=== PATIENT | female | born 1945 | race Caucasian/White ===

== ENCOUNTER 2021-07-01 13:18 | Emergency (ER) | payer MEDICARE, SELFPAY ==
[2021-07-01 13:30] VITALS: BP 139/76; PULSE 103; RESP 16; TEMP 37.7; O2SAT 98
--- NOTE | 2021-07-01 13:31 | ED.SKABFB ---
HPI - Skin/Abscess/Foreign Bdy General Chief complaint: Skin/Abscess/Foreign Body Stated complaint: left hand cut poss infection Time Seen by Provider: 07/01/21 14:08 Source: patient and RN notes reviewed Mode of arrival: ambulatory Limitations: no limitations History of Present Illness HPI narrative: 76-year-old female presents with concern for pain, redness, swelling to her left hand where she had a cut on of last week. Reports she has been using peroxide, warm water, Neosporin without relief. She denies decreased sensation, strength, range of motion. MD complaint: other (wound) Related Data Home Medications Medication Instructions Recorded Confirmed alprazolam 0.5 mg PO BID PRN 07/01/21 07/01/21 duloxetine 30 mg PO BID 07/01/21 07/01/21 escitalopram oxalate 20 mg PO DAILY 07/01/21 07/01/21 levothyroxine [Euthyrox] 150 mcg PO DAILY 07/01/21 07/01/21 meloxicam 15 mg PO DAILY 07/01/21 07/01/21 potassium chloride 30 meq PO DAILY 07/01/21 07/01/21 Allergies Allergy/AdvReac Type Severity Reaction Status Date / Time alendronate sodium Allergy Unknown Unknown Verified 07/01/21 13:41 codeine Allergy Unknown Unknown Verified 07/01/21 13:41 meperidine Allergy Unknown Unknown Verified 07/01/21 13:41 morphine Allergy Unknown Unknown Verified 07/01/21 13:41 Review of Systems Review of Systems: CONSTITUTIONAL: Denies malaise, chills, sweats, or fever. SKIN: Reports redness, swelling, tenderness below the first digit of the right hand MUSCULOSKELETAL: Denies joint pain or myalgia. NEUROLOGIC: Denies headache. All systems reviewed & are unremarkable except as noted in HPI and below PMFSH Family History Family History (Updated 09/20/12 @ 14:36 by DOCTOR UNKNOWN) Other Depression Family history of alcoholism Family history of glaucoma Family history of hearing loss Family history of thyroid disease Social History Social History Smoking status: Never smoker Alcohol intake: current Comments At time of signature, agree with nursing past medical, surgical, social and family history. There is no relevant family history pertinent to the presenting complaint Exam Narrative: GENERAL: Well-appearing, well-nourished, and in no acute distress. HEAD: Normocephalic, atraumatic. EYES: PERRLA, conjunctivae clear ENT: Mucous membranes moist. NECK: Supple. No lymphadenopathy CHEST: Clear to auscultation. No respiratory distress. HEART: Regular rate and rhythm. SKIN: Warm, dry. Induration, erythema, tenderness, warmth noted below the first digit on right hand approximately 4 cm x 2 cm, no open skin NEURO: Alert and oriented x3. PSYCH: Normal mood and affect Course Course Emergency Course: Patient is aware of diagnosis, understands and agrees to treatment plan. Anticipatory guidance given. Patient agrees to follow-up as directed and is aware of reasons to seek care at the emergency department. Portions of this record may have been created with voice recognition software Level of Care: Express Care Visit Vital Signs Vital signs: Reviewed. MDM - Skin/Abscess/Foreign Bdy MDM Narrative Medical decision making narrative: Exam findings show no acute concerns or changes; patient is non-toxic appearing and is in no distress. Patient is appropriate for outpatient treatment and follow-up. Critical Care Time Critical Care Time Critical Care Time: No Discharge Plan Discharge Clinical Impression: Cellulitis Qualifiers: Site of cellulitis: extremity Site of cellulitis of extremity: upper extremity Laterality: right Qualified Code(s): L03.113 - Cellulitis of right upper limb Patient Disposition: Home, Self-Care Condition: Stable Instructions: Antibiotic Form, Cellulitis (ED) Additional Instructions: Please follow up with your Primary Care Doctor within 48-72 hours - call for an appointment. Rest and elevate affected area; apply moist heat 3-4 times daily for 10-15 minutes. Take Motrin 600mg every 8 ho
== END 2021-07-01 14:24 | disposition home or self-care (01) ==
PROVIDERS: Emergency Provider Nurse Practitioner; PCP Family Medicine
DX: L03.113 Cellulitis of right upper limb (principal); E03.9 Hypothyroidism, unspecified; Z86.16 Personal history of COVID-19
CPT/HCPCS: 99203; G0463

== ENCOUNTER 2022-09-10 12:08 | Outpatient (NON) | payer MEDICARE, SELFPAY ==
[2022-09-10 12:18] LABS: Appearance Urine Cloudy (Clear); Bilirubin Urine Negative (Negative); Blood Urine Negative (Negative); Color Urine Light Yellow (Yellow); Glucose Urine UA Negative (Negative); Ketones Urine Negative (Negative); Leukocyte Esterase Ur 1+ (Negative); Nitrate Urine Positive (Negative); Protein Urine Negative (Negative); Urobilinogen Urine 0.2 mg/dL (0.2-1.0)
[2022-09-10 13:31] LABS: Add Urine Microscopic? YES; RBC Urine None seen /hpf (0-2); Squamous Epithelial Cell Urine Rare /hpf (Few); WBC Clumps Urine Present /hpf; WBC Urine 21-30 /hpf (0-3)
[2022-09-10 13:32] LABS: Bacteria Urine 4+ /hpf
== END 2022-09-10 12:09 | disposition home or self-care (01) ==
PROVIDERS: PCP Family Medicine; Visit Provider Nurse Practitioner Family
DX: D22.9 Melanocytic nevi, unspecified (principal)
CPT/HCPCS: 81001; 88305

== ENCOUNTER 2022-09-11 08:30 | Outpatient (CLI) | payer MEDICARE, SELFPAY ==
[2022-09-11 08:43] LABS: Hematocrit 42.9 % (35.0-42.0); Hemoglobin 14.3 g/dL (11.7-13.8); Mean Corpuscular HGB Conc 33.3 g/dL (32.0-36.0); Mean Corpuscular Hemoglobin 31.7 pg (27.0-31.0); Mean Corpuscular Volume 95.1 fL (78.0-102.0); Mean Platelet Volume 10.7 fl (9.2-11.8); Platelet Count Result 257 K/mm3 (150-420); Red Blood Count 4.51 M/mm3 (4.20-5.40); Red Cell Distribution Width 12.2 % (11.6-14.4); White Blood Count 4.2 K/mm3 (4.8-10.8)
[2022-09-11 09:17] LABS: Alanine Aminotransferase 27 U/L (14-59); Albumin Level 3.8 g/dL (3.4-5.0); Alkaline Phosphatase 61 U/L (46-116); Anion Gap 8 mmol/L (8-16); Aspartate Amino Transferase 19 U/L (15-37); Bilirubin,Total 0.8 mg/dL (0.00-1.00); Blood Urea Nitrogen 13 mg/dL (7-18); Calcium 8.6 mg/dL (8.5-10.1); Carbon Dioxide 31 mmol/L (21-32); Chloride 110 mmol/L (98-108); Estimated Glomerular Filt Rate > 60; Glucose 88 mg/dL (70-99); Osmolality Calculated 307 mOsm/kg (285-295); Potassium 4.1 mmol/L (3.5-5.1); Sodium 149 mmol/L (136-145); Total Protein 6.6 g/dL (6.4-8.2)
== END 2022-09-11 08:31 | disposition home or self-care (01) ==
LOC: CHSLAB 08:32
PROVIDERS: PCP Family Medicine; Visit Provider Nurse Practitioner Family
DX: N39.0 Urinary tract infection, site not specified (principal)
CPT/HCPCS: 36415; 80053; 85027

== ENCOUNTER 2022-10-01 08:14 | Outpatient (CLI) | payer MEDICARE, SELFPAY ==
[2022-10-01 08:27] LABS: Basophils Absolute Auto 0.03 K/mm3 (0.00-0.10); Basophils Percent Auto 0.6 % (0.0-1.0); Eosinophils Absolute Auto 0.14 K/mm3 (0.02-0.50); Eosinophils Percent Auto 2.7 % (1.0-6.0); Hematocrit 44.5 % (35.0-42.0); Hemoglobin 14.9 g/dL (11.7-13.8); Immature Granulocyte Absolute 0.02 K/mm3 (0.00-0.00); Immature Granulocyte Percent A 0.4 % (0.0-0.0); Lymphocytes Absolute Auto 1.52 K/mm3 (1.10-4.50); Mean Corpuscular HGB Conc 33.5 g/dL (32.0-36.0); Mean Corpuscular Hemoglobin 32.1 pg (27.0-31.0); Mean Corpuscular Volume 95.9 fL (78.0-102.0); Mean Platelet Volume 10.4 fl (9.2-11.8); Monocytes Absolute Auto 0.38 K/mm3 (0.10-0.90); Monocytes Percent Auto 7.3 % (2.0-11.0); Neutrophils Absolute Auto 3.2 K/mm3 (1.7-7.2); Platelet Count Result 273 K/mm3 (150-420); Red Blood Count 4.64 M/mm3 (4.20-5.40); Red Cell Distribution Width 12.1 % (11.6-14.4); White Blood Count 5.2 K/mm3 (4.8-10.8)
[2022-10-01 08:46] LABS: Alanine Aminotransferase 27 U/L (14-59); Albumin Level 3.7 g/dL (3.4-5.0); Alkaline Phosphatase 76 U/L (46-116); Anion Gap 6 mmol/L (8-16); Aspartate Amino Transferase 19 U/L (15-37); Bilirubin,Total 0.6 mg/dL (0.00-1.00); Blood Urea Nitrogen 13 mg/dL (7-18); Calcium 8.9 mg/dL (8.5-10.1); Carbon Dioxide 33 mmol/L (21-32); Chloride 106 mmol/L (98-108); Cholesterol 218 mg/dL (0-200); Estimated Glomerular Filt Rate > 60; Glucose 89 mg/dL (70-99); HDL Direct 56 mg/dL (40-60); LDL Cholesterol Calculated 139 mg/dL (<130); Osmolality Calculated 299 mOsm/kg (285-295); Potassium 3.7 mmol/L (3.5-5.1); Sodium 145 mmol/L (136-145); Total Protein 7.1 g/dL (6.4-8.2); Triglycerides 114 mg/dL (0-150)
[2022-10-06 13:41] LABS: Vitamin D 25 Hydroxy 45 ng/mL (30-100)
== END 2022-10-01 08:15 | disposition home or self-care (01) ==
LOC: CHSLAB 08:16
PROVIDERS: PCP Nurse Practitioner Family; Visit Provider Nurse Practitioner Family
DX: E55.9 Vitamin D deficiency, unspecified (principal); E78.5 Hyperlipidemia, unspecified; Z82.49 Family history of ischemic heart disease and other diseases of the circulatory system; N39.0 Urinary tract infection, site not specified
CPT/HCPCS: 36415; 80053; 80061; 82306; 85025

== ENCOUNTER 2023-01-06 13:25 | Outpatient (CLI) | payer MEDICARE, SELFPAY ==
--- NOTE | ~2023-01-06 | CT_ITS ---
EXAMINATION: CT abdomen pelvis w con DATE: 01/06/2023 13:51 INDICATION: Left lower quadrant abdominal pain for 6 weeks. Nausea, diarrhea. TECHNIQUE: Computed tomography (CT) of the abdomen and pelvis was performed with 100 CC Omnipaque 350 intravenous contrast. Automated exposure control and iterative reconstruction technique were employe d. Exam dose: 684.44 mGy-cm total exam DLP. COMPARISON: None. FINDINGS: Bilateral discoid atelectasis or scarring at the lung bases. No consolidation is noted. Normal heart size. No pericardial or pleural effusion. Status post cholecystectomy. A couple of approximately 7 and 9 mm probable hepatic cysts are noted. T he liver, spleen, pancreas, adrenal glands and kidneys are otherwise unremarkable, with exception of a probable 4 mm upper pole right renal cyst. No bile duct or pancreatic duct dilatation. No urinary tract calculus or hydroureteronephrosis. There is atherosclerotic calcification of the abdominal aorta but no abdominal aortic aneurysm or dis section. No intraperitoneal or retroperitoneal or pelvic mass lesion or adenopathy or ascites. Approximately 4.5 x 5.1 cm left pelvic cystic lesion and 2.5 x 3 cm right pelvic cystic lesion, likel y ovarian cysts. The uterus is absent. The urinary bladder is unremarkable. There is circumferential soft tissue thickening of the proximal transverse colon approximately 3.5 cm length, with an apple core stricture, suggesting proximal transverse colon adenocarcinoma. Colonosco py or barium enema workup are recommended. Degenerative spurring of the thoracic spine. Dextroscoliosis and multilevel degenerative disc disease of the lumbar spine, most severe at L4-5 and L5-S1. IMPRESSION: Bilateral ovarian cysts Small probable hepatic cysts Circumferential soft tissue thickening and suggestion of apple core lesion at proximal transverse col on, suggesting adenocarcinoma the colon. Colonoscopy or barium enema are recommended. On 01/06/[address] Calixto telephoned the report and specifically possible adenocarcinoma of the proximal transverse colon and suggestion of colonoscopy or barium enema workup to Dr. Connelly's nurse practitioner Kimberley. Reviewed, dictated and finalized at [facility] Reviewed, dictated and finalized at [facility] IMPRESSION: Bilateral ovarian cysts Small probable hepatic cysts Circumferential soft tissue thickening and suggestion of apple core lesion at p roximal transverse colon, suggesting adenocarcinoma the colon. Colonoscopy or b arium enema are recommended. On 01/06/[address] Calixto telephoned the report and specifically poss ible adenocarcinoma of the proximal transverse colon and suggestion of colonosc opy or barium enema workup to Dr. Connelly's nurse practitioner Kimberley.
[2023-01-06 13:46] LABS: Estimated Glomerular Filt Rate > 60
== END 2023-01-06 13:26 | disposition home or self-care (01) ==
LOC: ANHIMG 13:29
PROVIDERS: Visit Provider Urology
DX: R10.32 Left lower quadrant pain (principal); N83.201 Unspecified ovarian cyst, right side; N83.202 Unspecified ovarian cyst, left side
CPT/HCPCS: 74177; Q9967

== ENCOUNTER 2023-06-24 03:48 | Day surgery (SDC) | payer MEDICARE, SELFPAY ==
--- NOTE | 2023-06-22 10:55 | SUR.PREOP ---
Patient called regarding upcoming procedure. Message left on pt's voicemail regarding appointment times.
--- NOTE | 2023-06-23 17:50 | PM.HPGS ---
History of Present Illness History of Present Illness Consent: Risks, benefits, and alternatives have been discussed and questions answered. Patient agrees to proceed with procedure. Chief complaint: Right upper quadrant abdom.tenderness,Dysphagia Narrative: Amaris Durant is a 78 year old female With her having difficulty with dysphagia. She had difficulty swallowing with both liquids and solids. About 7 years ago she had an EGD with removal of 2 esophageal polyps after which she states her swallowing issues had improved. Review of Systems Review of Systems: All systems reviewed & are unremarkable except as noted in HPI and below PMFSH Past Medical History Medical History Abdominal tenderness, RUQ (right upper quadrant) Anxiety and depression Colon cancer screening Dysphagia Liver lesion Polyp of esophagus Surgical History Surgical History History of bladder suspension procedure Hx of cholecystectomy Family History Family History Other Depression Family history of alcoholism Family history of glaucoma Family history of hearing loss Family history of thyroid disease Social History Social History Smoking status: Never smoker Alcohol intake: never Substance use: never Substance use type: does not use Living arrangements: with family Spiritual care concerns: No Meds Home Medications and Allergies Home Medications Medication Instructions Recorded Confirmed Type escitalopram oxalate 20 mg tablet 20 mg PO DAILY 07/01/21 06/20/23 History ascorbate calcium (vitamin C) 500 500 mg PO DAILY 09/13/22 06/20/23 History mg tablet cholecalciferol (vitamin D3) 125 125 mcg PO DAILY 09/13/22 06/20/23 History mcg (5,000 unit) tablet (Vitamin D3) melatonin 10 mg capsule 10 mg PO QHS 09/13/22 06/20/23 History vitamin E mixed 400 unit capsule 400 unit PO DAILY 09/13/22 06/20/23 History buspirone 5 mg tablet 5 mg PO BID 06/20/23 06/20/23 History carica papaya 4 tablet PO DAILY PRN REFLUX 06/20/23 06/20/23 History duloxetine 60 mg capsule,delayed 60 mg PO DAILY 06/20/23 06/20/23 History release glucosamine sulf dipot 2 cap PO DAILY 06/20/23 06/20/23 History chlr,msm,chond 550 mg-C 30 mg-evelio 1 mg capsule (Glucosamine Chondroitin) levothyroxine 112 mcg tablet 112 mcg PO DAILY 06/20/23 06/20/23 History losartan 50 mg tablet 50 mg PO DAILY 06/20/23 06/20/23 History orlistat 60 mg capsule (Jordon) 60 mg PO TIDWMEAL PRN DIET 06/20/23 06/20/23 History turmeric root extract 500 mg tablet 500 mg PO TID 06/20/23 06/20/23 History vitamin A 1 cap PO DAILY 06/20/23 06/20/23 History vitamin B complex 1 cap PO DAILY 06/20/23 06/20/23 History zinc gluconate 30 mg tablet 30 mg PO DAILY 06/20/23 06/20/23 History Allergies Allergy/AdvReac Type Severity Reaction Status Date / Time bupropion [From Wellbutrin] Allergy Severe Other Verified 06/24/23 08:31 meperidine Allergy Severe Hypotension Verified 06/24/23 08:31 alendronate sodium Allergy Intermediate Hives Verified 06/24/23 08:31 codeine Allergy Intermediate Nausea Verified 06/24/23 08:31 morphine Allergy Unknown Nausea Verified 06/24/23 08:31 Exam Const: General: alert Orientation/consciousness: patient oriented x3 Resp: Auscultation: clear to auscultation bilaterally Cardio: Rhythm: regular rhythm GI: GI Palp: Yes Soft to palpation and No Tenderness to palpation present (GI) Neuro: General: patient oriented x3 Assessment and Plan Assessment and plan (1) Dysphagia: Code(s): R13.10 - Dysphagia, unspecified Status: Acute Assessment and Plan: EGD with possible biopsy or dilatation or cautery. (2) Abdominal tenderness, RUQ (right upper quadrant): Code(s): R10.811 - Right upper quadrant ab
[2023-06-24 08:32] VITALS: BP 135/67; PULSE 67; RESP 19; TEMP 36.2; O2SAT 94
[2023-06-24] MEDS: LACTATED RINGERS 1,000 ML 150 ML IV CONT (09:15)
--- NOTE | 2023-06-24 09:58 | WPDANESEPPF ---
Anes - Initial Pre Proc Eval Procedure: Operation Date: 06/24/23 10:30 Proposed Procedures p Esophagogastroduodenoscopy - Maverick Fernández MD Date/Time: 06/24/23 09:58 Surgeon: Maverick Fernández MD Pre Op Diagnosis: Right upper quadrant abdom.tenderness,Dysphagia Patient Data Age: 78 Gender: F Height: 1.61 m Weight: 78.1 kg Last Vital Signs Temp 97.1 F L 06/24/23 08:32 Pulse 67 06/24/23 08:32 Resp 19 06/24/23 08:32 BP 135/67 06/24/23 08:32 Pulse Ox 94 06/24/23 08:32 O2 Del Method Room Air 06/24/23 08:32 Allergies Allergy/AdvReac Type Severity Reaction Status Date / Time bupropion [From Wellbutrin] Allergy Severe Other Verified 06/24/23 08:31 meperidine Allergy Severe Hypotension Verified 06/24/23 08:31 alendronate sodium Allergy Intermediate Hives Verified 06/24/23 08:31 codeine Allergy Intermediate Nausea Verified 06/24/23 08:31 morphine Allergy Unknown Nausea Verified 06/24/23 08:31 Home Medications Medication Instructions Recorded Confirmed Type escitalopram oxalate 20 mg tablet 20 mg PO DAILY 07/01/21 06/20/23 History ascorbate calcium (vitamin C) 500 500 mg PO DAILY 09/13/22 06/20/23 History mg tablet cholecalciferol (vitamin D3) 125 125 mcg PO DAILY 09/13/22 06/20/23 History mcg (5,000 unit) tablet (Vitamin D3) melatonin 10 mg capsule 10 mg PO QHS 09/13/22 06/20/23 History vitamin E mixed 400 unit capsule 400 unit PO DAILY 09/13/22 06/20/23 History buspirone 5 mg tablet 5 mg PO BID 06/20/23 06/20/23 History carica papaya 4 tablet PO DAILY PRN REFLUX 06/20/23 06/20/23 History duloxetine 60 mg capsule,delayed 60 mg PO DAILY 06/20/23 06/20/23 History release glucosamine sulf dipot 2 cap PO DAILY 06/20/23 06/20/23 History chlr,msm,chond 550 mg-C 30 mg-evelio 1 mg capsule (Glucosamine Chondroitin) levothyroxine 112 mcg tablet 112 mcg PO DAILY 06/20/23 06/20/23 History losartan 50 mg tablet 50 mg PO DAILY 06/20/23 06/20/23 History orlistat 60 mg capsule (Jordon) 60 mg PO TIDWMEAL PRN DIET 06/20/23 06/20/23 History turmeric root extract 500 mg tablet 500 mg PO TID 06/20/23 06/20/23 History vitamin A 1 cap PO DAILY 06/20/23 06/20/23 History vitamin B complex 1 cap PO DAILY 06/20/23 06/20/23 History zinc gluconate 30 mg tablet 30 mg PO DAILY 06/20/23 06/20/23 History Patient hx anesthesia problems: none Family hx anesthesia problems: none Results Review: All pre-operative results and documents have been reviewed as part of the pre-operative evaluation. [facility] Past Medical History Medical History Abdominal tenderness, RUQ (right upper quadrant) Anxiety and depression Colon cancer screening Dysphagia Liver lesion Polyp of esophagus Surgical History Surgical History History of bladder suspension procedure Hx of cholecystectomy Family History Family History Other Depression Family history of alcoholism Family history of glaucoma Family history of hearing loss Family history of thyroid disease Social History Social History Smoking status: Never smoker Alcohol intake: never Substance use: never Substance use type: does not use Living arrangements: with family Spiritual care concerns: No Anes - Eval Final PreProcedure Day of Procedure 06/24/23 09:58 Patient weight: normal Heart: regular rate and rhythm Lungs: clear to auscultation Airway: Mallampati scale class II Neurological: alert and oriented Last oral intake: >/= 8 hours ASA classification: III Emergent: no Anesthetic plan: proceed Anesthesia type and monitoring: general GIVS and standard monitoring Results Review: All pre-operative results and documents have been reviewed as part of the pre-operative evaluation. Informed Consent: The patient's anes
[2023-06-24 10:34] VITALS: BP 123/62; PULSE 63; RESP 20; O2SAT 100
[2023-06-24 10:44] VITALS: BP 123/62; PULSE 63; RESP 20; O2SAT 100
[2023-06-24 10:54] VITALS: BP 144/63; PULSE 57; RESP 16; O2SAT 100
== END 2023-06-24 11:02 | disposition home or self-care (01) ==
PROVIDERS: Visit Provider Internal Medicine Gastroenterology
PROC: 0DJ08ZZ Inspection of Upper Intestinal Tract, Via Natural or Artificial Opening Endoscopic (ICD-10-PCS; CPT 43235; principal; 2023-06-24 10:30)
DX: K21.00 Gastro-esophageal reflux disease with esophagitis, without bleeding (principal); K29.70 Gastritis, unspecified, without bleeding; K25.9 Gastric ulcer, unspecified as acute or chronic, without hemorrhage or perforation; R13.10 Dysphagia, unspecified; F41.8 Other specified anxiety disorders
CPT/HCPCS: 43239; 43450; 74177; 88305; 88342; J2704; J7120; Q9967

== ENCOUNTER 2023-06-24 07:08 | Outpatient (CLI) | payer MEDICARE, SELFPAY ==
--- NOTE | ~2023-06-24 | CT_ITS ---
CT of the Abdomen and Pelvis: Indication: Right upper quadrant pain Technique: 2.5 mm axial scans were obtained through the abdomen and pelvis following intravenous adm inistration of 100 cc of Omnipaque 350. Dose reduction technique was used on this scan by utilizing a utomated exposure control and iterative reconstruction technique. The dose-length product (DLP) was 7 13.05 mGy-cm. COMPARISON: 01/06/2023 Findings: Scans through the lung bases are unremarkable. The liver, spleen, pancreas, adrenals and kidneys are within normal limits. Cholecystectomy clips are present. There are atherosclerotic calcifications of the aorta. No lymphadenopathy. No bowel obstruction or bowel wall thickening. There is no evidence to suggest acute appendicitis. Images through the pelvis were performed. Urinary bladder unremarkable. Patient is post obstructive. 5.2 cm left adnexal cyst present. 2 cm right adnexal cyst present. No ascites. Impression: No acute abnormality seen. 5.2 cm left adnexal cyst, unchanged. 2 cm right adnexal cyst, decreased in size from prior exam. Reviewed, dictated and finalized at [facility]. MRI TECHNOLOGIST Impression: No acute abnormality seen. 5.2 cm left adnexal cyst, unchanged. 2 cm right adnexal cyst, decreased in size from prior exam.
[2023-06-24 07:34] LABS: Estimated Glomerular Filt Rate > 60
== END 2023-06-24 07:09 | disposition home or self-care (01) ==
PROVIDERS: Visit Provider Nurse Practitioner
DX: R10.11 Right upper quadrant pain (principal); K76.9 Liver disease, unspecified
CPT/HCPCS: 74177; Q9967

== ENCOUNTER 2024-11-25 16:47 | Emergency (ER) | payer MEDICARE, SELFPAY ==
--- OUTSIDE RECORDS SUMMARY | 2024-11-25 16:51 | XMS_ITS | Patient Health Record ---
Author Organization [facility] [employer] Address [address] [place] [address] Care Team Providers Care Policy Services Representative Name Role Phone Ger ROGERS, Shayne Montero Primary Care Provider Unavailable Carmen Eckert Unavailable [phone] Allergies Allergen (clinical drug ingredient) Drug/Non Drug Allergy documented on EMR Reaction Allergy Type Onset Date Status aripiprazole ARIPiprazole Unknown Drug Allergy 09/30/2023 Active meperidine Demerol Unknown Drug Allergy 09/30/2023 Activ e alendronate Fosamax Unknown Drug Allergy 09/30/2023 Acti ve Wellbutrin Unknown Drug Allergy 09/30/2023 Activ e codeine Codeine Unknown Drug Allergy 09/30/2023 Active morphine Morphine Unknown Drug Allergy 09/30/2023 Active Reason For Referral No Information Medications Medication SIG (Take, Route, Frequency, Duration) Notes Start Date End Date Status Trospium Chloride 20 MG TAKE 1 TABLET BY MOUTH TWICE DAILY Oral for 30 Days Not-Taking Losartan Potassium 50 MG TAKE 1 TABLET BY MOUTH ONCE DAILY Oral for 90 Days Active Levothyroxine Sodium 112 MCG 1 tablet in the morning on an empty stomach Oral Once a day for 90 days Active DULoxetine HCl 20 MG 1 capsule Oral Once a day for 90 days d/c 30 mg dose d/c Buspar Active Immunizations Vaccine Route Administration Date Status Comme nts Tdap Unknown 06/13/2015 Administered Pneumococcal conjugate PCV 13 Unknown 06/13/2014 Admini stered Influenza, unspecified formulation Unknown 03/13/2020 A dministered Social History Tobacco Use: Social History Observation Description Date Details (start date - stop date) Never Smoker NA - NA Sex Assigned At : Social History Observation Description Sex Assigned At Female Household Question Answer Notes Marital status: Number of adults in household: 1 Number of children in household: 0 Sexual History Question Answer Notes Had sex in the past 12 months (vaginal, oral, or anal)? No Tobacco Control (Standard) Question Answer Notes Tobacco use: Nonsmoker Additional Findings: Tobacco non-user Current no nsmoker AUDIT-C (Standard) Question Answer Notes Did you have a drink containing alcohol in the p ast year? No Points 0 Interpretation Negative Section Notes: Substance UseDo you or have you ever smoked tobacco?: Never smokerHow much tobacco do you smoke?: NoneDo you or have you ever used any other forms of tobacco or nicotine?: NoDo you or have you ever used e-cigarettes or vape?: Never used electronic cigarettesDo you or have you ever used smokeless tobacco?: Never used smokeless tobaccoHow much tobacco do you chew?: noneWhat was the date of your most recent tobacco screening?: 09/30/2023Has tobacco cessation counseling been provided?: NoWhat is your level of alcohol consumption?: NoneDo you use any illicit or recreational drugs?: NoWhich illicit or recreational drugs have you used?: noneHave you used IV drugs?: NoWhat is your level of caffeine consumption?: Moderate (Notes: takes caffeine pills to get up)Education and OccupationAre you currently in school?: NoAre you currently employed?: NoWho is your employer?: RetiredMarriage and SexualityWhat is your relationship status?: WidowedAre you sexually active?: NoHow many children do you have?: 1Home and EnvironmentAre you a caregiver?: NoDo you have any siblings?: 6Do you have smoke and carbon monoxide detectors in your home?: YesAre you passively exposed to smoke?: NoAre there any smokers in your house?: NoAre there any guns present in your home?: NoDiet and ExerciseWhat type of diet are you following?: RegularLifestyleDo you use your seat belt or car seat routinely?: YesAdvance DirectiveDo you have an advance directive?: Yes (Notes: has dnr at home)Do you have a medical power of commonwealth attorney?: YesPublic Health and TravelHave you been to an area known to be high risk for COVID-19?: NoActivities of Daily LivingAre you able to care for yourself?: YesAre you blind or do you have difficulty seeing?: NoAre you deaf or do you have serious difficulty hearing? : NoDo you have difficulty concentrating, remembering or making decisions?: NoDo you have difficulty walking or climbing stairs?: NoDo you have difficulty dressing or bathing?: NoDo you have difficulty doing errands alone?: NoAre you able to walk?: Yes: walks without restrictionsDo you have transportation difficulties?: NoOtherDrugs Abused: NoneEducation: 12Family history of heart disease?: Yes (Notes: mother had rheumatic fever, sisters)High blood pressure: NoHigh Cholesterol: NoPast steroid/HgH use?: NoGender Identity and LGBTQ IdentityGender identity: Identifies as FemaleAssigned sex at : FemaleFirst name used: GERRYSexual orientation: Straight or heterosexual Problems Problem Type SNOMED Code ICD Code Onset Dates Problem Status W/U Status Risk Notes Problem Mild recurrent major depression (19951739) Major depressive disorder, recurrent, mild (F33.0) 4 Active confirmed Problem Generalized anxiety disorder (37970321) Generalized anxiety disorder (F41.1) 4 Active confirmed Problem Primary insomnia (4820057) Primary insomnia (F51.01) 4 Active confirmed Problem Long-term current use of drug therapy (760253638) Other emt intermediate (current) drug therapy (Z79.899) 4 Active confirmed Vital Signs Heart Rate 63 /min 08/06/2024 Respiratory Rate 16 /min 08/06/2024 Blood pressure diastolic 78 mm Hg 08/06/2024 Height-cm 161.29 cm 08/06/2024 Weight-kg 82.1 kg 05/07/2024 Height 63.50 in 08/06/2024 Blood pressure systolic 128 mm Hg 08/06/2024 Weight 181.0 lbs 05/07/2024 BMI 31.56 kg/m2 05/07/2024 Encounters Encounter Location Date Provider Diagnosis [facility] [employer] [facility] [address] [place] [id number] 12/01/2023 Carmen Eckert Major depressive disorder, recurrent, mild F33.0 ; Generalized anxiety disorder F41.1 ; Primary insomnia F51.01 and Other emt intermediate (current) drug therapy Z79.899 [employer] [facility] [address] [facility] [address] [place] [address] 02/07/2024 Carmen Therdavid Major depressive disorder, recurrent, mild F33.0 ; Generalized anxiety disorder F41.1 ; Primary insomnia F51.01 and Other emt intermediate (current) drug therapy Z79.899 [facility] [employer] [facility] [address] [id number] 05/07/2024 Carmensarah Eckert Major depressive disorder, recurrent, mild F33.0 ; Generalized anxiety disorder F41.1 ; Primary insomnia F51.01 and Other emt intermediate (current) drug therapy Z79.899 [employer] [facility] [address] [id number] 08/06/2024 Carmen Therdavid Major depressive disorder, recurrent, mild F33.0 ; Generalized anxiety disorder F41.1 ; Primary insomnia F51.01 and Other emt intermediate (current) drug therapy Z79.899 [employer] [facility] [address] [address] 08/29/2024 Carmen Eckert Assessments Encounter Date Diagnosis (ICD Code) Assessment Notes Treatment Notes Treatment Clinical Notes Section Notes 12/01/2023 Major depressive disorder, recurrent, mild (ICD-10 - F33.0) Preventing Depression From Coming Back: Care Instructions material was published, Learning About Depression Screening material was published, Seasonal Affective Disorder: Care Instructions material was published, Learning About Depression material was published Mild recurrent major depression - will stop Lexapro 10 mg daily - depression and anxiety stable Cymbalta 60 mg daily educated on all medications, benefits, side effects and risk, and educated on depression, anxiety, and mood d/o and educated on compliance of medications, appointment's, continue therapy discussion with patient about course of treatment and patient instructions. F33.0: Major depressive disorder, mild stable duloxetine 60 mg capsule,delaye d release - TAKE 1 CAPSULE BY MOUTH ONCE DAILY IN THE MORNING FOR 90 DAYS Qty: (90) capsule Refills: 0 Pharmacy: [facility] #[id number] will stop escitalopram 10 mg tablet - patient want to work on decreasing rx mood stable 2. Generalized anxiety disorder -Cymbalta refer to therapy Dunia or Veronica - educated on therapy Buspar 5 mg twice a day for anxiety and depression F41.1: Generalized anxiety disorder buspirone 5 mg tablet - Take 1 tablet(s) twice a day by oral route with meals for 90 days. Qty: (180) tablet Refills: 0 Pharmacy: [facility] #[id number] 3. Primary insomnia -melatonin CPAP SLEEP STABLE F51.01: Primary insomnia 4. Long-term drug therapy Z79.899: Other jail (current) drug therapy E55.9: Vitamin D deficiency, unspecified 12/01/2023 Generalized anxiety disorder (ICD-10 - F41.1) Generalized Anxiety Disorder: Care Instructions material was published, Learning About Generalized Anxiety Disorder material was published, Learning About Anxiety Disorders material was published Mild recurrent major depression - will stop Lexapro 10 mg daily - depression and anxiety stable Cymbalta 60 mg daily educated on all medications, benefits, side effects and risk, and educated on depression, anxiety, and mood d/o and educated on compliance of medications, appointment's, continue therapy discussion with patient about course of treatment and patient instructions. F33.0: Major depressive disorder, mild stable duloxetine 60 mg capsule,delaye d release - TAKE 1 CAPSULE BY MOUTH ONCE DAILY IN THE MORNING FOR 90 DAYS Qty: (90) capsule Refills: 0 Pharmacy: [facility] #[id number] will stop escitalopram 10 mg tablet - patient want to work on decreasing rx mood stable 2. Generalized anxiety disorder -Cymbalta refer to therapy Dunia or Veronica - educated on therapy Buspar 5 mg twice a day for anxiety and depression F41.1: Generalized anxiety disorder buspirone 5 mg tablet - Take 1 tablet(s) twice a day by oral route with meals for 90 days. Qty: (180) tablet Refills: 0 Pharmacy: [facility] #[id number] 3. Primary insomnia -melatonin CPAP SLEEP STABLE F51.01: Primary insomnia 4. Long-term drug therapy Z79.899: Other jail (current) drug therapy E55.9: Vitamin D deficiency, unspecified 02/07/2024 Major depressive disorder, recurrent, mild (ICD-10 - F33.0) Preventing Depression From Coming Back: Care Instructions material was published, Learning About Depression Screening material was published, Seasonal Affective Disorder: Care Instructions material was published, Learning About Depression material was published Mild recurrent major depression - patient would like to decrease Cymbalta mood stable depression and anxiety stable decrease Cymbalta 30 mg daily educated on all medications, benefits, side effects and risk, and educated on depression, anxiety, and mood d/o and educated on compliance of medications, appointment's, continue therapy discussion with patient about course of treatment and patient instructions. stable mood stable 2. Generalized anxiety disorder -Cymbalta refer to therapy Dunia or Veronica - educated on therapy Buspar 5 mg twice a day for anxiety and depression 3. Primary insomnia -melatonin CPAP SLEEP STABLE 4. Long-term drug therapy E55.9: Vitamin D deficiency, unspecified 05/07/2024 Major depressive disorder, recurrent, mild (ICD-10 - F33.0) Preventing Depression From Coming Back: Care Instructions material was published, Learning About Depression Screening material was published, Seasonal Affective Disorder: Care Instructions material was published, Learning About Depression material was published 1 major depression - Cymbalta mood stable depression and anxiety stable Cymbalta 30 mg daily educated on all medications, benefits, side effects and risk, and educated on depression, anxiety, and mood d/o and educated on compliance of medications, appointment's, continue therapy discussion with patient about course of treatment and patient instructions. stable mood stable 2. Generalized anxiety disorder -Cymbalta refer to therapy Dunia or Veronica - educated on therapy Buspar 5 mg twice a day for anxiety and depression 3. Primary insomnia -melatonin CPAP SLEEP STABLE 4. Long-term drug therapy 05/07/2024 Generalized anxiety disorder (ICD-10 - F41.1) Generalized Anxiety Disorder: Care Instructions material was published, Learning About Generalized Anxiety Disorder material was published, Learning About Anxiety Disorders material was published 1 major depression - Cymbalta mood stable depression and anxiety stable Cymbalta 30 mg daily educated on all medications, benefits, side effects and risk, and educated on depression, anxiety, and mood d/o and educated on compliance of medications, appointment's, continue therapy discussion with patient about course of treatment and patient instructions. stable mood stable 2. Generalized anxiety disorder -Cymbalta refer to therapy Dunia or Veronica - educated on therapy Buspar 5 mg twice a day for anxiety and depression 3. Primary insomnia -melatonin CPAP SLEEP STABLE 4. Long-term drug therapy 08/06/2024 Major depressive disorder, recurrent, mild (ICD-10 - F33.0) Preventing Depression From Coming Back: Care Instructions material was published, Learning About Depression Screening material was published, Seasonal Affective Disorder: Care Instructions material was published, Learning About Depression material was published 1 major depression - Cymbalta- GDR 20 MG DAILY mood stable depression and anxiety stable patient request to GDR Cymbalta 20 mg daily educated on all medications, benefits, side effects and risk, and educated on depression, anxiety, and mood d/o and educated on compliance of medications, appointment's, continue therapy discussion with patient about course of treatment and patient instructions. stable mood stable 2. Generalized anxiety disorder -Cymbalta refer to therapy Dunia or Veronica - educated on therapy patient stopped Buspar 5 mg twice a day for anxiety and depression 3. Primary insomnia -melatonin CPAP SLEEP STABLE 4. discuss SLUMS SLUMS= 26 08/06/24- see neurologist also PATIENT DOES NOT WANT RX Long-term drug therapy 08/06/2024 Generalized anxiety disorder (ICD-10 - F41.1) Generalized Anxiety Disorder: Care Instructions material was published, Learning About Generalized Anxiety Disorder material was published, Learning About Anxiety Disorders material was published 1 major depression - Cymbalta- GDR 20 MG DAILY mood stable depression and anxiety stable patient request to GDR Cymbalta 20 mg daily educated on all medications, benefits, side effects and risk, and educated on depression, anxiety, and mood d/o and educated on compliance of medications, appointment's, continue therapy discussion with patient about course of treatment and patient instructions. stable mood stable 2. Generalized anxiety disorder -Cymbalta refer to therapy Dunia or Veronica - educated on therapy patient stopped Buspar 5 mg twice a day for anxiety and depression 3. Primary insomnia -melatonin CPAP SLEEP STABLE 4. discuss SLUMS SLUMS= 26 08/06/24- see neurologist also PATIENT DOES NOT WANT RX Long-term drug therapy 05/07/2024 Primary insomnia (ICD-10 - F51.01) Insomnia: Care Instructions material was published, Learning About Sleeping Well material was published 1 major depression - Cymbalta mood stable depression and anxiety stable Cymbalta 30 mg daily educated on all medications, benefits, side effects and risk, and educated on depression, anxiety, and mood d/o and educated on compliance of medications, appointment's, continue therapy discussion with patient about course of treatment and patient instructions. stable mood stable 2. Generalized anxiety disorder -Cymbalta refer to therapy Dunia or Veronica - educated on therapy Buspar 5 mg twice a day for anxiety and depression 3. Primary insomnia -melatonin CPAP SLEEP STABLE 4. Long-term drug therapy 02/07/2024 Generalized anxiety disorder (ICD-10 - F41.1) Generalized Anxiety Disorder: Care Instructions material was published, Learning About Generalized Anxiety Disorder material was published, Learning About Anxiety Disorders material was published Mild recurrent major depression - patient would like to decrease Cymbalta mood stable depression and anxiety stable decrease Cymbalta 30 mg daily educated on all medications, benefits, side effects and risk, and educated on depression, anxiety, and mood d/o and educated on compliance of medications, appointment's, continue therapy discussion with patient about course of treatment and patient instructions. stable mood stable 2. Generalized anxiety disorder -Cymbalta refer to therapy Dunia or Veronica - educated on therapy Buspar 5 mg twice a day for anxiety and depression 3. Primary insomnia -melatonin CPAP SLEEP STABLE 4. Long-term drug therapy E55.9: Vitamin D deficiency, unspecified 12/01/2023 Primary insomnia (ICD-10 - F51.01) Insomnia: Care Instructions material was published, Learning About Sleeping Well material was published Mild recurrent major depression - will stop Lexapro 10 mg daily - depression and anxiety stable Cymbalta 60 mg daily educated on all medications, benefits, side effects and risk, and educated on depression, anxiety, and mood d/o and educated on compliance of medications, appointment's, continue therapy discussion with patient about course of treatment and patient instructions. F33.0: Major depressive disorder, mild stable duloxetine 60 mg capsule,delaye d release - TAKE 1 CAPSULE BY MOUTH ONCE DAILY IN THE MORNING FOR 90 DAYS Qty: (90) capsule Refills: 0 Pharmacy: [facility] #[id number] will stop escitalopram 10 mg tablet - patient want to work on decreasing rx mood stable 2. Generalized anxiety disorder -Cymbalta refer to therapy Dunia or Veronica - educated on therapy Buspar 5 mg twice a day for anxiety and depression F41.1: Generalized anxiety disorder buspirone 5 mg tablet - Take 1 tablet(s) twice a day by oral route with meals for 90 days. Qty: (180) tablet Refills: 0 Pharmacy: [facility] #[id number] 3. Primary insomnia -melatonin CPAP SLEEP STABLE F51.01: Primary insomnia 4. Long-term drug therapy Z79.899: Other jail (current) drug therapy E55.9: Vitamin D deficiency, unspecified 12/01/2023 Other emt intermediate (current) drug therapy (ICD-10 - Z79.899) Medication Refill: Care Instructions material was published Mild recurrent major depression - will stop Lexapro 10 mg daily - depression and anxiety stable Cymbalta 60 mg daily educated on all medications, benefits, side effects and risk, and educated on depression, anxiety, and mood d/o and educated on compliance of medications, appointment's, continue therapy discussion with patient about course of treatment and patient instructions. F33.0: Major depressive disorder, mild stable duloxetine 60 mg capsule,delaye d release - TAKE 1 CAPSULE BY MOUTH ONCE DAILY IN THE MORNING FOR 90 DAYS Qty: (90) capsule Refills: 0 Pharmacy: [facility] #[id number] will stop escitalopram 10 mg tablet - patient want to work on decreasing rx mood stable 2. Generalized anxiety disorder -Cymbalta refer to therapy Dunia or Veronica - educated on therapy Buspar 5 mg twice a day for anxiety and depression F41.1: Generalized anxiety disorder buspirone 5 mg tablet - Take 1 tablet(s) twice a day by oral route with meals for 90 days. Qty: (180) tablet Refills: 0 Pharmacy: [facility] #[id number] 3. Primary insomnia -melatonin CPAP SLEEP STABLE F51.01: Primary insomnia 4. Long-term drug therapy Z79.899: Other emt intermediate (current) drug therapy E55.9: Vitamin D deficiency, unspecified 02/07/2024 Primary insomnia (ICD-10 - F51.01) Insomnia: Care Instructions material was published, Learning About Sleeping Well material was published Mild recurrent major depression - patient would like to decrease Cymbalta mood stable depression and anxiety stable decrease Cymbalta 30 mg daily educated on all medications, benefits, side effects and risk, and educated on depression, anxiety, and mood d/o and educated on compliance of medications, appointment's, continue therapy discussion with patient about course of treatment and patient instructions. stable mood stable 2. Generalized anxiety disorder -Cymbalta refer to therapy Dunia or Veronica - educated on therapy Buspar 5 mg twice a day for anxiety and depression 3. Primary insomnia -melatonin CPAP SLEEP STABLE 4. Long-term drug therapy E55.9: Vitamin D deficiency, unspecified 05/07/2024 Other emt intermediate (current) drug therapy (ICD-10 - Z79.899) Medication Refill: Care Instructions material was published 1 major depression - Cymbalta mood stable depression and anxiety stable Cymbalta 30 mg daily educated on all medications, benefits, side effects and risk, and educated on depression, anxiety, and mood d/o and educated on compliance of medications, appointment's, continue therapy discussion with patient about course of treatment and patient instructions. stable mood stable 2. Generalized anxiety disorder -Cymbalta refer to therapy Dunia or Veronica - educated on therapy Buspar 5 mg twice a day for anxiety and depression 3. Primary insomnia -melatonin CPAP SLEEP STABLE 4. Long-term drug therapy 08/06/2024 Primary insomnia (ICD-10 - F51.01) Insomnia: Care Instructions material was published, Learning About Sleeping Well material was published 1 major depression - Cymbalta- GDR 20 MG DAILY mood stable depression and anxiety stable patient request to GDR Cymbalta 20 mg daily educated on all medications, benefits, side effects and risk, and educated on depression, anxiety, and mood d/o and educated on compliance of medications, appointment's, continue therapy discussion with patient about course of treatment and patient instructions. stable mood stable 2. Generalized anxiety disorder -Cymbalta refer to therapy Dunia or Veronica - educated on therapy patient stopped Buspar 5 mg twice a day for anxiety and depression 3. Primary insomnia -melatonin CPAP SLEEP STABLE 4. discuss SLUMS SLUMS= 26 08/06/24- see neurologist also PATIENT DOES NOT WANT RX Long-term drug therapy 08/06/2024 Other emt intermediate (current) drug therapy (ICD-10 - Z79.899) Medication Refill: Care Instructions material was published 1 major depression - Cymbalta- GDR 20 MG DAILY mood stable depression and anxiety stable patient request to GDR Cymbalta 20 mg daily educated on all medications, benefits, side effects and risk, and educated on depression, anxiety, and mood d/o and educated on compliance of medications, appointment's, continue therapy discussion with patient about course of treatment and patient instructions. stable mood stable 2. Generalized anxiety disorder -Cymbalta refer to therapy Dunia or Veronica - educated on therapy patient stopped Buspar 5 mg twice a day for anxiety and depression 3. Primary insomnia -melatonin CPAP SLEEP STABLE 4. discuss SLUMS SLUMS= 26 08/06/24- see neurologist also PATIENT DOES NOT WANT RX Long-term drug therapy 02/07/2024 Other jail (current) drug therapy (ICD-10 - Z79.899) Medication Refill: Care Instructions material was published Mild recurrent major depression - patient would like to decrease Cymbalta mood stable depression and anxiety stable decrease Cymbalta 30 mg daily educated on all medications, benefits, side effects and risk, and educated on depression, anxiety, and mood d/o and educated on compliance of medications, appointment's, continue therapy discussion with patient about course of treatment and patient instructions. stable mood stable 2. Generalized anxiety disorder -Cymbalta refer to therapy Dunia or Veronica - educated on therapy Buspar 5 mg twice a day for anxiety and depression 3. Primary insomnia -melatonin CPAP SLEEP STABLE 4. Long-term drug therapy E55.9: Vitamin D deficiency, unspecified 12/01/2023 Other . Mild recurrent major depression - will stop Lexapro 10 mg daily - depression and anxiety stable Cymbalta 60 mg daily educated on all medications, benefits, side effects and risk, and educated on depression, anxiety, and mood d/o and educated on compliance of medications, appointment's, continue therapy discussion with patient about course of treatment and patient instructions. F33.0: Major depressive disorder, recurrent, mildstableduloxetine 60 mg capsule,delayed release - TAKE 1 CAPSULE BY MOUTH ONCE DAILY IN THE MORNING FOR 90 DAYS Qty: (90) capsule Refills: 0 Pharmacy: [facility] #[id number] stop escitalopram 10 mg tablet - patient want to work on decreasing rx mood stable 2. Generalized anxiety disorder -Cymbalta refer to therapy Dunia or Veronica - educated on therapy Buspar 5 mg twice a day for anxiety and depression F41.1: Generalized anxiety disorderANXIETY DISORDER: CARE INSTRUCTIONSbuspirone 5 mg tablet - Take 1 tablet(s) twice a day by oral route with meals for 90 days. Qty: (180) tablet Refills: 0 Pharmacy: [facility] #[id number] 3. Primary insomnia -melatoninhas CPAPSLEEP KWXSRKV18.01: Primary insomnia 4. Long-term drug fqixymbM32.899: Other emt intermediate (current) drug therapy E55.9: Vitamin D deficiency, unspecified , Duloxetine Delayed Release Oral Capsule 60 mg (DULOXETINE - ORAL) material was published, Buspirone Oral Tablet (BUSPIRONE - ORAL) material was published Mild recurrent major depression - will stop Lexapro 10 mg daily - depression and anxiety stable Cymbalta 60 mg daily educated on all medications, benefits, side effects and risk, and educated on depression, anxiety, and mood d/o and educated on compliance of medications, appointment's, continue therapy discussion with patient about course of treatment and patient instructions. F33.0: Major depressive disorder, mild stable duloxetine 60 mg capsule,delaye d release - TAKE 1 CAPSULE BY MOUTH ONCE DAILY IN THE MORNING FOR 90 DAYS Qty: (90) capsule Refills: 0 Pharmacy: [facility] #[id number] will stop escitalopram 10 mg tablet - patient want to work on decreasing rx mood stable 2. Generalized anxiety disorder -Cymbalta refer to therapy Dunia or Veronica - educated on therapy Buspar 5 mg twice a day for anxiety and depression F41.1: Generalized anxiety disorder buspirone 5 mg tablet - Take 1 tablet(s) twice a day by oral route with meals for 90 days. Qty: (180) tablet Refills: 0 Pharmacy: [facility] #[id number] 3. Primary insomnia -melatonin CPAP SLEEP STABLE F51.01: Primary insomnia 4. Long-term drug therapy Z79.899: Other jail (current) drug therapy E55.9: Vitamin D deficiency, unspecified 08/06/2024 Other referral to the local chapter or national office of the Alzheimer's Association ( ; http://www.alz.org), the Alzheimer's Disease Education and Referral Center (ADEAR) ( ; http://www.[place].nih.gov/ Alzheimers/), Notes: referral to the local chapter or national office of the Alzheimer's Association ( ; http://www.alz.org), the Alzheimer's Disease Education and Referral Center (ADEAR) ( ; http://www.[place].nih.gov/ Alzheimers/), 1 major depression - Cymbalta- GDR 20 MG DAILY mood stable depression and anxiety stable patient request to GDR Cymbalta 20 mg daily educated on all medications, benefits, side effects and risk, and educated on depression, anxiety, and mood d/o and educated on compliance of medications, appointment's, continue therapy discussion with patient about course of treatment and patient instructions. stable mood stable 2. Generalized anxiety disorder -Cymbalta refer to therapy Dunia or Veronica - educated on therapy patient stopped Buspar 5 mg twice a day for anxiety and depression 3. Primary insomnia -melatonin CPAP SLEEP STABLE 4. discuss SLUMS SLUMS= 26 08/06/24- see neurologist also PATIENT DOES NOT WANT RX Long-term drug therapy Plan Of Treatment Next Appt Details Provider Name:Carmen Eckert , 12/11/2024 01:15:00 PM, [address] [facility] [address], [facility] [place], [address], Insurance Providers Payer Name Payer Address Payer Phone Subscriber Number Group Number Insured Name Patient Relationship to Insured Coverage Start Date Coverage End Date [place] [address] [facility] [place] [phone] [id number] ZULEMA CONTI Self - patient is the insured [facility] [employer] [place] Medicare Supplement [address] [address] [place] [address] [id number] ZULEMA CONTI Self - patient is the insured Medical (General) History Medical History History ICD Code Problems: Generalized anxiety disorder Long-term drug therapy Mild recurrent major depression Moderate recurrent major depression Primary insomnia Prolonged grief disorder Severe recurrent major depression Vitamin D deficiency , Surgical History Surgery Date(Month/Year) Wrist repair (005320547) Cholecystostomy (74715429) Breast reduction (95929) Procedure on back (786602292) Tonsillectomy (394005064) Thyroidectomy (07517604) Unlisted px hands/fingers (73395) Procedure on ear (931394832) Hysterectomy (849187017)
--- OUTSIDE RECORDS SUMMARY | 2024-11-25 16:51 | XMS_ITS | Encounter Summary ---
Author Organization [facility] Address [address] [place] [address] Care Team Providers Care Icebox Worker Name Role Phone BabarCarmen LINNETTE Unavailable [phone] Geetha Obrien NP Unavailable [phone] Nini Sheehan DO Primary Care Provider + [phone] Darwin Bejarano MD Unavailable Shayne Cyr MD Primary Care Provider Cesar Smith MD Unavailable [phone] Lucy Olivera NP Unavailable [phone] Sandy Alejandro MD Unavailable [phone] Jeannette Lang MD Unavailable Tee Connelly MD Unavailable [phone] Winston Banuelos MD Unavailable [phone] Teddy Butts MD Unavailable [phone] Luci Mcgregor MD Unavailable [phone] Cesar Smith MD Unavailable [phone] Doreen Strong NP Primary Care Provider Hammad Melendrez RN Unavailable [phone] Encounter Details Date Type Department Care Team (Late st Contact Info) Description 03/22/2022 Telephone [facility] [address] [place] [address] Olinda Reinoso, RT Social History Tobacco Use Types Packs/Day Years Used Date Smoking Tobacco: Never Smokeless Tobacco: Never Alcohol Use Standard Drinks/Week Comments No 0 (1 standard drink = 0.6 oz pur e alcohol) AUDIT-C Answer Date Recorded Q1: How often do you have a drink containing alc ohol? 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 Gender Identity Female 08/24/2021 12:33 PM CDT Sexual Orientation Not on file documented as of this encounter Plan of Treatment Not on file documented as of this encounter Visit Diagnoses Not on filedocumented in this encounter Care Teams Icebox Worker Relationship Specialty Start Date End Date Nini Sheehan DO [address] [facility] [place] [address] PCP - General Family Medicine 01/13/21 12/19/22 Shayne Cyr MD [address] [address] [facility] [address] [place] [address] PCP - General Family Medicine 08/04/23 09/16/24 Doreen Strong NP [address] [place] [address] [place] [address] PCP - General Family Medicine 09/17/24 Carmen Eckert NP [address] [facility] [address] [place] [address] Nurse Practitioner Psychiatry 09/08/20 Geetha Obrien, LOGISTICS ANALYST [address] [facility] 2 [place] [address] Nurse Practitioner Obstetrics and Gynecology 09/08/20 12/27/22 Darwin Bejarano MD [address] Barber [facility] 2 [facility] 2 [place] [address] Referring Physician Endocrinology 03/01/22 Cesar Smith MD [address] Barber [facility] 2 [facility] 2 [place] [address] Consulting Physician Anesthesiology 08/08/23 Lucy Olivera, LOGISTICS ANALYST 2 [facility] [address] [place] [address] Anesthesiology 08/09/23 Sandy Alejandro MD [address] [facility] [address] [place] [address] Consulting Physician Cardiology 08/22/23 Jeannette Lang MD [address] [facility] [address] ANNETTE Mcmanus [address] [address] Consulting Physician Neurology 08/22/23 [place] [address] [facility] [address] [place] [address] Consulting Physician Urology 08/22/23 Winston Banuelos MD [address] [facility] [address] [facility] [place] [address] Consulting Physician Neurology 01/27/24 Teddy Butts MD [address] [facility] [address] BRYANT B [facility] [address] [place] [address] Surgeon Orthopedic Surgery 01/27/24 Luci Mcgregor MD [address] [address] Consulting Physician Otolaryngology 03/08/24 Cesar Smith MD [address] [facility] [address] [place] [address] Consulting Physician Anesthesiology 05/31/24 05/31/24 Hammad Melendrez, RN [address] [place] [address] Sheet Metal Worker Maintenance 11/20/24 documented as of this encounter
--- OUTSIDE RECORDS SUMMARY | 2024-11-25 16:51 | XMS_ITS | Patient Health Record ---
Author Organization [facility] Address [address] [place], [place] [address] Care Team Providers Care Loss Prevention Investigator Name Role Phone Becka Lam Unavailable [phone] Reason For Referral No Information Problems Problem Type SNOMED Code ICD Code Onset Dates Problem Status W/U Status Risk Notes Problem Trochanteric bursitis of right hip (554279439380599 ) Trochanteric bursitis, right hip (M70.61) Active confirmed Problem Trochanteric bursitis of left hip (591356135707297 ) Trochanteric bursitis, left hip (M70.62) Active confirmed Problem Sacroiliitis (88953373) Sacroiliitis (M46.1) Active confirmed Plan Of Treatment No Information Insurance Providers Payer Name Payer Address Payer Phone Subscriber Number Group Number Insured Name Patient Relationship to Insured Coverage Start Date Coverage End Date Medicare [address] [place] [phone] [id number] Amaris Durant Self - patient is the insured [facility] [address] [place], [place] [phone] [id number] Amaris Durant Self - patient is the insured 0 [phone]
--- OUTSIDE RECORDS SUMMARY | 2024-11-25 16:51 | XMS_ITS | Continuity of Care Document ---
Author Organization [facility] Address [address] [place] [address] Phone Care Team Providers Care Project Architect Name Role Phone Dianne Reyes Unavailable Unavailabl e Allergies, Adverse Reactions, Alerts Substance Reaction Status Criticality codeine nausea Active No Information morphine nausea Active No Information alendronate sodium hives Active No Inform ation PRESERVATIVE FREE Altered Heart Rate Active No I nformation MEPERIDINE HCL Altered Heart Rate Active No Info rmation Medications Medication Instructions Dosage Effective Dates (start - stop) Status Comments Colace 100 mg capsule take 2 capsule by oral route every day at bedtime - Active ranitidine 300 mg tablet take 1 tablet by oral route every day at bedtime - Active omeprazole 20 mg capsule,delayed release take 1 capsule by oral route every day 30 minutes to 1 hour before a meal 20 MG - Active Procedures Procedure Date Offic/outpt E&m Estab [facility] [place] 2 17 Offic/outpt E&m Estab [facility] [place] 2 17 Offic/outpt E&m Estab [facility] [place] 2 16 Ugi Endoscopy Offic/outpt E&m [facility] 45 6 Advance Directives Directive Yes / No Effective Date File Name Other Directive No N/A N/A WARNING:The information contained in this section is historical and is provided for information only and does not constitute a legal document or any assurance that the information is still accurate. Please verify the information with the martinez of the legal document before using it for clinical purposes. Encounters Encounter Description Practice Location Reason(s) For Visit Diagnoses Date Provider Providers Copied on Encounter Offic/outpt E&m [facility]ab [facility] 2 [facility] s, [address] [facility] [place], [place], [id number] , [place] tel:[phone] [facility] follow up (chief complaint) GERD w/o esophagitisPersonal history of colonic polypsFamily history of malignant neoplasm of digestive organsSlow transit constipation 7 Lai Dean. [address] [place] [id number], [place], [id number] , [place]. tel:[phone] Referring Provider: Jeremy DOMINGO, [address], [place], [address]. tel:[phone] Offic/outpt E&m Est[facility] 2 [facility] s, [address] [facility] [place], [place], [place], [id number] , [place] tel:[phone] [facility] follow up (chief complaint) GERD with esophagitisSlow transit constipationPersonal history of colonic polypsFamily history of malignant neoplasm of digestive organsHypothyroidism, unspecifiedDyspepsiaN ausea 7 [place] , [place]. Referring Provider: Jeremy DOMINGO, [address], [place], [address]. tel:[phone] Offic/outpt E&m [facility] 2 [facility] s, [address] [facility] [place], [place], [id number] , [place] tel:[phone] [facility] follow up (chief complaint) GERD with esophagitisSlow transit constipationPersonal history of colonic polypsFamily history of malignant neoplasm of digestive organs Sep-2 0 6 [place]. , [place]. Referring Provider: Jeremy DOMINGO, [address], [place], [address]. tel:[phone] [facility] s, [address] [facility] [place] [facility], [place], [place], [id number] , [place] tel:[phone] [facility] No Information Feb-0 6 6 [place]. , [place]. Referring Provider: Jeremy DOMINGO, [address], [place], [address]. tel:[phone] Offic/outpt E&m [facility] s, [address], [place], [place], [id number] , tel:[phone] JESUS Lyle multiple GI issues (chief complaint) Dysphagia, pharyngoesophageal phaseGERD w/o esophagitisSlow transit constipationPersonal history of colonic polypsFamily history of malignant neoplasm of digestive organs [place], [place]. Referring Provider: Jeremy DOMINGO, [address], [place], [address]. tel:[phone] Family History Family Member Type Diagnosis Age At Onset Problem (finding) Family history of Colon polyps Problem (finding) No family history of Ca ncer, colon Problem (finding) Family history of Thyro id disorder Problem (finding) Family history of mouth Problem (finding) Family history of Obesi ty Problem (finding) Family history of alcoh olism Payers Payer name Insurance type Covered democrat ID Authoriza tion(s) Medicare Claims Administrators [id number] [facility] [place] [facility] [id number] Social History Type Description Quantity Date Captured Comments Alcohol Use Details No Caffeine Use Details Tobacco Use Status No Information Smoking Status Never smoker Sex Female Vital Signs Date / Time: Height Weight BMI Pulse Rate Blood Pressure Temperature Respiratory Rate Body Surface Area Head Circumference Head Circ. Percentile Wt./Eric. Percentile BMI percentile Pulse Ox Inhaled Ox 8:54 AM 64.50 in 94.529 kg (208.40 lbs) 35.2 2 kg/m eter (2) 128/80 mm[Hg] Chief Complaint And Reason For Visit From encounter dated '08/25/2016 08:45'. follow up (chief complaint). Description: The patient presents today for follow up. Her acid refluxis now controlled on Omeprazole 20mg BID and Ranitidine 300mg qhs. She has not had any symptoms in over 3 weeks. She is adhering to a high fiber diet, but does not take a fiber supplement as she doesn't like the powders. She has a longstanding h/o constipation. She previously was doing aleyda r but now is having more trouble. She moves her bowels q2-3days and that is when she takes 2 colaceat bedtime. She does not take anything regularly. She does take a probiotic every day with food. She denies anorexia, weight loss, dysphagia, odynophagia, jaundice, rashes, pruritus, nausea, vomiting, fevers, chills, abdominal pain, diarrhea, melena, hematochezia, BRBPR, or early satiety.Of note, she underwent an EGD in 02/2016. Noted was erosive gastritis, esophagitis, a small hiatal hernia, and benign gastric polyps. She reports undergoing an EGD with dilation about 15 years ago which was helpful. She denies taking NSAIDs. In 12/2015, a CBC, TSH, CMP and vitamin B12 were unremarkable. Her sister was diagnosed with colon cancer in her 70s. She has tried and failed treatment with dulcolax, miralax, linzess and multiple stool softeners. She underwent a colonoscopy about 4 years ago, and states she is due to have a repeat exam in 2017. She is unable to provide further information regarding this exam, but she does report a h/o colon polyps. The patient reports a h/o gluten intolerance. CBC, CMP unremarkable 07/2016. CTAP: Moderate fatty infiltration of liver, s/p saud otherwise unremarkable from GI standpoint Reason For Referral Reason For Referral No Information Plan Of Treatment Date Type Action Status Referral Ordered: Ugi Endoscopy ordered History Of Present Illness Encounter Date Complaint History Of Prese nt Illness follow up The patient pres ents today for follow up. Her acid reflux is now controlled on Omeprazole 20mg BID and Ranitidine 300mg qhs. She has not had any symptoms in over 3 weeks. She is adhering to a high fiber diet, but does not take a fiber supplement as she doesn't like the powders. She has a longstanding h/o constipation. She previously was doing better but now is having more trouble. She moves her bowels q2-3days and that is when she takes 2 colace at bedtime. She does not take anything regularly. She does take a probiotic every day with food. She denies anorexia, weight loss, dysphagia, odynophagia, jaundice, rashes, pruritus, nausea, vomiting, fevers, chills, abdominal pain, diarrhea, melena, hematochezia, BRBPR, or early satiety.Of note, she underwent an EGD in 02/2016. Noted was erosive gastritis, esophagitis, a small hiatal hernia, and benign gastric polyps. She reports undergoing an EGD with dilation about 15 years ago which was helpful. She denies taking NSAIDs. In 12/2015, a CBC, TSH, CMP and vitamin B12 were unremarkable. Her sister was diagnosed with colon cancer in her 70s. She has tried and failed treatment with dulcolax, miralax, linzess and multiple stool softeners. She underwent a colonoscopy about 4 years ago, and states she is due to have a repeat exam in 2016. She is unable to provide further information regarding this exam, but she does report a h/o colon polyps. The patient reports a h/o gluten intolerance. CBC, CMP unremarkable 07/2016. CTAP: Moderate fatty infiltration of liver, s/p saud otherwise unremarkable from GI standpoint follow up The patient pres ents today for follow up. She underwent an EGD in 02/2016. Noted was erosive gastritis, esophagitis, a small hiatal hernia, and benign gastric polyps. A few weeks ago the patient reports having the flu which lasted about 2 weeks. Since that time she has been experiencing intermittent nausea, but no vomiting. She also reports reflux symptoms despite taking omeprazole 20mg qam and ranitidine 300mg qhs. She is scheduled to have a CT A/P tomorrow. She thinks she also had a UTI recently. She reports intermittent gas and bloating, but she is not taking a probiotic. Her swallowing has improved since her last visit, and she now denies dysphagia, regurgitation or food impactions. She reports undergoing an EGD with dilation about 15 years ago which was helpful. She denies taking NSAIDs. In 12/2015, a CBC, TSH, CMP and vitamin B12 were unremarkable. Her sister was diagnosed with colon cancer in her 70s. The patient states that her constipation has improved. She is adhering to a high fiber diet, and now reports about 1 BM per day w/o straining or hard stools. She did not take the Amitiza. She previously reported a h/o constipation, and had tried and failed treatment with dulcolax, miralax, linzess and multiple stool softeners. She underwent a colonoscopy about 4 years ago, and states she is due to have a repeat exam in 2017. She is unable to provide further information regarding this exam, but she does report a h/o colon polyps. The patient reports a h/o gluten intolerance. She will take the weight loss medication Jordon which helps with her constipation. She denies anorexia, weight loss, dysphagia, odynophagia, jaundice, rashes, pruritus, nausea, vomiting, fevers, chills, abdominal pain, diarrhea, constipation, melena, hematochezia, BRBPR or early satiety. follow up The patient pres ents today for follow up. She underwent an EGD in 02/2016. Noted was erosive gastritis, esophagitis, a small hiatal hernia, and benign gastric polyps. The patient is taking omperazole 20mg daily which mostly controls her reflux symptoms. She reports rare episodes of break through symptoms. Her swallowing has improved since her last visit, and she now denies dysphagia, regurgitation or food impactions. She reports undergoing an EGD with dilation about 15 years ago which was helpful. She did not try the ranitidine yet. She denies taking NSAIDs. In 12/2015, a CBC, TSH, CMP and vitamin B12 were unremarkable. Her sister was diagnosed with colon cancer in her 70s. The patient states that her constipation has improved. She is adhering to a high fiber diet, and now reports about 1 BM per day w/o straining or hard stools. She did not taking the Amitiza. She previously reported a h/o constipation, and had tried and failed treatment with dulcolax, miralax, linzess and multiple stool softeners. She underwent a colonoscopy about 4 years ago, and states she is due to have a repeat exam in 2017. She is unable to provide further information regarding this exam, but she does report a h/o colon polyps. The patient reports a h/o gluten intolerance. She will take the weight loss medication Jordon which helps with her constipation. She denies anorexia, weight loss, dysphagia, odynophagia, jaundice, rashes, pruritus, nausea, vomiting, fevers, chills, abdominal pain, diarrhea, constipation, melena, hematochezia, BRBPR or early satiety. multiple GI issues The patient p resents today secondary to multiple GI issues. She reports intermittent dysphagia with solids over the past few months which has been progressively worsening. She reports undergoing an EGD with dilation about 15 years ago which was helpful. She reports occasional regurgitation, but denies h/o a food impaction. The patient is taking prilosec daily, but continues to reports break through symptoms a few times per week. Especially in the middle of the night. She denies taking NSAIDs. In 12/2015, a CBC, TSH, CMP and vitamin B12 were unremarkable. Her sister was diagnosed with colon cancer in her 70s. The patient also reports constipation with a BM q few days with straining and hard stools. She has tried and failed treatment with dulcolax, miralax, linzess and multiple stool softeners. She underwent a colonoscopy about 4 years ago, and states she is due to have a repeat exam in 2017. She is unable to provide further information regarding this exam, but she does report a h/o colon polyps. The patient reports a h/o gluten intolerance. She will take the weight loss medication Jordon which helps with her constipation. She denies anorexia, weight loss, dysphagia, odynophagia, jaundice, rashes, pruritus, nausea, vomiting, fevers, chills, abdominal pain, reflux symptoms, diarrhea, constipation, melena, hematochezia, BRBPR or NSAID use. Functional Status Date Functional Assessmen t No Information Instructions Date Instruction Additional Infor abimaelrock -She would like to h old off at this point but will schedule at next visit-She was updated on risks of waiting Related to Personal history of colonic polyps -Increase Docusate S odium to 200mg qhs-Increase fluids-Increase fiber in diet, start a fiber supplement-Continue daily probiotic with food-F/U in office in 3 months or sooner if needed Related to Slow transit constipation -Continue omeprazole 20mg BID and Ranitidine 300mg qhs-Weight loss-Avoid NSAIDS Related to GERD w/o esophagitis - Avoid NSAIDs- Anti -reflux measures discussed with the patient- Increase to omeprazole 20mg BID- Continue ranitidine 300mg qhs- Take a daily probiotic- Start FDgard daily prn- Check CBC and CMP- Obtain CT A/P results Related to Nausea - Avoid NSAIDs- Anti -reflux measures discussed with the patient- Increase to omeprazole 20mg BID- Continue ranitidine 300mg qhs- Take a daily probiotic- Start FDgard daily prn- Check CBC and CMP- Obtain CT A/P results Related to Dyspepsia - Colonoscopy to be scheduled once acute GI issues have improved. Risks, benefits and alternatives to the procedure were discussed with the patient. All questions were answered.- Obtain prior colonoscopy report Related to Personal history of colonic polyps - Colonoscopy to be scheduled once acute GI issues have improved. Risks, benefits and alternatives to the procedure were discussed with the patient. All questions were answered.- Obtain prior report Related to Family history of malignant neoplasm of digestive organs - High fiber diet- A void dairy and limit caffeine- Take a daily fiber supplement prn- Take a daily probiotic Related to Slow transit constipation - Management per PCP Related to Hypothyroidism, unspecified - Avoid NSAIDs- Anti -reflux measures discussed with the patient- Increase to omeprazole 20mg BID- Continue ranitidine 300mg qhs- Take a daily probiotic- Start FDgard daily prn Related to GERD with esophagitis - Colonoscopy to be scheduled in 2016- Attempt to obtain prior colonoscopy report Related to Family history of malignant neoplasm of digestive organs - Colonoscopy to be scheduled in 2016- Attempt to obtain prior colonoscopy report Related to Personal history of colonic polyps - High fiber diet- A void dairy and limit caffeine- Take a daily fiber supplement prn Related to Slow transit constipation - Avoid NSAIDs- Anti -reflux measures discussed with the patient- Continue omeprazole 20mg qam- Start ranitidine 300mg qhs Related to GERD with esophagitis - Colonoscopy to be scheduled in 2016- Attempt to obtain prior colonoscopy report Related to Family history of malignant neoplasm of digestive organs - Colonoscopy to be scheduled in 2016- Attempt to obtain prior colonoscopy report Related to Personal history of colonic polyps - Avoid NSAIDs- Anti -reflux measures discussed with the patient- EGD to be scheduled. Risks, benefits and alternatives to the procedure were discussed with the patient. All questions were answered.- Continue omeprazole 20mg daily/qam- Start ranitidine 300mg qhs Related to GERD w/o esophagitis - High fiber diet- S tart Amitiza 24 mcg BID- Avoid dairy and limit caffeine- Take a daily fiber supplement prn Related to Slow transit constipation - Avoid NSAIDs- Anti -reflux measures discussed with the patient- EGD to be scheduled. Risks, benefits and alternatives to the procedure were discussed with the patient. All questions were answered.- Continue omeprazole 20mg daily/qam- Start ranitidine 300mg qhs Related to Dysphagia, pharyngoesophageal phase Assessments Type Assessment Date assessment GERD w/o esophagitis assessment Personal history of colonic poly ps assessment Family history of malignant neop lasm of digestive organs assessment Slow transit constipation impression -Controlled on omeprazole 20mg B ID and Ranitidine 300mg qhs impression -Uncontrolled impression -Last colonoscopy ar ound 4 years ago and due for repeat in 2016.-Sister dx with colon Ca in her 70s-Recommend colonoscopy per guidelines impression -Sister dx with colon Ca in her 70s Mental Status Date Cognitive Assessment Orientation - [place] ed to time, place, person, situation. Patient Care Teams Name Effective Dates (start - stop) Status Members No Information
--- OUTSIDE RECORDS SUMMARY | 2024-11-25 16:51 | XMS_ITS | Clinical Summary ---
Author Organization [facility] Address [address] [place] [address] Phone Care Team Providers Care Blanker Press Operator Name Role Phone AguilaNini Santa SHAHID Primary Care Provider [phone] Darwin Bejarano MD Unavailable Allergies Active Allergy Reactions Criticality Noted Date Comments Alendronate Anaphylaxis,Hives High 05/19/2021 Bupropion Other (see Comments) High 09/08/2020 Suicidal ideations Codeine Nausea Low 05/19/2021 Haemophilus B Polysaccharide Vaccine Unknown 07/23/2020 Influenza Virus Vaccine Unknown 07/23/2020 Meperidine Other (see Comments) Low 05/19/2021 Drops blood pressure Morphine Vomiting 05/19/2021 Pneumococcal Vaccine Unknown 07/23/2020 Was advised due to an allergy to not receive these Medications escitalopram (LEXAPRO) 20 MG Tablet Take 20 mg by mouth daily. Active DIAZOXIDE PO Take by mouth. Ac tive LEVOFLOXACIN PO Take by mouth. Activ e ALPRAZolam (XANAX PO) Take 0.5 mg by mouth. Active DULoxetine HCl (CYMBALTA PO) Take 90 mg by mouth. Active meloxicam (MOBIC) 15 MG Tablet TAKE 1 TABLET BY MOUTH ONCE DAILY Active Zinc 30 MG Tablet Take by mouth. Activ e vitamin E 100 UNIT Capsule Take by mouth. Ac tive venlafaxine (EFFEXOR-XR) 150 MG CAPSULE SR 24 HR venlafaxine ER 150 mg capsule,extended release 24 hr Active potassium chloride SA (KLORCON M) 10 MEQ Tablet Controlled Release Active triamcinolone (KENALOG) 0.1 % Cream triamcinolone acetonide 0.1 % topical cream Active tiZANidine (ZANAFLEX) 2 MG Tablet tizanidine 2 mg tablet Active triamterene-hy drochlorothiaz leo (DYAZIDE) 37.5-25 MG Capsule 1 Active oxybutynin (DITROPAN) 5 MG Tablet oxybutynin chloride 5 mg tablet Active naproxen (NAPROSYN) 250 MG Tablet naproxen 250 mg tablet Active ibuprofen (MOTRIN) 800 MG Tablet ibuprofen 800 mg tablet Active HYDROcodone-ac etaminophen (NORCO) 5-325 MG Tablet hydrocodone 5 mg-acetaminophen 325 mg tablet Active B Complex Vitamins Capsule Take 1 Capsule by mouth daily. Active Cholecalcifero l (VITAMIN D) 125 mcg Capsule Take 5,000 Units by mouth. Active Ascorbic Acid 500 MG Chewable Tablet Take 500 mg by mouth daily. Active busPIRone (BUSPAR) 5 MG Tablet 2 Active ARIPiprazole (ABILIFY) 2 MG Tablet 3 Active levothyroxine (SYNTHROID) 112 MCG Tablet Take 1 Tablet by mouth daily. 90 Tablet 1 3 Active pantoprazole (PROTONIX) 40 MG Tablet Delayed Response Take 40 mg by mouth daily. Active losartan (COZAAR) 50 MG Tablet 4 Active Active Problems Problem Noted Date Diagnosed Date Major depressive disorder, r ecurrent episode, moderate with anxious distress 09/02/2020 Immunizations Immunization Administration Dates Next Due Influenza Vaccine,unspecified Formulation 2019 Influenza, Seasonal, Injectable, Undefined 03/21 Pneumococcal PCV, Unspecified Formulation 2014 TDAP Vaccine 06/13/2015 Social History Tobacco Use Types Packs/Day Years Used Date Smoking Tobacco: Never Smokeless Tobacco: Never Tobacco Cessation:Counseling Given: Not Answered Alcohol Use Standard Drinks/Week Comments Not Currently 0 (1 standard drink = 0.6 oz pur e alcohol) Sexually Active Control Partners Comments Not Currently Male Comments No Sex and Gender Information Value Date Recorded Sex Assigned at Not on file Legal Sex Female 9:55 PM CDT Gender Identity Not on file Sexual Orientation Not on file Last Filed Vital Signs Vital Sign Reading Time Taken Comments Blood Pressure 143/79 02/27/2024 10:28 AM CDT Pulse 69 02/27/2024 10:28 AM CDT Temperature 36.2 C (97.2 F) 02/27/2024 10:28 AM CDT Respiratory Rate 20 02/27/2024 10:28 AM CDT Oxygen Saturation 94% 02/27/2024 10:28 AM CDT Inhaled Oxygen Concentration - - Weight 79.8 kg (176 lb) 02/27/2024 10:28 AM CDT Height 160 cm (5' 3) 08/25/2023 12:59 PM CDT Body Mass Index 31.18 08/25/2023 12:59 PM CDT Plan of Treatment Health Maintenance Due Date Last Done Comments Pneumococcal Immunization (5 0+ years) (1 of 1 - PCV) 1994 06/13/2014 Zoster Immunization (1 of 2) 1994 Respiratory Syncytial Virus (RSV) Immunization (Adult) (1 - 1-dose 75+ series) 2019 SARS-COV-2 Immunization ( - season) 2024 DEXA Bone Density 03/23/2024 03/23/2022 Influenza Immunization (Seas on Ended) 2025 03/13/2020, 03/21/2009 Td Immunization Every 10 Yea rs (Adults With 1 Tdap) 06/13/2025 06/13/2015 DTaP/Tdap/Td Immunization Discontinued 06/13/2015 Hepatitis C Virus (HCV) Screening Completed 05/19/2021, 05/19/2021 Hepatitis B Immunization Aged Out No longer eligible based on patient's age to complete this topic Human Papillomavirus (HPV) Immunization Aged Out No longer eligible based on patient's age to complete this topic Meningococcal Immunization (ACWY) Aged Out No longer eligible based on patient's age to complete this topic Rotavirus Immunization Aged Out No lo nger eligible based on patient's age to complete this topic Goals Goal Patient Goal Type Associated Problems Recent Progress Patient-Stated? Author Behavioral Health Behavioral Health On track( 021 2:34 PM CDT) Yes Katrina Bateman, MANUFACTURING ENGINEER PAINT Note: I want to get up off my couch, I currently have no desire to do anything, I want feel less depressed. Behavioral Health Behavioral Health On track( 021 2:34 PM CDT) Katrina Gonzalez, GAVI Note: Goal: Amaris will be able to report improved mood/decreased grieving, to an acceptable level . Goal Reviewed with: patient Readiness to change: Ready to change Department associated with goal: [facility] Steps to achieve goal: Patient counseled on stages of grief and tasks of mourning Patient counseled on aspects of healthy self care and a healthy routine Insurance MEDICARE Member Subscriber Plan / Payer (Ef fective 2009-Present) Name:Amaris Durant Member ID:[id number] Relation to Subscriber:Self Name:Amaris Durant Subscriber ID:[id number] Payer ID:[id number] Group ID:Not on file Type:Not on file Address: [facility] [address] [facility] [address] [facility] [place] [address] [facility] Care Teams Blanker Press Operator Relationship Specialty Start Date End Date Nini Sheehan DO [address] [facility] [address] [place] [address] PCP - General Family Medicine 09/01/20 Darwin Bejarano MD [address] [facility] [address] [place] [address] Consulting Physician Endocrinology 02/05/22
--- OUTSIDE RECORDS SUMMARY | 2024-11-25 16:51 | XMS_ITS | Referral Summary ---
Author Organization [facility] [address] [facility] Address [address] [place] [address] Care Team Providers Care Agile Test Lead Name Role Phone BabarCarmen LINNETTE Unavailable [phone] Darwin Bejarano MD Unavailable Cesar Smith MD Unavailable [phone] Lucy Olivera NP Unavailable [phone] Sandy Alejandro MD Unavailable [phone] Jeannette Lang MD Unavailable Tee Connelly MD Unavailable [phone] Winston Banuelos MD Unavailable [phone] Teddy Butts MD Unavailable [phone] Luci Mcgregor MD Unavailable [phone] Doreen Strong NP Primary Care Provider Hammad Melendrez RN Unavailable [phone] Encounters Date Type Department Care Team Description 11/23/2024 Telephone [facility] Primary Care at [address] [place] [address] Doreen Strong NP Medication, Appt needed 11/17/2024 5:03 PM CDT - 11/17/2024 8:13 PM CDT Emergency [facility] Emergency Department [address] [place] [address] Jerson Hall MD Weakness (Primary Dx); Acute cystitis without hematuria Discharge Disposition: Discharge to home or self care 11/14/2024 4:00 PM CDT - 11/14/2024 11:59 PM CDT Hospital Encounter [facility] [address] [facility] [address], [place] [id number] Cesar Smith MD Status post insertion of intrathecal pump (Primary Dx) Discharge Disposition: Discharge to home or self care 11/09/2024 Telephone [facility] Primary Care at [address] [address] Doreen Strong, LINNETTE Medical Question/Miscellaneou s 11/01/2024 Orders Only [facility] Primary Care at [address] [address] Doreen Strong, LINNETTE Obesity (BMI 30-39.9) (Primary Dx) 11/01/2024 Telephone [facility] Primary Care at [address] [address] Doreen Strong NP 11/01/2024 Orders Only [facility] Primary Care at [address] [address] Doreen Strong, LINNETTE 11/01/2024 1:00 PM CDT Office Visit [facility] Primary Care at [address] [address] Doreen Strong, LINNETTE Dizziness (Primary Dx); Class 1 obesity with body mass index (BMI) of 31.0 to 31.9 in adult, unspecified obesity type, unspecified whether serious comorbidity present 10/31/2024 Telephone [facility] Primary Care at [address] [address] Doreen Strong, LINNETTE Med Refill 10/31/2024 Orders Only [facility] Primary Care at [address] [place] [address] Doreen Strong NP 10/31/2024 Nurse Triage [facility] Primary Care at [address] [place] [address] Doreen Strong, LINNETTE 10/31/2024 Nurse Triage [facility] Primary Care at [address] [address] Saniya Moon RN 10/31/2024 Results Follow-Up [facility] Primary Care at [address] [address] Doreen Strong, LINNETTE TSH, T4, free, Vitamin B12, Vitamin D 25 hydroxy 10/31/2024 Telephone [facility] Primary Care at [address] [address] Doreen Strong NP 10/31/2024 1:42 PM CDT - 10/31/2024 11:59 PM CDT Hospital Encounter [facility] [address] [facility] [address], [place] [place] [address] Cesar Smith MD Status post insertion of intrathecal pump (Primary Dx) Discharge Disposition: Discharge to home or self care 10/30/2024 3:15 PM CDT Office Visit [facility] [address] [facility] [address] [place] [address] Drake Rawls NP MACIEJ (obstructive sleep apnea) (Primary Dx); Hypersomnia with sleep apnea; Obesity (BMI 30.0-34.9); Memory loss 10/29/2024 1:55 PM CDT Lab [address] [address] Fatigue, unspecified type; Vitamin D deficiency 10/29/2024 1:00 PM CDT Office Visit [facility] Primary Care at [address] [place] [address] Doreen Strong NP Primary hypertension (Primary Dx); Fatigue, unspecified type; Vitamin D deficiency; Class 1 obesity with body mass index (BMI) of 31.0 to 31.9 in adult, unspecified obesity type, unspecified whether serious comorbidity present 10/24/2024 7:30 AM CDT - 10/24/2024 9:15 AM CDT Surgery [facility] Operating Room 1 [place] [address] Cesar Smith MD intrathecal pain pump implant 10/24/2024 7:42 AM CDT Anesthesia Event [facility] Operating Room 1 [place] [address] Tae Self MD McDowAutumn donis MD 10/24/2024 6:13 AM CDT - 10/24/2024 11:13 AM CDT Hospital Encounter [facility] Operating Room 1 [place] [address] Cesar Smith MD Adenocarcinoma of colon (HCC) (Primary Dx) Discharge Disposition: Discharge to home or self care 10/03/2024 Telephone [facility] 2 [facility] A, [place] [place] [address] Yudi Claire, ANTOINE 10/03/2024 Telephone [facility] 2 [facility] A, [place] [place] [address] Yudi Claire RN 10/03/2024 Telephone [facility] 2 [facility] A, [place] [place] [address] Yudi Claire, ANTOINE 10/02/2024 2:52 PM CDT - 10/02/2024 11:59 PM CDT Hospital Encounter [facility] 2 [facility] A, [place] [place] [address] Cesar Smith MD Failed back surgical syndrome Discharge Disposition: Discharge to home or self care 09/19/2024 Orders Only [facility] [place] [place] [address] Cesar Smith MD Failed back surgical syndrome (Primary Dx) 09/17/2024 1:30 PM CDT Office Visit [facility] Primary Care at [place] [address] [facility] [address] [place] [phone] Doreen Strong NP Primary hypertension (Primary Dx); Postoperative hypothyroidism; Sacroiliitis; Moderate episode of recurrent major depressive disorder (HCC); Generalized anxiety disorder; Class 1 obesity with body mass index (BMI) of 31.0 to 31.9 in adult, unspecified obesity type, unspecified whether serious comorbidity present 08/29/2024 12:35 PM CDT - 08/29/2024 11:59 PM CDT Hospital Encounter [facility] [address] [place] [address] Bld[address] A, [place] [place] [address] Cesar Smith MD Failed back surgical syndrome (Primary Dx); Sacroiliitis Discharge Disposition: Discharge to home or self care from Last 3 Months Allergies Active Allergy Reactions Criticality Noted Date Comments Alendronate Anaphylaxis,Unknown High 09/30/2023 Patient states it closed her throat Aripiprazole Unknown 09/30/2023 Bupropion Other (See comments) Low 09/08/2020 Suicidal ideations Codeine Nausea only,Nausea & Vomiting Low 09/30/2023 Haemophilus Influenzae Type B Nausea & Vomiting Low 07/23/2020 Influenza Virus Vaccine, Specific Nausea & Vomiting Low 07/23/2020 Meperidine Other (See comments),Hypotensio n High 09/30/2023 Drops blood pressure Morphine Vomiting,Nausea & Vomiting Low 09/30/2023 Pneumococcal Vaccine Unknown 07/23/2020 Was advised due to an allergy to not receive these Medications aspirin 81 mg chewable tablet Take 1 tablet (81 mg total) by mouth daily 30 tablet 11 024 2024 Active losartan (COZAAR) 50 mg tablet Take 1 tablet (50 mg total) by mouth daily 90 tablet 3 024 2024 Active Additional Information Patient not taking.Reported on 11/23/2024 levothyroxine (SYNTHROID) 112 mcg tabletIndications :Postoperative hypothyroidism TAKE 1 TABLET(112 MCG) BY MOUTH DAILY 90 tablet [address] (CYMBALTA) 20 mg capsule 1 capsule (20 mg total) 025 Active vitamin A palmitate 3,000 mcg (10,000 unit) capsule Take 1 capsule (10,000 Units total) by mouth daily Active vitamin B complex capsule Take 1 capsule by mouth daily Active ascorbic acid 500 mg tablet,chewable daily Acti ve cholecalciferol 25 mcg (1,000 unit) tablet Take 1 tablet (1,000 Units total) by mouth daily Active vitamin E 1,000 unit capsule Take 1 capsule (1,000 Units total) by mouth daily Active ginkgo biloba 40 mg tablet Take by mouth daily Active benny root (benny, Zingiber officinalis,) 550 mg capsule Take by mouth daily Active turmeric root extract 500 mg capsule Take by mouth daily Active salmon oiL-omega-3 fatty acids 1,000-210 mg capsule Take by mouth daily Active UNABLE TO FIND Take 2 each by mouth 2 (two) times a day Med Name: Vida Capsules Active zinc gluconate 50 mg tablet Take 1 tablet (50 mg total) by mouth daily Active ZINC SULFATE, BULK, MISC Take by mouth Activ e vida oil oil vida oil miscellaneous oil Active melatonin 10 mg capsule Take by mouth Active magnesium oxide (MAG-OX) 500 mg (301.6 mg elemental) tablet Take 1 tablet (500 mg total) by mouth daily Active meclizine (ANTIVERT) 12.5 mg tablet Take 1-2 tablets (12.5-25 mg total) by mouth 3 (three) times a day as needed for dizziness 90 tablet 1 025 Active cephalexin (KEFLEX) 500 mg capsule Take 1 capsule (500 mg total) by mouth 2 (two) times a day 14 capsule 025 Active topiramate (TOPAMAX) 25 mg tabletIndications :Class 1 obesity with body mass index (BMI) of 31.0 to 31.9 in adult, unspecified obesity type, unspecified whether serious comorbidity present Take 1 tablet (25 mg total) by mouth 2 (two) times a day 60 tablet 1 025 2024 Discontinued celecoxib (CeleBREX) 200 mg capsule Take 1 capsule (200 mg total) by mouth as needed for pain 2024 Discontinued(T herapy completed) cinnamon bark 500 mg capsule Take by mouth 2024 Discontinued(T herapy completed) APPLE CIDER VINEGAR ORAL Take by mouth 2024 Discontinued(T herapy completed) Active Problems Problem Noted Date Diagnosed Date Status post insertion of intrathecal pump 2024 Abnormal urinalysis 10/29/2024 Sensory urge incontinence 10/29/2024 Overview (10/29/2024): Botox 100U - 08/15/2024 TIA (transient ischemic attack) 07/05/2024 Chronic diastolic (congestive) heart failure Sensorineural hearing loss, bilateral 06/01/2024 Assessment & Plan (06/01/2024 2:12 PM BODY ENGINEER): - seen by ENT 04/2024 - has known hearing loss in both ears Acute diastolic congestive heart failure 024 Closed displaced transverse fracture of left pat amaya 01/25/2024 Unsteady gait 01/24/2024 Memory loss 10/20/2023 Assessment & Plan (12/20/2023 4:59 PM CDT): Patient recently established care with Neurology Dr. Banuelos with complaint of neck pain as well as memory loss. Patient's score 27/30 on Sujit cognitive assessment on 10/2023 Primary insomnia 09/30/2023 MACIEJ (obstructive sleep apnea) 08/01/2023 Overview (05/31/2024): Follows with sleep medicine Assessment & Plan (12/20/2023 12:49 PM CDT): - recent diagnosis, improved - established care with sleep medicine - Dr. Lang - noted to have mild MACIEJ on HSAT 07/2023 - AHI 6.4 - has been set up with CPAP per sleep medicine - continue current management Assessment & Plan (08/22/2023 2:01 PM CDT): - recent diagnosis, improved - established care with sleep medicine - Dr. Lang - noted to have mild MACIEJ on HSAT 07/2023 - AHI 6.4 - has been set up with CPAP per sleep medicine - continue current management PRES (posterior reversible encephalopathy syndro me) 06/18/2023 Assessment & Plan (06/20/2023 10:35 AM BODY ENGINEER): - recent diagnosis - was having elevated blood pressure, headaches - had workup in hospital admission and imaging - improved after better blood pressure management Esophageal polyp 05/16/2023 Assessment & Plan (06/20/2023 10:33 AM BODY ENGINEER): - reports hx of esophageal polyp - seeing a GI provider in [place] soon - reports has had esophagus stretched 7 years ago as well Vitamin D deficiency 05/16/2023 Assessment & Plan (10/29/2024 2:37 PM CDT): -chronic, controlled -patient currently takes vitamin D3 supplement -will recheck lab value -continue current treatment plan Assessment & Plan (05/16/2023 3:13 PM BODY ENGINEER): -chronic, unknown, no data to review at this time to make an evaluation -Discussed/ordered labs -continue on vitamin D3 5000 units daily Fatigue 01/19/2023 Assessment & Plan (10/29/2024 2:38 PM CDT): -New complaint, subacute -Patient endorses feeling more fatigued over the past few weeks -Patient denies any significant changes resulting in his -Patient did recently undergo pain pump insertion with her pain specialist -Will order lab work as part of evaluation -Continue current treatment plan Vertigo 01/19/2023 Assessment & Plan (05/15/2024 3:48 PM BODY ENGINEER): -ongoing complaint, not improved -patient reports experiencing vertigo off and on for the past 3 months which has caused the patient to fall -patient reports previously having an issue with vertigo before which she was given meclizine for -patient reports she has been taking the old meclizine prescription, but has not found much relief -patient does endorse an upcoming appointment with ENT but it was not for another 6 weeks -referral to vestibular therapy placed -refill meclizine provided -continue current treatment plan Adenocarcinoma of colon 01/12/2023 Uterovaginal prolapse, incomplete 11/03/2022 Assessment & Plan (08/22/2023 2:18 PM CDT): - follow with urology - Dr. Connelly - has had surgery for uterovaginal prolapse September 2022 - Sacral Spinous Ligament Fixation, Cystoscele Repair, and Urethral Sling Cystocele, midline 11/03/2022 Female stress incontinence 11/03/2022 Personal history of colonic polyps 08/20/2021 Assessment & Plan (05/16/2023 3:11 PM BODY ENGINEER): Last colonoscopy completed 08/27/2021. Repeat in 5 years. -patient states she will not be completing another colonoscopy Assessment & Plan (12/28/2022 11:44 AM CDT): Last colonoscopy completed 08/27/2021. Repeat in 5 years. -patient states she will not be completing another colonoscopy Hirsutism 01/14/2021 Assessment & Plan (01/14/2021 11:30 AM CDT): Patient requesting refill on her Vaniqa, reports good results previously. Refill given. Class 1 obesity with body ma ss index (BMI) of 31.0 to 31.9 in adult 09/08/2020 Assessment & Plan (11/01/2024 9:21 PM CDT): Wt Readings from Last 3 Encounters: 11/01/24 79.4 kg (175 lb) 10/30/24 79.4 kg (175 lb) 10/29/24 80.6 kg (177 lb 9.6 oz) Body mass index is 31.01 kg/m . -Stable, not at goal of <30 bmi -Discussed recommendations for exercise at least 30 minutes moderate to vigorous exercise as tolerated most days of the week. (minimum 150 minutes weekly) -Discussed importance of well-balanced diet -Starting weight of 178 -Previously trialed topiramate with minimal benefit -Patient endorses ongoing frustration with weight and weight loss -When asked patient reports eating a 1000 or less calories a day; discussed with patient the significance of this severe caloric restriction -Referral to nutrition placed -Continue current treatment plan Assessment & Plan (10/29/2024 2:37 PM CDT): Wt Readings from Last 3 Encounters: 10/29/24 80.6 kg (177 lb 9.6 oz) 10/24/24 79.1 kg (174 lb 6.1 oz) 09/17/24 80.7 kg (178 lb) Body mass index is 31.47 kg/m . -Stable, not at goal of <30 bmi -Discussed recommendations for exercise at least 30 minutes moderate to vigorous exercise as tolerated most days of the week. (minimum 150 minutes weekly) -Discussed importance of well-balanced diet -Starting weight of 178 -Patient is currently prescribed Topamax 25 mg b.i.d. which she states she did not noticed any significant appetite suppression with this medication -Encourage patient to become more active and improve her diet -follow up in 6 weeks for re-evaluation Assessment & Plan (09/17/2024 2:54 PM CDT): Wt Readings from Last 3 Encounters: 09/17/24 80.7 kg (178 lb) 07/05/24 81.8 kg (180 lb 5.4 oz) 05/31/24 82.7 kg (182 lb 4.8 oz) Body mass index is 31.54 kg/m . -Stable, not at goal of <30 bmi -Discussed recommendations for exercise at least 30 minutes moderate to vigorous exercise as tolerated most days of the week. (minimum 150 minutes weekly) -Discussed importance of well-balanced diet -patient expressed interest with weight loss medication -Starting weight of 178 -discussed risks and benefits of weight loss medication options -Topiramate 25 mg b.i.d. prescribed -follow up in 4-6 weeks for re-evaluation Assessment & Plan (05/31/2024 2:45 PM BODY ENGINEER): Wt Readings from Last 3 Encounters: 05/31/24 82.7 kg (182 lb 4.8 oz) 05/15/24 82.6 kg (182 lb) 05/02/24 82.1 kg (181 lb) Body mass index is 32.3 kg/m . - chronic condition, not at goal - BMI Follow-up includes: nutrition counseling, exercise counseling and education - Co morbidities - hypertension - interested in weight loss medication, I do not plan to have her on weight loss medication but can refer her to a provider that may do so Assessment & Plan (05/15/2024 3:45 PM BODY ENGINEER): Wt Readings from Last 3 Encounters: 05/15/24 82.6 kg (182 lb) 05/02/24 82.1 kg (181 lb) 05/01/24 81.2 kg (179 lb) Body mass index is 32.24 kg/m . -Stable, not at goal of <30 bmi -Discussed recommendations for exercise at least 30 minutes moderate to vigorous exercise as tolerated most days of the week. (minimum 150 minutes weekly) -Discussed importance of well-balanced diet Assessment & Plan (08/22/2023 2:49 PM CDT): Wt Readings from Last 3 Encounters: 08/22/23 80.8 kg (178 lb 1.6 oz) 08/08/23 79.7 kg (175 lb 11.2 oz) 08/04/23 79.8 kg (176 lb) Body mass index is 32.57 kg/m . - chronic condition, not at goal, small weight gain noted - BMI Follow-up includes: nutrition counseling, exercise counseling and education - Co morbidities - hypertension - interested in weight loss medication, I do not plan to have her on weight loss medication but can refer her to a provider that may do so Assessment & Plan (08/09/2023 1:54 AM BODY ENGINEER): Wt Readings from Last 3 Encounters: 08/08/23 79.7 kg (175 lb 11.2 oz) 08/04/23 79.8 kg (176 lb) 06/21/23 78.9 kg (174 lb) Body mass index is 32.13 kg/m . - chronic condition, not at goal - BMI Follow-up includes: nutrition counseling, exercise counseling and education - Co morbidities - hypertension Assessment & Plan (05/16/2023 3:10 PM BODY ENGINEER): HPI: Condition is stable goal BMI <30 A&P: Healthy, high-protein, lower carbohydrate, lower fat lifestyle and exercise for 150min/week recommended Recommend tracking everything you put in your mouth on an yi like [employer]mate Hand Measurements: A fist or cupped hand = 1 cup 1 cup = 1 -2 servings of fruit juice 1 oz. of cold cereal 2 oz. of cooked cereal, rice or pasta 8 oz. of milk or yogurt A thumb = 1 oz. of cheese Consuming low-fat cheese helps you meet the required servings from the milk, yogurt and cheese group. 1 oz. of low-fat cheese counts as 8 oz. of milk or yogurt. Handful = 1-2 oz. of snack food Thumb tip = 1 teaspoon Keep high-fat foods, such as peanut butter and mayonnaise, at a minimum. One teaspoon is equal to the end of your thumb, from the knuckle up. Three teaspoons equals 1 tablespoon. Palm = 3 oz. of meat Choose lean poultry, fish, shellfish and beef. One palm size portion equals 3 oz. for an adult and 1 -2 oz. for a child under 5. 1 tennis ball or a fist= 1/2 cup of fruit and vegetables Healthy diets include a variety of colorful fruits and vegetables every day. The secret to serving size is in your hand. Snacking can add up. Because hand sizes vary, compare your fist size to an actual measuring cup. Assessment & Plan (12/28/2022 7:01 AM CDT): HPI: Condition is stable goal BMI <30 A&P: Healthy, high-protein, lower carbohydrate, lower fat lifestyle and exercise for 150min/week recommended Recommend tracking everything you put in your mouth on an yi like [employer]mate Hand Measurements: A fist or cupped hand = 1 cup 1 cup = 1 -2 servings of fruit juice 1 oz. of cold cereal 2 oz. of cooked cereal, rice or pasta 8 oz. of milk or yogurt A thumb = 1 oz. of cheese Consuming low-fat cheese helps you meet the required servings from the milk, yogurt and cheese group. 1 oz. of low-fat cheese counts as 8 oz. of milk or yogurt. Handful = 1-2 oz. of snack food Thumb tip = 1 teaspoon Keep high-fat foods, such as peanut butter and mayonnaise, at a minimum. One teaspoon is equal to the end of your thumb, from the knuckle up. Three teaspoons equals 1 tablespoon. Palm = 3 oz. of meat Choose lean poultry, fish, shellfish and beef. One palm size portion equals 3 oz. for an adult and 1 -2 oz. for a child under 5. 1 tennis ball or a fist= 1/2 cup of fruit and vegetables Healthy diets include a variety of colorful fruits and vegetables every day. The secret to serving size is in your hand. Snacking can add up. Because hand sizes vary, compare your fist size to an actual measuring cup. Assessment & Plan (12/20/2022 1:54 PM CDT): HPI: Condition is stable goal BMI <30 A&P: Healthy, high-protein, lower carbohydrate, lower fat lifestyle and exercise for 150min/week recommended Assessment & Plan (07/22/2021 7:39 PM BODY ENGINEER): Weight reduction, daily exercise and dietary modifications recommended. Assessment & Plan (01/14/2021 11:30 AM CDT): Weight reduction, daily exercise and dietary modifications recommended. Urinary incontinence 09/08/2020 Assessment & Plan (09/08/2020 10:17 AM CDT): Patient currently wears incontinence pads, refer to urology for further evaluation and management. Statin declined 09/08/2020 Assessment & Plan (03/01/2022 3:40 PM CDT): Low-cholesterol diet recommended. Cyst of left ovary 07/23/2020 Assessment & Plan (07/30/2020 2:55 PM BODY ENGINEER): Referral to gyne for further evaluation Reviewed outside reports; had simple cyst present Moderate episode of recurrent major depressive d isorder 10/18/2019 Overview (05/31/2024): Follows with psychiatry Assessment & Plan (09/17/2024 1:57 PM CDT): -chronic, controlled -patient currently takes duloxetine 20 mg daily -Follows with psychiatry -patient denies any worsening of depressed mood, thoughts of harming themselves or others, or worsening anxiety -continue current treatment plan Assessment & Plan (05/31/2024 2:42 PM BODY ENGINEER): - chronic, stable with persistent symptoms - continue on buspirone 5 mg 3 times daily, duloxetine ER 60 mg daily - no longer on Lexapro 20 mg daily - follows and managed by Psychiatry - continued management via psychiatry Assessment & Plan (12/20/2023 4:50 PM CDT): - chronic, stable with persistent symptoms - continue on buspirone 5 mg 3 times daily, duloxetine ER 60 mg daily - no longer on Lexapro 20 mg daily - follows and managed by Psychiatry - continued management via psychiatry - reports decreased motivation for several decades - wanted to know if her vitamin B12 was low which has already been checked and was not found to be deficient or low, can still take [id number] vitamin B12 had low-level to see if it would help her symptoms Assessment & Plan (05/16/2023 3:11 PM BODY ENGINEER): Patient reiterated no suicidal thoughts at this time; take medication as directed; contact 911 and go to the ER if becomes suicidal; discussed side effects of medication with patient; encouraged healthy diet and exericise; encouraged patient to see a counselor -chronic, stable -continue on buspirone 5 mg 3 times daily, duloxetine ER 30 mg 2 tablets once daily, Lexapro 20 mg daily -continue seeing Psychiatry Assessment & Plan (12/28/2022 11:44 AM CDT): Patient reiterated no suicidal thoughts at this time; take medication as directed; contact 911 and go to the ER if becomes suicidal; discussed side effects of medication with patient; encouraged healthy diet and exericise; encouraged patient to see a counselor -chronic, stable -patient reports she stopped the abilify because of the dizziness and states she is doing well -continue on duloxetine DR 60 mg daily, escitalopram 20 mg daily, Xanax 0.5 mg twice daily as needed -continue seeing Psychiatry- advised patient to let her psychiatrist know she has stopped the Abilify Assessment & Plan (03/01/2022 3:39 PM CDT): Stable. Cont. Current prescription medications. Managed by Psychiatry. Assessment & Plan (01/14/2021 11:27 AM CDT): Managed by Psychiatry. Patient states that she would have a psychiatrist right her medications for her Lexapro. Stable. Continue current medications. Assessment & Plan (09/08/2020 10:17 AM CDT): Worsening. Keep scheduled appointment with psychiatry. Continue current medications. Please call 911 or go to nearest emergency room if you feel you will be a harm to herself or to others. Generalized anxiety disorder 10/27/2013 Overview (05/31/2024): Follows with Psychiatry Assessment & Plan (09/17/2024 1:57 PM CDT): -chronic, controlled -patient currently takes duloxetine 20 mg daily -Follows with psychiatry -patient denies any worsening of depressed mood, thoughts of harming themselves or others, or worsening anxiety -continue current treatment plan Assessment & Plan (05/31/2024 2:42 PM BODY ENGINEER): - chronic, stable with persistent symptoms - continue on buspirone 5 mg 3 times daily, duloxetine ER 60 mg daily - no longer on Lexapro 20 mg daily - follows and managed by Psychiatry - continued management via psychiatry Assessment & Plan (12/20/2023 4:49 PM CDT): - chronic, stable with persistent symptoms - continue on buspirone 5 mg 3 times daily, duloxetine ER 60 mg daily - no longer on Lexapro 20 mg daily - follows and managed by Psychiatry - continued management via psychiatry Assessment & Plan (05/16/2023 3:11 PM BODY ENGINEER): Patient reiterated no suicidal thoughts at this time; take medication as directed; contact 911 and go to the ER if becomes suicidal; discussed side effects of medication with patient; encouraged healthy diet and exericise; encouraged patient to see a counselor -chronic, stable -continue on buspirone 5 mg 3 times daily, duloxetine ER 30 mg 2 tablets once daily, Lexapro 20 mg daily -continue seeing Psychiatry Assessment & Plan (12/28/2022 11:43 AM CDT): Patient reiterated no suicidal thoughts at this time; take medication as directed; contact 911 and go to the ER if becomes suicidal; discussed side effects of medication with patient; encouraged healthy diet and exericise; encouraged patient to see a counselor -chronic, stable -patient reports she stopped the abilify because of the dizziness and states she is doing well -continue on duloxetine DR 60 mg daily, escitalopram 20 mg daily, Xanax 0.5 mg twice daily as needed -continue seeing Psychiatry- advised patient to let her psychiatrist know she has stopped the Abilify Assessment & Plan (03/01/2022 3:39 PM CDT): Stable. Cont. Current prescription medications. Managed by Psychiatry. Assessment & Plan (01/14/2021 11:27 AM CDT): Stable. Cont. Current meds. Patient managed by Psychiatry. She reports that her psychiatrist will write her Xanax for her. Assessment & Plan (09/08/2020 10:17 AM CDT): Worsening. Keep scheduled appointment with psychiatry. Continue current medications. Please call 911 or go to nearest emergency room if you feel you will be a harm to herself or to others. Assessment & Plan (07/30/2020 2:54 PM BODY ENGINEER): Not well controlled, will continue lexapro and xanax -most related to loss of ; -has not had prolonged grief counseling, recommended patient look into counseling to help with coping skills. Postoperative hypothyroidism 10/27/2013 Assessment & Plan (09/17/2024 1:54 PM CDT): Lab Results Component Value Date TSH 0.87 05/31/2024 -chronic, controlled -patient currently takes Synthroid 112 mcg daily -most recent TSH within normal range -Will recheck lab values at future visit -continue current treatment plan Assessment & Plan (06/01/2024 2:10 PM BODY ENGINEER): - chronic, stable - continue on levothyroxine 112 mcg daily - managed by endocrinology - Dr. Bejarano - labs being monitored by her automotive glass installer - reviewed outside labs - states she does not plan to go back to an automotive glass installer - recheck labs, order placed TSH 08/2023 - WNL Lab Results Component Value Date TSH 0.87 05/31/2024 Assessment & Plan (12/20/2023 4:49 PM CDT): - chronic, stable - continue on levothyroxine 112 mcg daily - managed by endocrinology - labs being monitored by her automotive glass installer - reviewed outside labs Lab Results Component Value Date TSH 0.43 09/08/2020 Assessment & Plan (08/22/2023 2:16 PM CDT): - chronic, stable - continue on levothyroxine 112 mcg daily - continue seeing endocrinology - labs being monitored by her automotive glass installer, has venkata ppointmetn coming up in few days Lab Results Component Value Date TSH 0.43 09/08/2020 Assessment & Plan (05/16/2023 3:11 PM BODY ENGINEER): -chronic, stable -continue on levothyroxine 112 mcg daily -continue seeing endocrinology Assessment & Plan (12/28/2022 11:24 AM CDT): -chronic, stable -continue on levothyroxine 112 mcg daily -continue seeing endocrinology Assessment & Plan (03/01/2022 3:39 PM CDT): Managed by endocrinology. Asymptomatic, continue current prescription medications. Assessment & Plan (07/22/2021 7:38 PM BODY ENGINEER): Patient will see an automotive glass installer in a couple of weeks. She declines a TSH check today. Assessment & Plan (01/14/2021 11:26 AM CDT): Asx. Continue current therapy. Assessment & Plan (09/08/2020 10:13 AM CDT): Worsening anxiety and depression, labs ordered. Will follow. Assessment & Plan (07/30/2020 2:55 PM BODY ENGINEER): Will continue to monitor TSH, continue synthroid 150 ucg Osteoporosis 10/27/2013 Overview (01/14/2021): Allergic to alendronate. Assessment & Plan (05/16/2023 3:11 PM BODY ENGINEER): -chronic, stable -patient did not tolerate Fosamax -continue with weight-bearing exercises -last bone density completed 03/23/2022 Assessment & Plan (12/28/2022 11:44 AM CDT): -chronic, stable -patient did not tolerate Fosamax -continue with weight-bearing exercises -last bone density completed 03/23/2022 Assessment & Plan (03/01/2022 3:39 PM CDT): Weight-bearing exercises recommended. Patient did not tolerate Fosamax. She is not willing to try anything different. Assessment & Plan (01/14/2021 11:28 AM CDT): Patient allergic to Fosamax. Weight-bearing exercises are encouraged. Assessment & Plan (09/08/2020 10:16 AM CDT): Calcium supplements with vitamin-D recommended. Weight-bearing exercises as tolerated. Hypertension 10/27/2013 Overview (10/29/2024): [employer]rees[employer] 09/13/2022 Assessment & Plan (10/29/2024 2:24 PM CDT): BP Readings from Last 3 Encounters: 10/29/24 130/70 10/24/24 132/46 10/02/24 132/47 -chronic, at goal of <140/90 -currently taking losartan 50 mg daily -patient reports checking blood pressure regularly at home -encourage patient to continue low-sodium diet -continue current treatment plan Assessment & Plan (09/17/2024 1:52 PM CDT): BP Readings from Last 3 Encounters: 09/17/24 118/80 07/11/24 120/76 07/06/24 122/91 -chronic, at goal of <140/90 -currently taking losartan 50 mg daily -patient reports checking blood pressure regularly at home -encourage patient to continue low-sodium diet -continue current treatment plan Assessment & Plan (06/01/2024 2:10 PM BODY ENGINEER): BP Readings from Last 3 Encounters: 05/18/24 152/78 05/15/24 110/76 05/02/24 136/79 - chronic, suboptimally controlled - continue on losartan 50 mg daily - recommend healthy, low-salt diet - continue seeing Cardiology - recently diagnosed with MACIEJ and established care with sleep medicine and been set up with CPAP - discussed to stop taking NSAIDs moving forward - continue current management Assessment & Plan (12/20/2023 12:49 PM CDT): BP Readings from Last 3 Encounters: 12/20/23 118/70 12/12/23 (!) 150/101 10/20/23 119/71 - chronic, stable - continue on losartan 50 mg daily (used to be on 25 mg Losartan) - recommend healthy, low-salt diet - continue seeing Cardiology - recently diagnosed with MACIEJ and established care with sleep medicine and been set up with CPAP - discussed to stop taking NSAIDs moving forward - continue current management Assessment & Plan (08/22/2023 2:49 PM CDT): BP Readings from Last 3 Encounters: 08/22/23 136/80 08/17/23 161/82 08/08/23 120/70 - chronic, stable - continue on losartan 50 mg daily (used to be on 25 mg Losartan) - recommend healthy, low-salt diet - continue seeing Cardiology - recently diagnosed with MACIEJ and established care with sleep medicine and been set up with CPAP - discussed to stop taking NSAIDs moving forward - continue current management Assessment & Plan (08/08/2023 12:20 PM BODY ENGINEER): BP Readings from Last 3 Encounters: 08/08/23 120/70 08/04/23 131/82 07/21/23 133/69 -chronic, stable -continue on losartan 50 mg daily (used to be on 25 mg Losartan) -recommend healthy, low-salt diet -continue seeing Cardiology - discussed to stop taking NSAIDs moving forward Assessment & Plan (06/20/2023 10:40 AM BODY ENGINEER): BP Readings from Last 3 Encounters: 06/20/23 130/70 06/18/23 154/78 05/16/23 121/76 -chronic, stable -continue on losartan 50 mg daily (used to be on 25 mg Losartan) -recommend healthy, low-salt diet -continue seeing Cardiology - discussed to stop taking NSAIDs moving forward Assessment & Plan (05/16/2023 3:12 PM BODY ENGINEER): -chronic, stable -continue on losartan 25 mg daily -recommend healthy, low-salt diet -continue seeing Cardiology Assessment & Plan (12/28/2022 11:24 AM CDT): -chronic, improving -continue on losartan 25 mg daily -recommend healthy, low-salt diet Assessment & Plan (12/20/2022 2:08 PM CDT): -chronic, not at/near goal -Discussed/ordered labs -start on losartan 25 mg daily -advised patient to check blood pressure daily and keep a log -follow up in 1 week Assessment & Plan (03/01/2022 3:41 PM CDT): Blood pressure at goal less than 140/90, continue current prescription medications. Assessment & Plan (07/22/2021 7:40 PM BODY ENGINEER): Stable. Cont. Current prescription medications. Assessment & Plan (01/14/2021 11:16 AM CDT): Blood pressure at goal at less than 140/90. Continue current medications. Assessment & Plan (09/08/2020 10:12 AM CDT): Blood pressure at goal of less than 140/90. Continue current medications. Assessment & Plan (07/30/2020 2:55 PM BODY ENGINEER): Stable, at target, continue current medications Pure hypercholesterolemia 10/27/2013 Assessment & Plan (05/31/2024 2:42 PM BODY ENGINEER): -chronic, stable -patient does not take medication for this - statins declines per prior PCP note -recommend healthy diet with decreased intake of processed foods and increase exercise -continue seeing Cardiology - will monitor labs annually, order placed Lab Results Component Value Date CHOL 185 01/26/2024 CHOL 239 (H) 05/16/2023 CHOL 214 (H) 09/08/2020 Lab Results Component Value Date HDL 53 01/26/2024 HDL 62 05/16/2023 HDL 51 09/08/2020 Lab Results Component Value Date LDLCALC 105 01/26/2024 LDLCALC 145 (H) 05/16/2023 LDLCALC 127 09/08/2020 Lab Results Component Value Date TRIG 134 01/26/2024 TRIG 158 (H) 05/16/2023 TRIG 178 (H) 09/08/2020 Assessment & Plan (12/20/2023 4:57 PM CDT): -chronic, stable -patient does not take medication for this - statins declines per prior PCP note -recommend healthy diet with decreased intake of processed foods and increase exercise -continue seeing Cardiology - will monitor labs annually, order placed Lab Results Component Value Date CHOL 239 (H) 05/16/2023 CHOL 214 (H) 09/08/2020 Lab Results Component Value Date HDL 62 05/16/2023 HDL 51 09/08/2020 Lab Results Component Value Date LDLCALC 145 (H) 05/16/2023 LDLCALC 127 09/08/2020 Lab Results Component Value Date TRIG 158 (H) 05/16/2023 TRIG 178 (H) 09/08/2020 Assessment & Plan (06/20/2023 10:23 AM BODY ENGINEER): -chronic, stable -patient does not take medication for this -recommend healthy diet with decreased intake of processed foods and increase exercise -continue seeing Cardiology Lab Results Component Value Date CHOL 239 (H) 05/16/2023 CHOL 214 (H) 09/08/2020 Lab Results Component Value Date HDL 62 05/16/2023 HDL 51 09/08/2020 Lab Results Component Value Date LDLCALC 145 (H) 05/16/2023 LDLCALC 127 09/08/2020 Lab Results Component Value Date TRIG 158 (H) 05/16/2023 TRIG 178 (H) 09/08/2020 Assessment & Plan (05/16/2023 3:12 PM BODY ENGINEER): -chronic, stable -patient does not take medication for this -recommend healthy diet with decreased intake of processed foods and increase exercise -continue seeing Cardiology Assessment & Plan (12/28/2022 11:25 AM CDT): -chronic, stable -patient does not take medication for this -recommend healthy diet with decreased intake of processed foods and increase exercise Assessment & Plan (03/01/2022 3:41 PM CDT): LDL near goal of less than 100. Low-cholesterol diet recommended. Will follow. Assessment & Plan (07/22/2021 7:40 PM BODY ENGINEER): LDL goal is < 100, patient nearing goal. Low chol diet recommended. Assessment & Plan (01/14/2021 11:26 AM CDT): LDL in the good range. Patient is intolerant to statins. Low-cholesterol diet is recommended. Assessment & Plan (09/08/2020 10:13 AM CDT): Low-cholesterol diet recommended. Labs ordered. Patient stated today that she will not take any medications for her cholesterol. Resolved Problems Problem Noted Date Diagnosed Date Resolved Date Sacroiliitis 06/01/2024 10/31/2024 Overview (06/01/2024): Following with pain management Assessment & Plan (09/17/2024 3:12 PM CDT): -Chronic, suboptimally controlled -Currently takes Celebrex 200 mg as needed, Cymbalta 20 mg as needed for anxiety/depression, joint injections -Follows with pain management -Patient may have pain pump placed in near future -Refill of Celebrex provided -Continue current treatment plan Assessment & Plan (06/01/2024 2:10 PM BODY ENGINEER): - established with pain management - -s/p Left Sacroiliac Joint injection with significant improvement in symptoms Influenza vaccination declined 05/31/2024 05/31/2024 Acute cystitis without hematuria 01/26/2024 05/31/2024 Fall (on)(from) incline, initial encounter 01/25/2024 05/31/2024 Lumbar facet arthropathy 07/21/2023 Nonintractable headache, uns pecified chronicity pattern, unspecified headache type 06/17/2023 06/20/2023 Abnormal echocardiogram 01/19/2023 03/06/2023 Palpitations 01/19/2023 06/20/[address] scan 01/12/2023 08/22/2023 Family history of colon cancer 01/12/2023 05/16/2023 Encounter for screening colonoscopy 01/12/2023 05/16/2023 Family history of colon cancer 08/20/2021 12/20/2022 Overview (08/20/2021): Added automatically from request for surgery [id number] Encounter for screening colonoscopy 08/20/2021 03/01/2022 Overview (08/20/2021): Added automatically from request for surgery [id number] S/P hysterectomy 09/08/2020 12/20/2022 Left lower quadrant pain 09/08/2020 Assessment & Plan (09/08/2020 10:15 AM CDT): Refer to urology for further evaluation and management. Urine dipstick showed 1+ leukocytes. Urine culture ordered. Chronic bilateral low back p ain without sciatica 09/08/2020 10/31/2024 Assessment & Plan (08/22/2023 2:06 PM CDT): - chronic, better controlled but not at goal - reports remote hx of 2 back surgeries - states she used to get injections in her back by pain management in the past - established with pain management at [facility] - she continues to use of Cymbalta 60 mg daily - started Celebrex 200 mg BID after stopping meloxicam 15 mg daily --> has helped, refill provided - on Flexeril 5 mg nightly for muscle spasms which has helped --> insurance requesting to Tizanidine which is better covered, new script sent in - saw Pain management and has been referred to Physical therapy which she just started - has been set up for injections for later this week per pain management provider - continue current management XR Lumbar spine 06/2023 IMPRESSION: Moderate to severe T12-L2, mild L2-L4, and moderate to severe L4-S1 degenerative disc disease with multilevel lumbar facet osteoarthritis. Assessment & Plan (08/09/2023 1:53 AM BODY ENGINEER): - chronic, not well controlled - reports remote hx of 2 back surgeries - has been on meloxicam 15 mg daily ---> discussed about fish peddler risk of NSAID use so she Is willing to stop using Meloxicam - states she used to get injections in her back by pain management in the past - not established with pain management provider although she was referred by her PCP, referred and established recently - she continues to use of Cymbalta 60 mg daily - start Celebrex 100 mg BID, can increase to 200 mg BID if needed - start Flexeril 5 mg nightly for muscle spasms - saw Pain management and has been referred to Physical therapy which she just started - keep next appointment, she is interested in injections as it did help in the past XR Lumbar spine 06/2023 IMPRESSION: Moderate to severe T12-L2, mild L2-L4, and moderate to severe L4-S1 degenerative disc disease with multilevel lumbar facet osteoarthritis. Assessment & Plan (06/20/2023 10:47 AM BODY ENGINEER): - chronic, not well controlled - reports remote hx of 2 back surgeries - has been on meloxicam 15 mg daily ---> discussed about penitentiary risk of NSAID use so she Is willing to stop using Meloxicam - states she used to get injections in her back - not established with pain management provider although she was referred by her PCP, willing at this time - new referral placed - she continues to use of Cymbalta 60 mg daily Assessment & Plan (05/16/2023 3:10 PM BODY ENGINEER): -chronic, stable -continue on meloxicam 15 mg daily Assessment & Plan (12/28/2022 11:43 AM CDT): -chronic, not at/near goal -patient reports she was taking [place] 5-325 mg every 6 hours as needed, but it does not seem to make a difference -refer to pain management Assessment & Plan (01/14/2021 11:28 AM CDT): Pain managed with meloxicam. Continue current therapy. Assessment & Plan (09/08/2020 10:16 AM CDT): Trial of meloxicam. May use acetaminophen and [id number]-fct-teuzqqc as needed for pain. Follow directions for use on packaging. Do not take any foye-hjv-dzhwxol NSAIDs with meloxicam. History of renal calculi 10/18/201903/2023 Diuretic-induced hypokalemia 10/18/2019 12/20/2022 Assessment & Plan (03/01/2022 3:40 PM CDT): Asymptomatic. Labs ordered, will follow. Prescription refilled. Assessment & Plan (07/22/2021 7:40 PM BODY ENGINEER): Asymptomatic. Patient increased her daily potassium on her own. Patient reports being on 30 meq daily while she was living in [place]. Labs ordered. Assessment & Plan (01/14/2021 11:28 AM CDT): Asx. Decrease potassium chloride extended release 10 mEq 1 t.i.d. down to 1 q.d.. Patient reports feeling fatigued when taking 3 potassium pills daily. Will follow. Assessment & Plan (09/08/2020 10:15 AM CDT): Asx. Continue current therapy. Chronic back pain 10/18/2019 12/20/2022 Assessment & Plan (03/01/2022 3:40 PM CDT): Meloxicam use for help with pain management. Patient states that is n ot worth a dime. She refuses referral to chronic Pain Management. Assessment & Plan (07/30/2020 2:54 PM BODY ENGINEER): Continue to Zanaflex for relief Immunizations Immunization Administration Dates Next Due Influenza, Trivalent, IM (MDV) 03/21/2009 Influenza, Unspecified 05/31/2024(Deferr ed: Patient Refused),05/15/2024(Deferred: Patient Refused),05/16/2023(Deferred: Patient Refused),03/13/2023(Deferred: Patient Refused),03/13/2021(Deferred: Patient Refused),03/13/2020 Pneumococcal Conjugate, Unspecified 06/13/2014 Tdap 06/13/2015 Social History Tobacco Use Types Packs/Day Years Used Date Smoking Tobacco: Never Smokeless Tobacco: Never Tobacco Cessation:Counseling Given: Not Answered Alcohol Use Standard Drinks/Week Comments No 0 (1 standard drink = 0.6 oz pur e alcohol) [facility] Utilities Answer Date Recorded In the past 12 months has [employer], gas, oil, or water [employer] threatened to shut off services in your home? No 07/06/2024 Social Connection and Isolat ion Panel [NHANES] Answer Date Recorded In a typical week, how many times do you talk on the phone with family, friends, or neighbors? More than three times a week 07/06/2024 How often do you get togethe r with friends or relatives? More than three times a week 07/06/2024 How often do you attend chur ch or hoahaoism services? More than 4 times per year 07/06/2024 Do you belong to any clubs o r organizations such as baptism groups, unions, fraternal or athletic groups, or school groups? No 07/06/2024 How often do you attend meet ings of the clubs or organizations you belong to? Never 07/06/2024 Are you , , di vorced, , never , or living with a partner? 07/06/2024 AUDIT-C Answer Date Recorded Q1: How often do you have a drink containing alcohol? Never 11/01/2024 Q2: How many drinks containi ng alcohol do you have on a typical day when you are drinking? Patient does not drink Q3: How often do you have si x or more drinks on one occasion? Never 11/01/2024 Overall Financial Resource Strain (CARDIA) Answe r Date Recorded How hard is it for you to pa y for the very basics like food, housing, medical care, and heating? Not hard at all 07/06/2024 PHQ-2 Answer Date Recorded PHQ-2 Total Score (If total score is 3 or more points, staff should administer the PHQ-9) 0 11/01/2024 Hunger Vital Sign Answer Date Recorded Within the past 12 months, y ou worried that your food would run out before you got the money to buy more. Never true 07/06/19 25 Within the past 12 months, t he food you bought just didn't last and you didn't have money to get more. Never true 07/06/2024 PRAPARE - Transportation Answer Date Re corded In the past 12 months, has l ack of transportation kept you from medical appointments or from getting medications? No 06/14 In the past 12 months, has l ack of transportation kept you from meetings, work, or from getting things needed for daily living? No 07/06/2024 PHQ-9 Answer Date Recorded PHQ-9 Total Score 0 04/24/2024 Housing Stability Vital Sign Answer Robinson e Recorded In the last 12 months, was t here a time when you were not able to pay the mortgage or rent on time? No 07/06/2024 In the past 12 months, how m any times have you moved where you were living? 0 07/06/2024 At any time in the past 12 m [facility], were you homeless or living in a [facility] (including now)? No 07/06/2024 Personal Safety Answer Date Recorded Have you ever been in or are you currently in a harmful physical or emotional relationship or is someone making you feel afraid or unsafe? Denies 11/17/2024 Comments No Sex and Gender Information Value Date Recorded Sex Assigned at Not on file Legal Sex Female 8:34 AM BODY ENGINEER Gender Identity Female 08/24/2021 12:33 PM CDT Sexual Orientation Not on file Last Filed Vital Signs Vital Sign Reading Time Taken Comments Blood Pressure 101/65 11/17/2024 8:00 PM CDT Pulse 81 11/17/2024 8:00 PM CDT Temperature 37 C (98.6 F) 11/17/2024 8:00 PM CDT Respiratory Rate 16 11/17/2024 8:00 PM CDT Oxygen Saturation 94% 11/17/2024 8:00 PM CDT Inhaled Oxygen Concentration - - Weight 77.1 kg (170 lb) 11/17/2024 5:02 PM CDT Height 160 cm (5' 3) 11/17/2024 5:02 PM CDT Body Mass Index 30.11 11/17/2024 5:02 PM CDT Plan of Treatment Not on file Medical Devices Implanted Type Area Slitter And Rewinder Machine Operator Device Identifier Shelf Expiration Date Model / Serial / Lot [employer] Obtryx Ii Precisionblue Advantage .15mm 22cm Sling Halo Needle [id number] - [id number] Implanted:Qty: 1 on 11/30/2022 by Morteza Connelly MD at [facility] N/A: Urethra [employer]honatan [id number] 05/26/2025 [id number] / / [id number] [employer] Catheter Intrathecal Spinal Segment 2 Piece Silicone Ascenda [id number] - [id number] Implanted:Qty: 1 on 10/24/2024 by Cesar Smith MD at [facility] N/A: Back [employer] Inc 09/20/2026 [id number] / / [id number] [employer] X Pump Infusion Programmable Ulp Ami 20ml Volume 8667-20 - [id number] - [id number] Implanted:Qty: 1 on 10/24/2024 by Cesar Smith MD at [facility] N/A: Back [employer] X 03/10/2026 8667-20 / [id number] / N/A Procedures Procedure Name Priority Date/Time Associated Diagnosis Comments URINALYSIS, MICROSCOPIC ONLY STAT 11/17/2024 6:27 PM CDT URINE CULTURE STAT 11/17/2024 6:27 PM CDT URINALYSIS AND REFLEX TO MICROSCOPIC AND CULTURE STAT 11/17/2024 6:27 PM CDT ECG 12-LEAD STAT 11/17/2024 6:24 PM CDT EGFR STAT 11/17/2024 5:26 PM CDT DIFFERENTIAL AUTO STAT 11/17/2024 5:2 6 PM CDT SEPSIS LACTATE WITH REFLEX STAT 11/17/2024 5:26 PM CDT COMPREHENSIVE METABOLIC PANEL STAT 11/17/2024 5:26 PM CDT CBC WITH AUTO DIFFERENTIAL STAT 11/17/2024 5:26 PM CDT BLOOD CULTURE STAT 11/17/2024 5:26 PM CDT VITAMIN D 25 HYDROXY Routine 10/29/2024 2:04 PM CDT Vitamin D deficiency VITAMIN B12 Routine 10/29/2024 2:04 PM CDT Fatigue, unspecified type T4, FREE Routine 10/29/2024 2:04 PM CDT Fatigue, unspecified type TSH Routine 10/29/2024 2:04 PM CDT Fatigue, unspecified type XR SPINE THORACIC 2 VIEWS IP Routine 10/24/2024 8:37 AM CDT Adenocarcinoma of colon (HCC) FL FLUOROSCOPY < 1 HOUR IP Routine 10/24/2024 8:37 AM CDT Adenocarcinoma of colon (HCC) INSERTION INTRATHECAL PUMP 10/24/2024 7:42 AM CDT 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 PAIN MGMT IMAGING LUMBAR/CAUDAL EPIDURAL STEROID INJ Schedule Routine, Read Routine (OP Routine) 10/02/2024 3:40 PM CDT Failed back surgical syndrome DEXA AXIAL SKELETON BONE DENSITY 1 OR MORE SITES Schedule Routine, Read Routine (OP Routine) 03/23/2022 11:18 AM CDT Osteoporosis, unspecified osteoporosis type, unspecified pathological fracture presence Post-menopausal from Last 3 Months or Most Recently Relevant to Health Maintenance Results * (ABNORMAL) Urinalysis reflex to microscopic and culture Urine (11/17/2024 6:27 PM CDT) Color, ur Yellow Yellow Clarity, ur Clear Clear [facility] (KAYY) Specific gravity, ur 1.008 1.003 - 1.030 [facility] (KAYY) pH, urine 6.5 [facility] (KAYY) Comment: Interpretive Data U rine pH is affected by diet, medications, systemic acid-base disturbances, and renal tubular function. pH may affect urinary stone formation. For example, urine pH below 6.0 may help reduce the tendency for calcium phosphate stones and pH greater than 6.0 may reduce the tendency for uric acid stone formation. Source: [facility] Current Interpretive Data was last revised on 2017 Protein, ur ql Negative Negative [facility] (KAYY) Glucose, ur ql Negative Negative [facility] (KAYY) Ketones, ur Negative Negative [facility] (KAYY) Bilirubin, ur Negative Negative [facility] (KAYY) Blood, ur Negative Negative [facility] (KAYY) Urobilinogen, ur <2.0 <2.0 mg/dL [facility] (KAYY) Nitrite, ur Negative Negative [facility] (KAYY) Leukocyte esterase, ur 2+(A) Negative [facility] (KAYY) UA reflex comment Reflex to microscopic UA will be performed. [facility] (KAYY) Urine 11/17/2024 6:27 PM CDT 11/17/2024 6:29 PM CDT Jerson Hall MD LAB MICROBIOLOGY - GENERAL ORD ERABLES Final Result ROBBI DONNELLY (KAYY) 1 [facility] [place] [address] * (ABNORMAL) Urinalysis, microscopic only (11/17/2024 6:27 PM CDT) WBC, ur 11-20(A) 0 - 5 /HPF RBC, ur 0-2 0 - 2 /HPF ROBBI DONNELLY (KAYY) Epithelial cells, squamous, ur 1-5 0 - 5 /HPF ROBBI DONNELLY (KAYY) Bacteria, ur 3+(A) ROBBI DONNELLY (KAYY) Culture Reflex Comment Reflex to urine culture will be performed. ROBBI DONNELLY (KAYY) Urine 11/17/2024 6:27 PM CDT 11/17/2024 6:29 PM CDT Jerson Hall MD LAB URINE ORDERABLES Final Res ult Performing Organization Address [facility]/ZIP Co de Phone Number ROBBI DONNELLY (DONNA) 1 [facility] [place] [address] * Urine culture Urine (11/17/2024 6:27 PM CDT) Report Final Report: Less than 100,000 colonies/mL (clinically insignificant growth based on current clinical standards) Comment:Testing performed by : [facility], [address] [place] [address] Organism (CLINICALLY INSIGNIFICANT GROWTH ROBBI DONNELLY (KAYY) Urine 11/17/2024 6:27 PM CDT 11/17/2024 10:36 PM CDT Narrative ROBBI DONNELLY (KAYY) - 11/19/2024 8:03 AM CDT Urine culture reflexed based upon urinalysis results. Testing performed by [facility] ([phone]) Jerson Hall MD LAB MICROBIOLOGY - GENERAL ORD ERABLES Final Result Performing Organization Address [facility] Co de Phone Number [facility] (KAYY) 1 [facility] [place] [address] * ECG 12 lead (11/17/2024 6:24 PM CDT) 11/17/2024 6:24 PM CDT Narrative [facility] - 11/19/2024 7:24 AM CDT Vent Rate: 74 bpm RR Interval: 808 msec NM Interval: 152 msec QRS Duration: 86 msec QT Interval: 393 msec QTC Interval: 420 msec P-R-T [place]: 33 - 12 - 22 degrees IMPRESSION: SINUS RHYTHM Leftward axis No significant change from prior EKG Electronically Signed By: Dr Luis You Jerson Hall MD ECG ORDERABLES Final Result Performing Organization Address [facility] Co de Phone Number [facility] [employer] [facility] * Sepsis Lactate w/ Reflex (11/17/2024 5:26 PM CDT) Pathologist [facility] Sepsis Lactate 1.4 0.7 - 2.0 mmol/L Blood 11/17/2024 5:26 PM CDT 11/17/2024 5:32 PM CDT Jerson Hall MD LAB BLOOD ORDERABLES Final Res ult Performing Organization Address [facility] Co de Phone Number [facility] (KAYY) 1 [facility] [place] [address] * eGFR (11/17/2024 5:26 PM CDT) eGFR >90 >=60 mL/min/1. 73 m2 Comment: Interpretive Data Reference Interval Normal >/= 90 mL/min/1.73m2 Mildly decreased* 60 - 89 mL/min/1.73m2 Mildly to moderately decreased 45 - 59 mL/min/1.73m2 Moderately to severely decreased 30 - 44 mL/min/1.73m2 Severely decreased 15 - 29 mL/min/1.73m2 Kidney Failure < 15 mL/min/1.73m2 *Relative to young adult level Estimated glomerular filtration rate is determined by the 2020 CKD-EPI equation recommended by the National Kidney Foundation (A Unifying Approach to GFR Estimation: Recommendations of the NKF-ASK Task Force on Reassessing the Inclusion of Race in Diagnosing Kidney Disease, JASN 2020). The CKD-EPI equation should not be used for patients with unstable renal function and has not been validated in children and those over 70. Current interpretive data was last reviewed 2021. Blood 11/17/2024 5:26 PM CDT 11/17/2024 5:32 PM CDT us Jerson Hall MD LAB BLOOD ORDERABLES Final Res ult [facility] (DONNA) 1 [facility] Department [place] [address] * (ABNORMAL) Differential, auto (11/17/2024 5:26 PM CDT) Neutrophil abs 13.28(H) 1.50 - 6.50 K/cumm Imm gran abs 0.05 0.00 - 0.10 K/cumm [facility] (KAYY) Lymphocyte abs 0.73(L) 0.80 - 3.30 K/cumm [facility] ([place]AYY) Monocyte abs 0.38 0.20 - 0.80 K/cumm [facility] ([place]AYY) Eosinophil abs 0.28 0.00 - 0.50 K/cumm [facility] (KAYY) Basophil abs 0.04 0.00 - 0.10 K/cumm [facility] (KAYY) Neutrophil pct 90.0 % [facility] (KAYY) Comment: Interpretive Data Percent cell count reference ranges are not reported, since discordance with absolute values may lead to misinterpretation of CBC data. Current Interpretive Data was last revised on 2017. Imm gran pct 0.3 % [facility] (KAYY) Comment: Interpretive Data Percent cell count reference ranges are not reported, since discordance with absolute values may lead to misinterpretation of CBC data. Current Interpretive Data was last revised on 2017. Lymphocyte pct 4.9 % [facility] (KAYY) Comment: Interpretive Data Percent cell count reference ranges are not reported, since discordance with absolute values may lead to misinterpretation of CBC data. Current Interpretive Data was last revised on 2017. Monocyte pct 2.6 % [facility] (KAYY) Comment: Interpretive Data Percent cell count reference ranges are not reported, since discordance with absolute values may lead to misinterpretation of CBC data. Current Interpretive Data was last revised on 2017. Eosinophil pct 1.9 % [facility] (KAYY) Comment: Interpretive Data Percent cell count reference ranges are not reported, since discordance with absolute values may lead to misinterpretation of CBC data. Current Interpretive Data was last revised on 2017. Basophil pct 0.3 % [facility] (KAYY) Comment: Interpretive Data Percent cell count reference ranges are not reported, since discordance with absolute values may lead to misinterpretation of CBC data. Current Interpretive Data was last revised on 2017. Blood 11/17/2024 5:26 PM CDT 11/17/2024 5:32 PM CDT us Jerson Hall MD LAB BLOOD ORDERABLES Final Res ult [facility] (KAYY) 1 [facility] Department [place] [address] * (ABNORMAL) CBC with auto differential (11/17/2024 5:26 PM CDT) WBC 14.76(H) 3.80 - 9.90 K/cumm Hgb 15.1 11.9 - 15.5 g/dL [facility] ([place]AYY) Hct 44.9 35.6 - 45.5 % [facility] (KAYY) Plt 302 150 - 400 K/cumm [facility] ([place]AYY) MPV 10.8 9.1 - 12.3 fL [facility] ([place]AYY) RBC 4.84 3.90 - 5.20 M/cumm [facility] ([place]AYY) MCV 92.8 81.3 - 96.4 fL [facility] ([place]AYY) MCH 31.2 27.1 - 33.3 pg [facility] (KAYY) MCHC 33.6 32.3 - 35.7 g/dL ROBBI DONNELLY (KAYY) RDW CV 11.9 11.1 - 14.9 % ROBBI DONNELLY (KAYY) RDW SD 40.8 35.7 - 48.1 fL ROBBI DONNELLY (KAYY) NRBC abs 0.00 0.00 - 0.01 K/cumm ROBBI DONNELLY (KAYY) Blood 11/17/2024 5:26 PM CDT 11/17/2024 5:32 PM CDT us Jerson Hall MD LAB BLOOD ORDERABLES Final Res ult ROBBI DONNELLY (KAYY) 1 [facility] Department [place] [address] * Blood culture Blood Peripheral (11/17/2024 5:26 PM CDT) Report Final Report: No growth Comment:Testing performed by : [facility], 1 [facility], [place]., [address] Blood (Peripheral) 11/17/2024 5:26 PM CDT 11/17/2024 10:36 PM CDT Narrative ROBBI DONNELLY (KAYY) - 11/22/2024 7:00 AM CDT Draw Blood cultures before administration of Antibiotics Collection->Peripheral 1. Blood cultures are incubated for 4 days on a continuously monitored blood culture system. The first report of a negative culture is issued within 24 hours of receipt of the specimen in the laboratory. 2. Positive culture results are reported as soon as they are detected. 3. The most important factor for detection of microbes in the setting of bloodstream infection is the volume of blood submitted for culture. Failure to collect an optimal blood volume can result in false negative blood cultures. 4. For pediatric patients, the recommended blood volume to collect follows a weight based strategy. See the electronic test catalog for collection instructions. 5. For positive blood cultures, a rapid molecular test may be performed for organism identification using the mara ePlex blood culture identification panel for gram positive (BCID-GP) and gram negative (BCID-GN) organisms. This nucleic acid amplification test detects microbial DNA in positive blood culture broth. This assay has been cleared by the [place] Food and Drug Administration and its performance characteristics have been verified by the [facility]. For questions about this culture, contact the Microbiology Laboratory at [phone]. Interpretive data was last revised on 24. us Jerson Hall MD LAB MICROBIOLOGY - GENERAL ORD ERABLES Final Result [facility] (KAYY) 1 [facility] Department [place] [address] * (ABNORMAL) Comprehensive metabolic panel (11/17/2024 5:26 PM CDT) Sodium 136 135 - 145 mmol/L Potassium, pl 4.1 3.3 - 4.9 mmol/L [facility] (KAYY) Chloride 97 97 - 110 mmol/L [facility] ([place]AYY) CO2 23 22 - 32 mmol/L [facility] ([place]AYY) Anion gap 16(H) 2 - 15 mmol/L [facility] ([place]AYY) BUN 9 6 - 25 mg/dL [facility] ([place]AYY) Creatinine 0.59(L) 0.60 - 1.10 mg/dL [facility] ([place]AYY) Glucose 114 70 - 199 mg/dL [facility] (KAYY) Comment: Interpretive Data Fasting glucose >/= 126 mg/dl is diagnostic for diabetes. Fasting is defined as no caloric intake for at least 8 hours. Fasting glucose between 100 mg/dl to 125 mg/dl is diagnostic of prediabetes. In a patient with classic symptoms of hyperglycemia or hyperglycemic crisis, a random glucose >/= 200 mg/dl is diagnostic for diabetes. In the absence of unequivocal hyperglycemia, results should be confirmed by repeat testing. The classification and Diagnosis of Diabetes Diabetes Care 2021; 46: S19-S40. Current interpretive data was last revised 2022. Calcium 9.4 8.5 - 10.3 mg/dL [facility] (KAYY) Bilirubin, total 1.2 0.1 - 1.2 mg/dL [facility] ([place]AYY) Protein, pl 7.6 6.5 - 8.5 g/dL [facility] (KAYY) Albumin 4.4 3.5 - 5.0 g/dL [facility] (KAYY) Alk phos 75 40 - 130 Units/L [facility] ([place]AYY) ALT 10 7 - 45 Units/L [facility] ([place]AYY) AST 19 10 - 45 Units/L [facility] (KAYY) Blood 11/17/2024 5:26 PM CDT 11/17/2024 5:32 PM CDT us Jerson Hall MD LAB BLOOD ORDERABLES Final Res ult ROBBI DONNELLY (DONNA) 1 [facility] [place] [address] * Vitamin D 25 hydroxy (10/29/2024 2:04 PM CDT) Vitamin D 25-OH 67 30 - 80 ng/mL Blood 10/29/2024 2:04 PM CDT 10/29/2024 2:11 PM CDT Doreen Strong PROJECT INSPECTOR LAB BLOOD ORDERABLES Fi nal Result Performing Organization Address [facility]/ZIP Co de Phone Number ROBBI DONNELLY (DONNA) 1 [facility] [employer] [place] [address] * (ABNORMAL) TSH (10/29/2024 2:04 PM CDT) Thyroid Stimulating Hormone 4.22(H) 0.30 - 4.20 mcIUnit/mL Blood 10/29/2024 2:04 PM CDT 10/29/2024 2:11 PM CDT Doreen Strong PROJECT INSPECTOR LAB BLOOD ORDERABLES Fi nal Result ROBBI DONNELLY (DONNA) 1 [facility] [place] [address] * T4, free (10/29/2024 2:04 PM CDT) Free T4 1.60 0.90 - 1.70 ng/dL Blood 10/29/2024 2:04 PM CDT 10/29/2024 2:11 PM CDT Doreen Strong PROJECT INSPECTOR LAB BLOOD ORDERABLES Fi nal Result Performing Organization Address [facility] Co de Phone Number ROBBI DONNELLY (DONNA) 1 [facility] [place] [address] * (ABNORMAL) Vitamin B12 (10/29/2024 2:04 PM CDT) [facility] Vitamin B12 1,832(H) 230 - 1,250 pg/mL Blood 10/29/2024 2:04 PM CDT 10/29/2024 2:11 PM CDT Doreen Strong NP LAB BLOOD ORDERABLES Fi nal Result Performing Organization Address [facility] Co de Phone Number [facility] (DONNA) 1 [facility] [place] [address] * FL Fluoroscopy < 1 Hour (10/24/2024 8:37 AM CDT) Narrative [facility] - 10/24/2024 8:38 AM CDT The images from this study are not interpreted by Radiology. Please refer to the physician's procedure / OR operative note. Cesar Smith MD IMG FLUOROSCOPY PROCEDU RES Final Result Performing Organization Address [facility] Co de Phone Number [facility] * XR Spine Thoracic 2 Views (10/24/2024 8:37 AM CDT) Anatomical Region Laterality Modality Spine N/A Radio Fluoroscop y 10/29/2024 2:30 PM CDT Narrative 10/29/2024 2:33 PM CDT EXAM DESCRIPTION: XR SPINE THORACIC 2 VIEWS REASON FOR STUDY: Back pain FINDINGS: Multiple fluoroscopic images consisting of 2 view(s) submitted with comparison 07/16/2024 . Dose area product equals 0.30073 mGym*2. Fluoroscopic images demonstrate an in progress likely pain pump placement . IMPRESSION: In progress likely pain pump placement. Recommend correlation with surgical report. THIS IS AN ELECTRONICALLY VERIFIED FINAL REPORT 10/29/2024 2:33 PM - Electronically signed by Winston Motley M.D. MF: TRAVIS Report ID: [id number] Reading Location: [id number] Procedure Note Winston Motley MD - 10/29/2024 EXAM DESCRIPTION: XR SPINE THORACIC 2 VIEWS REASON FOR STUDY: Back pain FINDINGS: Multiple fluoroscopic images consisting of 2 view(s) submitted with comparison 07/16/2024 . Dose area product equals 0.59547 mGym*2. Fluoroscopic images demonstrate an in progress likely pain pump placement. IMPRESSION: In progress likely pain pump placement. Recommend correlation withsurgical report. THIS IS AN ELECTRONICALLY VERIFIED FINAL REPORT 10/29/2024 2:33 PM - Electronically signed by Winston Motley M.D. MF: TRAVIS Report ID: [id number] Reading Location: [id number] Cesar Smith MD IMG XR PROCEDURES Final Result * Imaging Lumbar/Caudal Epidural Steroid INJ ([id number]) (10/02/2024 3:40 PM CDT) Narrative [facility] - 10/02/2024 3:40 PM CDT The images from this study are not interpreted by Radiology. Please refer to the physician's procedure / OR operative note. Cesar ORANTES PAIN MGMT PROCEDURE S Final Result [facility] * Dexa Axial Skeleton Bone Density 1 or 2 Site (03/23/2022 11:18 AM CDT) Anatomical Region Laterality Modality Body N/A Other 03/23/2022 9:41 PM CDT Narrative 03/23/2022 9:44 PM CDT EXAM DESCRIPTION: DEXA AXIAL SKELETON BONE DENSITY 1 OR MORE SITES REASON FOR STUDY: 76 y/o year old F with given history of screening. 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 FINDINGS: AP LUMBAR SPINE L1-L4: Total BMD is 1.114 g/cm2 T-score is 0.6 Dissimilar scan types or analysis methods precludes assessment for calculating a significant change. LEFT HIP: Total BMD is 0.805 g/cm2 T-score is -1.1 Dissimilar scan types or analysis methods precludes assessment for calculating a significant change. Femoral neck BMD is 0.675 g/cm2 T-score is -1.6 FRAX: 10 year risk for a major osteoporotic fracture is 12 %, 10 year risk for a hip fracture is 2.8 % IMPRESSION: Based on the left femoral neck bone mineral density (T-score -1.6 ) the patient has low bone mass . REFERENCE: Bone mineral density: Normal (T-score above or = -1.0) Low bone mass (T-score between -1.0 and -2.5) replaces the previously used term osteopenia Osteoporosis (T-score = or below -2.5) Medical evaluation for secondary causes of low bone mineral density may be appropriate. FRAX is a World Health Organization validated fracture risk assessment tool that calculates a person's 10 year probability of a major osteoporosis related fracture and hip fracture. According to the National Osteoporosis Foundation guidelines, postmenopausal women and men age 50 or older with low bone mass and a 10 year probability of a major osteoporosis related fracture = or greater than 20% or a 10 year probability of a hip fracture = or greater than 3% should be considered for treatment. For further information, including treatment recommendations, please refer to the 2013 ISCD Official Positions (http://www.iscd.org) and the NOF's Clinician's Guide to Prevention and Treatment of Osteoporosis (http://www.nof.org/professionals/clinical-guidelines) THIS IS AN ELECTRONICALLY VERIFIED FINAL REPORT 03/23/2022 9:44 PM - Electronically signed by Winston Motley M.D. MF: TRAVIS Report ID: [id number] Reading Location: [place] [address] Procedure Note Winston Motley MD - 03/23/2022 EXAM DESCRIPTION: DEXA AXIAL SKELETON BONE DENSITY 1 OR MORE SITES REASON FOR STUDY: 76 y/o year old F with given history ofscreening. 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 FINDINGS: AP LUMBAR SPINE L1-L4: Total BMD is 1.114 g/cm2 T-score is 0.6 Dissimilar scan types or analysis methods precludes assessment for calculating a significant change. LEFT HIP: Total BMD is 0.805 g/cm2 T-score is -1.1 Dissimilar scan types or analysis methods precludes assessment for calculating a significant change. Femoral neck BMD is 0.675 g/cm2 T-score is -1.6 FRAX: 10 year risk for a major osteoporotic fracture is 12 %, 10 year risk for ahip fracture is 2.8 % IMPRESSION: Based on the left femoral neck bone mineral density (T-score -1.6 )the patient has low bone mass . REFERENCE: Bone mineral density: Normal (T-score above or = -1.0) Low bone mass (T-score between -1.0 and -2.5) replaces thepreviously used term osteopenia Osteoporosis (T-score = or below -2.5) Medical evaluation for secondary causes of low bone mineral density may be appropriate. FRAX is a World Health Organization validated fracture risk assessmenttool that calculates a person's 10 year probability of a major osteoporosisrelated fracture and hip fracture. According to the National OsteoporosisFoundation guidelines, postmenopausal women and men age 50 or older with low bonemass and a 10 year probability of a major osteoporosis related fracture = or greater than 20% or a 10 year probability of a hip fracture = or greaterthan 3% should be considered for treatment. For further information, including treatment recommendations, please referto the 2013 ISCD Official Positions (http://www.iscd.org) and the NOF's Clinician's Guide to Prevention and Treatment of Osteoporosis (http://www.nof.org/professionals/clinical-guidelines) THIS IS AN ELECTRONICALLY VERIFIED FINAL REPORT 03/23/2022 9:44 PM - Electronically signed by Winston Motley M.D. 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 Use antibiotics, IV Fluids, and medical treatment unless specifically selected below: No intubation * Full Code Date Activated Date Inactivated Comments 01/25/2024 4:16 PM 01/27/2024 3:28 PM * Full Code Date Activated Date Inactivated Comments 06/17/2023 12:06 PM 06/18/2023 5:46 PM * Full Code Date Activated Date Inactivated Comments 01/14/2023 10:07 AM 01/14/2023 4:36 PM * Full Code Date Activated Date Inactivated Comments 01/14/2023 10:07 AM 01/14/2023 10:07 AM Care Teams Agile Test Lead Relationship Specialty Start Date End Date Doreen Strong NP [address] [facility] [address] [place] [address] PCP - General Family Medicine 09/17/24 Carmen Eckert NP [address] [place] [address] Nurse Practitioner Psychiatry 09/08/20 Darwin Bejarano MD [address] [place] [address] Referring Physician Endocrinology 03/01/22 Cesar Smith MD [address] [place] [address] DR Barber [facility] 2 [facility] 2 [place] [address] Consulting Physician Anesthesiology 08/08/23 Lucy Olivera, PROJECT INSPECTOR [address] [facility] [address] [place] [address] Anesthesiology 08/09/23 Sandy Alejandro MD [address] [place] [address] [address] [place] [address] Consulting Physician Cardiology 08/22/23 Jeannette Lang MD [address] [place] [address] DR ANNETTE Mcmanus [facility] [address] [place] [address] Consulting Physician Neurology 08/22/23 [place] [address] [facility] [address] [place] [address] Consulting Physician Urology 08/22/23 Winston Banuelos MD [address] [place] [address] [address] [place] [address] Consulting Physician Neurology 01/27/24 Teddy Butts MD [address] [place] [address] DR BRYANT B [facility] [address] [place] [address] Surgeon Orthopedic Surgery 01/27/24 Luci Mcgregor MD [address] [facility] [address], [place] [address] Consulting Physician Otolaryngology 03/08/24 Hammad Melendrez, ANTOINE [address] [place] [address] [address] [place], [place] [id number] Director Recreation 11/20/24
--- OUTSIDE RECORDS SUMMARY | 2024-11-25 16:51 | XMS_ITS ---
Author Organization [facility] Address [address] [place] [address] Care Team Providers Care Day Care Worker Name Role Phone Carmen Eckert NP Unavailable [phone] Darwin Bejarano MD Unavailable Cesar Smith MD Unavailable [phone] Lucy Olivera NP Unavailable [phone] Sandy Alejandro MD Unavailable [phone] Jeannette Lang MD Unavailable Tee Connelly MD Unavailable [phone] Winston Banuelos MD Unavailable [phone] Teddy Butts MD Unavailable [phone] Luci Mcgregor MD Unavailable [phone] Doreen Strong NP Primary Care Provider Hammad Melendrez RN Unavailable [phone] Active Problems Problem Noted Date Diagnosed Date Status post insertion of intrathecal pump 2024 Abnormal urinalysis 10/29/2024 Sensory urge incontinence 10/29/2024 Overview (10/29/2024): Botox 100U - 08/15/2024 TIA (transient ischemic attack) 07/05/2024 Chronic diastolic (congestive) heart failure Sensorineural hearing loss, bilateral 06/01/2024 Assessment & Plan (06/01/2024 2:12 PM RACE ENGINE BUILDER): - seen by ENT 04/2024 - has [...] 06/18/2023 Assessment & Plan (06/20/2023 10:35 AM RACE ENGINE BUILDER): - recent diagnosis - was having elevated blood pressure, headaches - had workup in hospital admission and imaging - improved after better blood pressure management Esophageal polyp 05/16/2023 Assessment & Plan (06/20/2023 10:33 AM RACE ENGINE BUILDER): - reports hx of esophageal polyp - seeing a GI provider in [place] soon - reports has had esophagus stretched 7 years ago as well Vitamin D deficiency 05/16/2023 Assessment & Plan (10/29/2024 2:37 PM CDT): -chronic, controlled -patient currently takes vitamin D3 supplement -will recheck lab value -continue current treatment plan Assessment & Plan (05/16/2023 3:13 PM RACE ENGINE BUILDER): -chronic, unknown, no data to review at [...] 01/19/2023 Assessment & Plan (05/15/2024 3:48 PM RACE ENGINE BUILDER): -ongoing complaint, not improved -patient reports experiencing [...] 08/20/2021 Assessment & Plan (05/16/2023 3:11 PM RACE ENGINE BUILDER): Last colonoscopy completed 08/27/2021. Repeat in 5 [...] re-evaluation Assessment & Plan (05/31/2024 2:45 PM RACE ENGINE BUILDER): Wt Readings from Last 3 Encounters: 05/31/24 [...] so Assessment & Plan (05/15/2024 3:45 PM RACE ENGINE BUILDER): Wt Readings from Last 3 Encounters: 05/15/24 [...] so Assessment & Plan (08/09/2023 1:54 AM RACE ENGINE BUILDER): Wt Readings from Last 3 Encounters: 08/08/23 79.7 kg (175 lb 11.2 oz) 08/04/23 79.8 kg (176 lb) 06/21/23 78.9 kg (174 lb) Body mass index is 32.13 kg/m . - chronic condition, not at goal - BMI Follow-up includes: nutrition counseling, exercise counseling and education - Co morbidities - hypertension Assessment & Plan (05/16/2023 3:10 PM RACE ENGINE BUILDER): HPI: Condition is stable goal BMI <30 A&P: Healthy, high-protein, lower carbohydrate, lower fat lifestyle and exercise for 150min/week recommended Recommend tracking everything you put in your mouth on an yi like [employer] Hand Measurements: A fist or cupped hand [...] in your mouth on an yi like [employer] Hand Measurements: A fist or cupped hand [...] recommended Assessment & Plan (07/22/2021 7:39 PM RACE ENGINE BUILDER): Weight reduction, daily exercise and dietary modifications [...] 07/23/2020 Assessment & Plan (07/30/2020 2:55 PM RACE ENGINE BUILDER): Referral to gyne for further evaluation Reviewed [...] plan Assessment & Plan (05/31/2024 2:42 PM RACE ENGINE BUILDER): - chronic, stable with persistent symptoms - [...] be deficient or low, can still take lcnr-gdp-wsbkjgw vitamin B12 had low-level to see if it would help her symptoms Assessment & Plan (05/16/2023 3:11 PM RACE ENGINE BUILDER): Patient reiterated no suicidal thoughts at this [...] plan Assessment & Plan (05/31/2024 2:42 PM RACE ENGINE BUILDER): - chronic, stable with persistent symptoms - [...] psychiatry Assessment & Plan (05/16/2023 3:11 PM RACE ENGINE BUILDER): Patient reiterated no suicidal thoughts at this [...] others. Assessment & Plan (07/30/2020 2:54 PM RACE ENGINE BUILDER): Not well controlled, will continue lexapro and [...] plan Assessment & Plan (06/01/2024 2:10 PM RACE ENGINE BUILDER): - chronic, stable - continue on levothyroxine 112 mcg daily - managed by endocrinology - Dr. Bejarano - labs being monitored by her junior engineer - reviewed outside labs - states she does not plan to go back to an junior engineer - recheck labs, order placed TSH 08/2023 - WNL Lab Results Component Value Date TSH 0.87 05/31/2024 Assessment & Plan (12/20/2023 4:49 PM CDT): - chronic, stable - continue on levothyroxine 112 mcg daily - managed by endocrinology - labs being monitored by her junior engineer - reviewed outside labs Lab Results Component Value Date TSH 0.43 09/08/2020 Assessment & Plan (08/22/2023 2:16 PM CDT): - chronic, stable - continue on levothyroxine 112 mcg daily - continue seeing endocrinology - labs being monitored by her junior engineer, has venkata ppointmetn coming up in few days Lab Results Component Value Date TSH 0.43 09/08/2020 Assessment & Plan (05/16/2023 3:11 PM RACE ENGINE BUILDER): -chronic, stable -continue on levothyroxine 112 mcg daily -continue seeing endocrinology Assessment & Plan (12/28/2022 11:24 AM CDT): -chronic, stable -continue on levothyroxine 112 mcg daily -continue seeing endocrinology Assessment & Plan (03/01/2022 3:39 PM CDT): Managed by endocrinology. Asymptomatic, continue current prescription medications. Assessment & Plan (07/22/2021 7:38 PM RACE ENGINE BUILDER): Patient will see an junior engineer in a couple of weeks. She declines a TSH check today. Assessment & Plan (01/14/2021 11:26 AM CDT): Asx. Continue current therapy. Assessment & Plan (09/08/2020 10:13 AM CDT): Worsening anxiety and depression, labs ordered. Will follow. Assessment & Plan (07/30/2020 2:55 PM RACE ENGINE BUILDER): Will continue to monitor TSH, continue synthroid 150 ucg Osteoporosis 10/27/2013 Overview (01/14/2021): Allergic to alendronate. Assessment & Plan (05/16/2023 3:11 PM RACE ENGINE BUILDER): -chronic, stable -patient did not tolerate Fosamax [...] plan Assessment & Plan (06/01/2024 2:10 PM RACE ENGINE BUILDER): BP Readings from Last 3 Encounters: 05/18/24 [...] management Assessment & Plan (08/08/2023 12:20 PM RACE ENGINE BUILDER): BP Readings from Last 3 Encounters: 08/08/23 120/70 08/04/23 131/82 07/21/23 133/69 -chronic, stable -continue on losartan 50 mg daily (used to be on 25 mg Losartan) -recommend healthy, low-salt diet -continue seeing Cardiology - discussed to stop taking NSAIDs moving forward Assessment & Plan (06/20/2023 10:40 AM RACE ENGINE BUILDER): BP Readings from Last 3 Encounters: 06/20/23 130/70 06/18/23 154/78 05/16/23 121/76 -chronic, stable -continue on losartan 50 mg daily (used to be on 25 mg Losartan) -recommend healthy, low-salt diet -continue seeing Cardiology - discussed to stop taking NSAIDs moving forward Assessment & Plan (05/16/2023 3:12 PM RACE ENGINE BUILDER): -chronic, stable -continue on losartan 25 mg [...] medications. Assessment & Plan (07/22/2021 7:40 PM RACE ENGINE BUILDER): Stable. Cont. Current prescription medications. Assessment & Plan (01/14/2021 11:16 AM CDT): Blood pressure at goal at less than 140/90. Continue current medications. Assessment & Plan (09/08/2020 10:12 AM CDT): Blood pressure at goal of less than 140/90. Continue current medications. Assessment & Plan (07/30/2020 2:55 PM RACE ENGINE BUILDER): Stable, at target, continue current medications Pure hypercholesterolemia 10/27/2013 Assessment & Plan (05/31/2024 2:42 PM RACE ENGINE BUILDER): -chronic, stable -patient does not take medication [...] 09/08/2020 Assessment & Plan (06/20/2023 10:23 AM RACE ENGINE BUILDER): -chronic, stable -patient does not take medication [...] 09/08/2020 Assessment & Plan (05/16/2023 3:12 PM RACE ENGINE BUILDER): -chronic, stable -patient does not take medication [...] follow. Assessment & Plan (07/22/2021 7:40 PM RACE ENGINE BUILDER): LDL goal is < 100, patient nearing goal. Low chol diet recommended. Assessment & Plan (01/14/2021 11:26 AM CDT): LDL in the good range. Patient is intolerant to statins. Low-cholesterol diet is recommended. Assessment & Plan (09/08/2020 10:13 AM CDT): Low-cholesterol diet recommended. Labs ordered. Patient stated today that she will not take any medications for her cholesterol. Current Treatment and Therapy Plans No current plan information found. Past Treatment and Therapy Plans No past plan information found. Lifetime Dose Tracking * Chemical Lifetime Dose Automatic Entry Manual Entr y Fluoro Time 3.075 minutes 3.075 minutes 0 minutes Air kerma at the reference point (Ka,r) 57.73 mGy 5 7.73 mGy 0 mGy Resolved Problems Problem Noted Date Diagnosed Date [...] plan Assessment & Plan (06/01/2024 2:10 PM RACE ENGINE BUILDER): - established with pain management - -s/p Left Sacroiliac Joint injection with significant improvement in symptoms Influenza vaccination declined 05/31/2024 05/31/2024 Acute cystitis without hematuria 01/26/2024 05/31/2024 Fall (on)(from) incline, initial encounter 01/25/2024 05/31/2024 Lumbar facet arthropathy 07/21/2023 Nonintractable headache, uns pecified chronicity pattern, unspecified headache type 06/17/2023 06/20/2023 Abnormal echocardiogram 01/19/202308/11 Palpitations 01/19/2023 06/20/[address] scan 01/12/2023 08/22/2023 Family history of colon cancer 01/12/2023 05/16/2023 Encounter for screening colonoscopy 01/12/2023 05/16/2023 Family history of colon cancer 08/20/2021 12/20/2022 Overview (08/20/2021): Added automatically from request for surgery [id number] Encounter for screening colonoscopy 08/20/2021 03/01/2022 Overview (08/20/2021): Added automatically from request for surgery [id number] S/P hysterectomy 09/08/2020 12/20/2022 Left lower quadrant [...] past - established with pain management at [facility] - she continues to use of Cymbalta [...] osteoarthritis. Assessment & Plan (08/09/2023 1:53 AM RACE ENGINE BUILDER): - chronic, not well controlled - reports remote hx of 2 back surgeries - has been on meloxicam 15 mg daily ---> discussed about halfway risk of NSAID use so she Is [...] osteoarthritis. Assessment & Plan (06/20/2023 10:47 AM RACE ENGINE BUILDER): - chronic, not well controlled - reports remote hx of 2 back surgeries - has been on meloxicam 15 mg daily ---> discussed about long term care phlebotomist risk of NSAID use so she Is willing to stop using Meloxicam - states she used to get injections in her back - not established with pain management provider although she was referred by her PCP, willing at this time - new referral placed - she continues to use of Cymbalta 60 mg daily Assessment & Plan (05/16/2023 3:10 PM RACE ENGINE BUILDER): -chronic, stable -continue on meloxicam 15 mg daily Assessment & Plan (12/28/2022 11:43 AM CDT): -chronic, not at/near goal -patient reports she was taking Harrells 5-325 mg every 6 hours as needed, but it does not seem to make a difference -refer to pain management Assessment & Plan (01/14/2021 11:28 AM CDT): Pain managed with meloxicam. Continue current therapy. Assessment & Plan (09/08/2020 10:16 AM CDT): Trial of meloxicam. May use acetaminophen and vhph-vip-yifeohd as needed for pain. Follow directions for use on packaging. Do not take any mxoh-kae-xxvukri NSAIDs with meloxicam. History of renal calculi 10/18/201903/2023 Diuretic-induced hypokalemia 10/18/2019 12/20/2022 Assessment & Plan (03/01/2022 3:40 PM CDT): Asymptomatic. Labs ordered, will follow. Prescription refilled. Assessment & Plan (07/22/2021 7:40 PM RACE ENGINE BUILDER): Asymptomatic. Patient increased her daily potassium on her own. Patient reports being on 30 meq daily while she was living in [place]. Labs ordered. Assessment & Plan (01/14/2021 11:28 [...] Management. Assessment & Plan (07/30/2020 2:54 PM RACE ENGINE BUILDER): Continue to Zanaflex for relief
--- OUTSIDE RECORDS SUMMARY | 2024-11-25 16:51 | XMS_ITS | Continuity of Care Document ---
Author Organization [facility] Address [address] [place] [address] Phone Care Team Providers Care Area Field Worker Name Role Phone Unavailable Unavailable Unavailable Allergies, Adverse Reactions, Alerts Substance Reaction Status Criticality alendronate sodium throat swelling, hives Active No Information codeine upset stomach(moderate) Active No I nformation morphine upset stomach(moderate) Active No I nformation alendronate sodium lowers bp(moderate) Active No Information Medications Medication Instructions Dosage Effective Dates (start - stop) Status Comments Wellbutrin SR 150 mg tablet,extended release take 1 tablet by oral route 2 times every day 150 MG - Active Effexor XR 150 mg capsule,extended release take 1 capsule by oral route every day 150 MG - Active Tirosint 150 mcg capsule take 1 capsule by oral route every day 150 MCG - Active aspirin - Active Omeprazole - Active Lisinopril - Active Pravastatin - Active Procedures Procedure Date POSTOP FOLLOW-UP VISIT POSTOP FOLLOW-UP VISIT REVISION OF UPPER EYELID; Bilateral Anesth, Bleph, Safe And Vault Installer Svc WO Medical Direc tion By A Physician Non Smoker Revision Of Upper Eyelid, Facility Fee A Revision Of Upper Eyelid, Facility Fee A PATIENT DOCUMENTS NO EVENTS ON DISCHARGE Patient WO Preop Order For I v Antibiotic Surgical Site Inf (Ssi) Prophlaxis VISUAL FIELD EXAMINATION(S) OFFICE/OUTPATIENT VISIT, EST External Ocular Photos [facility] OFFICE/OUTPATIENT VISIT, EST OFFICE/OUTPATIENT VISIT, EST OFFICE/OUTPATIENT VISIT, NEW Advance Directives Directive Yes / No Effective Date File Name No Information Encounters Encounter Description Practice Location Reason(s) For Visit Diagnoses Date Provider Providers Copied on Encounter [facility], [address] , [place], [place], [id number], tel:[phone] [place] Pt states redness & swelling is all gone now. BUL (chief complaint) Encntr for f/u exam aft trtmt for cond oth than malig neoplm No Information Referring Provider: Genevieve Mccoy[address], [place], [address] . tel:[phone] [facility], [address] , [place], [place], [id number], tel:[phone] [place] no complaints OU (chief complaint) Encntr for f/u exam aft trtmt for cond oth than malig neoplm No Information Referring Provider: Genevieve Mccoy[address], [place], [address] . tel:[phone] [facility], [address] [place], [place], [id number], [place] tel:[phone] [facility] No Information No Information Referring Provider: Genevieve Mccoy[address], [place], [address] . tel:[phone] [facility], [address] [place], [place], [id number], [place] tel:[phone] [facility] No Information Memo Mendosa. [facility] [place], [place], [id number], . tel:[phone] [facility], [address] [place], [place], [id number], [place] tel:[phone] [facility] No Information [facility] [address] , [place], [place], [id number], [place]. tel:[phone] [facility], [address] , [place], [place], [id number], [place] tel:[phone] [place] Viual Field (chief complaint) Dermatochalas is of left upper eyelid No Information OFFICE/OUTPA TIENT VISIT, [facility], [address] , [place], [place], [id number], [place] tel:[phone] [place] drooping upper eyelids (chief complaint) Dermatochalas is of right upper eyelidDermato chalasis of left upper eyelidMyogeni c ptosis of bilateral eyelids No Information Referring Provider: Mack Ruggiero, [address], [place], [address] . tel:[phone] OFFICE/OUTPA TIENT VISIT, [facility], [address] , [place], [place], [id number], [place] tel:[phone] [place] Floaters (chief complaint) Vitreous Detachment 5 Bahman Giron. [address], [place], [place], [id number], [place]. tel:[phone] Referring Provider: Mack Ruggiero, [address], [place], [address] . tel:[phone] OFFICE/OUTPA TIENT VISIT, [facility], [address] , [place], [place], [id number], [place] tel:[phone] [place] Tear film insufficiency , unspecifiedTe ar film insufficiency , unspecified 4 Bahman Giron. [address], [place], [place], [id number], [place]. tel:[phone] Referring Provider: Makc Ruggiero, [address], [place], [address] . tel:[phone] OFFICE/OUTPA TIENT VISIT, [facility], [address] , [place], [place], [id number], [place] tel:[phone] [place] Tear film insufficiency , unspecifiedTe ar film insufficiency , unspecified Mar-2 3 Ruggiero Mack. [address], [place], [place], [id number], [place]. 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 Pt states redness & swelling is all gone now. BUL (chief complaint) Reason For Referral Reason For Referral No Information History Of Present Illness Encounter Date Complaint History Of Prese nt Illness Pt states redness & swelling is all gone now. Pt states redness & swelling is all gone now. BUL no complaints no complaints OU Viual Field The 71 year old female presents for evaluation of Viual Field 36 superior taped and untaped in the right eye and left eye per Dr. Hoover. drooping upper eyelids The 71 ye ar old female presents for evaluation of drooping upper eyelids in the BUL. It started about 1 year(s) ago. The symptom is constant. Pt c/o having to hold upper lids up when reading. Has to raise forehead, brows & tilt head sideways & up when driving & playing bingo. Had T/UT visual field @ [facility] recently but results were not faxed. Floaters Poss Retina deta chrebecca, Pt complains about floaters and flashes the condition started 2 weeks ago. Pt states not using any medication for discomfort. Pt states her vision was affected but its improving. Functional Status Date Functional Assessmen t No Information Instructions Date Instruction Additional Infor darlene BULB sx Related to [place] tochalasis of right upper eyelid Follow up - HVF then sx if indic ated Related to Dermatochalasis of right upper eyelid Impression/Plan - Di scussed diagnosis in detail with patient. Discussed treatment options with patient. Surgical treatment is required. Surgical risks and benefits were discussed, explained and understood by patient. Patient elects to have surgery. HVF ordered 36 superior, if visually significant. RL2 Recommend Bilateral Upper Eyelid Blepharoplasty. Photos taken today. Patient to avoid Aspirin 14 days prior to sx. Related to Dermatochalasis of right upper eyelid Impression/Plan - Wi ll reasses after BULB sx. 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 There is no evidence of retinal pathology. All signs and risks of retinal detachment and tears were discussed in detail. Patient instructed to call the office immediately if any symptoms noted. Recommend the patient return to office for follow up. 1 month DE Related to Vitreous Detachment Dry Eye Syndrome - D ry eyes account for the patient's complaints. There is no evidence of permanent changes to the cornea. Explained condition does not have a cure and will need artificial tears for maintenance. gave ne maura Rx RTC 1 year Related to Dry Eye Syndrome Dry Eye Syndrome - D ry eyes account for the patient's complaints. There is no evidence of permanent changes to the cornea. Explained condition does not have a cure and will need artificial tears for maintenance. 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 Discussed all risks, benefits, procedures and recovery. Patient understands changing glasses will not improve vision. Patient desires to have surgery, recommend phacoemulsification with intraocular lens. RL 2. Related to Senile nuclear sclerosis Assessments Type Assessment Date No Information Patient Care Teams Name Effective Dates (start - stop) Status Members No Information
--- OUTSIDE RECORDS SUMMARY | 2024-11-25 16:51 | XMS_ITS | Clinical Summary ---
Author Organization [facility] Address [address] [place] [address] Care Team Providers Care Mold Car Pusher Name Role Phone Carmen Eckert NP Unavailable [phone] Darwin Bejarano MD Unavailable Cesar Smith MD Unavailable [phone] Lucy Olivera NP Unavailable [phone] Sandy Alejandro MD Unavailable [phone] Jeannette Lang MD Unavailable Tee Connelly MD Unavailable [phone] Winston Banuelos MD Unavailable [phone] Teddy Butts MD Unavailable [phone] Luci Mcgregor MD Unavailable [phone] Doreen Strong NP Primary Care Provider Hammad Melendrez RN Unavailable [phone] Allergies Active Allergy Reactions Criticality Noted Date [...] 06/01/2024 Assessment & Plan (06/01/2024 2:12 PM SALES REPRESENTATIVE [employer]): - seen by ENT 04/2024 - has [...] 06/18/2023 Assessment & Plan (06/20/2023 10:35 AM SALES REPRESENTATIVE [employer]): - recent diagnosis - was having elevated blood pressure, headaches - had workup in hospital admission and imaging - improved after better blood pressure management Esophageal polyp 05/16/2023 Assessment & Plan (06/20/2023 10:33 AM SALES REPRESENTATIVE [employer]): - reports hx of esophageal polyp - seeing a GI provider in [place] soon - reports has had esophagus stretched 7 years ago as well Vitamin D deficiency 05/16/2023 Assessment & Plan (10/29/2024 2:37 PM CDT): -chronic, controlled -patient currently takes vitamin D3 supplement -will recheck lab value -continue current treatment plan Assessment & Plan (05/16/2023 3:13 PM SALES REPRESENTATIVE [employer]): -chronic, unknown, no data to review at [...] 01/19/2023 Assessment & Plan (05/15/2024 3:48 PM SALES REPRESENTATIVE [employer]): -ongoing complaint, not improved -patient reports experiencing [...] 08/20/2021 Assessment & Plan (05/16/2023 3:11 PM SALES REPRESENTATIVE [employer]): Last colonoscopy completed 08/27/2021. Repeat in 5 [...] re-evaluation Assessment & Plan (05/31/2024 2:45 PM SALES REPRESENTATIVE [employer]): Wt Readings from Last 3 Encounters: 05/31/24 [...] so Assessment & Plan (05/15/2024 3:45 PM SALES REPRESENTATIVE [employer]): Wt Readings from Last 3 Encounters: 05/15/24 [...] so Assessment & Plan (08/09/2023 1:54 AM SALES REPRESENTATIVE [employer]): Wt Readings from Last 3 Encounters: 08/08/23 79.7 kg (175 lb 11.2 oz) 08/04/23 79.8 kg (176 lb) 06/21/23 78.9 kg (174 lb) Body mass index is 32.13 kg/m . - chronic condition, not at goal - BMI Follow-up includes: nutrition counseling, exercise counseling and education - Co morbidities - hypertension Assessment & Plan (05/16/2023 3:10 PM SALES REPRESENTATIVE [employer]): HPI: Condition is stable goal BMI <30 A&P: Healthy, high-protein, lower carbohydrate, lower fat lifestyle and exercise for 150min/week recommended Recommend tracking everything you put in your mouth on an yi like To8to Hand Measurements: A fist or cupped hand [...] in your mouth on an yi like To8to Hand Measurements: A fist or cupped hand [...] recommended Assessment & Plan (07/22/2021 7:39 PM SALES REPRESENTATIVE [employer]): Weight reduction, daily exercise and dietary modifications [...] 07/23/2020 Assessment & Plan (07/30/2020 2:55 PM SALES REPRESENTATIVE [employer]): Referral to gyne for further evaluation Reviewed [...] plan Assessment & Plan (05/31/2024 2:42 PM SALES REPRESENTATIVE [employer]): - chronic, stable with persistent symptoms - [...] be deficient or low, can still take ojho-tfz-ttwtzrs vitamin B12 had low-level to see if it would help her symptoms Assessment & Plan (05/16/2023 3:11 PM SALES REPRESENTATIVE [employer]): Patient reiterated no suicidal thoughts at this [...] plan Assessment & Plan (05/31/2024 2:42 PM SALES REPRESENTATIVE [employer]): - chronic, stable with persistent symptoms - [...] psychiatry Assessment & Plan (05/16/2023 3:11 PM SALES REPRESENTATIVE [employer]): Patient reiterated no suicidal thoughts at this [...] others. Assessment & Plan (07/30/2020 2:54 PM SALES REPRESENTATIVE [employer]): Not well controlled, will continue lexapro and [...] plan Assessment & Plan (06/01/2024 2:10 PM SALES REPRESENTATIVE [employer]): - chronic, stable - continue on levothyroxine 112 mcg daily - managed by endocrinology - Dr. Bejarano - labs being monitored by her paper counter - reviewed outside labs - states she does not plan to go back to an paper counter - recheck labs, order placed TSH 08/2023 - WNL Lab Results Component Value Date TSH 0.87 05/31/2024 Assessment & Plan (12/20/2023 4:49 PM CDT): - chronic, stable - continue on levothyroxine 112 mcg daily - managed by endocrinology - labs being monitored by her paper counter - reviewed outside labs Lab Results Component Value Date TSH 0.43 09/08/2020 Assessment & Plan (08/22/2023 2:16 PM CDT): - chronic, stable - continue on levothyroxine 112 mcg daily - continue seeing endocrinology - labs being monitored by her paper counter, has venkata ppointmetn coming up in few days Lab Results Component Value Date TSH 0.43 09/08/2020 Assessment & Plan (05/16/2023 3:11 PM SALES REPRESENTATIVE [employer]): -chronic, stable -continue on levothyroxine 112 mcg daily -continue seeing endocrinology Assessment & Plan (12/28/2022 11:24 AM CDT): -chronic, stable -continue on levothyroxine 112 mcg daily -continue seeing endocrinology Assessment & Plan (03/01/2022 3:39 PM CDT): Managed by endocrinology. Asymptomatic, continue current prescription medications. Assessment & Plan (07/22/2021 7:38 PM SALES REPRESENTATIVE [employer]): Patient will see an paper counter in a couple of weeks. She declines a TSH check today. Assessment & Plan (01/14/2021 11:26 AM CDT): Asx. Continue current therapy. Assessment & Plan (09/08/2020 10:13 AM CDT): Worsening anxiety and depression, labs ordered. Will follow. Assessment & Plan (07/30/2020 2:55 PM SALES REPRESENTATIVE [employer]): Will continue to monitor TSH, continue synthroid 150 ucg Osteoporosis 10/27/2013 Overview (01/14/2021): Allergic to alendronate. Assessment & Plan (05/16/2023 3:11 PM SALES REPRESENTATIVE [employer]): -chronic, stable -patient did not tolerate Fosamax [...] plan Assessment & Plan (06/01/2024 2:10 PM SALES REPRESENTATIVE [employer]): BP Readings from Last 3 Encounters: 05/18/24 [...] management Assessment & Plan (08/08/2023 12:20 PM SALES REPRESENTATIVE [employer]): BP Readings from Last 3 Encounters: 08/08/23 120/70 08/04/23 131/82 07/21/23 133/69 -chronic, stable -continue on losartan 50 mg daily (used to be on 25 mg Losartan) -recommend healthy, low-salt diet -continue seeing Cardiology - discussed to stop taking NSAIDs moving forward Assessment & Plan (06/20/2023 10:40 AM SALES REPRESENTATIVE [employer]): BP Readings from Last 3 Encounters: 06/20/23 130/70 06/18/23 154/78 05/16/23 121/76 -chronic, stable -continue on losartan 50 mg daily (used to be on 25 mg Losartan) -recommend healthy, low-salt diet -continue seeing Cardiology - discussed to stop taking NSAIDs moving forward Assessment & Plan (05/16/2023 3:12 PM SALES REPRESENTATIVE [employer]): -chronic, stable -continue on losartan 25 mg [...] medications. Assessment & Plan (07/22/2021 7:40 PM SALES REPRESENTATIVE [employer]): Stable. Cont. Current prescription medications. Assessment & Plan (01/14/2021 11:16 AM CDT): Blood pressure at goal at less than 140/90. Continue current medications. Assessment & Plan (09/08/2020 10:12 AM CDT): Blood pressure at goal of less than 140/90. Continue current medications. Assessment & Plan (07/30/2020 2:55 PM SALES REPRESENTATIVE [employer]): Stable, at target, continue current medications Pure hypercholesterolemia 10/27/2013 Assessment & Plan (05/31/2024 2:42 PM SALES REPRESENTATIVE [employer]): -chronic, stable -patient does not take medication [...] 09/08/2020 Assessment & Plan (06/20/2023 10:23 AM SALES REPRESENTATIVE [employer]): -chronic, stable -patient does not take medication [...] 09/08/2020 Assessment & Plan (05/16/2023 3:12 PM SALES REPRESENTATIVE [employer]): -chronic, stable -patient does not take medication [...] follow. Assessment & Plan (07/22/2021 7:40 PM SALES REPRESENTATIVE [employer]): LDL goal is < 100, patient nearing [...] plan Assessment & Plan (06/01/2024 2:10 PM SALES REPRESENTATIVE [employer]): - established with pain management - -s/p [...] (08/20/2021): Added automatically from request for surgery [id number] Encounter for screening colonoscopy 08/20/2021 03/01/2022 Overview (08/20/2021): Added automatically from request for surgery [id number] S/P hysterectomy 09/08/2020 12/20/2022 Left lower quadrant [...] past - established with pain management at [facility] - she continues to use of [...] osteoarthritis. Assessment & Plan (08/09/2023 1:53 AM SALES REPRESENTATIVE [employer]): - chronic, not well controlled - reports remote hx of 2 back surgeries - has been on meloxicam 15 mg daily ---> discussed about buttermaker helper risk of NSAID use so she Is [...] osteoarthritis. Assessment & Plan (06/20/2023 10:47 AM SALES REPRESENTATIVE [employer]): - chronic, not well controlled - reports remote hx of 2 back surgeries - has been on meloxicam 15 mg daily ---> discussed about buttermaker helper risk of NSAID use so she Is willing to stop using Meloxicam - states she used to get injections in her back - not established with pain management provider although she was referred by her PCP, willing at this time - new referral placed - she continues to use of Cymbalta 60 mg daily Assessment & Plan (05/16/2023 3:10 PM SALES REPRESENTATIVE [employer]): -chronic, stable -continue on meloxicam 15 mg daily Assessment & Plan (12/28/2022 11:43 AM CDT): -chronic, not at/near goal -patient reports she was taking [place] 5-325 mg every 6 hours as needed, but it does not seem to make a difference -refer to pain management Assessment & Plan (01/14/2021 11:28 AM CDT): Pain managed with meloxicam. Continue current therapy. Assessment & Plan (09/08/2020 10:16 AM CDT): Trial of meloxicam. May use acetaminophen and jsky-psu-oqqukuq as needed for pain. Follow directions for use on packaging. Do not take any wfor-zac-nmopnag NSAIDs with meloxicam. History of renal calculi 10/18/201903/2023 Diuretic-induced hypokalemia 10/18/2019 12/20/2022 Assessment & Plan (03/01/2022 3:40 PM CDT): Asymptomatic. Labs ordered, will follow. Prescription refilled. Assessment & Plan (07/22/2021 7:40 PM SALES REPRESENTATIVE [employer]): Asymptomatic. Patient increased her daily potassium on [...] Management. Assessment & Plan (07/30/2020 2:54 PM SALES REPRESENTATIVE [employer]URE): Continue to Zanaflex for relief Encounters Date Type Department Care Team Description 11/23/2024 Telephone [facility] Primary [facility] [place] [address] [place] [address] Doreen Strong NP Medication, Appt needed 11/17/2024 5:03 PM CDT - 11/17/2024 8:13 PM CDT Emergency [facility] [address] [place] [address] Jerson Hall MD Weakness (Primary Dx); Acute cystitis without hematuria Discharge Disposition: Discharge to home or self care 11/14/2024 4:00 PM CDT - 11/14/2024 11:59 PM CDT Hospital Encounter [facility] [address] [facility] [address] [place] [address] Cesar Smith MD Status post insertion of intrathecal pump (Primary Dx) Discharge Disposition: Discharge to home or self care 11/09/2024 Telephone [facility] Primary Care at [address] [place] [phone] Doreen Strong, PATCH WORKER Medical Question/Miscellaneou s 11/01/2024 1:00 PM CDT Office Visit [facility] Primary Care at [address] [place] [address] Doreen Strong, LINNETTE Dizziness (Primary Dx); Class 1 obesity with body mass index (BMI) of 31.0 to 31.9 in adult, unspecified obesity type, unspecified whether serious comorbidity present 11/01/2024 Orders Only [facility] Primary Care at [address] [phone] Doreen Strong, LINNETTE Obesity (BMI 30-39.9) (Primary Dx) 11/01/2024 Telephone [facility] Primary Care at [address] [phone] Doreen Strong, PATCH WORKER 11/01/2024 Orders Only [facility] Primary Care at [address] [phone] Doreen Strong, PATCH WORKER 10/31/2024 1:42 PM CDT - 10/31/2024 11:59 PM CDT Hospital Encounter [facility] [address] [place] [address] [address], [address] [place] [address] Cesar Smith MD Status post insertion of intrathecal pump (Primary Dx) Discharge Disposition: Discharge to home or self care 10/31/2024 Telephone [facility] Primary Care at [address] [phone] Doreen Strong, PATCH WORKER Med Refill 10/31/2024 Orders Only [facility] Primary Care at [address] [phone] Doreen Strong NP 10/31/2024 Nurse Triage [facility] Primary Care at [address] [phone] Doreen Strong, LINNETTE 10/31/2024 Nurse Triage [facility] Primary Care at [address] [phone] Saniya Moon RN 10/31/2024 Results Follow-Up [facility] Primary Care at [address] [phone] Doreen Strong NP TSH, T4, free, Vitamin B12, Vitamin D 25 hydroxy 10/31/2024 Telephone [facility] Primary Care at [address] [phone] Doreen Strong NP 10/30/2024 3:15 PM CDT Office Visit [facility] [address] [place] [phone] Drake Rawls NP MACIEJ (obstructive sleep apnea) (Primary Dx); Hypersomnia with sleep apnea; Obesity (BMI 30.0-34.9); Memory loss 10/29/2024 1:55 PM CDT Lab [address] [address] Fatigue, unspecified type; Vitamin D deficiency 10/29/2024 1:00 PM CDT Office Visit [facility] Primary Care at [address] [phone] Doreen Strong, LINNETTE Primary hypertension (Primary Dx); Fatigue, unspecified type; Vitamin D deficiency; Class 1 obesity with body mass index (BMI) of 31.0 to 31.9 in adult, unspecified obesity type, unspecified whether serious comorbidity present 10/24/2024 7:42 AM CDT Anesthesia Event [facility] 1 [place] [address] Tae Self MD McDowell, Juri Osmell, MD 10/24/2024 7:30 AM CDT - 10/24/2024 9:15 AM CDT Surgery [facility] 1 [place] [address] Cesar Smith MD intrathecal pain pump implant 10/24/2024 6:13 AM CDT - 10/24/2024 11:13 AM CDT Hospital Encounter [facility] 1 [place] [address] Cesar Smith MD Adenocarcinoma of colon (HCC) (Primary Dx) Discharge Disposition: Discharge to home or self care 10/03/2024 Telephone [facility] 2 [facility] [address] [place] [address] Yudi Claire RN 10/03/2024 Telephone [facility] 2 [facility] [address] [place] [address] Yudi Claire RN 10/03/2024 Telephone [facility] 2 [facility] [address] [place] [address] Yudi Claire, ANTOINE 10/02/2024 2:52 PM CDT - 10/02/2024 11:59 PM CDT Hospital Encounter [facility] 2 [facility] [address] [place] [address] Cesar Smith MD Failed back surgical syndrome Discharge Disposition: Discharge to home or self care 09/19/2024 Orders Only [facility] 2 [facility] [address] [place] [address] Cesar Smith MD Failed back surgical syndrome (Primary Dx) 09/17/2024 1:30 PM CDT Office Visit [facility] Primary Care at [address] [place] [phone] Doreen Strong NP Primary hypertension (Primary Dx); Postoperative hypothyroidism; Sacroiliitis; Moderate episode of recurrent major depressive disorder (HCC); Generalized anxiety disorder; Class 1 obesity with body mass index (BMI) of 31.0 to 31.9 in adult, unspecified obesity type, unspecified whether serious comorbidity present 08/29/2024 12:35 PM CDT - 08/29/2024 11:59 PM CDT Hospital Encounter [facility] [address] [place] [address], [address] [address] Cesar Smith MD Failed back surgical syndrome (Primary Dx); Sacroiliitis Discharge Disposition: Discharge to home or self care from Last 3 Months Immunizations Immunization Administration Dates Next Due Influenza, Trivalent, IM (MDV) 03/21/2009 Influenza, Unspecified 05/31/2024(Deferr ed: Patient Refused),05/15/2024(Deferred: Patient Refused),05/16/2023(Deferred: Patient Refused),03/13/2023(Deferred: Patient Refused),03/13/2021(Deferred: Patient Refused),03/13/2020 Pneumococcal Conjugate, Unspecified 06/13/2014 Tdap 06/13/2015 Surgical History Surgery Date Site/Laterality Comments REDUCTION MAMMOPLASTY 06/13/2005 - 06/12/2006 Breast reduction OTHER SURGICAL HISTORY 06/13/2000 - 06/12/2001 bladder dropped: bladder resusp OTHER SURGICAL HISTORY 06/13/2000 - 06/12/2001 EAR DRUM SURGERY HYSTERECTOMY 06/13/1998 - 06/12/1999 BACK SURGERY 06/13/1989 - 06/12/1990 Back surgery, lumbar area, 2 back surgeries CHOLECYSTECTOMY 06/13/1999 - 06/12/2000 THYROIDECTOMY 06/13/2005 - 06/12/2006 TONSILLECTOMY FINGER SURGERY Pointer finger on left hand. WRIST SURGERY Metal plate in right wrist. COLONOSCOPY 09/11/2013 - 10/10/2013 [place] POLYPECTOMY COLONOSCOPY 08/11/2021 - 09/10/2021 Medical History Medical History Date Comments Hypertension Hx Other Medical 2007 S/P thyroidecto my Thyroid disease hypothryoidism Chronic back pain History of kidney stones Urinary incontinence Thoracic spinal cord injury (HCC) Colon polyp Anxiety and depression Uterovaginal prolapse, incomplete Cystocele, midline GERD (gastroesophageal reflux disease) Hiatal hernia Spinal stenosis Depression PONV (postoperative nausea and vomiting) Hypothyroidism Family History Medical History Relation Name Comments No Known Problems Brother Cancer Father mouth Dementia Father DEMENTIA; Other Father Cancer -MOUTH; Throat cancer Father Cancer -throat ; Coronary artery disease Mother Alejandro nary artery disease; Goiter Mother Heart failure Mother Thyroid disease Other Family histo ry of Thyroid disorder; Colon cancer Sister 1 Maryam Thyroid cancer Sister 1 Maryam Cancer -thyro id; Relation Name Status Comments Brother Alive Father Mother (Age 83) Other Sister 1 Maryam Alive Sister 2 Criss Alive Sister 3 Audra Alive Sister 4 Beatriz Alive Social History Tobacco Use Types Packs/Day Years Used Date Smoking Tobacco: Never Smokeless Tobacco: Never Tobacco Cessation:Counseling Given: Not Answered Alcohol Use Standard Drinks/Week Comments No 0 (1 standard drink = 0.6 oz pur e alcohol) [facility] Utilities Answer Date Recorded In the past 12 months has e electric, gas, oil, or water company threatened to shut off services in your [...] often do you attend chur ch or mandaeism services? More than 4 times per year 07/06/2024 Do you belong to any clubs o r organizations such as spiritism groups, unions, fraternal or athletic groups, or [...] any time in the past 12 [facility], were you homeless or living in a fpc (including now)? No 07/06/2024 Personal Safety Answer Date Recorded Have you ever been in or are you currently in a harmful physical or emotional relationship or is someone making you feel afraid or unsafe? Denies 11/17/2024 Comments No Sex and Gender Information Value Date Recorded Sex Assigned at Not on file Legal Sex Female 8:34 AM SALES REPRESENTATIVE [employer] Gender Identity Female 08/24/2021 12:33 PM CDT Sexual Orientation Not on file Obstetrics History Para Term AB IAB SAB Ectopic Multiple Livin g Live Births 3 1 1 2 1 1 1 1 Date Outcome GA Total Labor Labor/2nd/3rd Weight Sex Type Anes PTL Jessica A1 A5 Name Clin SAB IAB 1966 Term M Vag-S pont Living Last Filed Vital Signs Vital Sign Reading [...] 11/17/2024 5:02 PM CDT Plan of Treatment Health Maintenance Due Date Last Done Comments Well Visit 65+ 05/31/2025 05/31/2024, 09/2022, 05/12/2022, Additional history exists Zoster Vaccine (1 of 2) 05/31/2025 Post poned from 1994 (Patient declined, but will receive in the future) Osteoporosis Screening-Bone Density Scan 06/01/2025 03/23/2022, 03/23/2022 Postponed from 03/23/2024 (Patient declined, but will receive in the future) DTaP/Tdap/Td Vaccine (2 - Td or Tdap) 06/13/2025 06/13/2015 Depression Screening 11/01/2025 11/01/2024, 10/29/2024, 09/17/2024, Additional history exists Fall Risk Assessment 11/01/2025 11/01/2024, 10/29/2024, 09/17/2024, Additional history exists Pneumococcal vaccine 65+ Discontinued 06/13/2014 Influenza Vaccine Discontinued 03/13/2020, 03/21/2009 Hepatitis B Screening Completed 05/31/2024 Medical Devices Implanted Type Area Medical Research Scientist Device Identifier Shelf Expiration Date Model / Serial / Lot Atempo Jhonatan Obtryx Ii Precisionblue Advantage .15mm 22cm Sling Halo Needle [id number] - [id number] Implanted:Qty: 1 on 11/30/2022 by Morteza Connelly MD at [facility] N/A: Urethra Atempo Jhonatan [id number] 05/26/2025 [id number] / / [id number] Medtronic Inc Catheter Intrathecal Spinal Segment 2 Piece Silicone Ascenda [id number] - [id number] Implanted:Qty: 1 on 10/24/2024 by Cesar Smith MD at [facility] N/A: Back Medtronic Inc 09/20/2026 [id number] / / [id number] Medtronic [employer] X Pump Infusion Programmable Ulp Ami 20ml Volume 8667-20 - [id number] - [id number] Implanted:Qty: 1 on 10/24/2024 by Cesar Smith MD at [facility] N/A: Back Medtronic [employer] X 03/10/2026 8667-20 / [id number] / N/A Procedures Procedure Name Priority [...] ur Yellow Yellow Clarity, ur Clear Clear [facility] ([place]) Specific gravity, ur 1.008 1.003 - 1.030 [facility] ([place]) pH, urine 6.5 [facility] ([place]) Comment: Interpretive Data U rine pH is affected by diet, medications, systemic acid-base disturbances, and renal tubular function. pH may affect urinary stone formation. For example, urine pH below 6.0 may help reduce the tendency for calcium phosphate stones and pH greater than 6.0 may reduce the tendency for uric acid stone formation. Source: [employer] Current Interpretive Data was last revised on [...] Reflex to microscopic UA will be performed. ROBBI [facility] ([place]) Urine 11/17/2024 6:27 PM CDT 11/17/2024 6:29 PM CDT Jerson Hall MD LAB MICROBIOLOGY - GENERAL ORD ERABLES Final Result Performing Organization Address [facility] Co de Phone Number ROBBI DONNELLY ([place]) [address] [place] [address] * (ABNORMAL) Urinalysis, microscopic only (11/17/2024 6:27 PM CDT) WBC, ur 11-20(A) 0 - 5 /HPF RBC, ur 0-2 0 - 2 /HPF [facility] ([place]) Epithelial cells, squamous, ur 1-5 0 - 5 /HPF [facility] ([place]) Bacteria, ur 3+(A) CERNER [facility] ([place]) Culture Reflex Comment Reflex to urine culture will be performed. ROBBI [facility] ([place]) Urine 11/17/2024 6:27 PM CDT 11/17/2024 6:29 PM CDT Jerson Hall MD LAB URINE ORDERABLES Final Res ult ROBBI DONNELLY ([place]) [address] [place] [address] * Urine culture Urine (11/17/2024 6:27 PM CDT) Report Final Report: Less than 100,000 colonies/mL (clinically insignificant growth based on current clinical standards) Comment:Testing performed by : [facility], [address] [facility], [place]., [address] Organism (CLINICALLY INSIGNIFICANT GROWTH ROBBI DONNELLY ([place]) Urine 11/17/2024 6:27 PM CDT 11/17/2024 10:36 PM CDT Narrative ROBBI EDWARDS) - 11/19/2024 8:03 AM CDT Urine culture reflexed based upon urinalysis results. Testing performed by [facility] ([phone]) us Jerson Hall MD LAB MICROBIOLOGY - GENERAL ORD ERABLES Final Result Performing Organization Address [facility] Co de Phone Number ROBBI DONNELLY MyrtleKAYY) [facility] [place] [address] * ECG 12 lead (11/17/2024 6:24 PM CDT) 11/17/2024 6:24 PM CDT Narrative [facility] - 11/19/2024 7:24 AM CDT Vent Rate: 74 bpm RR Interval: 808 msec WA Interval: 152 msec QRS Duration: 86 msec QT Interval: 393 msec QTC Interval: 420 msec P-R-T [place]: 33 - 12 - 22 degrees IMPRESSION: SINUS RHYTHM Leftward axis No significant change from prior EKG Electronically Signed By: Dr Luis You Jerson Hall MD ECG ORDERABLES Final Result Performing Organization Address [facility] Co de Phone Number [facility] [employer] [facility] * Sepsis Lactate w/ Reflex (11/17/2024 5:26 PM CDT) Sepsis Lactate 1.4 0.7 - 2.0 mmol/L Blood 11/17/2024 5:26 PM CDT 11/17/2024 5:32 PM CDT us Jerson Hall MD LAB BLOOD ORDERABLES Final Res ult ROBBI DONNELLY ([place]) [facility] [place] [address] * eGFR (11/17/2024 5:26 PM CDT) Pathologist [facility] eGFR >90 >=60 mL/min/1. 73 m2 Comment: [...] LAB BLOOD ORDERABLES Final Res ult ROBBI EDWARDS) 1 [facility] [place] [address] * (ABNORMAL) Differential, auto (11/17/2024 5:26 PM [...] BLOOD ORDERABLES Final Res ult ROBBI DONNELLY ([place]) [facility] [place] [address] * (ABNORMAL) CBC with auto differential (11/17/2024 [...] (KAYY) MCHC 33.6 32.3 - 35.7 g/dL [facility] ([place]) RDW CV 11.9 11.1 - 14.9 % [facility] ([place]) RDW SD 40.8 35.7 - 48.1 fL [facility] ([place]) NRBC abs 0.00 0.00 - 0.01 K/cumm [facility] ([place]) Blood 11/17/2024 5:26 PM CDT 11/17/2024 5:32 PM CDT us Jerson Hall MD LAB BLOOD ORDERABLES Final Res ult ROBBI [facility] ([place]) [facility] [place] [address] * Blood culture Blood Peripheral (11/17/2024 5:26 PM CDT) Report Final Report: No growth Comment:Testing performed by : [facility], 1 [facility] [place]., [address] Blood (Peripheral) 11/17/2024 5:26 PM CDT 11/17/2024 10:36 PM CDT Narrative [facility] ([place]) - 11/22/2024 7:00 AM CDT Draw [...] performance characteristics have been verified by the [facility]. For questions about this culture, contact the Microbiology Laboratory at [phone]. Interpretive data was last revised on 24. us Jerson Hall MD LAB MICROBIOLOGY - GENERAL ORD ERABLES Final Result ROBBI [facility] ([place]) 1 [facility] [place] [address] * (ABNORMAL) Comprehensive metabolic panel (11/17/2024 5:26 [...] Final Res ult [facility]BI [facility] ([place]) 1 [facility] [place] [address] * Vitamin D 25 hydroxy (10/29/2024 2:04 PM CDT) Vitamin D 25-OH 67 30 - 80 ng/mL Blood 10/29/2024 2:04 PM CDT 10/29/2024 2:11 PM CDT us Doreen Strong NP LAB BLOOD ORDERABLES Fi nal Result [facility] [employer] [place] [address] * (ABNORMAL) TSH (10/29/2024 2:04 PM CDT) Thyroid Stimulating Hormone 4.22(H) 0.30 - 4.20 mcIUnit/mL Blood 10/29/2024 2:04 PM CDT 10/29/2024 2:11 PM CDT Doreen Strong NP LAB BLOOD ORDERABLES Fi nal Result ROBBI DONNELLY ([place]) 1 [facility] [place] [address] * T4, free (10/29/2024 2:04 PM CDT) Pathologist [facility] Free T4 1.60 0.90 - 1.70 ng/dL Blood 10/29/2024 2:04 PM CDT 10/29/2024 2:11 PM CDT Doreen Strong NP LAB BLOOD ORDERABLES Fi nal Result Performing Organization Address [facility] Co de Phone Number ROBBI DONNELLY ([place]) 1 [facility] [place] [address] * (ABNORMAL) Vitamin B12 (10/29/2024 2:04 PM CDT) Pathologist [facility] Vitamin B12 1,832(H) 230 - 1,250 pg/mL Blood 10/29/2024 2:04 PM CDT 10/29/2024 2:11 PM CDT Doreen Strong NP LAB BLOOD ORDERABLES Fi nal Result Performing Organization Address City/[facility] Co de Phone Number ROBBI DONNELLY ([place]) 1 [facility] [place] [place] [address] * FL Fluoroscopy < 1 Hour (10/24/2024 8:37 AM CDT) Narrative [facility] - 10/24/2024 8:38 AM CDT The images from this study are not interpreted by Radiology. Please refer to the physician's procedure / OR operative note. Cesar Smith MD IMG FLUOROSCOPY PROCEDU RES Final Result [facility] * XR Spine Thoracic 2 Views (10/24/2024 8:37 AM CDT) Anatomical Region Laterality Modality Spine N/A Radio Fluoroscop y 10/29/2024 2:30 PM CDT Narrative 10/29/2024 2:33 PM CDT EXAM DESCRIPTION: XR SPINE THORACIC 2 VIEWS REASON FOR STUDY: Back pain FINDINGS: Multiple fluoroscopic images consisting of 2 view(s) submitted with comparison 07/16/2024 . Dose area product equals 0.29212 mGym*2. Fluoroscopic images demonstrate an in progress likely pain pump placement . IMPRESSION: In progress likely pain pump placement. Recommend correlation with surgical report. THIS IS AN ELECTRONICALLY VERIFIED FINAL REPORT 10/29/2024 2:33 PM - Electronically signed by Winston Motley M.D. MF: TRAVIS Report ID: [id number] Reading Location: [id number] Procedure Note Winston Motley MD - 10/29/2024 EXAM DESCRIPTION: XR SPINE THORACIC 2 VIEWS REASON FOR STUDY: Back pain FINDINGS: Multiple fluoroscopic images consisting of 2 view(s) submitted with comparison 07/16/2024 . Dose area product equals 0.48130 mGym*2. Fluoroscopic images demonstrate an in progress likely pain pump placement. IMPRESSION: In progress likely pain pump placement. Recommend correlation withsurgical report. THIS IS AN ELECTRONICALLY VERIFIED FINAL REPORT 10/29/2024 2:33 PM - Electronically signed by Winston Motley M.D. MF: TRAVIS Report ID: [id number] Reading Location: [id number] Cesar Smith MD IMG XR PROCEDURES Final Result * Imaging Lumbar/Caudal Epidural Steroid INJ ([id number]) (10/02/2024 3:40 PM CDT) Narrative LONG_CONY - 10/02/2024 3:40 PM CDT The images from this study are not interpreted by Radiology. Please refer to the physician's procedure / OR operative note. Cesar Smith MD IMG PAIN MGMT PROCEDURE S Final Result [facility] * Dexa Axial Skeleton Bone Density 1 or 2 Site (03/23/2022 11:18 AM CDT) Anatomical Region Laterality Modality Body N/A Other 03/23/2022 9:41 PM CDT Narrative 03/23/2022 9:44 PM CDT EXAM DESCRIPTION: DEXA AXIAL SKELETON BONE DENSITY 1 OR MORE SITES REASON FOR STUDY: 76 y/o year old F with given history of screening. 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 MF: TRAVIS Report ID: [id number] Reading Location: [id number] Procedure Note Winston Motley MD - 03/23/2022 EXAM DESCRIPTION: DEXA AXIAL SKELETON BONE DENSITY 1 OR MORE SITES REASON FOR STUDY: 76 y/o year old F with given history ofscreening. 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 ADVANCE DIRECTIVE 01/14/2021 11:23 AM DNR ADVANCE DIRECTIVE 01/14/2021 11:22 AM Alfred Hernandez * LIMITED - No CPR (Latest Code [...] 10:07 AM 01/14/2023 10:07 AM Care Teams Mold Car 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 Relationship Specialty Start Date End Date Doreen Strong NP 2 [facility] [place] [address] PCP - General Family Medicine 09/17/24 Carmen Eckert NP [address] Barber GILMER 2 [facility] 2 [place] [address] Nurse Practitioner Psychiatry 09/08/20 Darwin Bejarano MD [address] Sunil CABEZAS 2 [facility] 2 [place] [address] Referring Physician Endocrinology 03/01/22 Cesar Smith MD [address] Sunil CABEZAS 2 [facility] 2 [place] [address] Consulting Physician Anesthesiology 08/08/23 Lucy Olivera NP 2 [facility] [address] [place] [address] Anesthesiology 08/09/23 Sandy Alejandro MD 2 [facility] [address] [place] [address] Consulting Physician Cardiology 08/22/23 Jeannette Lang MD 4 [facility] [address] BRYANT B [facility] [address] [place] [address] Consulting Physician Neurology 08/22/23 [place] [address] [facility] [address] [place] [address] Consulting Physician Urology 08/22/23 Winston Banuelos MD 4 [facility] [address] [place] [address] Consulting Physician Neurology 01/27/24 Teddy Butts MD [address] [place] [address] [address] [address] Surgeon Orthopedic Surgery 01/27/24 Luci Mcgregor MD [address] [address] Consulting Physician Otolaryngology 03/08/24 Hammad Melendrez, RN [address] [place] [address] [address] [place], [place] [id number] Drafter Directional Survey 11/20/24
--- OUTSIDE RECORDS SUMMARY | 2024-11-25 16:52 | XMS_ITS | Continuity of Care Document ---
Author Organization [facility] Address [address] [place] [address] Phone Care Team Providers Care Lens Grinder Name Role Phone Dianne Reyes Unavailable Unavailabl [...] Active Procedures Procedure Date Offic/outpt E&m Estab [facility]-tx 2 17 Offic/outpt E&m Estab [facility] [place]-tx 2 17 Offic/outpt E&m Estab [facility] [place]-tx 2 16 Ugi Endoscopy Offic/outpt E&m [facility] 45 6 Advance Directives Directive Yes / No Effective Date File Name Other Directive No N/A N/A WARNING:The information contained in this section is historical and is provided for information only and does not constitute a legal document or any assurance that the information is still accurate. Please verify the information with the matrinez of the legal document before using it for clinical purposes. Encounters Encounter Description Practice Location Reason(s) For Visit Diagnoses Date Provider Providers Copied on Encounter Offic/outpt E&m Estab Mod-tx 2 [facility] s, [address] [facility] [place], [place], [id number] , [place] tel:[phone] [facility] follow up (chief complaint) GERD w/o esophagitisPersonal history of colonic polypsFamily history of malignant neoplasm of digestive organsSlow transit constipation 7 Lai Dean. [address] [facility] Valerie [place] [address], [place], [id number] , [place]. tel:[phone] Referring Provider: Jeremy DOMINGO, [address], [place], [address]. tel:[phone] Offic/outpt E&m Estab [facility] 2 [facility] s, [address] [facility] [place], [place], [place], [id number] , [place] tel:[phone] [facility] follow up (chief complaint) GERD with esophagitisSlow transit constipationPersonal history of colonic polypsFamily history of malignant neoplasm of digestive organsHypothyroidism, unspecifiedDyspepsiaN ausea 7 Nasra [address] , [place]. Referring Provider: Jeremy DOMINGO, [address], [place], [address]. tel:[phone] Offic/outpt E&m [facility] 2 [facility] s, [address] [facility] [place], [place], [address] , [place] tel:[phone] [facility] follow up (chief complaint) GERD with esophagitisSlow transit constipationPersonal history of colonic polypsFamily history of malignant neoplasm of digestive organs Sep-2 0 6 Nasra Bocanegra. , [place]. Referring Provider: Jeremy DOMINGO, [address], [place], [address]. tel:[phone] [facility] s, [address] [facility], [place], [place], [place], [address] , [place] tel:[phone] [facility] No Information Feb-0 6 6 Nasra Boc[place]. , [place]. Referring Provider: Jeremy DOMINGO, [address], [place], [address]. tel:[phone] Offic/outpt E&m New [facility] 45 [facility] s, [address], [place], [place], [address] , tel:[phone] JESUS Petal multiple GI issues (chief complaint) Dysphagia, pharyngoesophageal phaseGERD w/o esophagitisSlow transit constipationPersonal history of colonic polypsFamily history of malignant neoplasm of digestive organs Nasra ROG[place], [place]. Referring Provider: Jeremy DOMINGO, [address], [place], [address]. tel:[phone] Family History Family Member Type Diagnosis Age At Onset Problem (finding) Family history of Colon polyps Problem (finding) No family history of Ca ncer, colon Problem (finding) Family history of Thyro id disorder Problem (finding) Family history of mouth Problem (finding) Family history of Obesi ty Problem (finding) Family history of alcoh olism Payers Payer name Insurance type Covered alliance party ID Authoriza tion(s) Medicare Claims Administrators [id number] [facility] [id number] Social History Type Description Quantity Date Captured [...] CT A/P results Related to Dyspepsia - Avoid NSAIDs- Anti -reflux measures discussed with the patient- Increase to omeprazole 20mg BID- Continue ranitidine 300mg qhs- Take a daily probiotic- Start FDgard daily prn- Check CBC and CMP- Obtain CT A/P results Related to Nausea - Colonoscopy to be scheduled once acute GI issues have improved. Risks, benefits and alternatives to the procedure were discussed with the patient. All questions were answered.- Obtain prior report Related to Family history of malignant neoplasm of digestive organs - Colonoscopy to be scheduled once acute [...] prn Related to GERD with esophagitis - Management per PCP Related to Hypothyroidism, unspecified - High fiber diet- A void dairy and limit caffeine- Take a daily fiber supplement prn- Take a daily probiotic Related to Slow transit constipation - Colonoscopy to be scheduled in 2016- Attempt to obtain prior colonoscopy report Related to Personal history of colonic polyps - Colonoscopy to be scheduled in 2016- Attempt to obtain prior colonoscopy report Related to Family history of malignant neoplasm of digestive organs - Avoid NSAIDs- Anti -reflux measures discussed with the patient- Continue omeprazole 20mg qam- Start ranitidine 300mg qhs Related to GERD with esophagitis - High fiber diet- A void dairy and limit caffeine- Take a daily fiber supplement prn Related to Slow transit constipation - Colonoscopy to be scheduled in 2016- Attempt to obtain prior colonoscopy report Related to Personal history of colonic polyps - Colonoscopy to be scheduled in 2016- Attempt to obtain prior colonoscopy report Related to Family history of malignant neoplasm of digestive organs - High fiber diet- S tart Amitiza [...] qhs Related to GERD w/o esophagitis - Avoid [...] Mental Status Date Cognitive Assessment Orientation - Hollister ed to time, place, person, situation. Patient Care Teams Name Effective Dates (start - stop) Status Members No Information
--- OUTSIDE RECORDS SUMMARY | 2024-11-25 16:52 | XMS_ITS | Continuity of Care Document ---
Author Organization [facility] Address [address] [place] [address] Phone Care Team Providers Care Development Professional Name Role Phone Unavailable Unavailable Unavailable Allergies, [...] REVISION OF UPPER EYELID; Bilateral Anesth, Bleph, Tab Builder Svc WO Medical Direc tion By A Physician Non Smoker Revision Of Upper Eyelid, Facility Fee A Revision Of Upper Eyelid, Facility Fee A PATIENT DOCUMENTS NO EVENTS ON DISCHARGE Patient WO Preop Order For I v Antibiotic Surgical Site Inf (Ssi) Prophlaxis VISUAL FIELD EXAMINATION(S) OFFICE/OUTPATIENT VISIT, EST External Ocular Photos OFFICE/OUTPATIENT VISIT, EST [facility] optic nerve OFFICE/OUTPATIENT VISIT, EST OFFICE/OUTPATIENT VISIT, EST OFFICE/OUTPATIENT VISIT, NEW Advance Directives Directive Yes / No Effective Date File Name No Information Encounters Encounter Description Practice Location Reason(s) For Visit Diagnoses Date Provider Providers Copied on Encounter [facility], [address] , [place], [place], [id number], tel:[phone] [place] Pt states redness & swelling is all gone now. BUL (chief complaint) Encntr for f/u exam aft trtmt for cond oth than malig neoplm No Information Referring Provider: Genevieve Mccoy[address], [place], [address] . tel:[phone] [facility], [address] , [place], [place], [address], tel:[phone] [place] no complaints OU (chief complaint) Encntr for f/u exam aft trtmt for cond oth than malig neoplm No Information Referring Provider: Genevieve Mccoy[address], [place], [address] . tel:[phone] [facility], [address] [place], [place], [address], [place] tel:[phone] [facility] No Information No Information Referring Provider: Genevieve Mccoy[address], [place], [address] . tel:[phone] [facility], [address] [place], [place], [address], [place] tel:[phone] [facility] No Information Memo Mendosa. [facility] [place], [place], [address], . tel:[phone] [facility], [address] [place], [place], [address], [place] tel:[phone] [facility] No Information [facility] [address] , [place], [place], [address], [place]. tel:[phone] [facility], [address] , [place], [place], [address], [place] tel:[phone] [place] Viual Field (chief complaint) Dermatochalas is of left upper eyelid No Information OFFICE/OUTPA TIENT VISIT, [facility], [address] , [place], [place], [address], [place] tel:[phone] [place] drooping upper eyelids (chief complaint) Dermatochalas is of right upper eyelidDermato chalasis of left upper eyelidMyogeni c ptosis of bilateral eyelids No Information Referring Provider: Mack Ruggiero, [address], [place], [address] . tel:[phone] OFFICE/OUTPA TIENT VISIT, [facility], [address] , [place], [place], [address], [place] tel:[phone] [place] Floaters (chief complaint) Vitreous Detachment 5 Bahman Giron. [address], [place], [place], [address], [place]. tel:[phone] Referring Provider: Mack Ruggiero, [address], [place], [address] . tel:[phone] OFFICE/OUTPA TIENT VISIT, [facility], [address] , [place], [place], [address], [place] tel:[phone] [place] Tear film insufficiency , unspecifiedTe ar film insufficiency , unspecified 4 Bahman Giron. [address], [place], [place], [address], [place]. tel:[phone] Referring Provider: Mack Ruggiero, [address], [place], [address] . tel:[phone] OFFICE/OUTPA TIENT VISIT, [facility], [address] , [place], [place], [address], [place] tel:[phone] [place] Tear film insufficiency , unspecifiedTe ar film insufficiency , unspecified Mar-2 3 Ruggiero Mack. [address], [place], [place], [address], [place]. tel:[phone] OFFICE/OUTPA TIENT VISIT, [facility], [address] , [place], [place], [address], [place] tel:[phone] [place] Senile nuclear sclerosis Oct-2 2 No Information Family History Family Member Type Diagnosis Age At Onset Multiple Problem (finding) Thyroid Disease Multiple Problem (finding) cataract Multiple Problem (finding) Cancer Payers Payer name Insurance type Covered republican ID Authoriza tion(s) No Information Social History [...] Additional Infor darlene BULB sx Related to [place] tochalasis of right upper eyelid Follow up [...]
[2024-11-25 16:54] VITALS: BP 139/53; PULSE 63; RESP 20; TEMP 36.8; O2SAT 100
--- NOTE | 2024-11-25 16:58 | ED.CHESTPAIN ---
HPI - Chest Pain General Stated Complaint: dizzy for several days, chest hurts Time Seen by Provider: 11/25/24 16:58 Source: patient Mode of arrival: ambulatory Limitations: no limitations History of Present Illness HPI narrative: 79 y/o female presented for c/o intermittent dizziness for about 2 weeks. Says she feels like she is going to fall when getting out of bed, or after bending over; and symptoms are worse at night. Also states she is scared to go to bed due to dizziness, fear of falling, and fear of not waking up. Says she 'does not want to alone.' Denies increase in fatigue or lethargy, palpitations, chest pain, nausea, vomiting or shortness of breath. Pt endorses breast bone has been hurting since she fell 8 months ago, and describes this as 'chest pain.' This pain occurs after bending over as well. Pt had been seen in the ER 5 days ago and called ambulance 2 days ago for similar concerns. She was told labs were normal in the ER, and the EMT told her the EKG looked normal and did not transport. Pt is scheduled with pcp in3 days. O2 sat 94% RA, HR 65 on arrival. Related Data Home Medications ?Medication ?Instructions ?Recorded ?Confirmed ?Last Taken ?Type cholecalciferol (vitamin D3) 125 125 mcg PO DAILY 09/13/22 06/20/23 Unknown History mcg (5,000 unit) tablet (Vitamin D3) melatonin 10 mg capsule 10 mg PO QHS 09/13/22 06/20/23 Unknown History vitamin E mixed 400 unit capsule 400 unit PO DAILY 09/13/22 06/20/23 Unknown History carica papaya 4 tablet PO DAILY PRN REFLUX 06/20/23 06/20/23 Unknown History glucosamine sulf dipot 2 cap PO DAILY 06/20/23 06/20/23 Unknown History chlr,msm,chond 550 mg-C 30 mg-evelio 1 mg capsule (Glucosamine Chondroitin) levothyroxine 112 mcg tablet 112 mcg PO DAILY 06/20/23 06/20/23 Unknown History orlistat 60 mg capsule (Jordon) 60 mg PO TIDWMEAL PRN DIET 06/20/23 06/20/23 Unknown History turmeric root extract 500 mg tablet 500 mg PO TID 06/20/23 06/20/23 Unknown History vitamin A 1 cap PO DAILY 06/20/23 06/20/23 Unknown History vitamin B complex 1 cap PO DAILY 06/20/23 06/20/23 Unknown History zinc gluconate 30 mg tablet 30 mg PO DAILY 06/20/23 06/20/23 Unknown History Allergies Allergy/AdvReac Type Severity Reaction Status Date / Time bupropion (From Wellbutrin) Allergy Severe Other Verified 06/24/23 08:31 meperidine Allergy Severe Hypotension Verified 06/24/23 08:31 alendronate sodium Allergy Intermediate Hives Verified 06/24/23 08:31 codeine Allergy Intermediate Nausea Verified 06/24/23 08:31 morphine Allergy Unknown Nausea Verified 06/24/23 08:31 Review of Systems Review of Systems: per HPI All systems reviewed & are unremarkable except as noted in HPI and below PMFSH Past Medical History Medical History Abdominal tenderness, RUQ (right upper quadrant) Anxiety and depression Colon cancer screening Dysphagia Liver lesion Polyp of esophagus Surgical History Surgical History History of bladder suspension procedure Hx of cholecystectomy Family History Family History Other Depression Family history of alcoholism Family history of glaucoma Family history of hearing loss Family history of thyroid disease Social History Social History Smoking status: Never smoker Alcohol intake: never Substance use: never Substance use type: does not use Living arrangements: with family Spiritual care concerns: No Comments At time of signature, I have reviewed and agree with nursing past medical, surgical, social and family history unless otherwise noted. Please see nursing chart for further information. There is no relevant family history pertinent to the presenting complaint Exam Narrative: GENERAL: Well-appearing, and in no acute distress. HEAD: Normocephalic, atraumatic. EYES: EOMI. No redness or drainage. Conjunctivae normal. ENT: Mucous membranes pink and moist. No rhinorrhea. TMs normal bilaterally. NECK: Normal AROM. Supple. CHEST: No respiratory distress. Clear to auscultation. HEART: Regular rate and rhythm. No murmur appreciated. Normal peripheral pulses. ABDOMEN: Soft, nontender, nondistended, normal active bowel sounds. EXTREMITIES: Normal range of motion. Bilateral 2+ ankle edema. SKIN: Warm, dry, no rash. Capillary refill normal. Normal skin turgor. NEURO: No focal deficits. Alert and oriented x3. Gait steady. PSYCH: Appears anxious Course Course Emergency Course: Patient is aware of diagnosis, understands and agrees to treatment plan. Anticipatory guidance given. Patient agrees to follow-up as directed and is aware of reasons to seek care at the emergency department. Portions of this record may have been created with voice recognition software Level of Care: Express Care Visit MDM - Chest Pain MDM Narrative Medical decision making narrative: Pt reports intermittent dizziness. Offered EKG, CXR, and ER transfer. However pt declines at this time stating she had EKG done with EMT 2 days ago, and labs done in the ER earlier in the week. Pt is scheduled with PCP in 3 days. Appears anxious. VSS. Discussed physical exam findings. Advised supportive measures and signs/symptoms to go to the ER. Pt is appropriate for outpt treatment and f/u as scheduled. Differential Diagnosis Differential diagnosis: Likely pneumothorax, stable angina, unstable angina pectoris, atypical chest pain, st elevation myocardial infarction, costochondritis, chest pain and biliary colic Discharge Plan Discharge Clinical Impression: Dizziness Patient Disposition: Home Condition: Stable Instructions: Dizziness (ED) Additional Instructions: Change positions slowly Sit down immediately if you feel dizzy or lightheaded Use a cane or walker if needed Increase water intake, stay hydrated Keep legs elevated. Keep your scheduled appointment with PCP in 3 days. Watch for worsening symptoms (headache, vision changes, dizziness that does not go away, chest pain, heart racing, sweating) Go to the ER for these symptoms or any other concerns. Patient Language: Dominican Prescriptions: No Action escitalopram oxalate 20 mg tablet 20 mg PO DAILY ascorbate calcium (vitamin C) 500 mg tablet 500 mg PO DAILY cholecalciferol (vitamin D3) [Vitamin D3] 125 mcg (5,000 unit) tablet 125 mcg PO DAILY vitamin E mixed 400 unit capsule 400 unit PO DAILY melatonin 10 mg capsule 10 mg PO QHS losartan 50 mg tablet 50 mg PO DAILY buspirone 5 mg tablet 5 mg PO BID carica papaya Tablet,Chewable 4 tablet PO DAILY PRN (Reason: REFLUX) levothyroxine 112 mcg tablet 112 mcg PO DAILY duloxetine 60 mg capsule,delayed release(DR/EC) 60 mg PO DAILY Jordon 60 mg Capsule 60 mg PO TIDWMEAL PRN (Reason: DIET) Patient Comments: [employer] MEALS Rx Instructions: administer during or up to 1 hour after meal Glucosamine Chondroitin 550-30-1 mg Capsule 2 cap PO DAILY turmeric root extract 500 mg Tablet 500 mg PO TID zinc gluconate 30 mg Tablet 30 mg PO DAILY vitamin B complex Capsule 1 cap PO DAILY vitamin A 1 cap PO DAILY pantoprazole 40 mg tablet,delayed release (DR/EC) 40 mg PO QAM Qty: 30 6RF Follow-up/Referrals: PHYSICIAN NOT ON STAFF,NONSTAFF [Primary Care Provider] - Time of Disposition: 17:29
== END 2024-11-25 17:34 | disposition home or self-care (01) ==
PROVIDERS: Emergency Provider Nurse Practitioner Family
DX: R42 Dizziness and giddiness (principal)
CPT/HCPCS: 99211; G0463

== ENCOUNTER 2025-01-11 22:12 | Emergency (ER) | payer MEDICARE, SELFPAY ==
[2025-01-11 22:14] VITALS: BP 158/64; PULSE 67; RESP 18; TEMP 36.9; O2SAT 96
--- OUTSIDE RECORDS SUMMARY | 2025-01-11 22:14 | XMS_ITS | Referral Summary ---
Author Organization [facility] Address [address] [place] [address] Care Team Providers Care Razor Sharpener Name Role Phone Babar Carmen LINNETTE Unavailable [phone] Darwin Bejarano MD Unavailable Cesar Smith MD Unavailable [phone] Lucy Olivera NP Unavailable [phone] Sandy Alejandro MD Unavailable [phone] Jeannette Lang MD Unavailable Tee Connelly MD Unavailable [phone] Winston Banuelos MD Unavailable [phone] Teddy Butts MD Unavailable [phone] Luci Mcgregor MD Unavailable [phone] Doreen Strong NP Primary Care Provider Encounters Date Type Department Care Team Description 01/09/2025 Orders Only [facility] - [facility] [address] [place] [phone] Delfina Mcgregor MD Dizzy (Primary Dx) 01/02/2025 8:53 AM CDT - 01/02/2025 11:59 PM CDT Hospital Encounter [facility] [address] [place] [address] Dizzy Discharge Disposition: Discharge to home or self care 12/26/2024 8:30 AM CDT Office Visit [facility] at [address] [place] [address] Sandy Alejandro MD Primary hypertension (Primary Dx); Dizzy; Localized edema; Pure hypercholesterolemia 12/19/2024 12:30 PM CDT Office Visit [facility] at [address] [place] [address] Doreen Strong NP Fatigue, unspecified type (Primary Dx); Sensory urge incontinence; Status post insertion of intrathecal pump; Class 1 obesity with body mass index (BMI) of 30.0 to 30.9 in adult, unspecified obesity type, unspecified whether serious comorbidity present 11/29/2024 Orders Only [facility] - [facility] [address] [place] [address] [place] [phone] Luci Mcgregor MD 11/28/2024 Results Follow-Up [facility] at [address] [phone] Doreen Strong NP Basic metabolic panel, eGFR, XR Chest Pa Lateral 2 Views 11/28/2024 9:55 AM CDT Lab [address] [address] Urinary tract infection without hematuria, site unspecified 11/28/2024 9:51 AM CDT - 11/28/2024 11:59 PM CDT Hospital Encounter [facility] [address] [place] [address] SOB (shortness of breath) Discharge Disposition: Discharge to home or self care 11/28/2024 9:00 AM CDT Office Visit [facility] at [address] [address] Doreen Strong NP Middle ear effusion, unspecified laterality (Primary Dx); Urinary tract infection without hematuria, site unspecified; SOB (shortness of breath); Class 1 obesity with body mass index (BMI) of 31.0 to 31.9 in adult, unspecified obesity type, unspecified whether serious comorbidity present 11/27/2024 Orders Only [facility] at [address] [phone] Doreen Strong, LINNETTE Vertigo (Primary Dx) 11/26/2024 Telephone [facility] at [address] [phone] Doreen Strong NP Referral Request 11/23/2024 Telephone [facility] at [address] [phone] Doreen Strong NP Medication, Appt needed 11/17/2024 5:03 PM CDT - 11/17/2024 8:13 PM CDT Emergency [facility] Emergency Department 1 [place] [address] Jerson Hall MD Weakness (Primary Dx); Acute cystitis without hematuria Discharge Disposition: Discharge to home or self care 11/14/2024 4:00 PM CDT - 11/14/2024 11:59 PM CDT Hospital Encounter [facility] [address] [facility] [address], [place] [place] [address] Cesar Smith MD Status post insertion of intrathecal pump (Primary Dx) Discharge Disposition: Discharge to home or self care 11/09/2024 Telephone [facility] at [address] [phone] Doreen Strong NP Medical Question/Miscellaneous 11/01/2024 Orders Only [facility] at [address] [phone] Doreen Strong NP Obesity (BMI 30-39.9) (Primary Dx) 11/01/2024 Telephone [facility] at [address] [phone] Doreen Strong, REFUSE DRIVER 11/01/2024 Orders Only [facility] at [address] [phone] Doreen Strong, REFUSE DRIVER 11/01/2024 1:00 PM CDT Office Visit [facility] at [address] [phone] Doreen Strong, LINNETTE Dizziness (Primary Dx); Class 1 obesity with body mass index (BMI) of 31.0 to 31.9 in adult, unspecified obesity type, unspecified whether serious comorbidity present 10/31/2024 Telephone [facility] at [address] [phone] Doreen Strong, LINNETTE Med Refill 10/31/2024 Orders Only [facility] at [address] [phone] Doreen Strong, REFUSE DRIVER 10/31/2024 Nurse Triage [facility] at [address] [phone] Doreen Strong, REFUSE DRIVER 10/31/2024 Nurse Triage [facility] at [address] [phone] Saniya Moon RN 10/31/2024 Results Follow-Up [facility] at [address] [phone] Doreen Strong, REFUSE DRIVER TSH, T4, free, Vitamin B12, Vitamin D 25 hydroxy 10/31/2024 Telephone [facility] at [address] [phone] Doreen Strong, REFUSE DRIVER 10/31/2024 1:42 PM CDT - 10/31/2024 11:59 PM CDT Hospital Encounter [facility] [address] [place] [address] B[address], [place] [place] [address] Cesar Smith MD Status post insertion of intrathecal pump (Primary Dx) Discharge Disposition: Discharge to home or self care 10/30/2024 3:15 PM CDT Office Visit [facility] [address] [facility] [address] [place] [address] Drake Rawls NP MACIEJ (obstructive sleep apnea) (Primary Dx); Hypersomnia with sleep apnea; Obesity (BMI 30.0-34.9); Memory loss 10/29/2024 1:55 PM CDT Lab [address] [address] Fatigue, unspecified type; Vitamin D deficiency 10/29/2024 1:00 PM CDT Office Visit [facility] [place] [address] [facility] [facility] [address] [place] [phone] Doreen Strong NP Primary hypertension (Primary Dx); Fatigue, unspecified type; Vitamin D deficiency; Class 1 obesity with body mass index (BMI) of 31.0 to 31.9 in adult, unspecified obesity type, unspecified whether serious comorbidity present 10/24/2024 7:30 AM CDT - 10/24/2024 9:15 AM CDT Surgery [facility] Operating Room [address] [place] [address] Cesar Smith MD intrathecal pain pump implant 10/24/2024 7:42 AM CDT Anesthesia Event [facility] Operating Room [address] [place] [address] Tae Self MD McDowell, Juri Osmell, MD 10/24/2024 6:13 AM CDT - 10/24/2024 11:13 AM CDT Hospital Encounter [facility] Operating Room [address] [place] [address] Cesar Smith MD Adenocarcinoma of colon (HCC) [...] Vaccine, Specific Nausea & Vomiting Low 07/23/2020 Nitrofurantoin Chills Low 12/19/2024 Meperidine Other (See comments),Hypotensi on High 09/30/2023 Drops blood pressure Morphine Vomiting,Nausea & Vomiting Low 09/30/2023 Pneumococcal Vaccine Unknown 07/23/2020 Was advised due to an allergy to not receive these Medications aspirin 81 mg chewable tablet Take 1 tablet (81 mg total) by mouth daily 30 tablet 11 01/28/20 24 025 Active losartan (COZAAR) 50 mg tablet Take 1 tablet (50 mg total) by mouth daily 90 tablet 3 03/01/20 24 025 Active Additional Information Patient not taking.Reported on 12/26/2024 levothyroxine (SYNTHROID) 112 mcg tabletIndications: Postoperative hypothyroidism TAKE 1 TABLET(112 MCG) BY MOUTH DAILY 90 tablet 1 05/16/[address] (CYMBALTA) 20 mg capsule 1 capsule (20 mg total) 08/06/19 25 Active vitamin A palmitate 3,000 mcg (10,000 unit) capsule Take 1 capsule (10,000 Units total) by mouth daily Active vitamin B complex capsule Take 1 capsule by mouth daily Active ascorbic acid 500 mg tablet,chewable daily A ctive cholecalciferol 25 mcg (1,000 unit) tablet Take [...] as needed for dizziness 90 tablet 1 11/01/19 25 Active fluticasone propionate (FLONASE) 50 mcg/actuation nasal sprayIndications:M iddle ear effusion, unspecified laterality Administer 2 sprays into each nostril daily 3 each 4 11/29/19 25 Active celecoxib (CeleBREX) 200 mg capsule Take 1 capsule (200 mg total) by mouth 2 (two) times a day Active furosemide (LASIX) 40 mg tablet Take 1 tablet (40 mg total) by mouth daily Active Active Problems Problem Noted Date Diagnosed Date Status post insertion of intrathecal pump 2024 Assessment & Plan (12/20/2024 6:30 AM CDT): -Recent -Pump placed on 10/24 -Associated with lumbar DDD -follows with pain management -previous did injections in back -Patient endorses ongoing back pain and minimal relief from intrathecal pump -Encouraged patient to reach out to pain management specialists -Continue current treatment plan Abnormal urinalysis 10/29/2024 Sensory urge incontinence 10/29/2024 Overview (10/29/2024): Botox 100U - 08/15/2024 Assessment & Plan (12/20/2024 6:30 AM CDT): -chronic, suboptimally controlled -currently utilizes incontinence pad/unaware regularly which she states she feels like she has been going through more them than usual -Follows with Urology -patient denies any dysuria, malodorous urine, low back pain -Encourage patient to reach out to urologist about urinary complaints -continue current treatment plan TIA (transient ischemic attack) 07/05/2024 Chronic diastolic (congestive) heart failure Sensorineural hearing loss, bilateral 06/01/2024 Assessment & Plan (06/01/2024 2:12 PM MODERN LANGUAGES PROFESSOR): - seen by ENT 04/2024 - has known hearing loss in both ears Acute diastolic congestive heart failure 024 Unsteady gait 01/24/2024 Memory loss 10/20/2023 Assessment & Plan (12/20/2023 4:59 PM CDT): Patient recently established care with Neurology Dr. Banuelos with complaint of neck pain as well as memory loss. Patient's score 27/30 on Robertson cognitive assessment on 10/2023 Primary insomnia 09/30/2023 [...] 06/18/2023 Assessment & Plan (06/20/2023 10:35 AM MODERN LANGUAGES PROFESSOR): - recent diagnosis - was having elevated blood pressure, headaches - had workup in hospital admission and imaging - improved after better blood pressure management Esophageal polyp 05/16/2023 Assessment & Plan (06/20/2023 10:33 AM MODERN LANGUAGES PROFESSOR): - reports hx of esophageal polyp - seeing a GI provider in [place] soon - reports has had esophagus stretched 7 years ago as well Vitamin D deficiency 05/16/2023 Assessment & Plan (10/29/2024 2:37 PM CDT): -chronic, controlled -patient currently takes vitamin D3 supplement -will recheck lab value -continue current treatment plan Assessment & Plan (05/16/2023 3:13 PM MODERN LANGUAGES PROFESSOR): -chronic, unknown, no data to review at this time to make an evaluation -Discussed/ordered labs -continue on vitamin D3 5000 units daily Fatigue 01/19/2023 Assessment & Plan (12/20/2024 6:30 AM CDT): -subacute, improved -Patient endorses feeling more fatigued over the past few weeks -Patient denies any significant changes resulting in this except having a recent urinary tract infection -Patient did recently undergo pain pump insertion with her pain specialist -Patient reports she has felt better for the past couple of days -Encouraged patient to maintain adequate hydration and nutritional intake -Instructed patient to reach out to office if symptoms worsen -Continue current treatment plan Assessment & Plan (10/29/2024 2:38 PM CDT): -New complaint, subacute -Patient endorses feeling more fatigued over the past few weeks -Patient denies any significant changes resulting in his -Patient did recently undergo pain pump insertion with her pain specialist -Will order lab work as part of evaluation -Continue current treatment plan Vertigo 01/19/2023 Assessment & Plan (05/15/2024 3:48 PM MODERN LANGUAGES PROFESSOR): -ongoing complaint, not improved -patient reports experiencing [...] 08/20/2021 Assessment & Plan (05/16/2023 3:11 PM MODERN LANGUAGES PROFESSOR): Last colonoscopy completed 08/27/2021. Repeat in 5 [...] with body ma ss index (BMI) of 30.0 to 30.9 in adult 09/08/2020 Assessment & Plan (12/20/2024 6:30 AM CDT): Wt Readings from Last 3 Encounters: 12/19/24 77.1 kg (170 lb) 11/28/24 78 kg (172 lb) 11/17/24 77.1 kg (170 lb) Body mass index is 30.12 kg/m . -Chronic, not at goal of <30 bmi -Discussed [...] the significance of this severe caloric restriction -Continue current treatment plan Assessment & Plan (11/28/2024 10:14 AM CDT): Wt Readings from Last 3 Encounters: 11/28/24 78 kg (172 lb) 11/17/24 77.1 kg (170 lb) 11/01/24 79.4 kg (175 lb) Body mass index is 30.48 kg/m . -Chronic, not at goal of <30 bmi -Discussed [...] the significance of this severe caloric restriction -Continue current treatment plan Assessment & Plan (11/01/2024 9:21 PM CDT): [...] re-evaluation Assessment & Plan (05/31/2024 2:45 PM MODERN LANGUAGES PROFESSOR): Wt Readings from Last 3 Encounters: 05/31/24 [...] so Assessment & Plan (05/15/2024 3:45 PM MODERN LANGUAGES PROFESSOR): Wt Readings from Last 3 Encounters: 05/15/24 [...] so Assessment & Plan (08/09/2023 1:54 AM MODERN LANGUAGES PROFESSOR): Wt Readings from Last 3 Encounters: 08/08/23 79.7 kg (175 lb 11.2 oz) 08/04/23 79.8 kg (176 lb) 06/21/23 78.9 kg (174 lb) Body mass index is 32.13 kg/m . - chronic condition, not at goal - BMI Follow-up includes: nutrition counseling, exercise counseling and education - Co morbidities - hypertension Assessment & Plan (05/16/2023 3:10 PM MODERN LANGUAGES PROFESSOR): HPI: Condition is stable goal BMI <30 A&P: Healthy, high-protein, lower carbohydrate, lower fat lifestyle and exercise for 150min/week recommended Recommend tracking everything you put in your mouth on an yi like [employer] Hand Measurements: A fist or cupped hand [...] in your mouth on an yi like [employer] Hand Measurements: A fist or cupped hand [...] recommended Assessment & Plan (07/22/2021 7:39 PM MODERN LANGUAGES PROFESSOR): Weight reduction, daily exercise and dietary modifications [...] 07/23/2020 Assessment & Plan (07/30/2020 2:55 PM MODERN LANGUAGES PROFESSOR): Referral to gyne for further evaluation Reviewed [...] plan Assessment & Plan (05/31/2024 2:42 PM MODERN LANGUAGES PROFESSOR): - chronic, stable with persistent symptoms - [...] be deficient or low, can still take [id number]-[id number] vitamin B12 had low-level to see if it would help her symptoms Assessment & Plan (05/16/2023 3:11 PM MODERN LANGUAGES PROFESSOR): Patient reiterated no suicidal thoughts at this time; take medication as directed; contact 911 and go to the ER if becomes suicidal; discussed side effects of medication with patient; encouraged healthy diet and exericise; encouraged patient to see a counselor -ebonie hickman -continue on buspirone 5 mg 3 times [...] exericise; encouraged patient to see a counselor -ebonie hickman -patient reports she stopped the abilify because [...] plan Assessment & Plan (05/31/2024 2:42 PM MODERN LANGUAGES PROFESSOR): - chronic, stable with persistent symptoms - [...] psychiatry Assessment & Plan (05/16/2023 3:11 PM MODERN LANGUAGES PROFESSOR): Patient reiterated no suicidal thoughts at this [...] others. Assessment & Plan (07/30/2020 2:54 PM MODERN LANGUAGES PROFESSOR): Not well controlled, will continue lexapro and [...] plan Assessment & Plan (06/01/2024 2:10 PM MODERN LANGUAGES PROFESSOR): - chronic, stable - continue on levothyroxine 112 mcg daily - managed by endocrinology - Dr. Bejarano - labs being monitored by her preparer making department - reviewed outside labs - states she does not plan to go back to an preparer making department - recheck labs, order placed TSH 08/2023 - WNL Lab Results Component Value Date TSH 0.87 05/31/2024 Assessment & Plan (12/20/2023 4:49 PM CDT): - chronic, stable - continue on levothyroxine 112 mcg daily - managed by endocrinology - labs being monitored by her preparer making department - reviewed outside labs Lab Results Component Value Date TSH 0.43 09/08/2020 Assessment & Plan (08/22/2023 2:16 PM CDT): - chronic, stable - continue on levothyroxine 112 mcg daily - continue seeing endocrinology - labs being monitored by her preparer making department, has venkata ppointmetn coming up in few days Lab Results Component Value Date TSH 0.43 09/08/2020 Assessment & Plan (05/16/2023 3:11 PM MODERN LANGUAGES PROFESSOR): -chronic, stable -continue on levothyroxine 112 mcg daily -continue seeing endocrinology Assessment & Plan (12/28/2022 11:24 AM CDT): -chronic, stable -continue on levothyroxine 112 mcg daily -continue seeing endocrinology Assessment & Plan (03/01/2022 3:39 PM CDT): Managed by endocrinology. Asymptomatic, continue current prescription medications. Assessment & Plan (07/22/2021 7:38 PM MODERN LANGUAGES PROFESSOR): Patient will see an preparer making department in a couple of weeks. She declines a TSH check today. Assessment & Plan (01/14/2021 11:26 AM CDT): Asx. Continue current therapy. Assessment & Plan (09/08/2020 10:13 AM CDT): Worsening anxiety and depression, labs ordered. Will follow. Assessment & Plan (07/30/2020 2:55 PM MODERN LANGUAGES PROFESSOR): Will continue to monitor TSH, continue synthroid 150 ucg Osteoporosis 10/27/2013 Overview (01/14/2021): Allergic to alendronate. Assessment & Plan (05/16/2023 3:11 PM MODERN LANGUAGES PROFESSOR): -chronic, stable -patient did not tolerate Fosamax [...] plan Assessment & Plan (06/01/2024 2:10 PM MODERN LANGUAGES PROFESSOR): BP Readings from Last 3 Encounters: 05/18/24 [...] management Assessment & Plan (08/08/2023 12:20 PM MODERN LANGUAGES PROFESSOR): BP Readings from Last 3 Encounters: 08/08/23 120/70 08/04/23 131/82 07/21/23 133/69 -chronic, stable -continue on losartan 50 mg daily (used to be on 25 mg Losartan) -recommend healthy, low-salt diet -continue seeing Cardiology - discussed to stop taking NSAIDs moving forward Assessment & Plan (06/20/2023 10:40 AM MODERN LANGUAGES PROFESSOR): BP Readings from Last 3 Encounters: 06/20/23 130/70 06/18/23 154/78 05/16/23 121/76 -chronic, stable -continue on losartan 50 mg daily (used to be on 25 mg Losartan) -recommend healthy, low-salt diet -continue seeing Cardiology - discussed to stop taking NSAIDs moving forward Assessment & Plan (05/16/2023 3:12 PM MODERN LANGUAGES PROFESSOR): -chronic, stable -continue on losartan 25 mg [...] medications. Assessment & Plan (07/22/2021 7:40 PM MODERN LANGUAGES PROFESSOR): Stable. Cont. Current prescription medications. Assessment & Plan (01/14/2021 11:16 AM CDT): Blood pressure at goal at less than 140/90. Continue current medications. Assessment & Plan (09/08/2020 10:12 AM CDT): Blood pressure at goal of less than 140/90. Continue current medications. Assessment & Plan (07/30/2020 2:55 PM MODERN LANGUAGES PROFESSOR): Stable, at target, continue current medications Pure hypercholesterolemia 10/27/2013 Assessment & Plan (05/31/2024 2:42 PM MODERN LANGUAGES PROFESSOR): -chronic, stable -patient does not take medication [...] 09/08/2020 Assessment & Plan (06/20/2023 10:23 AM MODERN LANGUAGES PROFESSOR): -chronic, stable -patient does not take medication [...] 09/08/2020 Assessment & Plan (05/16/2023 3:12 PM MODERN LANGUAGES PROFESSOR): -chronic, stable -patient does not take medication [...] follow. Assessment & Plan (07/22/2021 7:40 PM MODERN LANGUAGES PROFESSOR): LDL goal is < 100, patient nearing [...] plan Assessment & Plan (06/01/2024 2:10 PM MODERN LANGUAGES PROFESSOR): - established with pain management - -s/p Left Sacroiliac Joint injection with significant improvement in symptoms Influenza vaccination declined 05/31/2024 05/31/2024 Acute cystitis without hematuria 01/26/2024 05/31/2024 Closed displaced transverse fracture of left patella 01/25/2024 12/19/2024 Fall (on)(from) incline, initial encounter 01/25/2024 05/31/2024 Lumbar facet arthropathy 07/21/2023 Nonintractable headache, uns pecified chronicity pattern, unspecified headache type 06/17/2023 06/20/2023 Abnormal echocardiogram 01/19/202308/11 Palpitations 01/19/2023 06/20/[address] scan 01/12/2023 08/22/2023 Family history of colon cancer 01/12/2023 05/16/2023 Encounter for screening colonoscopy 01/12/2023 05/16/2023 Family history of colon cancer 08/20/2021 12/20/2022 Overview (08/20/2021): Added automatically from request for surgery [id number] Encounter for screening colonoscopy 08/20/2021 03/01/2022 Overview (08/20/2021): Added automatically from request for surgery [id number] S/P hysterectomy 09/08/2020 12/20/2022 Left lower quadrant [...] past - established with pain management at [facility] - she continues to use of Cymbalta [...] osteoarthritis. Assessment & Plan (08/09/2023 1:53 AM MODERN LANGUAGES PROFESSOR): - chronic, not well controlled - reports remote hx of 2 back surgeries - has been on meloxicam 15 mg daily ---> discussed about golf sales associate risk of NSAID use so she Is [...] osteoarthritis. Assessment & Plan (06/20/2023 10:47 AM MODERN LANGUAGES PROFESSOR): - chronic, not well controlled - reports remote hx of 2 back surgeries - has been on meloxicam 15 mg daily ---> discussed about golf sales associate risk of NSAID use so she Is willing to stop using Meloxicam - states she used to get injections in her back - not established with pain management provider although she was referred by her PCP, willing at this time - new referral placed - she continues to use of Cymbalta 60 mg daily Assessment & Plan (05/16/2023 3:10 PM MODERN LANGUAGES PROFESSOR): -chronic, stable -continue on meloxicam 15 mg daily Assessment & Plan (12/28/2022 11:43 AM CDT): -chronic, not at/near goal -patient reports she was taking Ione 5-325 mg every 6 hours as needed, but it does not seem to make a difference -refer to pain management Assessment & Plan (01/14/2021 11:28 AM CDT): Pain managed with meloxicam. Continue current therapy. Assessment & Plan (09/08/2020 10:16 AM CDT): Trial of meloxicam. May use acetaminophen and bycw-[id number] as needed for pain. Follow directions for use on packaging. Do not take any bnfw-wku-zupsmto NSAIDs with meloxicam. History of renal calculi 10/18/201903/2023 Diuretic-induced hypokalemia 10/18/2019 12/20/2022 Assessment & Plan (03/01/2022 3:40 PM CDT): Asymptomatic. Labs ordered, will follow. Prescription refilled. Assessment & Plan (07/22/2021 7:40 PM MODERN LANGUAGES PROFESSOR): Asymptomatic. Patient increased her daily potassium on her own. Patient reports being on 30 meq daily while she was living in [place]. Labs ordered. Assessment & Plan (01/14/2021 11:28 [...] Management. Assessment & Plan (07/30/2020 2:54 PM MODERN LANGUAGES PROFESSOR): Continue to Zanaflex for relief Immunizations Immunization Administration Dates Next Due Influenza, Trivalent, IM (MDV) 03/21/2009 Influenza, Unspecified 05/31/2024(Deferr ed: Patient Refused),05/15/2024(Deferred: Patient Refused),04/16/2024(Deferred: Patient Refused),05/16/2023(Deferred: Patient Refused),03/13/2023(Deferred: Patient Refused),03/13/2021(Deferred: Patient Refused),03/13/2020 Pneumococcal Conjugate, Unspecified 06/13/2014 Tdap 06/13/2015 Social History Tobacco Use Types Packs/Day Years Used Date Smoking Tobacco: Never Smokeless Tobacco: Never Tobacco Cessation:Counseling Given: Not Answered Alcohol Use Standard Drinks/Week Comments No 0 (1 standard drink = 0.6 oz pur e alcohol) [facility] Utilities Answer Date Recorded In the past 12 months has [employer], gas, oil, or water company threatened to shut off services in your home? No 12/19/2024 Social Connection and Isolat ion Panel [NHANES] Answer Date Recorded In a typical week, how many times do you talk on the phone with family, friends, or neighbors? More than three times a week 12/19/2024 How often do you get togethe r with friends or relatives? More than three times a week 12/19/2024 How often do you attend chur ch or bahai services? More than 4 times per year 12/19/2024 Do you belong to any clubs o r organizations such as catholic groups, unions, fraternal or athletic groups, or school groups? No 12/19/2024 How often do you attend meet ings of the clubs or organizations you belong to? Never 12/19/2024 Are you , , di vorced, , never , or living with a partner? 12/19/2024 AUDIT-C Answer Date Recorded Q1: How often do you have a drink containing alcohol? Never 11/28/2024 Q2: How many drinks containi ng alcohol do you have on a typical day when you are drinking? Patient does not drink Q3: How often do you have si x or more drinks on one occasion? Never 11/28/2024 Overall Financial Resource Strain (CARDIA) Answe r Date Recorded How hard is it for you to pa y for the very basics like food, housing, medical care, and heating? Not very hard 12/19/2024 PHQ-2 Answer Date Recorded PHQ-2 Total Score (If total score is 3 or more points, staff should administer the PHQ-9) 0 12/19/2024 Hunger Vital Sign Answer Date Recorded Within the past 12 months, y ou worried that your food would run out before you got the money to buy more. Never true 12/20/19 25 Within the past 12 months, t he food you bought just didn't last and you didn't have money to get more. Never true 12/19/2024 PRAPARE - Transportation Answer Date Re corded In the past 12 months, has l ack of transportation kept you from medical appointments or from getting medications? No 02/2025 In the past 12 months, has l ack of transportation kept you from meetings, work, or from getting things needed for daily living? No 12/19/2024 PHQ-9 Answer Date Recorded PHQ-9 Total Score 0 04/24/2024 Housing Stability Vital Sign Answer Robinson e Recorded In the last 12 months, was t here a time when you were not able to pay the mortgage or rent on time? No 12/19/2024 In the past 12 months, how m any times have you moved where you were living? 0 12/19/2024 At any time in the past 12 m [place], were you homeless or living in a fci (including now)? No 12/19/2024 Personal Safety Answer Date Recorded Have you ever been in or are you currently in a harmful physical or emotional relationship or is someone making you feel afraid or unsafe? 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 Gender Identity Female 08/24/2021 12:33 PM CDT Sexual Orientation Not on file Last Filed Vital Signs Vital Sign Reading Time Taken Comments Blood Pressure 115/72 12/26/2024 8:41 AM CDT Pulse 66 12/26/2024 8:41 AM CDT Temperature 37 C (98.6 F) 11/17/2024 8:00 PM CDT Respiratory Rate 16 12/19/2024 12:39 PM CDT Oxygen Saturation 95% 12/19/2024 12:39 PM CDT Inhaled Oxygen Concentration - - Weight 76.2 kg (168 lb) 12/26/2024 8:41 AM CDT Height 157.5 cm (5' 2) 12/26/2024 8:41 AM CDT Body Mass Index 30.73 12/26/2024 8:41 AM CDT Plan of Treatment Not on file Medical Devices Implanted Type Area System Operator Device Identifier Shelf Expiration Date Model / Serial / Lot [employer] Jhonatan Obtryx Ii Precisionblue Advantage .15mm 22cm Sling Halo Needle [id number] - [id number] Implanted:Qty: 1 on 11/30/2022 by Morteza Connelly MD at [facility] N/A: Urethra [employer] Jhonatan [id number] 05/26/2025 [id number] / / [id number] Medtronic Inc Catheter Intrathecal Spinal Segment 2 Piece Silicone Ascenda [id number] - [id number] Implanted:Qty: 1 on 10/24/2024 by Cesar Smith MD at [facility] N/A: Back Med[employer]onic Inc 09/20/2026 [id number] / / [id number] Medtronic Usa [employer] X Pump Infusion Programmable Ulp Ami 20ml Volume 8667-20 - [id number] - [id number] Implanted:Qty: 1 on 10/24/2024 by Cesar Smith MD at [facility] N/A: Back [employer] X 03/10/2026 8667-20 / [id number] / N/A Procedures Procedure Name Priority Date/Time Associated Diagnosis Comments POCT URINALYSIS DIPSTICK Routine 11/28/2024 10:24 AM CDT Urinary tract infection without hematuria, site unspecified XR CHEST PA LATERAL 2 VIEWS Schedule EVELYN, Read EVELYN (Appt Today, Awaiting Results) 11/28/2024 10:10 AM CDT SOB (shortness of breath) EGFR Routine 11/28/2024 10:00 AM CDT Urinary tract infection without hematuria, site unspecified BASIC METABOLIC PANEL Routine 11/28/2024 10:00 AM CDT Urinary tract infection without hematuria, site unspecified URINALYSIS, MICROSCOPIC ONLY STAT 11/17/2024 6:27 PM [...] AM CDT 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 DEXA AXIAL SKELETON BONE DENSITY 1 OR MORE SITES Schedule Routine, Read Routine (OP Routine) 03/23/2022 11:18 AM CDT Osteoporosis, unspecified osteoporosis type, unspecified pathological fracture presence Post-menopausal from Last 3 Months or Most Recently Relevant to Health Maintenance Results * (ABNORMAL) POCT urinalysis dipstick (11/28/2024 10:24 AM CDT) Color, Urine, POC Yellow Clarity, ur, POC Clear Clear Glucose, ur, POC Negative Negative Bilirubin, ur, POC Negative Negative Ketones, ur, POC Negative Negative Specific [place], POC 1.020 1.003 - 1.030 Blood, ur, POC Negative Negative pH, ur, POC 6.0 5.0 - 8.0 Protein, ur, POC Negative Negative Urobilinogen, urine, POC 0.2 0.2 - 1.0 mg/dL Nitrite, ur, POC Negative Negative Leukocytes, ur, POC Negative Negative Lot Number [id number] Urine 11/28/2024 10:2 4 AM CDT Doreen Strong NP POINT OF CARE TEST GARETHManny JAHAIRA Final Result * XR Chest Pa Lateral 2 Views (11/28/2024 10:10 AM CDT) Anatomical Region Laterality Modality Body, Chest N/A Computed Radiogr aphy 11/28/2024 5:23 PM CDT Narrative 11/28/2024 5:30 PM CDT EXAM DESCRIPTION: XR CHEST PA LATERAL 2 VIEWS REASON FOR STUDY: sob Complains of pain and shortness of breath mid sternal x 7 months ago after a falling injury where they hit a tree stump Pressure when bending over No surgeries TECHNIQUE: 2 radiographic view(s) of the chest. COMPARISON: 07/05/2024 FINDINGS: LUNGS: Minor chronic lung changes are noted. No consolidation, effusion or other acute process is seen. HEART/MEDIASTINUM: Cardiac silhouette normal in size. Mediastinal and hilar contours appear normal. LINES/TUBES: None. BONES: No acute osseous abnormality. IMPRESSION: No acute cardiopulmonary abnormality. THIS IS AN ELECTRONICALLY VERIFIED FINAL REPORT 11/28/2024 5:30 PM - Electronically signed by Lamberto MAYNARD: ALEYDA Report ID: [id number] Reading Location: [place] [address] Procedure Note Lamberto Tavarez MD - 11/28/2024 EXAM DESCRIPTION: XR CHEST PA LATERAL 2 VIEWS REASON FOR STUDY: sob Complains of pain and shortness of breath mid sternal x 7 months ago aftera falling injury where they hit a tree stump Pressure when bending overNo surgeries TECHNIQUE: 2 radiographic view(s) of the chest. COMPARISON: 07/05/2024 FINDINGS: LUNGS: Minor chronic lung changes are noted. No consolidation, effusionor other acute process is seen. HEART/MEDIASTINUM: Cardiac silhouette normal in size. Mediastinal andhilar contours appear normal. LINES/TUBES: None. BONES: No acute osseous abnormality. IMPRESSION: No acute cardiopulmonary abnormality. THIS IS AN ELECTRONICALLY VERIFIED FINAL REPORT 11/28/2024 5:30 PM - Electronically signed by Lamberto Tavarez M.D. KH: ALEYDA Report ID: [id number] Reading Location: [place] [address] Doreen Strong REFUSE DRIVER IMG XR PROCEDURES Final Result * eGFR (11/28/2024 10:00 AM CDT) eGFR >90 >=60 mL/min/1. 73 m2 [...] interpretive data was last reviewed 2021. Blood 11/28/2024 10:0 0 AM CDT 11/28/2024 10:11 AM CDT us Doreen Strong NP LAB BLOOD ORDERABLES Fi nal Result [facility] ([place] 1 [facility] Department [place] [address] * (ABNORMAL) Basic metabolic panel (11/28/2024 10:00 AM CDT) Sodium 142 135 - 145 mmol/L Potassium, pl 3.6 3.3 - 4.9 mmol/L [facility] ([place]) Chloride 103 97 - 110 mmol/L [facility] ([place]) CO2 27 22 - 32 mmol/L [facility] ([place]) Anion gap 13 2 - 15 mmol/L [facility] ([place]) BUN 13 6 - 25 mg/dL [facility] ([place]) Creatinine 0.58(L) 0.60 - 1.10 mg/dL [facility] ([place]) Glucose 102 70 - 199 mg/dL [facility] ([place]) [...] interpretive data was last revised 2022. Calcium 9.0 8.5 - 10.3 mg/dL [facility] ([place]) Blood 11/28/2024 10:0 0 AM CDT 11/28/2024 10:11 AM CDT us Doreen Strong NP LAB BLOOD ORDERABLES Fi nal Result Performing Organization Address City/[facility]/ZIP Co de Phone Number [facility] ([place]) 1 [facility] [place] [address] * (ABNORMAL) Urinalysis reflex to microscopic and [...] tendency for uric acid stone formation. Source: [facility] [place] Current Interpretive Data was last revised on [...] 6:27 PM CDT 11/17/2024 6:29 PM CDT us Jerson Hall MD LAB MICROBIOLOGY - GENERAL ORD ERABLES Final Result [facility] ([place]) 1 [facility] Department [place] [address] * (ABNORMAL) Urinalysis, microscopic only (11/17/2024 6:27 PM CDT) WBC, ur 11-20(A) 0 - 5 /HPF RBC, ur 0-2 0 - 2 /HPF [facility] ([place]) Epithelial cells, squamous, ur 1-5 0 - 5 /HPF [facility] ([place]) Bacteria, ur 3+(A) [facility] ([place]) Culture Reflex Comment Reflex to urine culture will be performed. [facility] ([place]) Urine 11/17/2024 6:27 PM CDT 11/17/2024 6:29 PM CDT Jerson Hall MD LAB URINE ORDERABLES Final Res ult [facility] ([place]) [address] [facility] [place] [address] * Urine culture Urine (11/17/2024 6:27 PM CDT) Report Final Report: Less than 100,000 colonies/mL (clinically insignificant growth based on current clinical standards) Comment:Testing performed by : [facility], [address] [place]., [address] Organism (CLINICALLY INSIGNIFICANT GROWTH [facility] ([place]) Urine 11/17/2024 6:27 PM CDT 11/17/2024 10:36 PM CDT Narrative [facility] ([place]) - 11/19/2024 8:03 AM CDT Urine culture reflexed based upon urinalysis results. Testing performed by [facility] ([phone]) Jerson Hall MD LAB MICROBIOLOGY - GENERAL ORD ERABLES Final Result [facility] ([place]) 1 [facility] [place] [address] * ECG 12 lead (11/17/2024 6:24 PM CDT) 11/17/2024 6:24 PM CDT Narrative [facility] - 11/19/2024 7:24 AM CDT Vent Rate: 74 bpm RR Interval: 808 msec NC Interval: 152 msec QRS Duration: 86 msec QT Interval: 393 msec QTC Interval: 420 msec P-R-T [place]: 33 - 12 - 22 degrees IMPRESSION: SINUS RHYTHM Leftward axis No significant change from prior EKG Electronically Signed By: Dr Luis You Jerson Hall MD ECG ORDERABLES Final Result [facility] * Sepsis Lactate w/ Reflex (11/17/2024 5:26 PM CDT) Sepsis Lactate 1.4 0.7 - 2.0 mmol/L Blood 11/17/2024 5:26 PM CDT 11/17/2024 5:32 PM CDT Jerson Hall MD LAB BLOOD ORDERABLES Final Res ult [facility] ([address] Department [place] [address] * eGFR (11/17/2024 5:26 PM CDT) eGFR [...] MD LAB BLOOD ORDERABLES Final Res ult [facility] ([place]) 1 [facility] Department [place] [address] * (ABNORMAL) Differential, auto (11/17/2024 5:26 PM [...] MD LAB BLOOD ORDERABLES Final Res ult [facility] ([place]) 1 [facility] Department of Laboratories [place] [id number] * (ABNORMAL) CBC with auto differential (11/17/2024 [...] CV 11.9 11.1 - 14.9 % [facility] ([place]) RDW SD 40.8 35.7 - 48.1 fL [facility] ([place]) NRBC abs 0.00 0.00 - 0.01 K/cumm [facility] ([place]) Blood 11/17/2024 5:26 PM CDT 11/17/2024 5:32 PM CDT us Jerson Hall MD LAB BLOOD ORDERABLES Final Res ult [facility] ([place]) 1 [facility] Department [place] [address] * Blood culture Blood Peripheral (11/17/2024 5:26 PM CDT) Report Final Report: No growth Comment:Testing performed by : [facility], [address] [place]., [address] Blood (Peripheral) 11/17/2024 5:26 PM CDT 11/17/2024 [...] performance characteristics have been verified by the [facility]. For questions about this culture, contact the Microbiology Laboratory at [phone]. Interpretive data was last revised on 24. Jerson Hall MD LAB MICROBIOLOGY - GENERAL ORD ERABLES Final Result [facility] ([place]) 1 [facility] Department [place] [address] * (ABNORMAL) Comprehensive metabolic panel (11/17/2024 5:26 [...] classification and Diagnosis of Diabetes Diabetes Care 202; 46: S19-S40. Current interpretive data was last [...] BLOOD ORDERABLES Final Res ult [facility]NE[facility] ([place]) [address] [facility] [employer] [address] * Vitamin D 25 hydroxy (10/29/2024 2:04 PM CDT) Vitamin D 25-OH 67 30 - 80 ng/mL Blood 10/29/2024 2:04 PM CDT 10/29/2024 2:11 PM CDT Doreen Strong NP LAB BLOOD ORDERABLES Fi nal Result Performing Organization Address [facility] Co de Phone Number [facility] DONNELLY ([place]) 1 [facility] [place] [address] * (ABNORMAL) TSH (10/29/2024 2:04 PM CDT) Thyroid Stimulating Hormone 4.22(H) 0.30 - 4.20 mcIUnit/mL Blood 10/29/2024 2:04 PM CDT 10/29/2024 2:11 PM CDT Doreen Strong REFUSE DRIVER LAB BLOOD ORDERABLES Fi nal Result Performing Organization Address City/[facility]/ZIP Co de Phone Number [facility]NE[facility] ([place]) 1 [facility] [place] [address] * T4, free (10/29/2024 2:04 PM CDT) Free T4 1.60 0.90 - 1.70 ng/dL Blood 10/29/2024 2:04 PM CDT 10/29/2024 2:11 PM CDT Doreen Strong NP LAB BLOOD ORDERABLES Fi nal Result Performing Organization Address [facility] Co de Phone Number [facility] ([place]) 1 [facility] [place] [address] * (ABNORMAL) Vitamin B12 (10/29/2024 2:04 PM CDT) Pathologist [facility] Vitamin B12 1,832(H) 230 - 1,250 pg/mL Blood 10/29/2024 2:04 PM CDT 10/29/2024 2:11 PM CDT Doreen Strong NP LAB BLOOD ORDERABLES Fi nal Result Performing Organization Address [facility] de Phone Number [facility]NE[facility] ([place]) 1 [facility] [place] [address] * FL Fluoroscopy < 1 Hour (10/24/2024 8:37 AM CDT) Narrative [facility] - 10/24/2024 8:38 AM CDT The images from this study are not interpreted by Radiology. Please refer to the physician's procedure / OR operative note. Cesar Smith MD IMG FLUOROSCOPY PROCEDU RES Final Result Performing Organization Address [facility] de Phone Number [facility] * XR Spine Thoracic 2 Views (10/24/2024 8:37 AM CDT) Anatomical Region Laterality Modality Spine N/A Radio Fluoroscop y 10/29/2024 2:30 PM CDT Narrative 10/29/2024 2:33 PM CDT EXAM DESCRIPTION: XR SPINE THORACIC 2 VIEWS REASON FOR STUDY: Back pain FINDINGS: Multiple fluoroscopic images consisting of 2 view(s) submitted with comparison 07/16/2024 . Dose area product equals [id number] mGym*2. Fluoroscopic images demonstrate an in progress likely pain pump placement . IMPRESSION: In progress likely pain pump placement. Recommend correlation with surgical report. THIS IS AN ELECTRONICALLY VERIFIED FINAL REPORT 10/29/2024 2:33 PM - Electronically signed by Winston Motley M.D. MF: TRAVIS Report ID: [id number] Reading Location: [id number] Procedure Note Winston Motley MD - 10/29/2024 EXAM DESCRIPTION: XR SPINE THORACIC 2 VIEWS REASON FOR STUDY: Back pain FINDINGS: Multiple fluoroscopic images consisting of 2 view(s) submitted with comparison 07/16/2024 . Dose area product equals [id number] mGym*2. Fluoroscopic images demonstrate an in progress likely pain pump placement. IMPRESSION: In progress likely pain pump placement. Recommend correlation withsurgical report. THIS IS AN ELECTRONICALLY VERIFIED FINAL REPORT 10/29/2024 2:33 PM - Electronically signed by Winston Motley M.D. MF: TRAVIS Report ID: [id number] Reading Location: [id number] Cesar Smith MD IMG XR PROCEDURES Final Result * Dexa Axial Skeleton Bone Density 1 or 2 Site (03/23/2022 11:18 AM CDT) Anatomical Region Laterality Modality Body N/A Other 03/23/2022 9:41 PM CDT Narrative 03/23/2022 9:44 PM CDT EXAM DESCRIPTION: DEXA AXIAL SKELETON BONE DENSITY 1 OR MORE SITES REASON FOR STUDY: 76 y/o year old F with given history of screening. Postmenopausal System Operator/Model: [employer] (P) (S/N [id number]) CLINICAL INFORMATION: Current height: 62.7 inches Maximum [...] Winston Motley M.D. MF: TRAVIS Report ID: [id number] Reading Location: [place] [address] Procedure Note Winston Motley MD - 03/23/2022 EXAM DESCRIPTION: DEXA AXIAL SKELETON BONE DENSITY 1 OR MORE SITES REASON FOR STUDY: 76 y/o year old F with given history ofscreening. Postmenopausal System Operator/Model: [employer] (P) (S/N [id number]) CLINICAL INFORMATION: Current height: 62.7 inches Maximum [...] Winston Motley M.D. 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 ADVANCE DIRECTIVE 01/14/2021 11:23 AM [...] 10:07 AM 01/14/2023 10:07 AM Care Teams Razor Sharpener Relationship Specialty Start Date End Date Doreen Strong NP [address] [place] [address] [address] [place] [address] PCP - General Family Medicine 09/17/24 Carmen Eckert NP [address] [place] [address] Braber [address] 2 [facility] [address] [place] [address] Nurse Practitioner Psychiatry 09/08/20 Darwin Bejarano MD [address] [place] [address] Sunil [address] [facility] [address] [place] [address] Referring Physician Endocrinology 03/01/22 Cesar Smith MD [address] [place] [address] Sunil [address] [facility] [address] [place] [address] Consulting Physician Anesthesiology 08/08/23 Lucy Olivera, REFUSE DRIVER [address] [place] [address] Sunil [address] 2 [facility] [address] [place] [address] Anesthesiology 08/09/23 Sandy Alejandro MD [address] [place] [address] Sunil [address] [facility] [address] [place] [address] Consulting Physician Cardiology 08/22/23 Jeannette Lang MD [address] [place] [address] Barber [address] [facility] [address] [place] [address] Consulting Physician Neurology 08/22/23 [place] [address] [facility] [address] [address] Consulting Physician Urology 08/22/23 Winston Banuelos MD [address] [place] [address] [address] [place] [address] Consulting Physician Neurology 01/27/24 Teddy Butts MD [address] [place] [address] DR ANNETTE Mcmanus [address] [place] [address] Surgeon Orthopedic Surgery 01/27/24 Luci Mcgregor MD [address] [address] Consulting Physician Otolaryngology 03/08/24
--- OUTSIDE RECORDS SUMMARY | 2025-01-11 22:15 | XMS_ITS | Encounter Summary ---
Author Organization [facility] Address [address] [place] [address] Care Team Providers Care Web Press Operator Assistant Name Role Phone GunnarCarmen hernandez LINNETTE Unavailable [phone] Geetha Obrein NP Unavailable [phone] Nini Sheehan DO Primary Care Provider + [phone] Darwin Bejarano MD Unavailable Shayne Cyr MD Primary Care Provider Cesar Smith MD Unavailable [phone] Lucy Olivera NP Unavailable [phone] Sandy Alejandro MD Unavailable [phone] Jeannette Lang MD Unavailable Tee Connelly MD Unavailable [phone] Winston Banuelos MD Unavailable [phone] Teddy Butts MD Unavailable [phone] Luci Mcgregor MD Unavailable [phone] Cesar Smith MD Unavailable [phone] Doreen Strong NP Primary Care Provider Hammad Melendrez RN Unavailable [phone] Encounter Details Date Type Department Care Team (Late st Contact Info) Description 03/22/2022 Telephone [facility] 1 [place] [address] Olinda Reinoso, RT Social History Tobacco Use [...] on file 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 Gender Identity Female 08/24/2021 12:33 PM CDT Sexual Orientation Not on file documented as of this encounter Plan of Treatment Not on file documented as of this encounter Visit Diagnoses Not on filedocumented in this encounter Care Teams Web Press Operator Assistant Relationship Specialty Start Date End Date Nini Sheehan DO [address] Sunil [address] [place] [address] PCP - General Family Medicine 01/13/21 12/19/22 Shayne Cyr MD [address] Sunil [address] [facility] [address] [place] [address] PCP - General Family Medicine 08/04/23 09/16/24 Doreen Strong NP [address] [place] [address] [address] [place] [address] PCP - General Family Medicine 09/17/24 Carmen Eckert NP [address] Sunil [address] [place] [address] Nurse Practitioner Psychiatry 09/08/20 Geetha Obrien, BOX SORTER [address] Barber [facility] 2 [address] [place] [address] Nurse Practitioner Obstetrics and Gynecology 09/08/20 12/27/22 Darwin Bejarano MD [address] Barber [facility] 2 [address] [place] [address] Referring Physician Endocrinology 03/01/22 Cesar Smith MD [address] Barber [facility] 2 [address] [place] [address] Consulting Physician Anesthesiology 08/08/23 Lucy Olivera, BOX SORTER [address] Barber [facility] 2 [facility] [address] [place] [address] Anesthesiology 08/09/23 Sandy Alejandro MD [address] Barber [facility] 2 [address] [place] [address] Consulting Physician Cardiology 08/22/23 Jeannette Lang MD [address] Barber [facility] 2 [address] [place] [address] Consulting Physician Neurology 08/22/23 [place] [address] [facility] [address] [place] [address] Consulting Physician Urology 08/22/23 Winston Banuelos MD [address] [place] [address] [address] [place] [address] Consulting Physician Neurology 01/27/24 Teddy Butts MD [address] [facility] [address] BRY[address] [facility] [address] [place] [address] Surgeon Orthopedic Surgery 01/27/24 Luci Mcgregor MD [address] [address] Consulting Physician Otolaryngology 03/08/24 Csear Smith MD [address] [facility] [address] [place] [address] Consulting Physician Anesthesiology 05/31/24 05/31/24 Hammad Melendrez, ANTOINE [address] [place] [address] [place] [address] Plastic Boat Patcher 11/20/24 12/18/24 documented as of this encounter
--- OUTSIDE RECORDS SUMMARY | 2025-01-11 22:15 | XMS_ITS | Clinical Summary ---
Author Organization [facility] [address] [facility] Address [address] [place] [address] Care Team Providers Care Brake Repair Supervisor Name Role Phone Carmen Eckert NP Unavailable [phone] 19 Darwin Bejarano MD Unavailable Cesar Smith MD Unavailable [phone] Lucy Olivera NP Unavailable [phone] Sandy Alejandro MD Unavailable [phone] Jeannette Lang MD Unavailable Tee Connelly MD Unavailable [phone] Winston Banuelos MD Unavailable [phone] Teddy Butts MD Unavailable [phone] Luci Mcgregor MD Unavailable [phone] Doreen Strong NP Primary Care Provider Allergies Active Allergy Reactions Criticality Noted Date [...] 06/01/2024 Assessment & Plan (06/01/2024 2:12 PM PARTY PLAN SALES HOST/HOSTESS): - seen by ENT 04/2024 - has known hearing loss in both ears Acute diastolic congestive heart failure 024 Unsteady gait 01/24/2024 Memory loss 10/20/2023 Assessment & Plan (12/20/2023 4:59 PM CDT): Patient recently established care with Neurology Dr. Banuelos with complaint of neck pain as well as memory loss. Patient's score 27/30 on Stafford cognitive assessment on 10/2023 Primary insomnia 09/30/2023 [...] 06/18/2023 Assessment & Plan (06/20/2023 10:35 AM PARTY PLAN SALES HOST/HOSTESS): - recent diagnosis - was having elevated blood pressure, headaches - had workup in hospital admission and imaging - improved after better blood pressure management Esophageal polyp 05/16/2023 Assessment & Plan (06/20/2023 10:33 AM PARTY PLAN SALES HOST/HOSTESS): - reports hx of esophageal polyp - seeing a GI provider in [place] soon - reports has had esophagus stretched 7 years ago as well Vitamin D deficiency 05/16/2023 Assessment & Plan (10/29/2024 2:37 PM CDT): -chronic, controlled -patient currently takes vitamin D3 supplement -will recheck lab value -continue current treatment plan Assessment & Plan (05/16/2023 3:13 PM PARTY PLAN SALES HOST/HOSTESS): -chronic, unknown, no data to review at [...] 01/19/2023 Assessment & Plan (05/15/2024 3:48 PM PARTY PLAN SALES HOST/HOSTESS): -ongoing complaint, not improved -patient reports experiencing [...] 08/20/2021 Assessment & Plan (05/16/2023 3:11 PM PARTY PLAN SALES HOST/HOSTESS): Last colonoscopy completed 08/27/2021. Repeat in 5 [...] re-evaluation Assessment & Plan (05/31/2024 2:45 PM PARTY PLAN SALES HOST/HOSTESS): Wt Readings from Last 3 Encounters: 05/31/24 [...] so Assessment & Plan (05/15/2024 3:45 PM PARTY PLAN SALES HOST/HOSTESS): Wt Readings from Last 3 Encounters: 05/15/24 [...] so Assessment & Plan (08/09/2023 1:54 AM PARTY PLAN SALES HOST/HOSTESS): Wt Readings from Last 3 Encounters: 08/08/23 79.7 kg (175 lb 11.2 oz) 08/04/23 79.8 kg (176 lb) 06/21/23 78.9 kg (174 lb) Body mass index is 32.13 kg/m . - chronic condition, not at goal - BMI Follow-up includes: nutrition counseling, exercise counseling and education - Co morbidities - hypertension Assessment & Plan (05/16/2023 3:10 PM PARTY PLAN SALES HOST/HOSTESS): HPI: Condition is stable goal BMI <30 A&P: Healthy, high-protein, lower carbohydrate, lower fat lifestyle and exercise for 150min/week recommended Recommend tracking everything you put in your mouth on an yi like [employer] Hand Measurements: A fist or cupped hand [...] in your mouth on an yi like [employer] Hand Measurements: A fist or cupped hand [...] recommended Assessment & Plan (07/22/2021 7:39 PM PARTY PLAN SALES HOST/HOSTESS): Weight reduction, daily exercise and dietary modifications [...] 07/23/2020 Assessment & Plan (07/30/2020 2:55 PM PARTY PLAN SALES HOST/HOSTESS): Referral to gyne for further evaluation Reviewed [...] plan Assessment & Plan (05/31/2024 2:42 PM PARTY PLAN SALES HOST/HOSTESS): - chronic, stable with persistent symptoms - [...] be deficient or low, can still take oqnn-ymx-zvntoum vitamin B12 had low-level to see if it would help her symptoms Assessment & Plan (05/16/2023 3:11 PM PARTY PLAN SALES HOST/HOSTESS): Patient reiterated no suicidal thoughts at this [...] plan Assessment & Plan (05/31/2024 2:42 PM PARTY PLAN SALES HOST/HOSTESS): - chronic, stable with persistent symptoms - [...] psychiatry Assessment & Plan (05/16/2023 3:11 PM PARTY PLAN SALES HOST/HOSTESS): Patient reiterated no suicidal thoughts at this [...] others. Assessment & Plan (07/30/2020 2:54 PM PARTY PLAN SALES HOST/HOSTESS): Not well controlled, will continue lexapro and [...] plan Assessment & Plan (06/01/2024 2:10 PM PARTY PLAN SALES HOST/HOSTESS): - chronic, stable - continue on levothyroxine 112 mcg daily - managed by endocrinology - Dr. Bejarano - labs being monitored by her supervisor blast furnace - reviewed outside labs - states she does not plan to go back to an supervisor blast furnace - recheck labs, order placed TSH 08/2023 - WNL Lab Results Component Value Date TSH 0.87 05/31/2024 Assessment & Plan (12/20/2023 4:49 PM CDT): - chronic, stable - continue on levothyroxine 112 mcg daily - managed by endocrinology - labs being monitored by her supervisor blast furnace - reviewed outside labs Lab Results Component Value Date TSH 0.43 09/08/2020 Assessment & Plan (08/22/2023 2:16 PM CDT): - chronic, stable - continue on levothyroxine 112 mcg daily - continue seeing endocrinology - labs being monitored by her supervisor blast furnace, has venkata ppointmetn coming up in few days Lab Results Component Value Date TSH 0.43 09/08/2020 Assessment & Plan (05/16/2023 3:11 PM PARTY PLAN SALES HOST/HOSTESS): -chronic, stable -continue on levothyroxine 112 mcg daily -continue seeing endocrinology Assessment & Plan (12/28/2022 11:24 AM CDT): -chronic, stable -continue on levothyroxine 112 mcg daily -continue seeing endocrinology Assessment & Plan (03/01/2022 3:39 PM CDT): Managed by endocrinology. Asymptomatic, continue current prescription medications. Assessment & Plan (07/22/2021 7:38 PM PARTY PLAN SALES HOST/HOSTESS): Patient will see an supervisor blast furnace in a couple of weeks. She declines a TSH check today. Assessment & Plan (01/14/2021 11:26 AM CDT): Asx. Continue current therapy. Assessment & Plan (09/08/2020 10:13 AM CDT): Worsening anxiety and depression, labs ordered. Will follow. Assessment & Plan (07/30/2020 2:55 PM PARTY PLAN SALES HOST/HOSTESS): Will continue to monitor TSH, continue synthroid 150 ucg Osteoporosis 10/27/2013 Overview (01/14/2021): Allergic to alendronate. Assessment & Plan (05/16/2023 3:11 PM PARTY PLAN SALES HOST/HOSTESS): -chronic, stable -patient did not tolerate Fosamax [...] plan Assessment & Plan (06/01/2024 2:10 PM PARTY PLAN SALES HOST/HOSTESS): BP Readings from Last 3 Encounters: 05/18/24 [...] management Assessment & Plan (08/08/2023 12:20 PM PARTY PLAN SALES HOST/HOSTESS): BP Readings from Last 3 Encounters: 08/08/23 120/70 08/04/23 131/82 07/21/23 133/69 -chronic, stable -continue on losartan 50 mg daily (used to be on 25 mg Losartan) -recommend healthy, low-salt diet -continue seeing Cardiology - discussed to stop taking NSAIDs moving forward Assessment & Plan (06/20/2023 10:40 AM PARTY PLAN SALES HOST/HOSTESS): BP Readings from Last 3 Encounters: 06/20/23 130/70 06/18/23 154/78 05/16/23 121/76 -chronic, stable -continue on losartan 50 mg daily (used to be on 25 mg Losartan) -recommend healthy, low-salt diet -continue seeing Cardiology - discussed to stop taking NSAIDs moving forward Assessment & Plan (05/16/2023 3:12 PM PARTY PLAN SALES HOST/HOSTESS): -chronic, stable -continue on losartan 25 mg [...] medications. Assessment & Plan (07/22/2021 7:40 PM PARTY PLAN SALES HOST/HOSTESS): Stable. Cont. Current prescription medications. Assessment & Plan (01/14/2021 11:16 AM CDT): Blood pressure at goal at less than 140/90. Continue current medications. Assessment & Plan (09/08/2020 10:12 AM CDT): Blood pressure at goal of less than 140/90. Continue current medications. Assessment & Plan (07/30/2020 2:55 PM PARTY PLAN SALES HOST/HOSTESS): Stable, at target, continue current medications Pure hypercholesterolemia 10/27/2013 Assessment & Plan (05/31/2024 2:42 PM PARTY PLAN SALES HOST/HOSTESS): -chronic, stable -patient does not take medication [...] 09/08/2020 Assessment & Plan (06/20/2023 10:23 AM PARTY PLAN SALES HOST/HOSTESS): -chronic, stable -patient does not take medication [...] 09/08/2020 Assessment & Plan (05/16/2023 3:12 PM PARTY PLAN SALES HOST/HOSTESS): -chronic, stable -patient does not take medication [...] follow. Assessment & Plan (07/22/2021 7:40 PM PARTY PLAN SALES HOST/HOSTESS): LDL goal is < 100, patient nearing [...] plan Assessment & Plan (06/01/2024 2:10 PM PARTY PLAN SALES HOST/HOSTESS): - established with pain management - -s/p [...] (08/20/2021): Added automatically from request for surgery [id number] Encounter for screening colonoscopy 08/20/2021 03/01/2022 Overview (08/20/2021): Added automatically from request for surgery [id number] S/P hysterectomy 09/08/2020 12/20/2022 Left lower quadrant [...] past - established with pain management at [facility] - she continues to use of Cymbalta [...] osteoarthritis. Assessment & Plan (08/09/2023 1:53 AM PARTY PLAN SALES HOST/HOSTESS): - chronic, not well controlled - reports remote hx of 2 back surgeries - has been on meloxicam 15 mg daily ---> discussed about wood sash and frame carpenter risk of NSAID use so she Is [...] osteoarthritis. Assessment & Plan (06/20/2023 10:47 AM PARTY PLAN SALES HOST/HOSTESS): - chronic, not well controlled - reports remote hx of 2 back surgeries - has been on meloxicam 15 mg daily ---> discussed about wood sash and frame carpenter risk of NSAID use so she Is willing to stop using Meloxicam - states she used to get injections in her back - not established with pain management provider although she was referred by her PCP, willing at this time - new referral placed - she continues to use of Cymbalta 60 mg daily Assessment & Plan (05/16/2023 3:10 PM PARTY PLAN SALES HOST/HOSTESS): -chronic, stable -continue on meloxicam 15 mg daily Assessment & Plan (12/28/2022 11:43 AM CDT): -chronic, not at/near goal -patient reports she was taking [place] 5-325 mg every 6 hours as needed, but it does not seem to make a difference -refer to pain management Assessment & Plan (01/14/2021 11:28 AM CDT): Pain managed with meloxicam. Continue current therapy. Assessment & Plan (09/08/2020 10:16 AM CDT): Trial of meloxicam. May use acetaminophen and gokj-dda-gjdzznj as needed for pain. Follow directions for use on packaging. Do not take any wuwp-ard-uzlpnpr NSAIDs with meloxicam. History of renal calculi 10/18/201903/2023 Diuretic-induced hypokalemia 10/18/2019 12/20/2022 Assessment & Plan (03/01/2022 3:40 PM CDT): Asymptomatic. Labs ordered, will follow. Prescription refilled. Assessment & Plan (07/22/2021 7:40 PM PARTY PLAN SALES HOST/HOSTESS): Asymptomatic. Patient increased her daily potassium on her own. Patient reports being on 30 meq daily while she was living in [place]. Labs ordered. Assessment & Plan (01/14/2021 11:28 [...] Management. Assessment & Plan (07/30/2020 2:54 PM PARTY PLAN SALES HOST/HOSTESS): Continue to Zanaflex for relief Encounters Date Type Department Care Team Description 01/09/2025 Orders Only [facility] - [address] [id number] Delfina Mcgregor MD Dizzy (Primary Dx) 01/02/2025 8:53 AM CDT - 01/02/2025 11:59 PM CDT Hospital Encounter [facility] Cardiology 1 [place] [address] Dizzy Discharge Disposition: Discharge to home or self care 12/26/2024 8:30 AM CDT Office Visit [facility] at [address] [place] [address] Sandy Alejandro MD Primary hypertension (Primary Dx); Dizzy; Localized edema; Pure hypercholesterolemia 12/19/2024 12:30 PM CDT Office Visit [facility] Primary Care at [address] [place] [address] Doreen Strong NP Fatigue, unspecified type (Primary Dx); Sensory urge incontinence; Status post insertion of intrathecal pump; Class 1 obesity with body mass index (BMI) of 30.0 to 30.9 in adult, unspecified obesity type, unspecified whether serious comorbidity present 11/29/2024 Orders Only [facility] - [facility] [address] [place] [phone] Luci Mcgregor MD 11/28/2024 9:55 AM CDT Lab [address] [address] Urinary tract infection without hematuria, site unspecified 11/28/2024 9:51 AM CDT - 11/28/2024 11:59 PM CDT Hospital Encounter [facility] [address] [place] [address] SOB (shortness of breath) Discharge Disposition: Discharge to home or self care 11/28/2024 9:00 AM CDT Office Visit [facility] at [address] [place] [address] Doreen Strong NP Middle ear effusion, unspecified laterality (Primary Dx); Urinary tract infection without hematuria, site unspecified; SOB (shortness of breath); Class 1 obesity with body mass index (BMI) of 31.0 to 31.9 in adult, unspecified obesity type, unspecified whether serious comorbidity present 11/28/2024 Results Follow-Up [facility] at [address] [phone] Doreen Strong, LINNETTE Basic metabolic panel, eGFR, XR Chest Pa Lateral 2 Views 11/27/2024 Orders Only [facility] Primary Care at [address] [phone] Doreen Strong, LINNETTE Vertigo (Primary Dx) 11/26/2024 Telephone [facility] Primary Care at [address] [phone] Doreen Strong NP Referral Request 11/23/2024 Telephone [facility] Primary Care at [address] [phone] Doreen Strong NP Medication, Appt needed 11/17/2024 5:03 PM CDT - 11/17/2024 8:13 PM CDT Emergency [facility] Emergency Department 1 [place] [address] Jerson Hall MD Weakness (Primary Dx); Acute cystitis without hematuria Discharge Disposition: Discharge to home or self care 11/14/2024 4:00 PM CDT - 11/14/2024 11:59 PM CDT Hospital Encounter [facility] [address] [facility] [address] [place] [address] Cesar Smith MD Status post insertion of intrathecal pump (Primary Dx) Discharge Disposition: Discharge to home or self care 11/09/2024 Telephone [facility] Primary Care at [address] [address] Doreen Strong NP Medical Question/Miscellaneous 11/01/2024 1:00 PM CDT Office Visit [facility] Primary Care at [address] [address] Doreen Strong NP Dizziness (Primary Dx); Class 1 obesity with body mass index (BMI) of 31.0 to 31.9 in adult, unspecified obesity type, unspecified whether serious comorbidity present 11/01/2024 Orders Only [facility] Primary Care at [address] [place] [address] Doreen Strong, LINNETTE Obesity (BMI 30-39.9) (Primary Dx) 11/01/2024 Telephone [facility] Primary Care at [address] [phone] Doreen Strong, LEAD SYSTEMS ENGINEER 11/01/2024 Orders Only [facility] Primary Care at [address] [phone] Doreen Strong, LINNETTE 10/31/2024 1:42 PM CDT - 10/31/2024 11:59 PM CDT Hospital Encounter [facility] [address] [place] [address] [address] [place], [place] [phone] Cesar Smith MD Status post insertion of intrathecal pump (Primary Dx) Discharge Disposition: Discharge to home or self care 10/31/2024 Telephone [facility] Primary Care at [address] [phone] Doreen Strong NP Med Refill 10/31/2024 Orders Only [facility] Primary Care at [address] [phone] Doreen Strong, LEAD SYSTEMS ENGINEER 10/31/2024 Nurse Triage [facility] Primary Care at [address] [phone] Doreen Strong, LINNETTE 10/31/2024 Nurse Triage [facility] Primary Care at [address] [phone] Saniya Moon, ANTOINE 10/31/2024 Results Follow-Up [facility] Primary Care at [address] [phone] Doreen Strong, LEAD SYSTEMS ENGINEER TSH, T4, free, Vitamin B12, Vitamin D 25 hydroxy 10/31/2024 Telephone [facility] Primary Care at [address] [place] [phone] Doreen Strong NP 10/30/2024 3:15 PM CDT Office Visit [facility] [address] [facility] [address] [place] [phone] Drake Rawls NP MACIEJ (obstructive sleep apnea) (Primary Dx); Hypersomnia with sleep apnea; Obesity (BMI 30.0-34.9); Memory loss 10/29/2024 1:55 PM CDT Lab [address] [phone] Fatigue, unspecified type; Vitamin D deficiency 10/29/2024 1:00 PM CDT Office Visit [facility] Primary Care at [address] [place] [phone] Doreen Strong, LINNETTE Primary hypertension (Primary Dx); Fatigue, unspecified type; Vitamin D deficiency; Class 1 obesity with body mass index (BMI) of 31.0 to 31.9 in adult, unspecified obesity type, unspecified whether serious comorbidity present 10/24/2024 7:42 AM CDT Anesthesia Event [facility] Operating Room 1 [place] [address] Tae Self MD McDowell, Juri Osmell, MD 10/24/2024 7:30 AM CDT - 10/24/2024 9:15 AM CDT Surgery [facility] Operating Room 1 [place] [address] Cesar Smith MD intrathecal pain pump implant 10/24/2024 6:13 AM CDT - 10/24/2024 11:13 AM CDT Hospital Encounter [facility] Operating Room 1 [place] [address] Cesar Smith MD Adenocarcinoma of colon (HCC) [...] in right wrist. COLONOSCOPY 09/11/2013 - 10/10/2013 [place] POLYPECTOMY COLONOSCOPY 08/11/2021 - 09/10/2021 Medical History [...] drink = 0.6 oz pur e alcohol) [facility] Utilities Answer Date Recorded In the past 12 months has e [employer], gas, oil, or water [employer] threatened to shut off services in your [...] often do you attend chur ch or gnosticism services? More than 4 times per year 12/19/2024 Do you belong to any clubs o r organizations such as orthodoxy groups, unions, fraternal or athletic groups, or [...] any time in the past 12 m [facility], were you homeless or living in a fpc (including now)? No 12/19/2024 Personal Safety Answer Date Recorded Have you ever been in or are you currently in a harmful physical or emotional relationship or is someone making you feel afraid or unsafe? Denies 11/17/2024 Comments No Sex and Gender Information Value Date Recorded Sex Assigned at Not on file Legal Sex Female 8:34 AM PARTY PLAN SALES HOST/HOSTESS Gender Identity Female 08/24/2021 12:33 PM CDT [...] 12/26/2024 8:41 AM CDT Plan of Treatment Health Maintenance Due Date Last Done Comments Well Visit 65+ 05/31/2025 05/31/2024, 1209/2022, 05/12/2022, Additional history exists Zoster Vaccine (1 of 2) 05/31/2025 Post poned from 1994 (Patient declined, but will receive in the future) Osteoporosis Screening-Bone Density Scan 06/01/2025 03/23/2022 Postponed from 03/23/2024 (Patient declined, but will receive in the future) DTaP/Tdap/Td Vaccine (2 - Td or Tdap) 06/13/2025 06/13/2015 Fall Risk Assessment 11/01/2025 11/01/2024, 10/29/2024, 09/17/2024, Additional history exists Depression Screening 12/19/2025 12/19/2024, 11/28/2024, 11/01/2024, Additional history exists Pneumococcal vaccine 65+ Discontinued 06/13/2014 Influenza Vaccine Discontinued 03/13/2020, 03/21/2009 Hepatitis B Screening Completed 05/31/2024 Medical Devices Implanted Type Area Business Unit Controller Device Identifier Shelf Expiration Date Model / Serial / Lot emo2 Inc Jhonatan Obtryx Ii Precisionblue Advantage .15mm 22cm Sling Halo Needle [id number] - [id number] Implanted:Qty: 1 on 11/30/2022 by Morteza Connelly MD at [facility] N/A: Urethra [employer] Inc Jhonatan [id number] 05/26/2025 [id number] / / [id number] Medtr[employer] Inc Catheter Intrathecal Spinal Segment 2 Piece Silicone Ascenda [id number] - [id number] Implanted:Qty: 1 on 10/24/2024 by Cesar Smith MD at [facility] N/A: Back Med[employer] Inc 09/20/2026 [id number] / / [id number] Med[employer]onic Usa [employer] X Pump Infusion Programmable Ulp Ami 20ml Volume 8667-20 - [id number] - [id number] Implanted:Qty: 1 on 10/24/2024 by Cesar Smith MD at [facility] N/A: Back [employer] X 03/10/2026 8667-20 / [id number] / N/A Procedures Procedure Name Priority [...] Negative Ketones, ur, POC Negative Negative Specific [place], POC 1.020 1.003 - 1.030 Blood, ur, POC Negative Negative pH, ur, POC 6.0 5.0 - 8.0 Protein, ur, POC Negative Negative Urobilinogen, urine, POC 0.2 0.2 - 1.0 mg/dL Nitrite, ur, POC Negative Negative Leukocytes, ur, POC Negative Negative Lot Number [id number] Urine 11/28/2024 10:2 4 AM CDT Doreen Strong NP POINT OF CARE TEST ZULEIKA CAMPO Final Result * XR Chest Pa Lateral [...] signed by Lamberto MAYNARD: ALEYDA Report ID: [id number] Reading Location: [id number] Procedure Note Lamberto Tavarez MD - 11/28/2024 [...] signed by Lamberto MAYNARD: ALEYDA Report ID: [id number] Reading Location: [id number] Doreen Strong LEAD SYSTEMS ENGINEER IMG XR PROCEDURES Final Result * eGFR [...] 0 AM CDT 11/28/2024 10:11 AM CDT Doreen Strong NP LAB BLOOD ORDERABLES [facility]ly [facility] Result [facility] ([place]) [address] [facility] Department [place] [address] * (ABNORMAL) Basic metabolic panel (11/28/2024 10:00 AM CDT) Sodium 142 135 - 145 mmol/L Potassium, pl 3.6 3.3 - 4.9 mmol/L [facility] ([place]) Chloride 103 97 - 110 mmol/L [facility] ([place]) CO2 27 22 - 32 mmol/L [facility] ([place]) Anion gap 13 2 - 15 mmol/L [facility] ([place]) BUN 13 6 - 25 mg/dL [facility] ([place] Creatinine 0.58(L) 0.60 - 1.10 mg/dL [facility] ([place]) Glucose 102 70 - 199 mg/dL [facility] ([place]) Comment: Interpretive Data Fasting glucose [...] 2022. Calcium 9.0 8.5 - 10.3 mg/dL [facility] ([place]) Blood 11/28/2024 10:0 0 AM CDT 11/28/2024 10:11 AM CDT us Doreen Strong NP LAB BLOOD ORDERABLES [facility] Result [facility] ([place]) 1 [facility] Department [place] [address] * (ABNORMAL) Urinalysis reflex to microscopic and culture Urine (11/17/2024 6:27 PM CDT) Color, ur Yellow Yellow Clarity, ur Clear Clear [facility] ([place]) Specific gravity, ur 1.008 1.003 - 1.030 [facility] ([place]) pH, urine 6.5 [facility] ([place]) Comment: Interpretive Data U rine pH is affected by diet, medications, systemic acid-base disturbances, and renal tubular function. pH may affect urinary stone formation. For example, urine pH below 6.0 may help reduce the tendency for calcium phosphate stones and pH greater than 6.0 may reduce the tendency for uric acid stone formation. Source: [facility] Heat[employer] Interactive Current Interpretive Data was last revised on 2017 Protein, ur ql Negative Negative [facility] ([place]) Glucose, ur ql Negative Negative [facility] ([place]) Ketones, ur Negative Negative [facility] ([place]) Bilirubin, ur Negative Negative [facility] ([place]) Blood, ur Negative Negative [facility] ([place]) Urobilinogen, ur <2.0 <2.0 mg/dL [facility] ([place]) Nitrite, ur Negative Negative [facility] ([place]) Leukocyte esterase, ur 2+(A) Negative [facility] ([place]) UA reflex comment Reflex to microscopic UA will be performed. [facility] ([place]) Urine 11/17/2024 6:27 PM CDT 11/17/2024 6:29 PM CDT Jerson Hall MD LAB MICROBIOLOGY - GENERAL ORD ERABLES Final Result Performing Organization Address [facility] Co de Phone Number [facility] ([place]) [address] [facility] [place] [address] * (ABNORMAL) Urinalysis, microscopic only (11/17/2024 6:27 PM CDT) WBC, ur 11-20(A) 0 - 5 /HPF RBC, ur 0-2 0 - 2 /HPF [facility] ([place]) Epithelial cells, squamous, ur 1-5 0 - 5 /HPF [facility] ([place]) Bacteria, ur 3+(A) ROB[facility] ([place]) Culture Reflex Comment Reflex to urine culture will be performed. [facility] ([place]) Urine 11/17/2024 6:27 PM CDT 11/17/2024 6:29 PM CDT Jerson Hall MD LAB URINE ORDERABLES Final Res ult [facility] ([place]) 1 [facility] [place] [address] * Urine culture Urine (11/17/2024 6:27 PM CDT) Report Final Report: Less than 100,000 colonies/mL (clinically insignificant growth based on current clinical standards) Comment:Testing performed by : [facility], 1 [facility], [place]., [address] Organism (CLINICALLY INSIGNIFICANT GROWTH [facility] [place] ([place]) Urine 11/17/2024 6:27 PM CDT 11/17/2024 10:36 PM CDT Narrative [facility] [place] ([place]) - 11/19/2024 8:03 AM CDT Urine culture reflexed based upon urinalysis results. Testing performed by [facility] Microbiology Laboratory ([phone]) Jerson Hall MD LAB MICROBIOLOGY - GENERAL ORD ERABLES Final Result Performing Organization Address City/[facility]/ZIP Co de Phone Number [facility] [place] ([place]) 1 [facility] [place] [address] * ECG 12 lead (11/17/2024 6:24 PM CDT) 11/17/2024 6:24 PM CDT Narrative [facility] - 11/19/2024 7:24 AM CDT Vent Rate: 74 bpm RR Interval: 808 msec LA Interval: 152 msec QRS Duration: 86 msec QT Interval: 393 msec QTC Interval: 420 msec P-R-T [place]: 33 - 12 - 22 degrees IMPRESSION: SINUS RHYTHM Leftward axis No significant change from prior EKG Electronically Signed By: Dr Luis You Jerson Hall MD ECG ORDERABLES Final Result Performing Organization Address [facility]/ZIP Co de Phone Number [facility] * Sepsis Lactate w/ Reflex (11/17/2024 5:26 PM CDT) Sepsis Lactate 1.4 0.7 - 2.0 mmol/L Blood 11/17/2024 5:26 PM CDT 11/17/2024 5:32 PM CDT Jerson Hall MD LAB BLOOD ORDERABLES Final Res ult Performing Organization Address City/[facility]/ZIP Co de Phone Number [facility] ([place]) 1 [facility] [place] [address] * eGFR (11/17/2024 5:26 PM CDT) eGFR [...] MD LAB BLOOD ORDERABLES Final Res ult JOSELINEALEXSANDER [facility] ([place]) 1 [facility] Department [place] [address] * (ABNORMAL) Differential, auto (11/17/2024 5:26 PM [...] Final Res ult [facility] ([place]) 1 [facility] [place] [address] * (ABNORMAL) CBC with auto differential (11/17/2024 5:26 PM CDT) WBC 14.76(H) 3.80 - 9.90 K/cumm Hgb 15.1 11.9 - 15.5 g/dL [facility] ([place]) Hct 44.9 35.6 - 45.5 % [facility] ([place]) Plt 302 150 - 400 K/cumm [facility] ([place]) MPV 10.8 9.1 - 12.3 fL [facility] ([place]) RBC 4.84 3.90 - 5.20 M/cumm [facility] ([place]) MCV 92.8 81.3 - 96.4 fL [facility] ([place]) MCH 31.2 27.1 - 33.3 pg [facility] ([place]) MCHC 33.6 32.3 - 35.7 g/dL [facility] ([place]) RDW CV 11.9 11.1 - 14.9 % [facility] ([place]) RDW SD 40.8 35.7 - 48.1 fL [facility] ([place]) NRBC abs 0.00 0.00 - 0.01 K/cumm [facility] ([place]) Blood 11/17/2024 5:26 PM CDT 11/17/2024 5:32 PM CDT us Jerson Hall MD LAB BLOOD ORDERABLES Final Res ult [facility] ([place]) 1 [facility] Department [place] [address] * Blood culture Blood Peripheral (11/17/2024 5:26 PM CDT) Report Final Report: No growth Comment:Testing performed by : [facility], 1 [facility], [place]., [address] Blood (Peripheral) 11/17/2024 5:26 PM CDT 11/17/2024 10:36 PM CDT Narrative [facility] ([place]) - 11/22/2024 7:00 AM CDT [...] performance characteristics have been verified by the [facility]biology [facility]. For questions about this culture, contact the Microbiology Laboratory at [phone]. Interpretive data was last revised on 24. Jerson Hall MD LAB MICROBIOLOGY - GENERAL ORD ERABLES Final Result [facility] ([place]) 1 [facility] Department [place] [address] * (ABNORMAL) Comprehensive metabolic panel (11/17/2024 5:26 PM CDT) Sodium 136 135 - 145 mmol/L Potassium, pl 4.1 3.3 - 4.9 mmol/L [facility] ([place]) Chloride 97 97 - 110 mmol/L [facility] ([place]) CO2 23 22 - 32 [...] BLOOD ORDERABLES Final Res ult [facility] ([place]) 1 [facility] [place] [address] * Vitamin D 25 hydroxy (10/29/2024 2:04 PM CDT) Vitamin D 25-OH 67 30 - 80 ng/mL Blood 10/29/2024 2:04 PM CDT 10/29/2024 2:11 PM CDT Doreen Strong NP LAB BLOOD ORDERABLES Fi nal Result [facility] [facility] ([place]) 1 [facility] [place] [address] * (ABNORMAL) TSH (10/29/2024 2:04 PM CDT) Thyroid Stimulating Hormone 4.22(H) 0.30 - 4.20 mcIUnit/mL Blood 10/29/2024 2:04 PM CDT 10/29/2024 2:11 PM CDT Doreen Strong NP LAB BLOOD ORDERABLES Fi nal Result Performing Organization Address [facility] Co de Phone Number [facility] ([place]) 1 [facility] [place] [address] * T4, free (10/29/2024 2:04 PM CDT) Free T4 1.60 0.90 - 1.70 ng/dL Blood 10/29/2024 2:04 PM CDT 10/29/2024 2:11 PM CDT Doreen Strong NP LAB BLOOD ORDERABLES Fi nal Result Performing Organization Address [facility] Co de Phone Number [place] ([place]) 1 [facility] [place] [address] * (ABNORMAL) Vitamin B12 (10/29/2024 2:04 PM CDT) Pathologist [facility] Vitamin B12 1,832(H) 230 - 1,250 pg/mL Blood 10/29/2024 2:04 PM CDT 10/29/2024 2:11 PM CDT Doreen Strong NP LAB BLOOD ORDERABLES Fi nal Result Performing Organization Address [facility] Co de Phone Number [facility] [place] ([place]) 1 [facility] [place] [address] * FL Fluoroscopy < 1 Hour (10/24/2024 8:37 AM CDT) Narrative [facility] - 10/24/2024 8:38 AM CDT The images from this study are not interpreted by Radiology. Please refer to the physician's procedure / OR operative note. us Cesar Smith MD IMG FLUOROSCOPY PROCEDU RES [...] comparison 07/16/2024 . Dose area product equals 0.46845 mGym*2. Fluoroscopic images demonstrate an in progress likely pain pump placement . IMPRESSION: In progress likely pain pump placement. Recommend correlation with surgical report. THIS IS AN ELECTRONICALLY VERIFIED FINAL REPORT 10/29/2024 2:33 PM - Electronically signed by Winston Motley M.D. MF: [place] Report ID: [id number] Reading Location: [id number] Procedure Note Winston Motley MD - 10/29/2024 EXAM DESCRIPTION: XR SPINE THORACIC 2 VIEWS REASON FOR STUDY: Back pain FINDINGS: Multiple fluoroscopic images consisting of 2 view(s) submitted with comparison 07/16/2024 . Dose area product equals 0.79827 mGym*2. Fluoroscopic images demonstrate an in progress likely pain pump placement. IMPRESSION: In progress likely pain pump placement. Recommend correlation withsurgical report. THIS IS AN ELECTRONICALLY VERIFIED FINAL REPORT 10/29/2024 2:33 PM - Electronically signed by Winston Motley M.D. MF: [place] Report ID: [id number] Reading Location: [id number] Cesar Smith MD IMJoseline XR PROCEDURES Final Result * Dexa Axial Skeleton Bone Density 1 or 2 Site (03/23/2022 11:18 AM CDT) Anatomical Region Laterality Modality Body N/A Other 03/23/2022 9:41 PM CDT Narrative 03/23/2022 9:44 PM CDT EXAM DESCRIPTION: DEXA AXIAL SKELETON BONE DENSITY 1 OR MORE SITES REASON FOR STUDY: 76 y/o year old F with given history of screening. 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 MF: TRAVIS Report ID: [id number] Reading Location: [place] [address] Procedure Note Winston Motley MD - 03/23/2022 EXAM DESCRIPTION: DEXA AXIAL SKELETON BONE DENSITY 1 OR MORE SITES REASON FOR STUDY: 76 y/o year old F with given history ofscreening. 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 ADVANCE DIRECTIVE 01/14/2021 11:23 AM [...] 10:07 AM 01/14/2023 10:07 AM Care Teams Brake Repair Supervisor Relationship Specialty Start Date End Date Doreen Strong NP [address] [facility] [address] [place] [address] PCP - General Family Medicine 09/17/24 Carmen Eckert NP [address] [place] [address] Nurse Practitioner Psychiatry 09/08/20 Darwin Bejarano MD [address] [place] [address] Referring Physician Endocrinology 03/01/22 Cesar Smith MD [address] [place] [address] Consulting Physician Anesthesiology 08/08/23 Lucy Olivera NP [address] [place] [address] Anesthesiology 08/09/23 Sandy Alejandro MD [address] [place] [address] Consulting Physician Cardiology 08/22/23 Jeannette Lang MD [address] [place] [address] Consulting Physician Neurology 08/22/23 [place] [address] [facility] [address] [place], [place] [id number] Consulting Physician Urology 08/22/23 Winston Banuelos MD [address] [facility] [address] [place] [address] Consulting Physician Neurology 01/27/24 Teddy Butts MD [address] [facility] [address] [place] [address] Surgeon Orthopedic Surgery 01/27/24 Luci Mcgregor MD [address] [place] [address] Consulting Physician Otolaryngology 03/08/24
--- OUTSIDE RECORDS SUMMARY | 2025-01-11 22:15 | XMS_ITS | Patient Health Record ---
Author Organization [facility] Address [address] [place], [place] [address] Care Team Providers Care Contact Printer Dry Film Name Role Phone Becka Lam Unavailable [phone] Reason For Referral No Information Problems Problem Type SNOMED Code ICD Code Onset Dates Problem Status W/U Status Risk Notes Problem Trochanteric bursitis of right hip (937038871023612 ) Trochanteric bursitis, right hip (M70.61) Active confirmed Problem Trochanteric bursitis of left hip (852359500165017 ) Trochanteric bursitis, left hip (M70.62) Active confirmed Problem Sacroiliitis (67898218) Sacroiliitis (M46.1) Active confirmed Plan Of Treatment No Information Insurance Providers Payer Name Payer Address Payer Phone Subscriber Number Group Number Insured Name Patient Relationship to Insured Coverage Start Date Coverage End Date Medicare [address] [place] [phone] [id number] Amaris Durant Self - patient is the insured [facility] [address] [facility] [facility] [place] [id number] Amaris Durant Self - patient is the insured 0 [id number]
--- OUTSIDE RECORDS SUMMARY | 2025-01-11 22:15 | XMS_ITS | Patient Health Record ---
Author Organization [facility] [employer] Address [address] [place] [address] Care Team Providers Care Lead Burner Name Role Phone Doreen Bahena Primary Care Provider Un available Carmen Eckert Unavailable [phone] Allergies Allergen (clinical drug ingredient) Drug/Non Drug Allergy documented on EMR Reaction Allergy Type Onset Date Status aripiprazole ARIPiprazole Unknown Drug Allergy 09/30/2023 Active meperidine Demerol Unknown Drug Allergy 09/30/2023 Activ e alendronate Fosamax Unknown Drug Allergy 09/30/2023 Acti ve Wellbutrin Unknown Drug Allergy 09/30/2023 Activ e codeine Codeine Unknown Drug Allergy 09/30/2023 Active morphine Morphine Unknown Drug Allergy 09/30/2023 Active nitrofurantoin Nitrofurantoin Unknown Drug Allergy Active Reason For Referral No Information Medications Medication SIG (Take, Route, Frequency, Duration) Notes Start Date End Date Status Vitamin D3 25 MCG (1000 UT) 1 capsule Orally Once a day Active [place] Oil Active Celecoxib 200 MG 1 capsule as needed Orally Once a day Active Vitamin B Complex - as directed Orally Active Trospium Chloride 20 MG TAKE 1 TABLET BY MOUTH TWICE DAILY Oral; Duration: 30 Days Not-Taking Vitamin E 1000 UNIT as directed Orally Active Levothyroxine Sodium 112 MCG 1 tablet in the morning on an empty stomach Oral Once a day; Duration: 90 days Active Topamax 25 MG 1 tablet Orally Once a day Active Turmeric 500 MG as directed Orally Active Vitamin C 500 MG as directed Orally Active Aspirin 81 MG 1 tablet Orally Once a day Active Zinc 50 MG 1 tablet Orally Once a day Active Losartan Potassium 50 MG TAKE 1 TABLET BY MOUTH ONCE DAILY Oral; Duration: 90 Days Active DULoxetine HCl 20 MG 1 capsule Oral Once a day; Duration: 90 days d/c 30 mg dose d/c [...] home)Do you have a medical power of trust and estates attorney?: YesPublic Health and TravelHave you been [...] Problem Status W/U Status Risk Notes Problem Major depressive disorder, recurrent, mild (F33.0) 4 Active confirmed Problem Generalized anxiety disorder (25005628) Generalized anxiety disorder (F41.1) 4 Active confirmed Problem Primary insomnia (3971950) Primary insomnia (F51.01) 4 Active confirmed Problem Long-term current use of drug therapy (359493345) Other correction (current) drug therapy (Z79.899) 4 Active confirmed Vital Signs Heart Rate 65 /min 12/11/2024 Respiratory Rate 16 /min 12/11/2024 Height-cm 161.29 cm 12/11/2024 Blood pressure diastolic 86 mm Hg 12/11/2024 Weight-kg 78.02 kg 12/11/2024 Height 63.50 in 12/11/2024 Blood pressure systolic 135 mm Hg 12/11/2024 Weight 172 lbs 12/11/2024 BMI 29.99 kg/m2 12/11/2024 Encounters Encounter Location Date Provider Diagnosis [facility] [employer] [place] [id number] [facility] [address] [address] 02/07/2024 Carmen Eckert Major depressive disorder, recurrent, mild F33.0 ; Generalized anxiety disorder F41.1 ; Primary insomnia F51.01 and Other correction (current) drug therapy Z79.899 [facility] [employer] [address] [address] 05/07/2024 Carmen Thery Major depressive disorder, recurrent, mild F33.0 ; Generalized anxiety disorder F41.1 ; Primary insomnia F51.01 and Other correction (current) drug therapy Z79.899 [facility] [employer] [address] [address] 08/06/2024 Carmen Therdavid Major depressive disorder, recurrent, mild F33.0 ; Generalized anxiety disorder F41.1 ; Primary insomnia F51.01 and Other ferry terminal agent (current) drug therapy Z79.899 [facility] [employer] [address] [address] 12/11/2024 Carmen Therdavid Major depressive disorder, recurrent, mild F33.0 ; Generalized anxiety disorder F41.1 ; Primary insomnia F51.01 ; Other correction (current) drug therapy Z79.899 ; Negative depression screening Z13.31 ; Encounter for screening for depression Z13.31 and Encounter for screening for cardiovascular disorders Z13.6 [facility] [employer] [address] [address] 08/29/2024 Carmen Eckert Assessments Encounter Date Diagnosis (ICD Code) Assessment Notes Treatment Notes Treatment Clinical Notes Section Notes 12/11/2024 Major depressive disorder, recurrent, mild (ICD-10 - F33.0) Preventing Depression From Coming Back: Care Instructions material was published, Learning About Depression Screening material was published, Seasonal Affective Disorder: Care Instructions material was published, Learning About Depression material was published 1 major depression - Patient reported presently not taking Cymbalta- GDR 20 MG DAILY mood stable depression and anxiety stable educated on all medications, benefits, side effects and risk, and educated on depression, anxiety, and mood d/o and educated on compliance of medications, appointment's, continue therapy discussion with patient about course of treatment and patient instructions. stable mood stable 2. Generalized anxiety disorder - refer to therapy Dunia or Veronica - educated on therapy 3. Primary insomnia -melatonin CPAP SLEEP STABLE 4. discuss SLUMS SLUMS= 26 08/06/24- see neurologist also PATIENT DOES NOT WANT RX Long-term drug therapy 08/06/2024 Major depressive disorder, [...] NOT WANT RX Long-term drug therapy 05/07/2024 Major depressive disorder, recurrent, mild (ICD-10 [...] SLEEP STABLE 4. Long-term drug therapy 02/07/2024 Major depressive disorder, recurrent, mild (ICD-10 [...] therapy E55.9: Vitamin D deficiency, unspecified 02/07/2024 Generalized anxiety disorder (ICD-10 - F41.1) [...] therapy E55.9: Vitamin D deficiency, unspecified 05/07/2024 Primary insomnia (ICD-10 - F51.01) Insomnia: [...] SLEEP STABLE 4. Long-term drug therapy 08/06/2024 Generalized anxiety disorder [...] DOES NOT WANT RX Long-term drug therapy 12/11/2024 Generalized anxiety disorder (ICD-10 - F41.1) Generalized Anxiety Disorder: Care Instructions material was published, Learning About Generalized Anxiety Disorder material was published, Learning About Anxiety Disorders material was published 1 major depression - Patient reported presently not taking Cymbalta- GDR 20 MG DAILY mood stable depression and anxiety stable educated on all medications, benefits, side effects and risk, and educated on depression, anxiety, and mood d/o and educated on compliance of medications, appointment's, continue therapy discussion with patient about course of treatment and patient instructions. stable mood stable 2. Generalized anxiety disorder - refer to therapy Dunia or Veronica - educated on therapy 3. Primary insomnia -melatonin CPAP SLEEP STABLE 4. discuss [facility]= 26 08/06/24- see neurologist also PATIENT DOES NOT WANT RX Long-term drug therapy 12/11/2024 Primary insomnia (ICD-10 - F51.01) Insomnia: Care Instructions material was published, Learning About Sleeping Well material was published 1 major depression - Patient reported presently not taking Cymbalta- GDR 20 MG DAILY mood stable depression and anxiety stable educated on all medications, benefits, side effects and risk, and educated on depression, anxiety, and mood d/o and educated on compliance of medications, appointment's, continue therapy discussion with patient about course of treatment and patient instructions. stable mood stable 2. Generalized anxiety disorder - refer to therapy Dunia or Veronica - educated on therapy 3. Primary insomnia -melatonin CPAP SLEEP STABLE 4. discuss [facility]= 08/06/24- see neurologist also PATIENT DOES NOT WANT RX Long-term drug therapy 08/06/2024 Primary insomnia (ICD-10 [...] insomnia -melatonin CPAP SLEEP STABLE 4. discuss [facility]= 26 08/06/24- see neurologist also PATIENT DOES NOT WANT RX Long-term drug therapy 05/07/2024 Other ferry terminal agent (current) drug therapy (ICD-10 - Z79.899) Medication [...] SLEEP STABLE 4. Long-term drug therapy 02/07/2024 Primary insomnia (ICD-10 - F51.01) Insomnia: [...] drug therapy E55.9: Vitamin D deficiency, unspecified 12/11/2024 Other correction (current) drug therapy (ICD-10 - Z79.899) Medication Refill: Care Instructions material was published 1 major depression - Patient reported presently not taking Cymbalta- GDR 20 MG DAILY mood stable depression and anxiety stable educated on all medications, benefits, side effects and risk, and educated on depression, anxiety, and mood d/o and educated on compliance of medications, appointment's, continue therapy discussion with patient about course of treatment and patient instructions. stable mood stable 2. Generalized anxiety disorder - refer to therapy Dunia or Veronica - educated on therapy 3. Primary insomnia -melatonin CPAP SLEEP STABLE 4. discuss SLUMS SLUMS= 26 08/06/24- see neurologist also PATIENT DOES NOT WANT RX Long-term drug therapy 02/07/2024 Other ferry terminal agent (current) drug therapy (ICD-10 - Z79.899) Medication [...] E55.9: Vitamin D deficiency, unspecified 08/06/2024 Other correction (current) drug therapy (ICD-10 - Z79.899) Medication [...] DOES NOT WANT RX Long-term drug therapy 12/11/2024 Negative depression screening (ICD-10 - Z13.31) 1 major depression - Patient reported presently not taking Cymbalta- GDR 20 MG DAILY mood stable depression and anxiety stable educated on all medications, benefits, side effects and risk, and educated on depression, anxiety, and mood d/o and educated on compliance of medications, appointment's, continue therapy discussion with patient about course of treatment and patient instructions. stable mood stable 2. Generalized anxiety disorder - refer to therapy Dunia or Veronica - educated on therapy 3. Primary insomnia -melatonin CPAP SLEEP STABLE 4. discuss SLUMS SLUMS= 26 08/06/24- see neurologist also PATIENT DOES NOT WANT RX Long-term drug therapy 12/11/2024 Encounter for screening for depression (ICD-10 - Z13.31) 1 major depression - Patient reported presently not taking Cymbalta- GDR 20 MG DAILY mood stable depression and anxiety stable educated on all medications, benefits, side effects and risk, and educated on depression, anxiety, and mood d/o and educated on compliance of medications, appointment's, continue therapy discussion with patient about course of treatment and patient instructions. stable mood stable 2. Generalized anxiety disorder - refer to therapy Dunia or Veronica - educated on therapy 3. Primary insomnia -melatonin CPAP SLEEP STABLE 4. discuss SLUMS SLUMS= 26 08/06/24- see neurologist also PATIENT DOES NOT WANT RX Long-term drug therapy 12/11/2024 Encounter for screening for cardiovascular disorders (ICD-10 - Z13.6) 1 major depression - Patient reported presently not taking Cymbalta- GDR 20 MG DAILY mood stable depression and anxiety stable educated on all medications, benefits, side effects and risk, and educated on depression, anxiety, and mood d/o and educated on compliance of medications, appointment's, continue therapy discussion with patient about course of treatment and patient instructions. stable mood stable 2. Generalized anxiety disorder - refer to therapy Dunia or Veronica - educated on therapy 3. Primary insomnia -melatonin CPAP SLEEP STABLE 4. discuss [facility]= 26 08/06/24- see neurologist also PATIENT DOES NOT WANT RX Long-term drug therapy 08/06/2024 Other referral to the local chapter or national office of the Alzheimer's Association ( ; http://www.alz. org), the Alzheimer's Disease Education and Referral Center (ADEAR) ( ; http://www.[place]. nih.gov/Alzheim ers/), Notes: referral to the local chapter or national office of the Alzheimer's Association ( ; http://www.alz. org), the Alzheimer's Disease Education and Referral Center (ADEAR) ( ; http://www.[place]. nih.gov/Alzheim ers/), 1 major depression - Cymbalta- GDR 20 [...] Next Appt Details Provider Name:Carmen Eckert , 03/12/2025 01:15:00 PM, [address], [facility] [address], [place], [address], Insurance Providers Payer Name Payer Address Payer Phone Subscriber Number Group Number Insured Name Patient Relationship to Insured Coverage Start Date Coverage End Date [place] [address] [place] [phone] [id number] ZULEMA CONTI Self - patient is the insured ICONIC Medicare Supplement [address] [address] [place] [address] [id number] ZULEMA CONTI Self - patient is the insured Medical (General) History Medical History History ICD Code Problems: Generalized anxiety disorder Long-term drug therapy Mild recurrent major depression Moderate recurrent major depression Primary insomnia Prolonged grief disorder Severe recurrent major depression Vitamin D deficiency , Surgical History Surgery Date(Month/Year) Breast reduction () Tonsillectomy (485338315) Hysterectomy (908473339) Procedure on back (208567723) Cholecystostomy (69685590) Unlisted px hands/fingers (53965) Thyroidectomy (07052215) Wrist repair (421850874) Procedure on ear (405751255) pain pump 10/05
--- OUTSIDE RECORDS SUMMARY | 2025-01-11 22:15 | XMS_ITS ---
Author Organization [facility] [place] [address] [facility] Address [address] [place] [address] Care Team Providers Care Quality Assurance Director Name Role Phone Lana Eckertfer LINNETTE Unavailable [phone] Darwin Bejarano MD Unavailable Cesar Smith MD Unavailable [phone] Lucy Olivera NP Unavailable [phone] Sandy Alejandro MD Unavailable [phone] Jeannette Lang MD Unavailable Tee Connelly MD Unavailable [phone] Winston Banuelos MD Unavailable [phone] Teddy Butts MD Unavailable [phone] Luci Mcgregor MD Unavailable [phone] Doreen Strong NP Primary Care Provider Active Problems Problem Noted Date Diagnosed Date [...] 06/01/2024 Assessment & Plan (06/01/2024 2:12 PM LASER BEAM CUTTER): - seen by ENT 04/2024 - has [...] 06/18/2023 Assessment & Plan (06/20/2023 10:35 AM LASER BEAM CUTTER): - recent diagnosis - was having elevated blood pressure, headaches - had workup in hospital admission and imaging - improved after better blood pressure management Esophageal polyp 05/16/2023 Assessment & Plan (06/20/2023 10:33 AM LASER BEAM CUTTER): - reports hx of esophageal polyp - seeing a GI provider in [place] soon - reports has had esophagus stretched 7 years ago as well Vitamin D deficiency 05/16/2023 Assessment & Plan (10/29/2024 2:37 PM CDT): -chronic, controlled -patient currently takes vitamin D3 supplement -will recheck lab value -continue current treatment plan Assessment & Plan (05/16/2023 3:13 PM LASER BEAM CUTTER): -chronic, unknown, no data to review at [...] 01/19/2023 Assessment & Plan (05/15/2024 3:48 PM LASER BEAM CUTTER): -ongoing complaint, not improved -patient reports experiencing [...] 08/20/2021 Assessment & Plan (05/16/2023 3:11 PM LASER BEAM CUTTER): Last colonoscopy completed 08/27/2021. Repeat in 5 [...] re-evaluation Assessment & Plan (05/31/2024 2:45 PM LASER BEAM CUTTER): Wt Readings from Last 3 Encounters: 05/31/24 [...] so Assessment & Plan (05/15/2024 3:45 PM LASER BEAM CUTTER): Wt Readings from Last 3 Encounters: 05/15/24 [...] so Assessment & Plan (08/09/2023 1:54 AM LASER BEAM CUTTER): Wt Readings from Last 3 Encounters: 08/08/23 79.7 kg (175 lb 11.2 oz) 08/04/23 79.8 kg (176 lb) 06/21/23 78.9 kg (174 lb) Body mass index is 32.13 kg/m . - chronic condition, not at goal - BMI Follow-up includes: nutrition counseling, exercise counseling and education - Co morbidities - hypertension Assessment & Plan (05/16/2023 3:10 PM LASER BEAM CUTTER): HPI: Condition is stable goal BMI <30 A&P: Healthy, high-protein, lower carbohydrate, lower fat lifestyle and exercise for 150min/week recommended Recommend tracking everything you put in your mouth on an yi like [employer] Hand Measurements: A fist or cupped hand [...] in your mouth on an yi like [employer] Hand Measurements: A fist or cupped hand [...] recommended Assessment & Plan (07/22/2021 7:39 PM LASER BEAM CUTTER): Weight reduction, daily exercise and dietary modifications [...] 07/23/2020 Assessment & Plan (07/30/2020 2:55 PM LASER BEAM CUTTER): Referral to gyne for further evaluation Reviewed [...] plan Assessment & Plan (05/31/2024 2:42 PM LASER BEAM CUTTER): - chronic, stable with persistent symptoms - [...] be deficient or low, can still take kczx-xba-nzkddce vitamin B12 had low-level to see if it would help her symptoms Assessment & Plan (05/16/2023 3:11 PM LASER BEAM CUTTER): Patient reiterated no suicidal thoughts at this [...] plan Assessment & Plan (05/31/2024 2:42 PM LASER BEAM CUTTER): - chronic, stable with persistent symptoms - [...] psychiatry Assessment & Plan (05/16/2023 3:11 PM LASER BEAM CUTTER): Patient reiterated no suicidal thoughts at this [...] others. Assessment & Plan (07/30/2020 2:54 PM LASER BEAM CUTTER): Not well controlled, will continue lexapro and [...] plan Assessment & Plan (06/01/2024 2:10 PM LASER BEAM CUTTER): - chronic, stable - continue on levothyroxine 112 mcg daily - managed by endocrinology - Dr. Bejarano - labs being monitored by her historiography teacher - reviewed outside labs - states she does not plan to go back to an historiography teacher - recheck labs, order placed TSH 08/2023 - WNL Lab Results Component Value Date TSH 0.87 05/31/2024 Assessment & Plan (12/20/2023 4:49 PM CDT): - chronic, stable - continue on levothyroxine 112 mcg daily - managed by endocrinology - labs being monitored by her historiography teacher - reviewed outside labs Lab Results Component Value Date TSH 0.43 09/08/2020 Assessment & Plan (08/22/2023 2:16 PM CDT): - chronic, stable - continue on levothyroxine 112 mcg daily - continue seeing endocrinology - labs being monitored by her historiography teacher, has venkata ppointmetn coming up in few days Lab Results Component Value Date TSH 0.43 09/08/2020 Assessment & Plan (05/16/2023 3:11 PM LASER BEAM CUTTER): -chronic, stable -continue on levothyroxine 112 mcg daily -continue seeing endocrinology Assessment & Plan (12/28/2022 11:24 AM CDT): -chronic, stable -continue on levothyroxine 112 mcg daily -continue seeing endocrinology Assessment & Plan (03/01/2022 3:39 PM CDT): Managed by endocrinology. Asymptomatic, continue current prescription medications. Assessment & Plan (07/22/2021 7:38 PM LASER BEAM CUTTER): Patient will see an historiography teacher in a couple of weeks. She declines a TSH check today. Assessment & Plan (01/14/2021 11:26 AM CDT): Asx. Continue current therapy. Assessment & Plan (09/08/2020 10:13 AM CDT): Worsening anxiety and depression, labs ordered. Will follow. Assessment & Plan (07/30/2020 2:55 PM LASER BEAM CUTTER): Will continue to monitor TSH, continue synthroid 150 ucg Osteoporosis 10/27/2013 Overview (01/14/2021): Allergic to alendronate. Assessment & Plan (05/16/2023 3:11 PM LASER BEAM CUTTER): -chronic, stable -patient did not tolerate Fosamax [...] plan Assessment & Plan (06/01/2024 2:10 PM LASER BEAM CUTTER): BP Readings from Last 3 Encounters: 05/18/24 [...] management Assessment & Plan (08/08/2023 12:20 PM LASER BEAM CUTTER): BP Readings from Last 3 Encounters: 08/08/23 120/70 08/04/23 131/82 07/21/23 133/69 -chronic, stable -continue on losartan 50 mg daily (used to be on 25 mg Losartan) -recommend healthy, low-salt diet -continue seeing Cardiology - discussed to stop taking NSAIDs moving forward Assessment & Plan (06/20/2023 10:40 AM LASER BEAM CUTTER): BP Readings from Last 3 Encounters: 06/20/23 130/70 06/18/23 154/78 05/16/23 121/76 -chronic, stable -continue on losartan 50 mg daily (used to be on 25 mg Losartan) -recommend healthy, low-salt diet -continue seeing Cardiology - discussed to stop taking NSAIDs moving forward Assessment & Plan (05/16/2023 3:12 PM LASER BEAM CUTTER): -chronic, stable -continue on losartan 25 mg [...] medications. Assessment & Plan (07/22/2021 7:40 PM LASER BEAM CUTTER): Stable. Cont. Current prescription medications. Assessment & Plan (01/14/2021 11:16 AM CDT): Blood pressure at goal at less than 140/90. Continue current medications. Assessment & Plan (09/08/2020 10:12 AM CDT): Blood pressure at goal of less than 140/90. Continue current medications. Assessment & Plan (07/30/2020 2:55 PM LASER BEAM CUTTER): Stable, at target, continue current medications Pure hypercholesterolemia 10/27/2013 Assessment & Plan (05/31/2024 2:42 PM LASER BEAM CUTTER): -chronic, stable -patient does not take medication [...] 09/08/2020 Assessment & Plan (06/20/2023 10:23 AM LASER BEAM CUTTER): -chronic, stable -patient does not take medication [...] 09/08/2020 Assessment & Plan (05/16/2023 3:12 PM LASER BEAM CUTTER): -chronic, stable -patient does not take medication [...] follow. Assessment & Plan (07/22/2021 7:40 PM LASER BEAM CUTTER): LDL goal is < 100, patient nearing [...] plan Assessment & Plan (06/01/2024 2:10 PM LASER BEAM CUTTER): - established with pain management - -s/p [...] (08/20/2021): Added automatically from request for surgery [id number] Encounter for screening colonoscopy 08/20/2021 03/01/2022 Overview (08/20/2021): Added automatically from request for surgery [id number] S/P hysterectomy 09/08/2020 12/20/2022 Left lower quadrant [...] past - established with pain management at [facility] - she continues to use [...] osteoarthritis. Assessment & Plan (08/09/2023 1:53 AM LASER BEAM CUTTER): - chronic, not well controlled - reports remote hx of 2 back surgeries - has been on meloxicam 15 mg daily ---> discussed about fpc risk of NSAID use so she Is [...] osteoarthritis. Assessment & Plan (06/20/2023 10:47 AM LASER BEAM CUTTER): - chronic, not well controlled - reports remote hx of 2 back surgeries - has been on meloxicam 15 mg daily ---> discussed about medical terminologist risk of NSAID use so she Is willing to stop using Meloxicam - states she used to get injections in her back - not established with pain management provider although she was referred by her PCP, willing at this time - new referral placed - she continues to use of Cymbalta 60 mg daily Assessment & Plan (05/16/2023 3:10 PM LASER BEAM CUTTER): -chronic, stable -continue on meloxicam 15 mg daily Assessment & Plan (12/28/2022 11:43 AM CDT): -chronic, not at/near goal -patient reports she was taking [place] 5-325 mg every 6 hours as needed, but it does not seem to make a difference -refer to pain management Assessment & Plan (01/14/2021 11:28 AM CDT): Pain managed with meloxicam. Continue current therapy. Assessment & Plan (09/08/2020 10:16 AM CDT): Trial of meloxicam. May use acetaminophen and utru-oxu-vxoznud as needed for pain. Follow directions for use on packaging. Do not take any ehbx-tkl-uqbvxvp NSAIDs with meloxicam. History of renal calculi 10/18/201903/2023 Diuretic-induced hypokalemia 10/18/2019 12/20/2022 Assessment & Plan (03/01/2022 3:40 PM CDT): Asymptomatic. Labs ordered, will follow. Prescription refilled. Assessment & Plan (07/22/2021 7:40 PM LASER BEAM CUTTER): Asymptomatic. Patient increased her daily potassium on her own. Patient reports being on 30 meq daily while she was living in [place]. Labs ordered. Assessment & Plan (01/14/2021 11:28 [...] Management. Assessment & Plan (07/30/2020 2:54 PM LASER BEAM CUTTER): Continue to Zanaflex for relief
--- OUTSIDE RECORDS SUMMARY | 2025-01-11 22:15 | XMS_ITS | Clinical Summary ---
Author Organization [facility] Address [address] [place] [address] Phone Care Team Providers Care Greenhouse Staff Name Role Phone AguilaNini Santa SHAHID Primary Care Provider [phone] Darwin Bejarano MD Unavailable Allergies Active Allergy [...] DEXA Bone Density 03/23/2024 03/23/2022 Influenza Immunization (#1) 2025 1006/2019, 03/21/2009 Td Immunization Every 10 Yea rs [...] 021 2:34 PM CDT) Yes Katrina Bateman, REFINERY OPERATOR [employer]IT Note: I want to get up off [...] to change Department associated with goal: [facility] Steps to achieve goal: Patient counseled on stages of grief and tasks of mourning Patient counseled on aspects of healthy self care and a healthy routine Insurance MEDICARE Member Subscriber Plan / Payer (Ef fective 2009-Present) Name:Amaris Durant Member ID:[id number] Relation to Subscriber:Self Name:Amaris Durant Subscriber ID:[id number] Payer ID:[id number] Group ID:Not on file Type:Not on file Address: [facility] [address] [employer] [facility] [place] [address] [facility] Care Teams Greenhouse Staff Relationship Specialty Start Date End Date Nini Sheehan DO [address] [place] [address] PCP - General Family Medicine 09/01/20 Darwin Bejarano MD [address] [facility] [address] [place] [address] Consulting Physician Endocrinology 02/05/22
[2025-01-11 22:35] VITALS: BP 130/60
[2025-01-11 22:37] VITALS: BP 130/60; PULSE 65; RESP 12; TEMP 36.6; O2SAT 99
--- NOTE | 2025-01-11 23:02 | PC.NURSE ---
pt verbally states she is wanting to leave. Pt states she feels better knowing that her blood pressure had gone back to normal and is still asymptomatic at this time. Pt was recommended to stay but states she just wants to go home and she will call her doctor in the morning. Pt was educated to monitor her blood pressures closely and to come back in if anything worsens. Pt ambulated with steady gait to eD exit with RN. Pt walked out before being seen by provider.
--- OUTSIDE RECORDS SUMMARY | 2025-01-11 23:08 | XMS_ITS | Clinical Summary ---
Author Organization [facility] [address] [facility] Address [address] [place] [address] Care Team Providers Care Tool Or Die Drawing Checker Name Role Phone Carmen Eckert NP Unavailable [phone] Darwin Bejarano MD Unavailable Cesar Smith MD Unavailable [phone] Lucy Olivera NP Unavailable [phone] Sandy Alejandro MD Unavailable [phone] Jeannette Lang MD Unavailable Tee Connelly MD Unavailable [phone] Winston Banuelos MD Unavailable [phone] Teddy Butts MD Unavailable [phone] Luci Mcgregor MD Unavailable [phone] Doreen Strogn NP Primary Care Provider Allergies Active Allergy [...] 06/01/2024 Assessment & Plan (06/01/2024 2:12 PM STEEL FABRICATING SUPERVISOR): - seen by ENT 04/2024 - has known hearing loss in both ears Acute diastolic congestive heart failure 024 Unsteady gait 01/24/2024 Memory loss 10/20/2023 Assessment & Plan (12/20/2023 4:59 PM CDT): Patient recently established care with Neurology Dr. Banuelos with complaint of neck pain as well as memory loss. Patient's score 27/30 on [place] cognitive assessment on 10/2023 Primary insomnia 09/30/2023 [...] 06/18/2023 Assessment & Plan (06/20/2023 10:35 AM STEEL FABRICATING SUPERVISOR): - recent diagnosis - was having elevated blood pressure, headaches - had workup in hospital admission and imaging - improved after better blood pressure management Esophageal polyp 05/16/2023 Assessment & Plan (06/20/2023 10:33 AM STEEL FABRICATING SUPERVISOR): - reports hx of esophageal polyp - seeing a GI provider in [place] soon - reports has had esophagus stretched 7 years ago as well Vitamin D deficiency 05/16/2023 Assessment & Plan (10/29/2024 2:37 PM CDT): -chronic, controlled -patient currently takes vitamin D3 supplement -will recheck lab value -continue current treatment plan Assessment & Plan (05/16/2023 3:13 PM STEEL FABRICATING SUPERVISOR): -chronic, unknown, no data to review at [...] 01/19/2023 Assessment & Plan (05/15/2024 3:48 PM STEEL FABRICATING SUPERVISOR): -ongoing complaint, not improved -patient reports experiencing [...] 08/20/2021 Assessment & Plan (05/16/2023 3:11 PM STEEL FABRICATING SUPERVISOR): Last colonoscopy completed 08/27/2021. Repeat in 5 [...] re-evaluation Assessment & Plan (05/31/2024 2:45 PM STEEL FABRICATING SUPERVISOR): Wt Readings from Last 3 Encounters: 05/31/24 [...] so Assessment & Plan (05/15/2024 3:45 PM STEEL FABRICATING SUPERVISOR): Wt Readings from Last 3 Encounters: 05/15/24 [...] so Assessment & Plan (08/09/2023 1:54 AM STEEL FABRICATING SUPERVISOR): Wt Readings from Last 3 Encounters: 08/08/23 79.7 kg (175 lb 11.2 oz) 08/04/23 79.8 kg (176 lb) 06/21/23 78.9 kg (174 lb) Body mass index is 32.13 kg/m . - chronic condition, not at goal - BMI Follow-up includes: nutrition counseling, exercise counseling and education - Co morbidities - hypertension Assessment & Plan (05/16/2023 3:10 PM STEEL FABRICATING SUPERVISOR): HPI: Condition is stable goal BMI <30 A&P: Healthy, high-protein, lower carbohydrate, lower fat lifestyle and exercise for 150min/week recommended Recommend tracking everything you put in your mouth on an yi like [employer] Hand Measurements: A fist or cupped hand [...] in your mouth on an yi like [employer] Hand Measurements: A fist or cupped hand [...] recommended Assessment & Plan (07/22/2021 7:39 PM STEEL FABRICATING SUPERVISOR): Weight reduction, daily exercise and dietary modifications [...] 07/23/2020 Assessment & Plan (07/30/2020 2:55 PM STEEL FABRICATING SUPERVISOR): Referral to gyne for further evaluation Reviewed [...] plan Assessment & Plan (05/31/2024 2:42 PM STEEL FABRICATING SUPERVISOR): - chronic, stable with persistent symptoms - [...] be deficient or low, can still take uyjv-aqf-zeylxkv vitamin B12 had low-level to see if it would help her symptoms Assessment & Plan (05/16/2023 3:11 PM STEEL FABRICATING SUPERVISOR): Patient reiterated no suicidal thoughts at this [...] plan Assessment & Plan (05/31/2024 2:42 PM STEEL FABRICATING SUPERVISOR): - chronic, stable with persistent symptoms - [...] psychiatry Assessment & Plan (05/16/2023 3:11 PM STEEL FABRICATING SUPERVISOR): Patient reiterated no suicidal thoughts at this [...] others. Assessment & Plan (07/30/2020 2:54 PM STEEL FABRICATING SUPERVISOR): Not well controlled, will continue lexapro and [...] plan Assessment & Plan (06/01/2024 2:10 PM STEEL FABRICATING SUPERVISOR): - chronic, stable - continue on levothyroxine 112 mcg daily - managed by endocrinology - Dr. Bejarano - labs being monitored by her steam fitter helper - reviewed outside labs - states she does not plan to go back to an steam fitter helper - recheck labs, order placed TSH 08/2023 - WNL Lab Results Component Value Date TSH 0.87 05/31/2024 Assessment & Plan (12/20/2023 4:49 PM CDT): - chronic, stable - continue on levothyroxine 112 mcg daily - managed by endocrinology - labs being monitored by her steam fitter helper - reviewed outside labs Lab Results Component Value Date TSH 0.43 09/08/2020 Assessment & Plan (08/22/2023 2:16 PM CDT): - chronic, stable - continue on levothyroxine 112 mcg daily - continue seeing endocrinology - labs being monitored by her steam fitter helper, has venkata ppointmetn coming up in few days Lab Results Component Value Date TSH 0.43 09/08/2020 Assessment & Plan (05/16/2023 3:11 PM STEEL FABRICATING SUPERVISOR): -chronic, stable -continue on levothyroxine 112 mcg daily -continue seeing endocrinology Assessment & Plan (12/28/2022 11:24 AM CDT): -chronic, stable -continue on levothyroxine 112 mcg daily -continue seeing endocrinology Assessment & Plan (03/01/2022 3:39 PM CDT): Managed by endocrinology. Asymptomatic, continue current prescription medications. Assessment & Plan (07/22/2021 7:38 PM STEEL FABRICATING SUPERVISOR): Patient will see an steam fitter helper in a couple of weeks. She declines a TSH check today. Assessment & Plan (01/14/2021 11:26 AM CDT): Asx. Continue current therapy. Assessment & Plan (09/08/2020 10:13 AM CDT): Worsening anxiety and depression, labs ordered. Will follow. Assessment & Plan (07/30/2020 2:55 PM STEEL FABRICATING SUPERVISOR): Will continue to monitor TSH, continue synthroid 150 ucg Osteoporosis 10/27/2013 Overview (01/14/2021): Allergic to alendronate. Assessment & Plan (05/16/2023 3:11 PM STEEL FABRICATING SUPERVISOR): -chronic, stable -patient did not tolerate Fosamax [...] plan Assessment & Plan (06/01/2024 2:10 PM STEEL FABRICATING SUPERVISOR): BP Readings from Last 3 Encounters: 05/18/24 [...] management Assessment & Plan (08/08/2023 12:20 PM STEEL FABRICATING SUPERVISOR): BP Readings from Last 3 Encounters: 08/08/23 120/70 08/04/23 131/82 07/21/23 133/69 -chronic, stable -continue on losartan 50 mg daily (used to be on 25 mg Losartan) -recommend healthy, low-salt diet -continue seeing Cardiology - discussed to stop taking NSAIDs moving forward Assessment & Plan (06/20/2023 10:40 AM STEEL FABRICATING SUPERVISOR): BP Readings from Last 3 Encounters: 06/20/23 130/70 06/18/23 154/78 05/16/23 121/76 -chronic, stable -continue on losartan 50 mg daily (used to be on 25 mg Losartan) -recommend healthy, low-salt diet -continue seeing Cardiology - discussed to stop taking NSAIDs moving forward Assessment & Plan (05/16/2023 3:12 PM STEEL FABRICATING SUPERVISOR): -chronic, stable -continue on losartan 25 mg [...] medications. Assessment & Plan (07/22/2021 7:40 PM STEEL FABRICATING SUPERVISOR): Stable. Cont. Current prescription medications. Assessment & Plan (01/14/2021 11:16 AM CDT): Blood pressure at goal at less than 140/90. Continue current medications. Assessment & Plan (09/08/2020 10:12 AM CDT): Blood pressure at goal of less than 140/90. Continue current medications. Assessment & Plan (07/30/2020 2:55 PM STEEL FABRICATING SUPERVISOR): Stable, at target, continue current medications Pure hypercholesterolemia 10/27/2013 Assessment & Plan (05/31/2024 2:42 PM STEEL FABRICATING SUPERVISOR): -chronic, stable -patient does not take medication [...] 09/08/2020 Assessment & Plan (06/20/2023 10:23 AM STEEL FABRICATING SUPERVISOR): -chronic, stable -patient does not take medication [...] 09/08/2020 Assessment & Plan (05/16/2023 3:12 PM STEEL FABRICATING SUPERVISOR): -chronic, stable -patient does not take medication [...] follow. Assessment & Plan (07/22/2021 7:40 PM STEEL FABRICATING SUPERVISOR): LDL goal is < 100, patient nearing [...] plan Assessment & Plan (06/01/2024 2:10 PM STEEL FABRICATING SUPERVISOR): - established with pain management - -s/p [...] (08/20/2021): Added automatically from request for surgery [id number] Encounter for screening colonoscopy 08/20/2021 03/01/2022 Overview (08/20/2021): Added automatically from request for surgery [id number] S/P hysterectomy 09/08/2020 12/20/2022 Left lower quadrant [...] - established with pain management at [facility] - she continues to use of [...] osteoarthritis. Assessment & Plan (08/09/2023 1:53 AM STEEL FABRICATING SUPERVISOR): - chronic, not well controlled - reports remote hx of 2 back surgeries - has been on meloxicam 15 mg daily ---> discussed about intermediate accountant risk of NSAID use so she Is [...] osteoarthritis. Assessment & Plan (06/20/2023 10:47 AM STEEL FABRICATING SUPERVISOR): - chronic, not well controlled - reports remote hx of 2 back surgeries - has been on meloxicam 15 mg daily ---> discussed about intermediate accountant risk of NSAID use so she Is willing to stop using Meloxicam - states she used to get injections in her back - not established with pain management provider although she was referred by her PCP, willing at this time - new referral placed - she continues to use of Cymbalta 60 mg daily Assessment & Plan (05/16/2023 3:10 PM STEEL FABRICATING SUPERVISOR): -chronic, stable -continue on meloxicam 15 mg daily Assessment & Plan (12/28/2022 11:43 AM CDT): -chronic, not at/near goal -patient reports she was taking Mckean 5-325 mg every 6 hours as needed, but it does not seem to make a difference -refer to pain management Assessment & Plan (01/14/2021 11:28 AM CDT): Pain managed with meloxicam. Continue current therapy. Assessment & Plan (09/08/2020 10:16 AM CDT): Trial of meloxicam. May use acetaminophen and nclc-xte-drhmqls as needed for pain. Follow directions for use on packaging. Do not take any zpgf-jpe-afrcamy NSAIDs with meloxicam. History of renal calculi 10/18/201903/2023 Diuretic-induced hypokalemia 10/18/2019 12/20/2022 Assessment & Plan (03/01/2022 3:40 PM CDT): Asymptomatic. Labs ordered, will follow. Prescription refilled. Assessment & Plan (07/22/2021 7:40 PM STEEL FABRICATING SUPERVISOR): Asymptomatic. Patient increased her daily potassium on her own. Patient reports being on 30 meq daily while she was living in [place]. Labs ordered. Assessment & Plan (01/14/2021 11:28 [...] Management. Assessment & Plan (07/30/2020 2:54 PM STEEL FABRICATING SUPERVISOR): Continue to Zanaflex for relief Encounters Date Type Department Care Team Description 01/09/2025 Orders Only [facility] - [address] [phone] Delfina Mcgregor MD Dizzy (Primary Dx) 01/02/2025 8:53 AM CDT - 01/02/2025 11:59 PM CDT Hospital Encounter [facility] Cardiology [address] [place] [address] Dizzy Discharge Disposition: Discharge to home or self care 12/26/2024 8:30 AM CDT Office Visit [facility] at [address] [place] [address] Sandy Alejandro MD Primary hypertension (Primary Dx); Dizzy; Localized edema; Pure hypercholesterolemia 12/19/2024 12:30 PM CDT Office Visit [facility] Primary Care at [address] [place] [address] Doreen Strong NP Fatigue, unspecified type (Primary Dx); Sensory urge incontinence; Status post insertion of intrathecal pump; Class 1 obesity with body mass index (BMI) of 30.0 to 30.9 in adult, unspecified obesity type, unspecified whether serious comorbidity present 11/29/2024 Orders Only [facility] - [facility] [address] [place] [phone] Luci Mcgregor MD 11/28/2024 9:55 AM CDT Lab [address] [address] Urinary tract infection without hematuria, site unspecified 11/28/2024 9:51 AM CDT - 11/28/2024 11:59 PM CDT Hospital Encounter [facility] [address] [place] [address] SOB (shortness of breath) Discharge Disposition: Discharge to home or self care 11/28/2024 9:00 AM CDT Office Visit [facility] Primary Care at [address] [place] [address] Doreen Strong NP Middle ear effusion, unspecified laterality (Primary Dx); Urinary tract infection without hematuria, site unspecified; SOB (shortness of breath); Class 1 obesity with body mass index (BMI) of 31.0 to 31.9 in adult, unspecified obesity type, unspecified whether serious comorbidity present 11/28/2024 Results Follow-Up [facility] at [address] [address] Doreen Strong, LINNETTE Basic metabolic panel, eGFR, XR Chest Pa Lateral 2 Views 11/27/2024 Orders Only [facility] Primary Care at [address] [phone] Doreen Strong, LINNETTE Vertigo (Primary Dx) 11/26/2024 Telephone [facility] Primary Care at [address] [phone] Doreen Strong NP Referral Request 11/23/2024 Telephone [facility] Primary Care at [address] [phone] Doreen Strong NP Medication, Appt needed 11/17/2024 5:03 PM CDT - 11/17/2024 8:13 PM CDT Emergency [facility] Emergency Department [address] [place] [address] Jerson Hall MD Weakness (Primary Dx); Acute cystitis without hematuria Discharge Disposition: Discharge to home or self care 11/14/2024 4:00 PM CDT - 11/14/2024 11:59 PM CDT Hospital Encounter [facility] [address] [facility] [address] [place] [place] [address] Cesar Smith MD Status post insertion of intrathecal pump (Primary Dx) Discharge Disposition: Discharge to home or self care 11/09/2024 Telephone [facility] Primary Care at [address] [phone] Doreen Strong NP Medical Question/Miscellaneous 11/01/2024 1:00 PM CDT Office Visit [facility] Primary Care at [address] [address] Doreen Strong NP Dizziness (Primary Dx); Class 1 obesity with body mass index (BMI) of 31.0 to 31.9 in adult, unspecified obesity type, unspecified whether serious comorbidity present 11/01/2024 Orders Only [facility] Primary Care at [address] [place] [address] Doreen Strong, LINNETTE Obesity (BMI 30-39.9) (Primary Dx) 11/01/2024 Telephone [facility] Primary Care at [address] [address] Doreen Strong, HYDROELECTRIC POWERPLANT SUPERVISOR 11/01/2024 Orders Only [facility] Primary Care at [address] [phone] Doreen Strong, LINNETTE 10/31/2024 1:42 PM CDT - 10/31/2024 11:59 PM CDT Hospital Encounter [facility] [address] [place] [address] [address] [place] [place], [place] [phone] Cesar Smith MD Status post insertion of intrathecal pump (Primary Dx) Discharge Disposition: Discharge to home or self care 10/31/2024 Telephone [facility] Primary Care at [address] [phone] Doreen Strong NP Med Refill 10/31/2024 Orders Only [facility] Primary Care at [address] [phone] Doreen Strong, HYDROELECTRIC POWERPLANT SUPERVISOR 10/31/2024 Nurse Triage [facility] Primary Care at [address] [phone] Doreen Strong, LINNETTE 10/31/2024 Nurse Triage [facility] Primary Care at [address] [phone] Saniya Moon, ANTOINE 10/31/2024 Results Follow-Up [facility] Primary Care at [address] [phone] Doreen Strong, HYDROELECTRIC POWERPLANT SUPERVISOR TSH, T4, free, Vitamin B12, Vitamin D 25 hydroxy 10/31/2024 Telephone [facility] Primary Care at [address] [place] [phone] Doreen Strong NP 10/30/2024 3:15 PM CDT Office Visit [facility] [address] [place] [phone] Drake Rawls NP MACIEJ (obstructive sleep apnea) (Primary Dx); Hypersomnia with sleep apnea; Obesity (BMI 30.0-34.9); Memory loss 10/29/2024 1:55 PM CDT Lab [address] [address] Fatigue, unspecified type; Vitamin D deficiency 10/29/2024 1:00 PM CDT Office Visit [facility] Primary Care at [address] [place] [phone] Doreen Strong, LINNETTE Primary hypertension (Primary Dx); Fatigue, unspecified type; Vitamin D deficiency; Class 1 obesity with body mass index (BMI) of 31.0 to 31.9 in adult, unspecified obesity type, unspecified whether serious comorbidity present 10/24/2024 7:42 AM CDT Anesthesia Event [facility] Operating Room [address] [place] [address] Tae Self MD McDowell, Juri Osmell, MD 10/24/2024 7:30 AM CDT - 10/24/2024 9:15 AM CDT Surgery [facility] Operating Room [address] [place] [address] Cesar Smith MD intrathecal pain pump implant 10/24/2024 6:13 AM CDT - 10/24/2024 11:13 AM CDT Hospital Encounter [facility] Operating Room [address] [place] [address] Cesar Smith MD Adenocarcinoma of colon (HCC) [...] Alive Sister 2 Criss Alive Sister 3 Uadra Alive Sister 4 Beatriz Alive Social History Tobacco Use Types Packs/Day Years Used Date Smoking Tobacco: Never Smokeless Tobacco: Never Tobacco Cessation:Counseling Given: Not Answered Alcohol Use Standard Drinks/Week Comments No 0 (1 standard drink = 0.6 oz pur e alcohol) [facility] Utilities Answer Date Recorded In the past 12 months has e [employer], gas, oil, or water [employer] threatened to shut off services in your [...] often do you attend chur ch or anglican services? More than 4 times per year 12/19/2024 Do you belong to any clubs o r organizations such as temple groups, unions, fraternal or athletic groups, or [...] any time in the past 12 [facility], were you homeless or living in a mcc (including now)? No 12/19/2024 Personal Safety Answer Date Recorded Have you ever been in or are you currently in a harmful physical or emotional relationship or is someone making you feel afraid or unsafe? Denies 11/17/2024 Comments No Sex and Gender Information Value Date Recorded Sex Assigned at Not on file Legal Sex Female 8:34 AM STEEL FABRICATING SUPERVISOR Gender Identity Female 08/24/2021 12:33 PM CDT [...] Completed 05/31/2024 Medical Devices Implanted Type Area Worker'S Compensation Claims Examiner Device Identifier Shelf Expiration Date Model / Serial / Lot MapSense Jhonatan Obtryx Ii Precisionblue Advantage .15mm 22cm Sling Halo Needle [id number] - [id number] Implanted:Qty: 1 on 11/30/2022 by Morteza Connelly MD at [facility] N/A: Urethra [employer] Jhonatan [id number] 05/26/2025 [id number] / / [id number] [employer] Catheter Intrathecal Spinal Segment 2 Piece Silicone Ascenda [id number] - [id number] Implanted:Qty: 1 on 10/24/2024 by Cesar Smith MD at [facility] N/A: Back Med[employer] Inc 09/20/2026 [id number] / / [id number] Med[employer] U[employer] X Pump Infusion Programmable Ulp Ami 20ml Volume 8667-20 - [id number] - [id number] Implanted:Qty: 1 on 10/24/2024 by Cesar Smith MD at [facility] N/A: Back [employer] X 03/10/2026 8667-20 / [id number] H / N/A Procedures Procedure Name Priority [...] Negative Ketones, ur, POC Negative Negative Specific [place], POC 1.020 1.003 - 1.030 Blood, ur, POC Negative Negative pH, ur, POC 6.0 5.0 - 8.0 Protein, ur, POC Negative Negative Urobilinogen, urine, POC 0.2 0.2 - 1.0 mg/dL Nitrite, ur, POC Negative Negative Leukocytes, ur, POC Negative Negative Lot Number [id number] Urine 11/28/2024 10:2 4 AM CDT Doreen [...] signed by Lamberto MAYNARD: ALEYDA Report ID: [id number] Reading Location: [id number] Procedure Note Lamberto Tavarez MD - 11/28/2024 [...] signed by Lamberto MAYNARD: ALEYDA Report ID: [id number] Reading Location: [id number] Doreen Strong HYDROELECTRIC POWERPLANT SUPERVISOR IMG XR PROCEDURES Final Result * eGFR [...] Doreen Strong NP LAB BLOOD ORDERABLES Formerly [facility] Result [facility] ([place]) [address] Department [place] [address] * (ABNORMAL) Basic metabolic panel (11/28/2024 10:00 AM CDT) Sodium 142 135 - 145 mmol/L Potassium, pl 3.6 3.3 - 4.9 mmol/L [facility] ([place]) Chloride 103 97 - 110 mmol/L [facility] ([place]) CO2 27 22 - 32 mmol/L [facility] ([place]) Anion gap 13 2 - 15 mmol/L [facility] ([place]) BUN 13 6 - 25 mg/dL [facility] Creatinine 0.58(L) 0.60 - 1.10 mg/dL [facility] ([place]) Glucose 102 70 - 199 mg/dL JOSELINENER [...] Doreen Strong NP LAB BLOOD ORDERABLES [facility] Result [facility] ([place]) [address] [facility] Department [place] [address] * (ABNORMAL) Urinalysis reflex to microscopic and [...] tendency for uric acid stone formation. Source: [facility] Current Interpretive Data was last revised on 2017 Protein, ur ql Negative Negative [facility] ([place]) Glucose, ur ql Negative Negative [facility] ([place]) Ketones, ur Negative Negative [facility] ([place]) Bilirubin, ur Negative Negative [facility] ([place]) Blood, ur Negative Negative [facility] ([place]) Urobilinogen, ur <2.0 <2.0 mg/dL [facility] ([place]) Nitrite, ur Negative Negative [facility] ([place]) Leukocyte esterase, ur 2+(A) Negative [facility] ([place]) UA reflex comment Reflex to microscopic UA will be performed. [facility] ([place]) Urine 11/17/2024 6:27 PM CDT 11/17/2024 6:29 PM CDT Jerson Hall MD LAB MICROBIOLOGY - GENERAL ORD ERABLES Final Result Performing Organization Address [facility] Co de Phone Number [facility] ([place]) [address] [place] [address] * (ABNORMAL) Urinalysis, microscopic only (11/17/2024 6:27 PM CDT) WBC, ur 11-20(A) 0 - 5 /HPF RBC, ur 0-2 0 - 2 /HPF [facility] ([place]) Epithelial cells, squamous, ur 1-5 0 - 5 /HPF [facility] ([place]) Bacteria, ur 3+(A) [facility] ([place]) Culture Reflex Comment Reflex to urine culture will be performed. [facility] ([place]) Urine 11/17/2024 6:27 PM CDT 11/17/2024 6:29 PM CDT Jerson Hall MD LAB URINE ORDERABLES Final Res ult [facility] ([place]) [address] [place] [address] * Urine culture Urine (11/17/2024 6:27 PM CDT) Report Final Report: Less than 100,000 colonies/mL (clinically insignificant growth based on current clinical standards) Comment:Testing performed by : [facility], [address] [facility], [place]., [address] Organism (CLINICALLY INSIGNIFICANT GROWTH [facility] ([place]) Urine 11/17/2024 6:27 PM CDT 11/17/2024 10:36 PM CDT Narrative [facility] ([place]) - 11/19/2024 8:03 AM CDT Urine culture reflexed based upon urinalysis results. Testing performed by [facility] ([phone]) Jerson Hall MD LAB MICROBIOLOGY - GENERAL ORD ERABLES Final Result Performing Organization Address City/[facility]/ZIP Co de Phone Number [facility] ([place]) [address] [place] [address] * ECG 12 lead (11/17/2024 6:24 PM CDT) 11/17/2024 6:24 PM CDT Narrative [facility] - 11/19/2024 7:24 AM CDT Vent Rate: 74 bpm RR Interval: 808 msec MI Interval: 152 msec QRS Duration: 86 msec QT Interval: 393 msec QTC Interval: 420 msec P-R-T [place]: 33 - 12 - 22 degrees IMPRESSION: SINUS RHYTHM Leftward axis No significant change from prior EKG Electronically Signed By: Dr Luis You Jerson Hall MD ECG ORDERABLES Final Result Performing Organization Address [facility]/ZIP Co de Phone Number [facility] * Sepsis Lactate w/ Reflex (11/17/2024 5:26 PM CDT) Sepsis Lactate 1.4 0.7 - 2.0 mmol/L Blood 11/17/2024 5:26 PM CDT 11/17/2024 5:32 PM CDT Jerson Hall MD LAB BLOOD ORDERABLES Final Res ult Performing Organization Address City/[facility]/ZIP Co de Phone Number ROBBI DONNELLY ([place]) [address] [facility] [place] [address] * eGFR (11/17/2024 5:26 PM CDT) eGFR [...] LAB BLOOD ORDERABLES Final Res ult [facility] ([place] [place] [address] * (ABNORMAL) Differential, auto (11/17/2024 5:26 PM [...] Final Res ult ROBBI DONNELLY ([place]) 1 [facility] [place] [address] * (ABNORMAL) CBC with auto [...] Final Res ult [facility] ([place]) 1 [facility] [place] [address] * Blood culture Blood Peripheral (11/17/2024 5:26 PM CDT) Report Final Report: No growth Comment:Testing performed by : [facility], [address] [facility], [place]., [address] Blood (Peripheral) 11/17/2024 5:26 PM CDT 11/17/2024 [...] performance characteristics have been verified by the [facility]. For questions about this culture, contact the Microbiology Laboratory at [phone]. Interpretive data was last revised on 24. Jerson Hall MD LAB MICROBIOLOGY - GENERAL ORD ERABLES Final Result [facility] ([place]) 1 [facility] Department [place] [address] * (ABNORMAL) Comprehensive metabolic panel (11/17/2024 5:26 [...] BLOOD ORDERABLES Final Res ult ROBBI DONNELLY ([place]) 1 [facility] [place] [address] * Vitamin D 25 hydroxy (10/29/2024 2:04 PM CDT) Vitamin D 25-OH 67 30 - 80 ng/mL Blood 10/29/2024 2:04 PM CDT 10/29/2024 2:11 PM CDT Doreen Strong NP LAB BLOOD ORDERABLES Fi nal Result [facility] DON[facility] ([place]) [address] [facility] [place] [address] * (ABNORMAL) TSH (10/29/2024 2:04 PM CDT) Thyroid Stimulating Hormone 4.22(H) 0.30 - 4.20 mcIUnit/mL Blood 10/29/2024 2:04 PM CDT 10/29/2024 2:11 PM CDT Doreen Strong NP LAB BLOOD ORDERABLES Fi nal Result Performing Organization Address [facility] Co de Phone Number ROBBI DONNELLY ([place]) 1 [facility] [place] [address] * T4, free (10/29/2024 2:04 PM CDT) Free T4 1.60 0.90 - 1.70 ng/dL Blood 10/29/2024 2:04 PM CDT 10/29/2024 2:11 PM CDT Doreen Strong NP LAB BLOOD ORDERABLES Fi nal Result Performing Organization Address [facility] Co de Phone Number ROBBI DONNELLY ([place]) 1 [facility] [place] [address] * (ABNORMAL) Vitamin B12 (10/29/2024 2:04 PM CDT) Pathologist [facility] Vitamin B12 1,832(H) 230 - 1,250 pg/mL Blood 10/29/2024 2:04 PM CDT 10/29/2024 2:11 PM CDT Doreen Strong NP LAB BLOOD ORDERABLES Fi nal Result Performing Organization Address [facility] Co de Phone Number ROBBI DONNELLY ([place]) 1 [facility] [place] [address] * FL Fluoroscopy < 1 Hour (10/24/2024 [...] comparison 07/16/2024 . Dose area product equals 0.79889 mGym*2. Fluoroscopic images demonstrate an in progress likely pain pump placement . IMPRESSION: In progress likely pain pump placement. Recommend correlation with surgical report. THIS IS AN ELECTRONICALLY VERIFIED FINAL REPORT 10/29/2024 2:33 PM - Electronically signed by Winston Motley M.D. MF: TRAVIS Report ID: [id number] Reading Location: [id number] Procedure Note Winston Motley MD - 10/29/2024 EXAM DESCRIPTION: XR SPINE THORACIC 2 VIEWS REASON FOR STUDY: Back pain FINDINGS: Multiple fluoroscopic images consisting of 2 view(s) submitted with comparison 07/16/2024 . Dose area product equals 0.20643 mGym*2. Fluoroscopic images demonstrate an in progress likely pain pump placement. IMPRESSION: In progress likely pain pump placement. Recommend correlation withsurgical report. THIS IS AN ELECTRONICALLY VERIFIED FINAL REPORT 10/29/2024 2:33 PM - Electronically signed by Winston Motley M.D. MF: TRAVIS Report ID: [id number] Reading Location: [id number] Cesar Smith MD IMJoseline XR PROCEDURES Final Result * Dexa Axial Skeleton Bone Density 1 or 2 Site (03/23/2022 11:18 AM CDT) Anatomical Region Laterality Modality Body N/A Other 03/23/2022 9:41 PM CDT Narrative 03/23/2022 9:44 PM CDT EXAM DESCRIPTION: DEXA AXIAL SKELETON BONE DENSITY 1 OR MORE SITES REASON FOR STUDY: 76 y/o year old F with given history of screening. 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 MF: TRAVIS Report ID: [id number] Reading Location: [place] [address] Procedure Note Winston Motley MD - 03/23/2022 EXAM DESCRIPTION: DEXA AXIAL SKELETON BONE DENSITY 1 OR MORE SITES REASON FOR STUDY: 76 y/o year old F with given history ofscreening. Postmenopausal Worker'S Compensation Claims Examiner/Model: Clickyreserva SL (S/N [id number]) CLINICAL INFORMATION: Current height: 62.7 inches Maximum [...] Winston Motley M.D. MF: TRAVIS Report ID: [id number] Reading Location: [place] [address] Nini Sheehan DO IMG DXA PROCEDURES Final R esult from Last 3 Months or Most Recently Relevant to Health Maintenance Insurance MEDICARE MEDICARE [employer] [place] [address] [employer] SENIOR SUPPLEMENT MEDICARE A[employer] SENIOR SUPPLEMENT Advance Directives For more information, please contact: [phone] Documents on File Type Date Recorded Patient Monument Erector Expl anation ADVANCE DIRECTIVE 01/14/2021 11:23 AM [...] 10:07 AM 01/14/2023 10:07 AM Care Teams Tool Or Die Drawing Checker Relationship Specialty Start Date End Date Doreen Strong NP [address] [facility] [address] [place] [address] PCP - General Family Medicine 09/17/24 Carmen Eckert NP [address] [place] [address] Nurse Practitioner Psychiatry 09/08/20 Darwin Bejarano MD [address] [place] [address] Referring Physician Endocrinology 03/01/22 Cesar Smith MD [address] [place] [address] Consulting Physician Anesthesiology 08/08/23 Lucy Olivera NP [address] [place] [address] Anesthesiology 08/09/23 Sandy Alejandro MD [address] [place] [address] Consulting Physician Cardiology 08/22/23 Jeannette Lang MD [address] [place] [address] Consulting Physician Neurology 08/22/23 [place] [address] [facility] [address] [place], [place] [id number] Consulting Physician Urology 08/22/23 Winston Banuelos MD [address] [facility] [address] [place] [address] Consulting Physician Neurology 01/27/24 Teddy Butts MD [address] [facility] [address] [place] [address] Surgeon Orthopedic Surgery 01/27/24 Luci Mcgregor MD [address] [place] [address] Consulting Physician Otolaryngology 03/08/24
--- OUTSIDE RECORDS SUMMARY | 2025-01-11 23:08 | XMS_ITS ---
Author Organization [facility] [address] [facility] Address [address] [place] [address] Care Team Providers Care Loss Control Manager Name Role Phone Lana Eckertfer LINNETTE Unavailable Darwin Bejarano MD Unavailable Cesar Smith MD Unavailable [phone] Lucy Olivera NP Unavailable [phone] Sandy Alejandro MD Unavailable [phone] Jeannette Lang MD Unavailable Tee Connelly MD Unavailable [phone] Winston Banuelos MD Unavailable [phone] Teddy Butts MD Unavailable [phone] Luci Mcgregor MD Unavailable [phone] Doreen Strong NP Primary Care Provider Active [...] 06/01/2024 Assessment & Plan (06/01/2024 2:12 PM INSOLE AND OUTSOLE SPLITTER): - seen by ENT 04/2024 - has [...] 06/18/2023 Assessment & Plan (06/20/2023 10:35 AM INSOLE AND OUTSOLE SPLITTER): - recent diagnosis - was having elevated blood pressure, headaches - had workup in hospital admission and imaging - improved after better blood pressure management Esophageal polyp 05/16/2023 Assessment & Plan (06/20/2023 10:33 AM INSOLE AND OUTSOLE SPLITTER): - reports hx of esophageal polyp - seeing a GI provider in [place] soon - reports has had esophagus stretched 7 years ago as well Vitamin D deficiency 05/16/2023 Assessment & Plan (10/29/2024 2:37 PM CDT): -chronic, controlled -patient currently takes vitamin D3 supplement -will recheck lab value -continue current treatment plan Assessment & Plan (05/16/2023 3:13 PM INSOLE AND OUTSOLE SPLITTER): -chronic, unknown, no data to review at [...] 01/19/2023 Assessment & Plan (05/15/2024 3:48 PM INSOLE AND OUTSOLE SPLITTER): -ongoing complaint, not improved -patient reports experiencing [...] 08/20/2021 Assessment & Plan (05/16/2023 3:11 PM INSOLE AND OUTSOLE SPLITTER): Last colonoscopy completed 08/27/2021. Repeat in 5 [...] re-evaluation Assessment & Plan (05/31/2024 2:45 PM INSOLE AND OUTSOLE SPLITTER): Wt Readings from Last 3 Encounters: 05/31/24 [...] so Assessment & Plan (05/15/2024 3:45 PM INSOLE AND OUTSOLE SPLITTER): Wt Readings from Last 3 Encounters: 05/15/24 [...] so Assessment & Plan (08/09/2023 1:54 AM INSOLE AND OUTSOLE SPLITTER): Wt Readings from Last 3 Encounters: 08/08/23 79.7 kg (175 lb 11.2 oz) 08/04/23 79.8 kg (176 lb) 06/21/23 78.9 kg (174 lb) Body mass index is 32.13 kg/m . - chronic condition, not at goal - BMI Follow-up includes: nutrition counseling, exercise counseling and education - Co morbidities - hypertension Assessment & Plan (05/16/2023 3:10 PM INSOLE AND OUTSOLE SPLITTER): HPI: Condition is stable goal BMI <30 A&P: Healthy, high-protein, lower carbohydrate, lower fat lifestyle and exercise for 150min/week recommended Recommend tracking everything you put in your mouth on an yi like [employer]Alert Hand Measurements: A fist or cupped hand [...] in your mouth on an yi like [employer] Hand Measurements: A fist or cupped hand [...] recommended Assessment & Plan (07/22/2021 7:39 PM INSOLE AND OUTSOLE SPLITTER): Weight reduction, daily exercise and dietary modifications [...] 07/23/2020 Assessment & Plan (07/30/2020 2:55 PM INSOLE AND OUTSOLE SPLITTER): Referral to gyne for further evaluation Reviewed [...] plan Assessment & Plan (05/31/2024 2:42 PM INSOLE AND OUTSOLE SPLITTER): - chronic, stable with persistent symptoms - [...] be deficient or low, can still take pwlc-btv-naqpvfm vitamin B12 had low-level to see if it would help her symptoms Assessment & Plan (05/16/2023 3:11 PM INSOLE AND OUTSOLE SPLITTER): Patient reiterated no suicidal thoughts at this [...] plan Assessment & Plan (05/31/2024 2:42 PM INSOLE AND OUTSOLE SPLITTER): - chronic, stable with persistent symptoms - [...] psychiatry Assessment & Plan (05/16/2023 3:11 PM INSOLE AND OUTSOLE SPLITTER): Patient reiterated no suicidal thoughts at this [...] others. Assessment & Plan (07/30/2020 2:54 PM INSOLE AND OUTSOLE SPLITTER): Not well controlled, will continue lexapro and [...] plan Assessment & Plan (06/01/2024 2:10 PM INSOLE AND OUTSOLE SPLITTER): - chronic, stable - continue on levothyroxine 112 mcg daily - managed by endocrinology - Dr. Bejarano - labs being monitored by her clay pigeon loader - reviewed outside labs - states she does not plan to go back to an clay pigeon loader - recheck labs, order placed TSH 08/2023 - WNL Lab Results Component Value Date TSH 0.87 05/31/2024 Assessment & Plan (12/20/2023 4:49 PM CDT): - chronic, stable - continue on levothyroxine 112 mcg daily - managed by endocrinology - labs being monitored by her clay pigeon loader - reviewed outside labs Lab Results Component Value Date TSH 0.43 09/08/2020 Assessment & Plan (08/22/2023 2:16 PM CDT): - chronic, stable - continue on levothyroxine 112 mcg daily - continue seeing endocrinology - labs being monitored by her clay pigeon loader, has venkata ppointmetn coming up in few days Lab Results Component Value Date TSH 0.43 09/08/2020 Assessment & Plan (05/16/2023 3:11 PM INSOLE AND OUTSOLE SPLITTER): -chronic, stable -continue on levothyroxine 112 mcg daily -continue seeing endocrinology Assessment & Plan (12/28/2022 11:24 AM CDT): -chronic, stable -continue on levothyroxine 112 mcg daily -continue seeing endocrinology Assessment & Plan (03/01/2022 3:39 PM CDT): Managed by endocrinology. Asymptomatic, continue current prescription medications. Assessment & Plan (07/22/2021 7:38 PM INSOLE AND OUTSOLE SPLITTER): Patient will see an clay pigeon loader in a couple of weeks. She declines a TSH check today. Assessment & Plan (01/14/2021 11:26 AM CDT): Asx. Continue current therapy. Assessment & Plan (09/08/2020 10:13 AM CDT): Worsening anxiety and depression, labs ordered. Will follow. Assessment & Plan (07/30/2020 2:55 PM INSOLE AND OUTSOLE SPLITTER): Will continue to monitor TSH, continue synthroid 150 ucg Osteoporosis 10/27/2013 Overview (01/14/2021): Allergic to alendronate. Assessment & Plan (05/16/2023 3:11 PM INSOLE AND OUTSOLE SPLITTER): -chronic, stable -patient did not tolerate Fosamax [...] plan Assessment & Plan (06/01/2024 2:10 PM INSOLE AND OUTSOLE SPLITTER): BP Readings from Last 3 Encounters: 05/18/24 [...] management Assessment & Plan (08/08/2023 12:20 PM INSOLE AND OUTSOLE SPLITTER): BP Readings from Last 3 Encounters: 08/08/23 120/70 08/04/23 131/82 07/21/23 133/69 -chronic, stable -continue on losartan 50 mg daily (used to be on 25 mg Losartan) -recommend healthy, low-salt diet -continue seeing Cardiology - discussed to stop taking NSAIDs moving forward Assessment & Plan (06/20/2023 10:40 AM INSOLE AND OUTSOLE SPLITTER): BP Readings from Last 3 Encounters: 06/20/23 130/70 06/18/23 154/78 05/16/23 121/76 -chronic, stable -continue on losartan 50 mg daily (used to be on 25 mg Losartan) -recommend healthy, low-salt diet -continue seeing Cardiology - discussed to stop taking NSAIDs moving forward Assessment & Plan (05/16/2023 3:12 PM INSOLE AND OUTSOLE SPLITTER): -chronic, stable -continue on losartan 25 mg [...] medications. Assessment & Plan (07/22/2021 7:40 PM INSOLE AND OUTSOLE SPLITTER): Stable. Cont. Current prescription medications. Assessment & Plan (01/14/2021 11:16 AM CDT): Blood pressure at goal at less than 140/90. Continue current medications. Assessment & Plan (09/08/2020 10:12 AM CDT): Blood pressure at goal of less than 140/90. Continue current medications. Assessment & Plan (07/30/2020 2:55 PM INSOLE AND OUTSOLE SPLITTER): Stable, at target, continue current medications Pure hypercholesterolemia 10/27/2013 Assessment & Plan (05/31/2024 2:42 PM INSOLE AND OUTSOLE SPLITTER): -chronic, stable -patient does not take medication [...] 09/08/2020 Assessment & Plan (06/20/2023 10:23 AM INSOLE AND OUTSOLE SPLITTER): -chronic, stable -patient does not take medication [...] 09/08/2020 Assessment & Plan (05/16/2023 3:12 PM INSOLE AND OUTSOLE SPLITTER): -chronic, stable -patient does not take medication [...] follow. Assessment & Plan (07/22/2021 7:40 PM INSOLE AND OUTSOLE SPLITTER): LDL goal is < 100, patient nearing [...] plan Assessment & Plan (06/01/2024 2:10 PM INSOLE AND OUTSOLE SPLITTER): - established with pain management - -s/p [...] (08/20/2021): Added automatically from request for surgery [id number] Encounter for screening colonoscopy 08/20/2021 03/01/2022 Overview (08/20/2021): Added automatically from request for surgery [id number] S/P hysterectomy 09/08/2020 12/20/2022 Left lower quadrant [...] past - established with pain management at [facility] - she continues to use of [...] osteoarthritis. Assessment & Plan (08/09/2023 1:53 AM INSOLE AND OUTSOLE SPLITTER): - chronic, not well controlled - reports remote hx of 2 back surgeries - has been on meloxicam 15 mg daily ---> discussed about senior living risk of NSAID use so she Is [...] osteoarthritis. Assessment & Plan (06/20/2023 10:47 AM INSOLE AND OUTSOLE SPLITTER): - chronic, not well controlled - reports remote hx of 2 back surgeries - has been on meloxicam 15 mg daily ---> discussed about terminal gauger risk of NSAID use so she Is willing to stop using Meloxicam - states she used to get injections in her back - not established with pain management provider although she was referred by her PCP, willing at this time - new referral placed - she continues to use of Cymbalta 60 mg daily Assessment & Plan (05/16/2023 3:10 PM INSOLE AND OUTSOLE SPLITTER): -chronic, stable -continue on meloxicam 15 mg daily Assessment & Plan (12/28/2022 11:43 AM CDT): -chronic, not at/near goal -patient reports she was taking [place] 5-325 mg every 6 hours as needed, but it does not seem to make a difference -refer to pain management Assessment & Plan (01/14/2021 11:28 AM CDT): Pain managed with meloxicam. Continue current therapy. Assessment & Plan (09/08/2020 10:16 AM CDT): Trial of meloxicam. May use acetaminophen and hqjg-vgn-lipjamq as needed for pain. Follow directions for use on packaging. Do not take any wisx-bdk-fovbmpo NSAIDs with meloxicam. History of renal calculi 10/18/201903/2023 Diuretic-induced hypokalemia 10/18/2019 12/20/2022 Assessment & Plan (03/01/2022 3:40 PM CDT): Asymptomatic. Labs ordered, will follow. Prescription refilled. Assessment & Plan (07/22/2021 7:40 PM INSOLE AND OUTSOLE SPLITTER): Asymptomatic. Patient increased her daily potassium on [...] Management. Assessment & Plan (07/30/2020 2:54 PM INSOLE AND OUTSOLE SPLITTER): Continue to Zanaflex for relief
--- OUTSIDE RECORDS SUMMARY | 2025-01-11 23:08 | XMS_ITS | Referral Summary ---
Author Organization [facility] Address [address] [place] [address] Care Team Providers Care Registered Radiation Therapist Name Role Phone Babar Carmen LINNETTE Unavailable [phone] Darwin Bejarano MD Unavailable Cesar Smith MD Unavailable [phone] Lucy Olivera NP Unavailable [phone] Sandy Alejandro MD Unavailable [phone] Jeannette Lang MD Unavailable Tee Connelly MD Unavailable [phone] Winston Banuelos MD Unavailable [phone] Teddy Butts MD Unavailable [phone] Luci Mcgregor MD Unavailable [phone] Doreen Strong NP Primary Care Provider Encounters Date Type Department Care Team Description 01/09/2025 Orders Only [facility] - [facility] [address] [place] [phone] Delfina Mcgregor MD Dizzy (Primary Dx) 01/02/2025 8:53 AM CDT - 01/02/2025 11:59 PM CDT Hospital Encounter [facility] [address] [place] [address] Dizzy Discharge Disposition: Discharge to home or self care 12/26/2024 8:30 AM CDT Office Visit [employer] at [address] [place] [address] Sandy Alejandro MD Primary hypertension (Primary Dx); Dizzy; Localized edema; Pure hypercholesterolemia 12/19/2024 12:30 PM CDT Office Visit [facility] Primary Care at [address] [place] [address] Doreen Strong NP Fatigue, unspecified type (Primary Dx); Sensory urge incontinence; Status post insertion of intrathecal pump; Class 1 obesity with body mass index (BMI) of 30.0 to 30.9 in adult, unspecified obesity type, unspecified whether serious comorbidity present 11/29/2024 Orders Only [facility] - [facility] [address] [place] [address] [place] [phone] Luci Mcgregor MD 11/28/2024 Results Follow-Up [facility] Primary Care at [address] [phone] Doreen Strong NP Basic metabolic panel, eGFR, XR Chest Pa Lateral 2 Views 11/28/2024 9:55 AM CDT Lab [address] [phone] Urinary tract infection without hematuria, site unspecified 11/28/2024 9:51 AM CDT - 11/28/2024 11:59 PM CDT Hospital Encounter [facility] [address] [place] [address] SOB (shortness of breath) Discharge Disposition: Discharge to home or self care 11/28/2024 9:00 AM CDT Office Visit [facility] Primary Care at [address] [phone] Doreen Strong NP Middle ear effusion, unspecified laterality (Primary Dx); Urinary tract infection without hematuria, site unspecified; SOB (shortness of breath); Class 1 obesity with body mass index (BMI) of 31.0 to 31.9 in adult, unspecified obesity type, unspecified whether serious comorbidity present 11/27/2024 Orders Only [facility] Primary Care at [address] [phone] Doreen Strong, LINNETTE Vertigo (Primary Dx) 11/26/2024 Telephone [facility] Primary Care at [address] [phone] Doreen Strong NP Referral Request 11/23/2024 Telephone [facility] Primary Care at [address] [phone] Doreen Strong NP Medication, Appt needed 11/17/2024 5:03 PM CDT - 11/17/2024 8:13 PM CDT Emergency [facility] Emergency Department 1 [place] [address] Jerson Hall MD Weakness (Primary Dx); Acute cystitis without hematuria Discharge Disposition: Discharge to home or self care 11/14/2024 4:00 PM CDT - 11/14/2024 11:59 PM CDT Hospital Encounter [facility] [address] [facility] [address], [place] [place] [address] Cesar Smith MD Status post insertion of intrathecal pump (Primary Dx) Discharge Disposition: Discharge to home or self care 11/09/2024 Telephone [facility] Primary Care at [address] [phone] Doreen Strong NP Medical Question/Miscellaneous 11/01/2024 Orders Only [facility] Primary Care at [address] [phone] Doreen Strong NP Obesity (BMI 30-39.9) (Primary Dx) 11/01/2024 Telephone [facility] Primary Care at [address] [phone] Doreen Strong, FABRICATION MIG WELDER 11/01/2024 Orders Only [facility] Primary Care at [address] [phone] Doreen Strong, FABRICATION MIG WELDER 11/01/2024 1:00 PM CDT Office Visit [facility] Primary Care at [address] [phone] Doreen Strong, LINNETTE Dizziness (Primary Dx); Class 1 obesity with body mass index (BMI) of 31.0 to 31.9 in adult, unspecified obesity type, unspecified whether serious comorbidity present 10/31/2024 Telephone [facility] Primary Care at [address] [phone] Doreen Strong, LINNETTE Med Refill 10/31/2024 Orders Only [facility] Primary Care at [address] [phone] Doreen Strong, FABRICATION MIG WELDER 10/31/2024 Nurse Triage [facility] Primary Care at [address] [phone] Doreen Strong, FABRICATION MIG WELDER 10/31/2024 Nurse Triage [facility] Primary Care at [address] [phone] Saniya Moon RN 10/31/2024 Results Follow-Up [facility] Primary Care at [address] [phone] Doreen Strong, FABRICATION MIG WELDER TSH, T4, free, Vitamin B12, Vitamin D 25 hydroxy 10/31/2024 Telephone [facility] Primary Care at [address] [phone] Doreen Strong, FABRICATION MIG WELDER 10/31/2024 1:42 PM CDT - 10/31/2024 11:59 PM CDT Hospital Encounter [facility] [address] [place] [address] B[address] A, [place] [place] [address] Cesar Smith MD Status post insertion of intrathecal pump (Primary Dx) Discharge Disposition: Discharge to home or self care 10/30/2024 3:[address] PM [address]T Office [address] [facility] [address] [facility] [address] [place] [address] Drake Rawls NP MACIEJ (obstructive sleep apnea) (Primary Dx); Hypersomnia with sleep apnea; Obesity (BMI 30.0-34.9); Memory loss 10/29/2024 1:55 PM CDT Lab [address] [address] Fatigue, unspecified type; Vitamin D deficiency 10/29/2024 1:00 PM CDT Office Visit [facility] Primary Care at [place] [address] [facility] [place] [phone] Doreen Strong NP Primary hypertension (Primary Dx); Fatigue, unspecified type; Vitamin D deficiency; Class 1 obesity with body mass index (BMI) of 31.0 to 31.9 in adult, unspecified obesity type, unspecified whether serious comorbidity present 10/24/2024 7:30 AM CDT - 10/24/2024 9:15 AM CDT Surgery [facility] Operating [facility] [address] [place] [address] Cesar Smith MD intrathecal pain pump implant 10/24/2024 7:42 AM CDT Anesthesia Event [facility] [address] [place] [address] Tae Self MD McDowell, Juri Osmell, MD 10/24/2024 6:13 AM CDT - 10/24/2024 11:13 AM CDT Hospital Encounter [facility] [address] [place] [address] Cesar Smith MD Adenocarcinoma of colon (HCC) [...] 06/01/2024 Assessment & Plan (06/01/2024 2:12 PM APPLICATIONS PROGRAMMER ANALYST): - seen by ENT 04/2024 - has known hearing loss in both ears Acute diastolic congestive heart failure 024 Unsteady gait 01/24/2024 Memory loss 10/20/2023 Assessment & Plan (12/20/2023 4:59 PM CDT): Patient recently established care with Neurology Dr. Banuelos with complaint of neck pain as well as memory loss. Patient's score 27/30 on [place] cognitive assessment on 10/2023 Primary insomnia 09/30/2023 [...] 06/18/2023 Assessment & Plan (06/20/2023 10:35 AM APPLICATIONS PROGRAMMER ANALYST): - recent diagnosis - was having elevated blood pressure, headaches - had workup in hospital admission and imaging - improved after better blood pressure management Esophageal polyp 05/16/2023 Assessment & Plan (06/20/2023 10:33 AM APPLICATIONS PROGRAMMER ANALYST): - reports hx of esophageal polyp - seeing a GI provider in [place] soon - reports has had esophagus stretched 7 years ago as well Vitamin D deficiency 05/16/2023 Assessment & Plan (10/29/2024 2:37 PM CDT): -chronic, controlled -patient currently takes vitamin D3 supplement -will recheck lab value -continue current treatment plan Assessment & Plan (05/16/2023 3:13 PM APPLICATIONS PROGRAMMER ANALYST): -chronic, unknown, no data to review at [...] 01/19/2023 Assessment & Plan (05/15/2024 3:48 PM APPLICATIONS PROGRAMMER ANALYST): -ongoing complaint, not improved -patient reports experiencing [...] 08/20/2021 Assessment & Plan (05/16/2023 3:11 PM APPLICATIONS PROGRAMMER ANALYST): Last colonoscopy completed 08/27/2021. Repeat in 5 [...] re-evaluation Assessment & Plan (05/31/2024 2:45 PM APPLICATIONS PROGRAMMER ANALYST): Wt Readings from Last 3 Encounters: 05/31/24 [...] so Assessment & Plan (05/15/2024 3:45 PM APPLICATIONS PROGRAMMER ANALYST): Wt Readings from Last 3 Encounters: 05/15/24 [...] so Assessment & Plan (08/09/2023 1:54 AM APPLICATIONS PROGRAMMER ANALYST): Wt Readings from Last 3 Encounters: 08/08/23 79.7 kg (175 lb 11.2 oz) 08/04/23 79.8 kg (176 lb) 06/21/23 78.9 kg (174 lb) Body mass index is 32.13 kg/m . - chronic condition, not at goal - BMI Follow-up includes: nutrition counseling, exercise counseling and education - Co morbidities - hypertension Assessment & Plan (05/16/2023 3:10 PM APPLICATIONS PROGRAMMER ANALYST): HPI: Condition is stable goal BMI <30 A&P: Healthy, high-protein, lower carbohydrate, lower fat lifestyle and exercise for 150min/week recommended Recommend tracking everything you put in your mouth on an yi like [place] Hand Measurements: A fist or cupped hand [...] in your mouth on an yi like [place] Hand Measurements: A fist or cupped hand [...] recommended Assessment & Plan (07/22/2021 7:39 PM APPLICATIONS PROGRAMMER ANALYST): Weight reduction, daily exercise and dietary modifications [...] 07/23/2020 Assessment & Plan (07/30/2020 2:55 PM APPLICATIONS PROGRAMMER ANALYST): Referral to gyne for further evaluation Reviewed [...] plan Assessment & Plan (05/31/2024 2:42 PM APPLICATIONS PROGRAMMER ANALYST): - chronic, stable with persistent symptoms - [...] be deficient or low, can still take vszy-qvm-owpmapu vitamin B12 had low-level to see if it would help her symptoms Assessment & Plan (05/16/2023 3:11 PM APPLICATIONS PROGRAMMER ANALYST): Patient reiterated no suicidal thoughts at this [...] plan Assessment & Plan (05/31/2024 2:42 PM APPLICATIONS PROGRAMMER ANALYST): - chronic, stable with persistent symptoms - [...] psychiatry Assessment & Plan (05/16/2023 3:11 PM APPLICATIONS PROGRAMMER ANALYST): Patient reiterated no suicidal thoughts at this [...] others. Assessment & Plan (07/30/2020 2:54 PM APPLICATIONS PROGRAMMER ANALYST): Not well controlled, will continue lexapro and [...] plan Assessment & Plan (06/01/2024 2:10 PM APPLICATIONS PROGRAMMER ANALYST): - chronic, stable - continue on levothyroxine 112 mcg daily - managed by endocrinology - Dr. Bejarano - labs being monitored by her healthcare market consultant - reviewed outside labs - states she does not plan to go back to an healthcare market consultant - recheck labs, order placed TSH 08/2023 - WNL Lab Results Component Value Date TSH 0.87 05/31/2024 Assessment & Plan (12/20/2023 4:49 PM CDT): - chronic, stable - continue on levothyroxine 112 mcg daily - managed by endocrinology - labs being monitored by her healthcare market consultant - reviewed outside labs Lab Results Component Value Date TSH 0.43 09/08/2020 Assessment & Plan (08/22/2023 2:16 PM CDT): - chronic, stable - continue on levothyroxine 112 mcg daily - continue seeing endocrinology - labs being monitored by her healthcare market consultant, has venkata ppointmetn coming up in few days Lab Results Component Value Date TSH 0.43 09/08/2020 Assessment & Plan (05/16/2023 3:11 PM APPLICATIONS PROGRAMMER ANALYST): -chronic, stable -continue on levothyroxine 112 mcg daily -continue seeing endocrinology Assessment & Plan (12/28/2022 11:24 AM CDT): -chronic, stable -continue on levothyroxine 112 mcg daily -continue seeing endocrinology Assessment & Plan (03/01/2022 3:39 PM CDT): Managed by endocrinology. Asymptomatic, continue current prescription medications. Assessment & Plan (07/22/2021 7:38 PM APPLICATIONS PROGRAMMER ANALYST): Patient will see an healthcare market consultant in a couple of weeks. She declines a TSH check today. Assessment & Plan (01/14/2021 11:26 AM CDT): Asx. Continue current therapy. Assessment & Plan (09/08/2020 10:13 AM CDT): Worsening anxiety and depression, labs ordered. Will follow. Assessment & Plan (07/30/2020 2:55 PM APPLICATIONS PROGRAMMER ANALYST): Will continue to monitor TSH, continue synthroid 150 ucg Osteoporosis 10/27/2013 Overview (01/14/2021): Allergic to alendronate. Assessment & Plan (05/16/2023 3:11 PM APPLICATIONS PROGRAMMER ANALYST): -chronic, stable -patient did not tolerate Fosamax [...] plan Assessment & Plan (06/01/2024 2:10 PM APPLICATIONS PROGRAMMER ANALYST): BP Readings from Last 3 Encounters: 05/18/24 [...] management Assessment & Plan (08/08/2023 12:20 PM APPLICATIONS PROGRAMMER ANALYST): BP Readings from Last 3 Encounters: 08/08/23 120/70 08/04/23 131/82 07/21/23 133/69 -chronic, stable -continue on losartan 50 mg daily (used to be on 25 mg Losartan) -recommend healthy, low-salt diet -continue seeing Cardiology - discussed to stop taking NSAIDs moving forward Assessment & Plan (06/20/2023 10:40 AM APPLICATIONS PROGRAMMER ANALYST): BP Readings from Last 3 Encounters: 06/20/23 130/70 06/18/23 154/78 05/16/23 121/76 -chronic, stable -continue on losartan 50 mg daily (used to be on 25 mg Losartan) -recommend healthy, low-salt diet -continue seeing Cardiology - discussed to stop taking NSAIDs moving forward Assessment & Plan (05/16/2023 3:12 PM APPLICATIONS PROGRAMMER ANALYST): -chronic, stable -continue on losartan 25 mg [...] medications. Assessment & Plan (07/22/2021 7:40 PM APPLICATIONS PROGRAMMER ANALYST): Stable. Cont. Current prescription medications. Assessment & Plan (01/14/2021 11:16 AM CDT): Blood pressure at goal at less than 140/90. Continue current medications. Assessment & Plan (09/08/2020 10:12 AM CDT): Blood pressure at goal of less than 140/90. Continue current medications. Assessment & Plan (07/30/2020 2:55 PM APPLICATIONS PROGRAMMER ANALYST): Stable, at target, continue current medications Pure hypercholesterolemia 10/27/2013 Assessment & Plan (05/31/2024 2:42 PM APPLICATIONS PROGRAMMER ANALYST): -chronic, stable -patient does not take medication [...] 09/08/2020 Assessment & Plan (06/20/2023 10:23 AM APPLICATIONS PROGRAMMER ANALYST): -chronic, stable -patient does not take medication [...] 09/08/2020 Assessment & Plan (05/16/2023 3:12 PM APPLICATIONS PROGRAMMER ANALYST): -chronic, stable -patient does not take medication [...] follow. Assessment & Plan (07/22/2021 7:40 PM APPLICATIONS PROGRAMMER ANALYST): LDL goal is < 100, patient nearing [...] plan Assessment & Plan (06/01/2024 2:10 PM APPLICATIONS PROGRAMMER ANALYST): - established with pain management - -s/p [...] (08/20/2021): Added automatically from request for surgery [id number] Encounter for screening colonoscopy 08/20/2021 03/01/2022 Overview (08/20/2021): Added automatically from request for surgery [id number] S/P hysterectomy 09/08/2020 12/20/2022 Left lower quadrant [...] past - established with pain management at [facility] - she continues to use of Cymbalta [...] osteoarthritis. Assessment & Plan (08/09/2023 1:53 AM APPLICATIONS PROGRAMMER ANALYST): - chronic, not well controlled - reports remote hx of 2 back surgeries - has been on meloxicam 15 mg daily ---> discussed about exterminator helper risk of NSAID use so she [...] osteoarthritis. Assessment & Plan (06/20/2023 10:47 AM APPLICATIONS PROGRAMMER ANALYST): - chronic, not well controlled - reports remote hx of 2 back surgeries - has been on meloxicam 15 mg daily ---> discussed about exterminator helper risk of NSAID use so she Is willing to stop using Meloxicam - states she used to get injections in her back - not established with pain management provider although she was referred by her PCP, willing at this time - new referral placed - she continues to use of Cymbalta 60 mg daily Assessment & Plan (05/16/2023 3:10 PM APPLICATIONS PROGRAMMER ANALYST): -chronic, stable -continue on meloxicam 15 mg daily Assessment & Plan (12/28/2022 11:43 AM CDT): -chronic, not at/near goal -patient reports she was taking Avalon 5-325 mg every 6 hours as needed, but it does not seem to make a difference -refer to pain management Assessment & Plan (01/14/2021 11:28 AM CDT): Pain managed with meloxicam. Continue current therapy. Assessment & Plan (09/08/2020 10:16 AM CDT): Trial of meloxicam. May use acetaminophen and uyuw-iug-bxdndxx as needed for pain. Follow directions for use on packaging. Do not take any mnsi-koh-ckdzacm NSAIDs with meloxicam. History of renal calculi 10/18/201903/2023 Diuretic-induced hypokalemia 10/18/2019 12/20/2022 Assessment & Plan (03/01/2022 3:40 PM CDT): Asymptomatic. Labs ordered, will follow. Prescription refilled. Assessment & Plan (07/22/2021 7:40 PM APPLICATIONS PROGRAMMER ANALYST): Asymptomatic. Patient increased her daily potassium on her own. Patient reports being on 30 meq daily while she was living in [place]. Labs ordered. Assessment & Plan (01/14/2021 11:28 [...] Management. Assessment & Plan (07/30/2020 2:54 PM APPLICATIONS PROGRAMMER ANALYST): Continue to Zanaflex for relief Immunizations Immunization [...] drink = 0.6 oz pur e alcohol) [facility] Utilities Answer Date Recorded In the past 12 months has [employer] gas, oil, or water company threatened to [...] often do you attend chur ch or spiritism services? More than 4 times per year 12/19/2024 Do you belong to any clubs o r organizations such as pentecostalism groups, unions, fraternal or athletic groups, or [...] any time in the past 12 [facility], were you homeless or living in a care home (including now)? No 12/19/2024 Personal Safety Answer Date Recorded Have you ever been in or are you currently in a harmful physical or emotional relationship or is someone making you feel afraid or unsafe? Denies 11/17/2024 Comments No Sex and Gender Information Value Date Recorded Sex Assigned at Not on file Legal Sex Female 8:34 AM APPLICATIONS PROGRAMMER ANALYST Gender Identity Female 08/24/2021 12:33 PM CDT [...] on file Medical Devices Implanted Type Area Client Services Administrator Device Identifier Shelf Expiration Date Model / Serial / Lot [employer] Jhonatan Obtryx Ii Precisionblue Advantage .15mm 22cm Sling Halo Needle [id number] - [id number] Implanted:Qty: 1 on 11/30/2022 by Morteza Connelly MD at [facility] N/A: Urethra [employer] Jhonatan [id number] 05/26/2025 [id number] / / [id number] Medtronic Inc Catheter Intrathecal Spinal Segment 2 Piece Silicone Ascenda [id number] [id number] - [id number] Implanted:Qty: 1 on 10/24/2024 by Cesar Smith MD at [facility] N/A: Back Medtronic Inc 09/20/2026 [id number] / / [id number] Medtronic Usa [employer] X Pump Infusion Programmable Ulp Ami 20ml Volume 8667-20 - [id number] - [id number] Implanted:Qty: 1 on 10/24/2024 by Cesar Smith MD at [facility] N/A: Back [employer] X 03/10/2026 8667-20 / [id number] / N/A Procedures Procedure Name Priority [...] Negative Ketones, ur, POC Negative Negative Specific [place], POC 1.020 1.003 - 1.030 Blood, ur, POC Negative Negative pH, ur, POC 6.0 5.0 - 8.0 Protein, ur, POC Negative Negative Urobilinogen, urine, POC 0.2 0.2 - 1.0 mg/dL Nitrite, ur, POC Negative Negative Leukocytes, ur, POC Negative Negative Lot Number [id number] Urine 11/28/2024 10:2 4 AM CDT Doreen [...] signed by Lamberto MAYNARD: ALEYDA Report ID: [id number] Reading Location: [place] [address] Procedure Note Lamberto Tavarez MD - 11/28/2024 [...] Lamberto Tavarez M.D. KH: ALEYDA Report ID: [id number] Reading Location: [place] [address] Doreen Strong FABRICATION MIG WELDER IMG XR PROCEDURES Final Result * eGFR [...] NP LAB BLOOD ORDERABLES Fi nal Result [facility] ([place]) [address] [facility] Department [place] [address] * (ABNORMAL) Basic metabolic panel (11/28/2024 10:00 [...] ORDERABLES Fi nal Result Performing Organization Address City/[facility]/ZIP Co de Phone Number [facility] ([place]) [address] [facility] [place] [address] * (ABNORMAL) Urinalysis reflex to microscopic and [...] for uric acid stone formation. Source: [facility] Holla@Me Current Interpretive Data was last revised on [...] ERABLES Final Result [facility] ([place]) [address] [facility] [place] [address] * (ABNORMAL) Urinalysis, microscopic only (11/17/2024 6:27 [...] Final Res ult [facility] ([place]) 1 [facility] [place] [address] * Urine culture Urine (11/17/2024 6:27 PM CDT) Report Final Report: Less than 100,000 colonies/mL (clinically insignificant growth based on current clinical standards) Comment:Testing performed by : [facility], [address] [place] [address] Organism (CLINICALLY INSIGNIFICANT GROWTH [facility] ([place]) Urine 11/17/2024 6:27 PM CDT 11/17/2024 10:36 PM CDT Narrative [facility] ([place]) - 11/19/2024 8:03 AM CDT Urine culture reflexed based upon urinalysis results. Testing performed by [facility] Microbiology Laboratory ([phone]) Jerson Hall MD LAB MICROBIOLOGY - GENERAL ORD ERABLES Final Result [facility] ([place]) [address] [facility] Department of [place] [address] * ECG 12 lead (11/17/2024 6:24 PM CDT) 11/17/2024 6:24 PM CDT Narrative [facility] - 11/19/2024 7:24 AM CDT Vent Rate: 74 bpm RR Interval: 808 msec TN Interval: 152 msec QRS Duration: 86 msec QT Interval: 393 msec QTC Interval: 420 msec P-R-T [place]: 33 - 12 - 22 degrees IMPRESSION: SINUS RHYTHM Leftward axis No significant change from prior EKG Electronically Signed By: Dr Luis You Jerson Hall MD ECG ORDERABLES Final Result [facility] * Sepsis Lactate w/ Reflex (11/17/2024 5:26 PM CDT) Sepsis Lactate 1.4 0.7 - 2.0 mmol/L Blood 11/17/2024 5:26 PM CDT 11/17/2024 5:32 PM CDT Jerson Hall MD LAB BLOOD ORDERABLES Final Res ult [facility] ([address] Department [place] [address] * eGFR (11/17/2024 5:26 PM CDT) eGFR [...] MD LAB BLOOD ORDERABLES Final Res ult [facility] ([place]) [address] [facility] [place] [address] * (ABNORMAL) Differential, auto (11/17/2024 5:26 PM [...] Final Res ult [facility] ([place]) [address] [facility] Department of Laboratories [place] [id number] * (ABNORMAL) CBC with auto differential (11/17/2024 [...] BLOOD ORDERABLES Final Res ult [facility] ([place]) [address] [facility] [place] [address] * Blood culture Blood Peripheral (11/17/2024 5:26 PM CDT) Report Final Report: No growth Comment:Testing performed by : [facility], [address] [place]., [address] Blood (Peripheral) 11/17/2024 5:26 PM CDT 11/17/2024 [...] performance characteristics have been verified by the [facility] Microbiology Laboratory. For questions about this culture, contact the Microbiology Laboratory at [phone]. Interpretive data was last revised on 24. Jerson Hall MD LAB MICROBIOLOGY - GENERAL ORD ERABLES Final Result [facility] ([place]) [address] [facility] Department [place] [address] * (ABNORMAL) Comprehensive metabolic panel (11/17/2024 5:26 [...] BLOOD ORDERABLES Final Res ult ROBBI DONNELLY (ARROYO GRANDE) 1 [facility] [place] [address] * Vitamin D 25 hydroxy (10/29/2024 2:04 PM CDT) Vitamin D 25-OH 67 30 - 80 ng/mL Blood 10/29/2024 2:04 PM CDT 10/29/2024 2:11 PM CDT Doreen Strong NP LAB BLOOD ORDERABLES Fi nal Result Performing Organization Address [facility] Co de Phone Number ROBBI DONNELLY (ARROYO GRANDE) 1 [facility] [email or web address] [address] * (ABNORMAL) TSH (10/29/2024 2:04 PM CDT) Thyroid Stimulating Hormone 4.22(H) 0.30 - 4.20 mcIUnit/mL Blood 10/29/2024 2:04 PM CDT 10/29/2024 2:11 PM CDT Doreen Strong FABRICATION MIG WELDER LAB BLOOD ORDERABLES Fi nal Result Performing Organization Address City/[facility]/ZIP Co de Phone Number ROBBI DONNELLY (ARROYO GRANDE) 1 [facility] [email or web address] [address] * T4, free (10/29/2024 2:04 PM CDT) Free T4 1.60 0.90 - 1.70 ng/dL Blood 10/29/2024 2:04 PM CDT 10/29/2024 2:11 PM CDT Doreen Strong NP LAB BLOOD ORDERABLES Fi nal Result Performing Organization Address [facility] Co de Phone Number ROBBI DONNELLY (ARROYO GRANDE) 1 [facility] [email or web address] [address] * (ABNORMAL) Vitamin B12 (10/29/2024 2:04 PM CDT) Pathologist [facility] Vitamin B12 1,832(H) 230 - 1,250 pg/mL Blood 10/29/2024 2:04 PM CDT 10/29/2024 2:11 PM CDT Doreen Strong NP LAB BLOOD ORDERABLES Fi nal Result Performing Organization Address [facility] de Phone Number ROBBI DONNELLY (ARROYO GRANDE) 1 [facility] [email or web address] [address] * FL Fluoroscopy < 1 Hour (10/24/2024 8:37 AM CDT) Narrative [facility] - 10/24/2024 8:38 AM CDT The images from this study are not interpreted by Radiology. Please refer to the physician's procedure / OR operative note. Cesar Smith MD IMG FLUOROSCOPY PROCEDU RES Final Result Performing Organization Address [facility] de Phone Number [facility] * XR Spine Thoracic 2 Views (10/24/2024 8:37 AM CDT) Anatomical Region Laterality Modality Spine N/A Radio Fluoroscop y 10/29/2024 2:30 PM CDT Narrative 10/29/2024 2:33 PM CDT EXAM DESCRIPTION: XR SPINE THORACIC 2 VIEWS REASON FOR STUDY: Back pain FINDINGS: Multiple fluoroscopic images consisting of 2 view(s) submitted with comparison 07/16/2024 . Dose area product equals 0.74841 mGym*2. Fluoroscopic images demonstrate an in progress likely pain pump placement . IMPRESSION: In progress likely pain pump placement. Recommend correlation with surgical report. THIS IS AN ELECTRONICALLY VERIFIED FINAL REPORT 10/29/2024 2:33 PM - Electronically signed by Winston Motley M.D. MF: TRAVIS Report ID: [id number] Reading Location: [id number] Procedure Note Winston Motley MD - 10/29/2024 EXAM DESCRIPTION: XR SPINE THORACIC 2 VIEWS REASON FOR STUDY: Back pain FINDINGS: Multiple fluoroscopic images consisting of 2 view(s) submitted with comparison 07/16/2024 . Dose area product equals 0.95619 mGym*2. Fluoroscopic images demonstrate an in progress likely pain pump placement. IMPRESSION: In progress likely pain pump placement. Recommend correlation withsurgical report. THIS IS AN ELECTRONICALLY VERIFIED FINAL REPORT 10/29/2024 2:33 PM - Electronically signed by Winston Motley M.D. MF: TRAVIS Report ID: [id number] Reading Location: [id number] Cesar Smith MD IMG XR PROCEDURES Final Result * Dexa Axial Skeleton Bone Density 1 or 2 Site (03/23/2022 11:18 AM CDT) Anatomical Region Laterality Modality Body N/A Other 03/23/2022 9:41 PM CDT Narrative 03/23/2022 9:44 PM CDT EXAM DESCRIPTION: DEXA AXIAL SKELETON BONE DENSITY 1 OR MORE SITES REASON FOR STUDY: 76 y/o year old F with given history of screening. Postmenopausal Client Services Administrator/Model: Patient Conversation Media (S/N [id number]) CLINICAL INFORMATION: Current height: 62.7 inches Maximum [...] Winston Motley M.D. MF: TRAVIS Report ID: [id number] Reading Location: [place] [address] Procedure Note Winston Motley MD - 03/23/2022 EXAM DESCRIPTION: DEXA AXIAL SKELETON BONE DENSITY 1 OR MORE SITES REASON FOR STUDY: 76 y/o year old F with given history ofscreening. Postmenopausal Client Services Administrator/Model: Patient Conversation Media (S/N [id number]) CLINICAL INFORMATION: Current height: 62.7 inches Maximum [...] Winston Motley M.D. MF: TRAVIS Report ID: [id number] Reading Location: [place] [address] us Nini Sheehan DO IMG DXA PROCEDURES Final R esult from Last 3 Months or Most Recently Relevant to Health Maintenance Insurance MEDICARE MEDICARE [facility] AETNA SENIOR SUPPLEMENT MEDICARE [facility] Address: [address] [address] [place] [address] [employer] SENIOR SUPPLEMENT Advance Directives For more information, please contact: [phone] Documents on File Type Date Recorded Patient Bleach Chlorinator Expl anation ADVANCE DIRECTIVE 01/14/2021 11:23 AM [...] 10:07 AM 01/14/2023 10:07 AM Care Teams Registered Radiation Therapist Relationship Specialty Start Date End Date Doreen Strong NP [address] [place] [address] [address] [place] [address] PCP - General Family Medicine 09/17/24 Carmen Eckert NP [address] Barber [address] [facility] [address] [place] [address] Nurse Practitioner Psychiatry 09/08/20 Darwin Bejarano MD [address] Sunil [address] [facility] [address] [place] [address] Referring Physician Endocrinology 03/01/22 Cesar Smith MD [address] Sunil [address] [facility] [address] [place] [address] Consulting Physician Anesthesiology 08/08/23 Lucy Olivera, FABRICATION MIG WELDER [address] Sunil [address] [facility] [address] [place] [address] Anesthesiology 08/09/23 Sandy Alejandro MD [address] Sunil [address] [facility] [address] [place] [address] Consulting Physician Cardiology 08/22/23 Jeannette Lang MD [address] [facility] [address] [place] [address] Consulting Physician Neurology 08/22/23 [place] [address] [facility] [address] [address] Consulting Physician Urology 08/22/23 Winston Banuelos MD [address] [place] [address] [address] [place] [address] Consulting Physician Neurology 01/27/24 Teddy Butts MD [address] [place] [address] [address] ANNETTE Mcmanus [address] [place] [address] Surgeon Orthopedic Surgery 01/27/24 Luci Mcgregor MD [address] [address] Consulting Physician Otolaryngology 03/08/24
--- OUTSIDE RECORDS SUMMARY | 2025-01-11 23:08 | XMS_ITS | Encounter Summary ---
Author Organization [facility] Address [address] [place] [address] Care Team Providers Care Senior Mainframe Programmer Analyst Name Role Phone GunnarCarmen hernandez LINNETTE Unavailable [phone] Geetha Obrien NP Unavailable [phone] Nini Sheehan DO Primary Care Provider + [phone] Darwin Bejarano MD Unavailable Shayne Cyr MD Primary Care Provider Cesar Smith MD Unavailable [phone] Lucy Olivera NP Unavailable [phone] Sandy Alejandro MD Unavailable [phone] Jeannette Lang MD Unavailable Tee Connelly MD Unavailable [phone] Winston Banuelos MD Unavailable [phone] Teddy Butts MD Unavailable [phone] Luci Mcgregor MD Unavailable [phone] Cesar Smith MD Unavailable [phone] Doreen Strong NP Primary Care Provider Hammad Melendrez RN Unavailable [phone] Encounter Details Date Type Department Care Team (Late st Contact Info) Description 03/22/2022 Telephone [facility] [address] [place] [address] Olinda Reinoso, RT Social History Tobacco Use [...] on file 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 Gender Identity Female 08/24/2021 12:33 PM CDT Sexual Orientation Not on file documented as of this encounter Plan of Treatment Not on file documented as of this encounter Visit Diagnoses Not on filedocumented in this encounter Care Teams Senior Mainframe Programmer Analyst Relationship Specialty Start Date End Date Nini Sheehan DO [address] Sunil [address] [place] [address] PCP - General Family Medicine 01/13/21 12/19/22 Shayne Cyr MD [address] [facility] [address] [place] [address] PCP - General Family Medicine 08/04/23 09/16/24 Doreen Strong NP [address] [place] [address] [address] [place] [address] PCP - General Family Medicine 09/17/24 Carmen Eckert NP [address] Sunil [address] [place] [address] Nurse Practitioner Psychiatry 09/08/20 Geetha Obrien, NOTCHING MACHINE OPERATOR [address] Barber [facility] [address] [place] [address] Nurse Practitioner Obstetrics and Gynecology 09/08/20 12/27/22 Darwin Bejarano MD [address] Barber [facility] 2 [address] [place] [address] Referring Physician Endocrinology 03/01/22 Cesar Smith MD [address] Barber [facility] 2 [address] [place] [address] Consulting Physician Anesthesiology 08/08/23 Lucy Olivera, NOTCHING MACHINE OPERATOR [address] Barber [facility] 2 [facility] [address] [place] [address] Anesthesiology 08/09/23 Sandy Alejandro MD [address] Barber [facility] [address] [place] [address] Consulting Physician Cardiology 08/22/23 Jeannette Lang MD [address] Barber [facility] [address] [place] [address] Consulting Physician Neurology 08/22/23 [place] [address] [facility] [address] [place] [address] Consulting Physician Urology 08/22/23 Winston Banuelos MD [address] [place] [address] [address] [place] [address] Consulting Physician Neurology 01/27/24 Teddy Butts MD [address] [facility] [address] BRY[address] [facility] [address] [place] [address] Surgeon Orthopedic Surgery 01/27/24 Luci Mcgregor MD [address] [address] Consulting Physician Otolaryngology 03/08/24 Cesar Smith MD [address] [facility] [address] [place] [address] Consulting Physician Anesthesiology 05/31/24 05/31/24 Hammad Melendrez, ANTOINE [address] [place] [place] [address] [place] [address] Electric Range Assembler 11/20/24 12/18/24 documented as of this encounter
--- OUTSIDE RECORDS SUMMARY | 2025-01-11 23:08 | XMS_ITS | Clinical Summary ---
Author Organization [facility] Address [address] [place] [address] Phone Care Team Providers Care Camp Director Name Role Phone AguilaNini Santa SHAHID Primary Care Provider [phone] Darwin Bejarano MD Unavailable Allergies Active Allergy [...] 021 2:34 PM CDT) Yes Katrina Bateman, RN NEW GRADUATE Note: I want to get up off [...] Ready to change Department associated with goal: [facility] Steps to achieve goal: Patient counseled on stages of grief and tasks of mourning Patient counseled on aspects of healthy self care and a healthy routine Insurance MEDICARE [facility] Care Teams Camp Director Relationship Specialty Start Date End Date Nini Sheehan DO [address] [facility] [address] [place] [address] PCP - General Family Medicine 09/01/20 Darwin Bejarano MD [address] [facility] [address] [place] [address] Consulting Physician Endocrinology 02/05/22
== END 2025-01-11 23:02 | disposition left against medical advice (07) ==
DX: I10 Essential (primary) hypertension (principal)
CPT/HCPCS: 99199